=== PATIENT | male | born 1965 | race Caucasian/White ===

== ENCOUNTER 2023-06-25 16:36 | Emergency (ER) | payer OTHER, SELFPAY ==
[2023-06-25 16:42] VITALS: BP 132/72; PULSE 82; TEMP 36.8; O2SAT 97; BMI 27.1
--- NOTE | 2023-06-25 16:57 | CT_ITS ---
[address] [address] Patient Name: MICH BECK MRN: [id number] date: 1965 Sex: M Assigned Patient Location: ER Current Patient Location: ER Accession/Order Number: [id number] Exam Date: 06/25/2023 17:38 Report Date: 06/25/2023 18:15 At the request of: GALE DAVE Procedure: CT lumbar spine wo con EXAMINATION:CT lumbar spine wo con HISTORY:Low back pain COMPARISON:CT abdomen pelvis dated 09/08/2021. TECHNIQUE:Multiple thin section transaxial slices were acquired through the lumbar spine without contrast. Coronal and sagittal reconstructed images were reviewed. FINDINGS: There is normal alignment of the lumbar spine without spondylolisthesis. There is levoscoliotic curvature of the lumbar spine. There is a stable chronic compression deformity of the L1 vertebral body involving approximately 30% loss of height. There is no retropulsion. There are no acute compression fractures in the lumbar spine. There are bilateral L5 pars defects. There is moderate multilevel degenerative disc disease in the lumbar spine most severe at the L3-L4 level slightly accentuated by the scoliotic curvature. There is mild to moderate asymmetric left L3-L5 bony neural foraminal stenosis and mild asymmetric right L4-L5 bony neural foraminal stenosis. Visualized bony pelvis is intact. Incidental note is made of incomplete splenomegaly. There is also cholelithiasis. There are nonspecific inflammatory changes in the mesenteric fat in the visualized left lower quadrant. CT/CT lumbar spine wo con IMPRESSION: 1. Stable chronic compression deformity of the L1 vertebral body. No acute compression fractures. Moderate multilevel degenerative disc disease is present as discussed above. 2. Incompletely imaged and indeterminate mesenteric fat stranding in the visualized left lower quadrant. A dedicated contrast-enhanced CT scan of the abdomen and pelvis is recommended for better characterization of this finding. 3. The visualized spleen demonstrates splenomegaly. Electronically authenticated by: MARQUITA CHEEK Date: 06/25/2023 18:15
--- NOTE | 2023-06-25 16:59 | ED.BACK1 ---
HPI HPI - Back Pain/Injury General Chief Complaint: Back Pain/Injury Stated Complaint: Lower Exremity Pain Time Seen by Provider: 06/25/23 16:49 Source: patient Mode of arrival: walk-in History of Present Illness HPI Narrative: Patient is a 57-year-old male presents to the ER with concerns of low back pain. Patient reports pain started on Monday, denies injury. States he can stand for a little while before pain starts to develop, he then has to sit. Pain slowly subsides after several hours. He denies any radiation to his legs. He has chronic appearing edema in the lower legs denies any bowel or bladder incontinence or saddle paresthesias. Patient reports the pain can be significant with standing and activity. He is treated for fluid prior history of heroin abuse and is on Subutex, Gabapentin, but does not see a family doctor for routine care.. Alcohol 2 twisted teas And smokes 1 pack/day Reviewed prior medical records at our facility patient had a CT of the abdomen and pelvis on 09/08/2021 with abnormal findings but did not have any follow-up to another clinic with this. MD elicited complaint: Reports back pain Timing: Reports progressively worsening Severity: moderate Similar Symptoms Previously: Yes Quality: Reports aching Location: Reports lumbar spine Radiation: Reports none Exacerbating factors: Reports sitting upright, walking and lifting Relieving factors: Reports supine Associated symptoms: denies other symptoms Related Data Home Medications ?Medication ?Instructions ?Recorded ?Confirmed buprenorphine HCl 8 mg sublingual mg sublingual 06/25/23 tablet gabapentin 300 mg capsule mg 06/25/23 quetiapine 200 mg tablet mg 06/25/23 Previous Rx's ?Medication ?Instructions ?Recorded prednisone 20 mg tablet 20 mg PO BID 5 days #10 tabs 06/25/23 Allergies Allergy/AdvReac Type Severity Reaction Status Date / Time No Known Drug Allergies Allergy Verified 06/25/23 16:46 Opioid HPI Opioid Management Most Recent Opioid Data: Last APR Pain Assessment 06/25/23 17:17 Review of Systems ROS Constitutional Denies: fever or chills Eyes Denies: change in vision Ears, nose, mouth, and throat Denies: throat pain or neck pain Cardiovascular Denies: chest pain or palpitations Respiratory Denies: shortness of breath or cough Gastrointestinal Denies: abdominal pain, nausea or vomiting Genitourinary Denies: painful urination or urinary frequency Musculoskeletal Reports: back pain and extremity swelling; Denies: neck pain, extremity pain or joint swelling Integumentary/Breast Reports: redness (bilateral lower legs. ); Denies: rash Neurological Denies: headache, numbness in extremities or weakness in extremities Psychiatric Denies: anxiety Hematologic/Lymphatic Denies: easy bruising Allergic/Immunologic Denies: hives Exam Narrative Exam Narrative: Vital Signs reviewed and nurse's notes reviewed. The patient is not hypoxic. General: Alert, no acute distress, patient resting comfortably Skin: warm, intact, no pallor noted, no rash, This dependent rubor/ erythema is noted bilateral lower legs, justen wrap on left leg. Head: Normocephalic, atraumatic Eye: Normal conjunctiva, EOMI Respiratory: No acute distress Abdomen: Normal bowel sounds, soft, nontender, no masses detected. Large ventral hernia. No rebound, guarding, or rigidity noted. No midline pulsatile mass. Back: inspection of the back shows no obvious deformity, no swelling, no ecchymosis, contusion, abrasion, swelling, erythema, fluctuance or induration. No step offs or crepitus noted. No CVA tenderness noted bilaterally. Tenderness noted to Paraverterbal lumbar region . Straight leg raise on left is neg . Straight leg raise on right is neg. Musculoskeletal: No deformity noted to bilateral lower extremities. 4+ edema with dependent skin changes.no cyanosis or mottling noted. normal pulses at DP and PT 2+ bilaterally and symmetrically. Normal 5/5 strength at ankles with dorsiflexion and plantar flexion. Patient is able to ambulate. Normal sensation noted to the bilateral lower extremities. Neurological: alert and oriented x4, normal sensory and motor observed. DTR 2+ at patellar and achilles bilaterally. Psychiatric: Cooperative Constitutional Vital Signs, click to edit/add: Last Vital Signs Temp 98.2 F 06/25/23 16:42 Pulse 82 06/25/23 16:42 BP 132/72 06/25/23 16:42 Pulse Ox 97 06/25/23 16:42 O2 Del Method Room Air 06/25/23 16:42 Course Vital Signs Vital signs: Vital Signs Temperature 98.2 F 06/25/23 16:42 Pulse Rate 82 06/25/23 16:42 Blood Pressure 132/72 04/28/24 16:42 Pulse Oximetry 97 06/25/23 16:42 Oxygen Delivery Method Room Air 06/25/23 16:42 Temperature 98.2 F 06/25/23 16:42 Pulse Rate 82 06/25/23 16:42 Blood Pressure 132/72 06/25/23 16:42 Pulse Oximetry 97 06/25/23 16:42 Oxygen Delivery Method Room Air 06/25/23 16:42 MDM - Back Pain/Injury MDM Narrative Medical decision making narrative: Remote abdominal CT reviewed, patient had abnormal lymph nodes, Reports no follow-up to the study. Given back pain and patient with slight diaphoresis on arrival recommend CT and labs. Patient reevaluated, appears much improved, moving about the room in no distress and no longer sweaty, we discussed his lab studies, anemia. CT showing degenerative changes stable remote L1 compression fracture and we discussed the need for ongoing follow-up to a family doctor for possible further testing and referral to possible pain management. Patient verbalized understanding, we discussed the abnormalities on his CT including fat stranding, the anemia and his blood work. Patient verbalized plan to establish PCP to discuss ongoing care. Given his current medications we will avoid narcotics and he will be placed on a prednisone burst pending follow-up The patient is to followup with primary care physician in next 2-3 days or to return to the emergency department should any of the signs or symptoms worsen or new symptoms develop. Patient had questions answered. The patient agrees with the following Diagnosis and Treatment plan and the patient will be discharged home. Medical Records Attestation: I reviewed the patient's medical records. Medical records narrative: Prior CT 2021 Lab Data Attestation: I reviewed the patient's lab results. Labs: Lab Results 06/25/23 06/25/23 Range/Units 17:15 17:46 WBC 4.8 (4.0-11.0) 10^3/uL RBC 3.23 L (4.70-6.10) 10^6/uL Hgb 10.0 L (14.0-18.0) g/dL Hct 30.6 L (42.0-54.0) % MCV 94.7 H (80.0-94.0) fL MCH 31.0 (25.9-34.0) pg MCHC 32.7 (29.9-35.2) g/dL RDW 16.8 H (11.0-15.0) % Plt Count 85 L (150-450) 10^3/uL MPV 9.1 L (9.5-13.5) fL Neut % (Auto) 59.7 (43.0-75.0) % Lymph % (Auto) 29.6 (20.5-60.0) % [place] % (Auto) 8.4 (1.7-12.0) % Eos % (Auto) 1.7 (0.9-7.0) % Baso % (Auto) 0.4 (0.2-2.0) % Neut # (Auto) 2.9 (1.4-6.5) 10^3/uL Lymph # (Auto) 1.4 (1.2-3.8) 10^3/uL [place] # (Auto) 0.4 (0.3-0.8) 10^3/uL Eos # (Auto) 0.1 (0.0-0.7) 10^3/uL Baso # (Auto) 0.0 (0.0-0.1) 10^3/uL Abs Immat Gran (auto) 0.01 (0.00-0.03) 10^3/uL Imm/Tot Granulo (auto) 0.2 (0.0-0.5) % Sodium 136 (136-145) mmol/L Potassium 4.1 (3.5-5.1) mmol/L Chloride 100 (98-107) mmol/L Carbon Dioxide 26.1 (21.0-32.0) mmol/L Anion Gap 14.0 BUN 9.0 (7.0-18.0) mg/dL Creatinine 0.84 (0.70-1.30) mg/dL Est GFR ( Amer) >60 (>=60) Est GFR (Non-Af Amer) >60 (>=60) BUN/Creatinine Ratio 10.7 Glucose 83 (74-106) mg/dL Calcium 8.9 (8.5-10.1) mg/dL Total Bilirubin 0.6 (0.2-1.0) mg/dL AST 23 (15-37) U/L ALT 14 L (16-63) U/L Alkaline Phosphatase 82 (46-116) U/L Total Protein 8.2 (6.4-8.2) g/dL Albumin 3.4 (3.4-5.0) g/dL Globulin 4.8 g/dL Albumin/Globulin Ratio 0.7 Urine Color Dk. yellow (YELLOW) Urine Clarity Clear (CLEAR) Urine pH 6.0 (5.0-9.0) Ur Specific [place] 1.025 (1.005-1.025) Urine Protein Negative (NEG/TRACE) mg/dL Urine Glucose (UA) Negative (NEGATIVE) mg/dL Urine Ketones Trace A (NEGATIVE) mg/dL Urine Occult Blood Negative (NEGATIVE) Urine Nitrite Negative (NEGATIVE) Urine Bilirubin Small A (NEGATIVE) Urine Urobilinogen 2.0 A (0.2-1.0) EU/dL Ur Leukocyte Esterase Negative (NEGATIVE) Imaging Data L spine CT: Radiologist's impression: ITS Impressions Lumbar Spine CT 06/25/23 16:57 IMPRESSION: 1. Stable chronic compression deformity of the L1 vertebral body. No acute compression fractures. Moderate multilevel degenerative disc disease is present as discussed above. 2. Incompletely imaged and indeterminate mesenteric fat stranding in the visualized left lower quadrant. A dedicated contrast-enhanced CT scan of the abdomen and pelvis is recommended for better characterization of this finding. 3. The visualized spleen demonstrates splenomegaly. Electronically authenticated by: MARQUITA CHEEK Date: 06/25/2023 18:15 Smoking Cessation Patient Acknowledges Need for Cessation: Yes Discharge Plan Discharge Stand Alone Forms: Portal Instructions Chief Complaint: Back Pain/Injury Clinical Impression: Low back pain, Anemia Patient Disposition: Home, Self-Care Time of Disposition Decision: 18:34 Condition: Good Prescriptions / Home Meds: New prednisone 20 mg tablet 20 mg PO BID 5 Days Qty: 10 0RF No Action quetiapine 200 mg tablet gabapentin 300 mg capsule buprenorphine HCl 8 mg tablet, sublingual SUBLINGUAL Print Language: Swedish Instructions: Acute Low Back Pain (ED), Anemia (ED) Additional Instructions: List given for PCP accepting new Pt's Referrals: Varghese Palafox MD [Physician] - As soon as possible
[2023-06-25] MEDS: ORPHENADRINE 60 MG/ 2 ML VIAL IM (17:16)
[2023-06-25] MEDS: KETOROLAC TROMETHAMINE 60 MG/2 ML VIAL IM (17:17)
[2023-06-25 17:23] LABS: Basophils Percent Auto 0.4 % (0.2-2.0); Eosinophils Absolute Auto 0.1 10^3/uL (0.0-0.7); Eosinophils Percent Auto 1.7 % (0.9-7.0); Hematocrit 30.6 % (42.0-54.0); Immature Granulocytes Abs Auto 0.01 10^3/uL (0.00-0.03); Immature Granulocytes Pct Auto 0.2 % (0.0-0.5); Lymphocytes Absolute Auto 1.4 10^3/uL (1.2-3.8); Lymphocytes Percent Auto 29.6 % (20.5-60.0); Mean Corpuscular HGB Conc 32.7 g/dL (29.9-35.2); Mean Corpuscular Volume 94.7 fL (80.0-94.0); Mean Platelet Volume 9.1 fL (9.5-13.5); Monocytes Absolute Auto 0.4 10^3/uL (0.3-0.8); Monocytes Percent Auto 8.4 % (1.7-12.0); Neutrophils Absolute Auto 2.9 10^3/uL (1.4-6.5); Neutrophils Percent Auto 59.7 % (43.0-75.0); Platelet Count 85 10^3/uL (150-450); Red Blood Count 3.23 10^6/uL (4.70-6.10); Red Cell Distribution Width 16.8 % (11.0-15.0); White Blood Count 4.8 10^3/uL (4.0-11.0)
[2023-06-25 17:36] LABS: Alanine Aminotransferase 14 U/L (16-63); Albumin Globulin Ratio 0.7; Albumin Level 3.4 g/dL (3.4-5.0); Alkaline Phosphatase 82 U/L (46-116); Aspartate Amino Transferase 23 U/L (15-37); BUN Creatinine Ratio 10.7; Bilirubin Total 0.6 mg/dL (0.2-1.0); Calcium 8.9 mg/dL (8.5-10.1); Carbon Dioxide 26.1 mmol/L (21.0-32.0); Chloride 100 mmol/L (98-107); Estimated GFR (African America >60 (>=60); Estimated GFR (Non-African Ame >60 (>=60); Globulin 4.8 g/dL; Glucose 83 mg/dL (74-106); Potassium 4.1 mmol/L (3.5-5.1); Sodium 136 mmol/L (136-145); Total Protein 8.2 g/dL (6.4-8.2)
[2023-06-25 17:53] LABS: Bilirubin Urine SMALL (NEGATIVE); Blood Urine NEGATIVE (NEGATIVE); Clarity Urine CLEAR (CLEAR); Color Urine DK. YELLOW (YELLOW); Glucose Urine UA NEGATIVE (NEGATIVE); Ketones Urine TRACE mg/dL (NEGATIVE); Leukocyte Esterase Urine NEGATIVE (NEGATIVE); Nitrite Urine NEGATIVE (NEGATIVE); Protein Urine NEGATIVE (NEG/TRACE); Specific Gravity Urine 1.025 (1.005-1.025)
[2023-06-25 17:54] LABS: Urine Microscopic Indicated NO
[2023-06-25] MEDS: PREDNISONE 20 MG TABLET 40 MG PO (18:43)
== END 2023-06-25 18:50 | disposition home or self-care (01) ==
PROVIDERS: Personal Emergency Response Attendant; Emergency Provider Emergency Medicine Emergency Medical Services
DX: D64.9 Anemia, unspecified (principal); M54.50 Low back pain, unspecified; F17.210 Nicotine dependence, cigarettes, uncomplicated; Z79.899 Other long term (current) drug therapy
CPT/HCPCS: 36415; 72131; 80053; 81003; 85025; 96372; 99285

== ENCOUNTER 2023-07-04 14:17 | Emergency (ER) | payer OTHER, SELFPAY ==
[2023-07-04] VITALS (8 sets, daily range): BP systolic 132–177; BP diastolic 58–94; PULSE 60–84; TEMP 36.6; O2SAT 93–99; BMI 36.6
--- OUTSIDE RECORDS SUMMARY | 2023-07-04 14:27 | XMS_ITS | CCD ---
Author Organization [facility] Care Team Providers Care Graphic Artist Name Role Phone Coleen Snider Primary Care Provider [phone] Kristi Anglin Attending Provider NEELA, DR VEGA Primary Care Unavailable FRANCES BALDERRAMA Attending Unavailable FRANCES BALDERRAMA Consulting Unavailable FRANCES BALDERRAMA Admitting Unavailable NANCY CAMPOS Attending Unavailable NANCY CAMPOS Consulting Unavailable NANCY CAMPOS Admitting Unavailable NEELA, DR VEGA Primary Care Unavailable VELIA DE LA VEGA Consulting Unavailable DR GARY KEITA Primary Care Unavailable DR CHIARA WEBB Attending Unavailable DR CHIARA WEBB Admitting Unavailable LAUREN LE Consulting Unavailable ANDREA NG Consulting Unavailable Unavailable Unavailable Unavailable Allergies Allergy Classification Reported Allergen(s) Allergy Type Date of Onset Reaction(s) Facility (2 sources) meloxicam Drug Allergy 04-06-2020 [facility] (1 source) meloxicam Drug Allergy 01-16-2015 [facility] Repository Medications Current Medications Medication Drug Class(es) Dates Sig (Normalized) Sig (Original) buprenorphine 8 mg / naloxone 2 mg oral strip (2 sources) Partial Opioid Agonist, Opioid Antagonist Start: 04-06-2020 Buprenorphine-Nal oxone (Suboxone) 8-2 mg film Active 8 EACH SUBLINGUAL Daily April 06, 2020 2:11pm ofloxacin 3 mg/ml ophthalmic solution (2 sources) Quinolone Antimicrobial Start: 04-06-2020 take 1 drop(s) into the eye(s) four times daily Ofloxacin Active 1 DROPS EYE-LEFT Four times daily April 06, 2020 2:11pm prednisoLONE acetate 10 mg/ml ophthalmic suspension (2 sources) Corticosteroid Start: 04-06-2020 take 1 drop(s) into the eye(s) four times daily Prednisolone Acetate Active 1 DROPS EYE-LEFT Four times daily April 06, 2020 2:11pm QUEtiapine 200 mg oral tablet (4 sources) Atypical Antipsychotic Start: 04-06-2020 take 1 tablet by mouth once daily at bedtime Quetiapine (Seroquel) 200 mg Tablet Active 200 MG PO Daily at bedtime April 06, 2020 2:11pm Start: 04-06-2020 take 1 tablet by sameer th once daily in the morning Quetiapine (Seroquel) 400 mg Tablet Active 400 MG PO Every morning April 06, 2020 2:11pm Problems Active Problems Problem Classification Problem Date Documented Da te Episodic/Chronic Lymphadenitis (1 source) Generalized enlarged lymph nodes; Translations: [GENERALIZED ENLARGED LYMPH NODES] Onset: 09-10-2021 Episodic Other aftercare (1 source) Other shelter (current) drug therapy; Translations: [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] Onset: 09-10-2021 Episodic Other infections; including parasitic (1 source) Personal history of other infectious and parasitic diseases; Translations: [PERSONAL HX OTH INF AND PARASITIC DZ] Onset: 09-10-2021 Episodic Peripheral and visceral atherosclerosis (1 source) Peripheral vascular disease, unspecified; Translations: [PERIPHERAL VASCULAR DISEASE UNS] Onset: 10-05-2020 Chronic Spondylosis; intervertebral disc disorders; other back problems (2 sources) Spondylosis without myelopathy or radiculopathy, lumbar region; Translations: [Spondylosis without myelopathy or radiculopathy, thoracic region] Onset: 09-10-2021 Chronic Substance-related disorders (2 sources) Nicotine dependence, cigarettes, uncomplicated; Translations: [Opioid abuse, uncomplicated] Onset: 09-10-2021 Chronic Unclassified (3 sources) LOW BACK PAIN, UNSPECIFIED; Translations: [LOW BACK PAIN, UNSPECIFIED] Onset: 09-10-2021 Past or Other Problems Problem Classification Problem Date Documented Da te Episodic/Chronic Abdominal pain (4 sources) Unspecified abdominal pain; Translations: [UNSPECIFIED ABDOMINAL PAIN] Onset: 10-01-2020 Episodic Calculus of urinary tract (1 source) Personal history of urinary calculi; Translations: [PERSONAL HISTORY OF URINARY CALCULI] Onset: 09-22-2020 Episodic Spondylosis; intervertebral disc disorders; other back problems (1 source) Dorsalgia, unspecified; Translations: [DORSALGIA UNSPECIFIED] Onset: 10-05-2020 Episodic Unclassified (1 source) LOW BACK PAIN, UNSPECIFIED; Translations: [LOW BACK PAIN, UNSPECIFIED] Onset: 09-08-2021 Results Test Name Value Interpretation Reference Range Facility CBC AUTO DIFFon 09-08-2021 BASO # 0.0 103/ul Normal 0.0-0.1 [facility] Comment on above: Performed By: #### C BC #### [facility] [address] [address] [address] Cristina Nino Basophils/100 WBC (Bld) 0.5 % Normal 0.2-2.0 [facility] Comment on above: Performed By: #### C BC #### [facility] [address] [place] [address] Dr. Cristina Nino EO # 0.1 103/ul Normal 0.0-0.7 [facility] Comment on above: Performed By: #### C BC #### [facility] [address] [place] [address] Dr. Cristina Nino Eosinophils/100 WBC (Bld) 0.9 % Normal 0.9-7.0 [facility] Comment on above: Performed By: #### C BC #### [facility] [address] [place] [address] Dr. Cristina Nino Erythrocyte distribution width (RBC) [Ratio] 15.9 % Critically high 11.0-15.0 [facility] Comment on above: Performed By: #### C BC #### [facility] [address] [place] [address] Dr. Cristina Nino Hematocrit (Bld) [Volume fraction] 35.7 % Critically low 42.0-54.0 [facility] Comment on above: Performed By: #### C BC #### [facility] [address] [place] [address] Dr. Cristina Nino Hemoglobin (Bld) [Mass/Vol] 11.8 g/dL Critically low 14.0-18.0 [facility] Comment on above: Performed By: #### C BC #### [facility] [address] [place] [address] Dr. Cristina Nino IG # 0.02 10e3/ul Normal 0.00-0.03 [facility] Comment on above: Performed By: #### C BC #### [facility] [address] [place] [address] Dr. Cristina Nino IG % 0.4 % Normal 0.0-0.5 [facility] Comment on above: Performed By: #### C BC #### [facility] [address] [place] [address] Dr. Cristina Nino LYMPH # 1.7 103/ul Normal 1.2-3.8 [facility] Comment on above: Performed By: #### C BC #### [facility] [address] [place] [address] Dr. Cristina Nino Lymphocytes/100 WBC (Bld) 30.6 % Normal 20.5-60.0 [facility] Comment on above: Performed By: #### C BC #### [facility] [address] [place] [address] Dr. Cristina Nino MANUAL DIFF REQ NO Normal [facility] Comment on above: Performed By: #### C BC #### [facility] [address] [place] [address] Dr. Cristina Nino MCH (RBC) [Entitic mass] 30.9 pg Normal 25.9-34.0 [facility] Comment on above: Performed By: #### C BC #### [facility] [address] [place] [address] Dr. Cristina Nino MCHC (RBC) [Mass/Vol] 33.1 g/dL Normal 29.9-35.2 [facility] Comment on above: Performed By: #### C BC #### [facility] [address] [place] [address] Dr. Cristina Nino MCV (RBC) [Entitic vol] 93.5 fL Normal 80.0-94.0 [facility] Comment on above: Performed By: #### C BC #### [facility] [address] [place] [address] Dr. Cristina Nino MONO # 0.3 103/ul Normal 0.3-0.8 [facility] Comment on above: Performed By: #### C BC #### [facility] [address] [address] [address] Cristina Nino Monocytes/100 WBC (Bld) 6.0 % Normal 1.7-12.0 [facility] Comment on above: Performed By: #### C BC #### [facility] [address] [address] [address] Cristina Nino NEUT # 3.4 103/ul Normal 1.4-6.5 [facility] Comment on above: Performed By: #### C BC #### [facility] [address] [address] [address] Cristina Nino Neutrophils/100 WBC (Bld) 61.6 % Normal 43.0-75.0 [facility] Comment on above: Performed By: #### C BC #### [facility] [address] [place] [address] Dr. Cristina Nino Platelet mean volume (Bld) [Entitic vol] 9.9 fL Normal 9.5-13.5 [facility] Comment on above: Performed By: #### C BC #### [facility] [address] [place] [address] Dr. Cristina Nino PLT 87 103/ul Critically low 150-450 [facility] Comment on above: Performed By: #### C BC #### [facility] [address] [address] [address] Cristina Nino RBC 3.82 106/ul Critically low 4.70-6.10 [facility] Comment on above: Performed By: #### C BC #### [facility] [address] [place] [address] Dr. Cristina Nino WBC 5.5 103/ul Normal 4.0-11.0 [facility] Comment on above: Performed By: #### C BC #### [facility] [address] [place] [address] ABD/PELVIS WO CONon 09-08 CT ABD/PELVIS WO CON EXAMINATION: CT ABD/PELVIS WO CON, 09/08/2021 4:19 PM EDT HISTORY: Low back pain. COMPARISON STUDY: CT of the abdomen and pelvis without contrast 09/19/2020 TECHNIQUE: 3 mm sections were obtained from the lung bases through the pubic symphysis without the use of contrast. Coronal and sagittal reconstructed images were obtained. CT scan of the abdomen and pelvis was performed without IV contrast. CT dose reduction technique was used, including Automated Exposure Control. CT ABDOMEN: Mild bibasilar atelectatic changes are noted. The heart size is similarly enlarged. Cirrhotic change of the liver is again suspected. The right hepatic lobe measures 18.8 cm superior to inferior. The spleen measures 19.6 cm superior to inferior. Tiny calcified stone within the gallbladder lumen is noted. The pancreas, adrenal glands, and kidneys appear unremarkable. Atherosclerotic changes of the aorta and its branches without aneurysm noted. CT PELVIS: There is mild circumferential thickened appearance to the urinary bladder wall. Lumen is partially collapsed. Prostate and seminal vesicles appear otherwise unremarkable. Bowel pattern is nonobstructive. Appendix appears to be surgically absent. Small upper abdominal varices are again noted. There are noncalcified, nonenlarged, and mildly enlarged retroperitoneal nodes again identified. A left common iliac node for example on image 102 measures 18 x 21 mm. Right common iliac node more caudally on image 108 measures 15 x 21 mm. A left common iliac node on image #109 measures 16 x 21 mm. The more distal bilateral external iliac nodes are also stable. An upper retroperitoneal node near the caudate lobe on image #43 for example measures 16 x 30 mm. Multilevel thoracic and lumbar spondylitic/facet arthritic changes with multilevel Schmorl's node formation noted. Bilateral pars defects at the L5 level noted without significant anterolisthesis. Lumbar levocurvature is centered at the L2 level. Osteoarthritic changes about the hips are at least moderate in severity and asymmetrically greater toward the right. Mild involvement about both SI joints noted. Old healed bilateral lower rib fracture deformities are identified. IMPRESSION: 1. Mild hepatomegaly with cirrhotic change of the liver. Moderate splenomegaly again noted. 2. Cholelithiasis without acute cholecystitis. 3. Nonspecific circumferential thickening of the urinary bladder wall in part related to partial distention. Infectious/inflammatory cystitis cannot be excluded. Correlate with urinalysis. 4. Mildly prominent retroperitoneal and bilateral iliac chain nodes are again noted and unchanged. These are likely reactive and not uncommonly seen in patients with chronic hepatic disease. Continued follow-up is recommended as underlying metastatic disease and/or lymphoproliferative process cannot be excluded. 5. Old healed bilateral lower rib fractures. Significant degenerative changes of the spine with levoscoliosis. Moderate osteoarthritic changes about both hips, asymmetrically greater toward the right again noted. Electronically authenticated by: ANDREA NG Date: 2021-09-08 18:20 Normal [facility] ER URINE PROFILEon 2 Bilirubin Ql (U) Negative Normal NEGATIVE [facility] Comment on above: Performed By: #### E RUR #### [facility] [address] [place] [address] Dr. Cristina Nino Clarity (U) CLEAR Normal CLEAR [facility] Comment on above: Performed By: #### E RUR #### [facility] [address] [place] [address] Dr. Cristina Nino Color (U) YELLOW Normal YELLOW [facility] Comment on above: Performed By: #### E RUR #### [facility] [address] [place] [address] Dr. Cristina WATSON A micrscopic examination will be performed if indicated. Normal [facility] Comment on above: Performed By: #### E RUR #### [facility] [address] [place] [address] Dr. Cristina Nino Glucose Ql (U) Negative Normal NEGATIVE [facility] Comment on above: Performed By: #### E RUR #### [facility] [address] [place] [address] Dr. Cristina Nino Hemoglobin Ql (U) Negative Normal NEGATIVE [facility] Comment on above: Performed By: #### E RUR #### [facility] [address] [place] [address] Dr. Cristina Nino Ketones Ql (U) Negative Normal NEGATIVE [facility] Comment on above: Performed By: #### E RUR #### [facility] [address] [place] [address] Dr. Cristina Nino LEUKOCYTES Negative Normal NEGATIVE [facility] Comment on above: Performed By: #### E RUR #### [facility] [address] [place] [address] Dr. Cristina Nino Nitrite Ql (U) Negative Normal NEGATIVE [facility] Comment on above: Performed By: #### E RUR #### [facility] [address] [place] [address] Dr. Cristina Nino pH (U) 6.0 [pH] Normal 5-9 [facility] Comment on above: Performed By: #### E RUR #### [facility] [address] [place] [address] Dr. Cristina Nino SPEC GRAVITY 1.015 Normal 1.005-<=1.025 [facility] Comment on above: Performed By: #### E RUR #### [facility] [address] [place] [address] Dr. Cristina Nino UA PROTEIN Negative Normal NEGATIVE/ TRACE [facility] Comment on above: Performed By: #### E RUR #### [facility] [address] [place] [address] Dr. Cristina Nino UR MICRO IND NOT INDICATED Normal [facility] Comment on above: Performed By: #### E RUR #### [facility] [address] [place] [address] Dr. Cristina Nino Urobilinogen Qn (U) 0.2 {Renee'U}/dL Normal 0.2 - 1. 0 [facility] Comment on above: Performed By: #### E RUR #### [facility] [address] [place] [address] Dr. Cristina Nino PROF CHEM 8 (BAS METB)on Anion gap [Moles/Vol] 15.0 mmol/L Normal [facility] Comment on above: Performed By: #### B MP #### [facility] [address] [place] [address] Dr. Cristina Nino Calcium [Mass/Vol] 8.8 mg/dL Normal 8.5-10.1 [facility] Comment on above: Performed By: #### B MP #### [facility] [address] [place] [address] Dr. Cristina Nino Chloride [Moles/Vol] 99 mmol/L Normal 98-107 [facility] Comment on above: Performed By: #### B MP #### [facility] [address] [address] [address] Cristina Nino CO2 [Moles/Vol] 23.9 mmol/L Normal 21.0-32.0 [facility] Comment on above: Performed By: #### B MP #### [facility] [address] [address] [address] Cristina Nino Creatinine [Mass/Vol] 1.04 mg/dL Normal 0.70-1.30 [facility] Comment on above: Performed By: #### B MP #### [facility] [address] [place] [address] Dr. Cristina Nino EGFR-AF SUDANESE >60 Normal >=60 [facility] Comment on above: Performed By: #### B MP #### [facility] [address] [address] [address] Cristina Nino EGFR-NON AF SUDANESE >60 Normal >=60 [facility] Comment on above: Performed By: #### B MP #### [facility] [address] [address] [address] Cristina Nino Glucose [Mass/Vol] 122 mg/dL Critically high 74-106 [facility] Comment on above: Performed By: #### B MP #### [facility] [address] [address] [address] Cristina Nino Potassium [Moles/Vol] 4.9 mmol/L Normal 3.5-5.1 [facility] Comment on above: Performed By: #### B MP #### [facility] [address] [address] [address] Cristina Nino Sodium [Moles/Vol] 133 mmol/L Critically low 136-145 [facility] Comment on above: Performed By: #### B MP #### [facility] [address] [address] [address] Cristina Nino Urea nitrogen [Mass/Vol] 11.0 mg/dL Normal 7.0-18.0 [facility] Comment on above: Performed By: #### B MP #### [facility] [address] [address] [address] Cristina Nino Urea nitrogen/Creatinine [Mass ratio] 10.6 mg/mg Normal [facility] Comment on above: Performed By: #### B MP #### [facility] [id number] Cristina Nino CBC AUTO DIFFon 10-01-2020 BASO # 0.0 103/ul Normal 0.0-0.1 [facility] Comment on above: Performed By: #### C BC ####[facility] [address] [address]Ger[place] Mary Basophils/100 WBC (Bld) 0.5 % Normal 0.2-2.0 [facility] Comment on above: Performed By: #### C BC ####[facility] [address] [place], [place] [address]Ger[place] Mary EO # 0.1 103/ul Normal 0.0-0.7 [facility] Comment on above: Performed By: #### C BC ####[facility] [address] [place], [place] [address]Ger[place] Mary Eosinophils/100 WBC (Bld) 1.3 % Normal 0.9-7.0 [facility] Comment on above: Performed By: #### C BC ####[facility] [address] [id number] Mary Erythrocyte distribution width (RBC) [Ratio] 15.9 % Critically high 11.0-15.0 [facility] Comment on above: Performed By: #### C BC ####[facility] [address] [id number] Mary Hematocrit (Bld) [Volume fraction] 36.7 % Critically low 42.0-54.0 [facility] Comment on above: Performed By: #### C BC ####[facility] [address] [id number] Mary Hemoglobin (Bld) [Mass/Vol] 12.1 g/dL Critically low 14.0-18.0 [facility] Comment on above: Performed By: #### C BC ####[facility] [address] Mary IG # 0.03 10e3/ul Normal 0.00-0.03 [facility] Comment on above: Performed By: #### C BC ####[facility] [address] Mary IG % 0.5 % Normal 0.0-0.5 [facility] Comment on above: Performed By: #### C BC ####[facility] [address] [place] [address] Mary LYMPH # 1.9 103/ul Normal 1.2-3.8 [facility] Comment on above: Performed By: #### C BC ####[facility] [address] [place] [address] Mary Lymphocytes/100 WBC (Bld) 31.9 % Normal 20.5-60.0 [facility] Comment on above: Performed By: #### C BC ####[facility] [address] [place] [address] Mary MANUAL DIFF REQ NO Normal [facility] Comment on above: Performed By: #### C BC ####[facility] [address] [place] [address] Mary MCH (RBC) [Entitic mass] 31.5 pg Normal 25.9-34.0 [facility] Comment on above: Performed By: #### C BC ####[facility] [address] [place] [address] Mary MCHC (RBC) [Mass/Vol] 33.0 g/dL Normal 29.9-35.2 [facility] Comment on above: Performed By: #### C BC ####[facility] [address] [place] [address] Mary MCV (RBC) [Entitic vol] 95.6 fL Critically high 80.0-94.0 [facility] Comment on above: Performed By: #### C BC ####[facility] [address] [place], [place] [address]Ufzbaq Mary MONO # 0.4 103/ul Normal 0.3-0.8 [facility] Comment on above: Performed By: #### C BC ####[facility] [address] [place], [place] [address]Nexzrk Mary Monocytes/100 WBC (Bld) 7.1 % Normal 1.7-12.0 [facility] Comment on above: Performed By: #### C BC ####[facility] [address] [place], [place] [address]Rsohnz Mary NEUT # 3.6 103/ul Normal 1.4-6.5 [facility] Comment on above: Performed By: #### C BC ####[facility] [address] [id number] Mary Neutrophils/100 WBC (Bld) 58.7 % Normal 43.0-75.0 [facility] Comment on above: Performed By: #### C BC ####[facility] [address] [place], [place] [address]QmqjdtBharathi Hernandez Platelet mean volume (Bld) [Entitic vol] 9.1 fL Critically low 9.5-13.5 [facility] Comment on above: Performed By: #### C BC ####[facility] [address] [id number] Mary PLT 112 103/ul Critically low 150-450 [facility] Comment on above: Performed By: #### C BC ####[facility] [address] [place], [place] [address]Sukopc Mary RBC 3.84 106/ul Critically low 4.70-6.10 [facility] Comment on above: Performed By: #### C BC ####[facility] [address] [id number] Mary WBC 6.1 103/ul Normal 4.0-11.0 [facility] Comment on above: Performed By: #### C BC ####[facility] [address] [id number] Mary ER URINE PROFILEon 1 Bilirubin Ql (U) Negative Normal NEGATIVE [facility] Comment on above: Performed By: #### E RUR #### [facility] [address] [place] [address] Bharathi Mary Clarity (U) CLEAR Normal CLEAR [facility] Comment on above: Performed By: #### E RUR #### [facility] [address] [place] [address] Bharathi Mary Color (U) YELLOW Normal YELLOW [facility] Comment on above: Performed By: #### E RUR #### [facility] [address] [place] [address] Bharathi Mary ERUAHD A micrscopic examination will be performed if indicated. Normal [facility] Comment on above: Performed By: #### E RUR #### [facility] [address] [place] [address] Bharathi Mary Glucose Ql (U) Negative Normal NEGATIVE [facility] Comment on above: Performed By: #### E RUR #### [facility] [address] [place] [address] Bharathi Mary Hemoglobin Ql (U) Negative Normal NEGATIVE [facility] Comment on above: Performed By: #### E RUR #### [facility] [address] [place] [address] Bharathi Mary Ketones Ql (U) Negative Normal NEGATIVE [facility] Comment on above: Performed By: #### E RUR #### [facility] [address] [place] [address] Bharathi Mary LEUKOCYTES Negative Normal NEGATIVE [facility] Comment on above: Performed By: #### E RUR #### [facility] [address] [place] [address] Bharathi Mary Nitrite Ql (U) Negative Normal NEGATIVE [facility] Comment on above: Performed By: #### E RUR #### [facility] [address] [place] [address] Bharathi Mary pH (U) 6.0 [pH] Normal 5-9 [facility] Comment on above: Performed By: #### E RUR #### [facility] [address] [place], [place] [address] Bharathi Hernandez SPEC GRAVITY 1.020 Normal 1.005-<=1.025 [facility] Comment on above: Performed By: #### E RUR #### [facility] [address] [place], [place] [address] Bharathimissael Bealen UA PROTEIN Negative Normal NEGATIVE/ TRACE [facility] Comment on above: Performed By: #### E RUR #### [facility] [address] [place], [place] [address] Bharathi Hernandez UR MICRO IND NOT INDICATED Normal [facility] Comment on above: Performed By: #### E RUR #### [facility] [address] [place], [place] [address] Bharathimissael Hernandez Urobilinogen Qn (U) 0.2 {Renee'U}/dL Normal 0.2 - 1. 0 [facility] Comment on above: Performed By: #### E RUR #### [facility] Laboratory [address] [place], [place] [address] Bharathi Hernandez PROF CHEM 8 (BAS METB)on Anion gap [Moles/Vol] 14.2 mmol/L Normal [facility] Comment on above: Performed By: #### B MP #### [facility] [address] [place], [place] [address] Bharathi Mary Calcium [Mass/Vol] 9.0 mg/dL Normal 8.4-10.2 [facility] Comment on above: Performed By: #### B MP #### [facility] [address] [place], [place] [address] Bharathi Mary Chloride [Moles/Vol] 100 mmol/L Normal 98-107 [facility] Comment on above: Performed By: #### B MP #### [facility] [address] [place], [place] [address] Bharathi Mary CO2 [Moles/Vol] 26.0 mmol/L Normal 22.0-30.0 [facility] Comment on above: Performed By: #### B MP #### [facility] [address] [place], [place] [address] Bharathi Mary Creatinine [Mass/Vol] 1.03 mg/dL Normal 0.66-1.25 [facility] Comment on above: Performed By: #### B MP #### [facility] [address] [place], [place] [address] Bharathi Mary EGFR-AF SUDANESE >60 Normal >=60 [facility] Comment on above: Performed By: #### B MP #### [facility] [address] [place], [place] [address] Bharathi Mary EGFR-NON AF SUDANESE >60 Normal >=60 [facility] Comment on above: Performed By: #### B MP #### [facility] [address] [place] [address] Bharathi Mary Glucose [Mass/Vol] 132 mg/dL Critically high 74-106 [facility] Comment on above: Performed By: #### B MP #### [facility] [address] [place], [place] [address] Bharathi Mary Potassium [Moles/Vol] 4.2 mmol/L Normal 3.4-5.0 [facility] Comment on above: Performed By: #### B MP #### [facility] [address] [place], [place] [address] Bharathi Mary Sodium [Moles/Vol] 136 mmol/L Critically low 137-145 Th [facility] Comment on above: Performed By: #### B MP #### [facility] [address] [place], [place] [address] Bharathi Mary Urea nitrogen [Mass/Vol] 9.0 mg/dL Normal 9.0-20.0 [facility] Comment on above: Performed By: #### B MP #### [facility] [address] [place], [place] [address] Bharathi Mary Urea nitrogen/Creatinine [Mass ratio] 8.7 mg/mg Normal [facility] Comment on above: Performed By: #### B MP #### [facility] [address] [place], [place] [address] ABD/PELVIS WO CONon 09-20 CT ABD/PELVIS WO CON EXAMINATION: CT ABD/PELVIS WO CON HISTORY: CALCULUS OF KIDNEY left flank pain, prior appendectomy. COMPARISON: None. TECHNIQUE: CT examination of the abdomen and pelvis without IV contrast. Coronal and sagittal reformations were performed. Dose reduction techniques were achieved by using automated exposure control and/or adjustment of mA and/or kV according to patient size and/or use of iterative reconstruction technique. FINDINGS: Visualized lung bases unremarkable. Visualized cardiac apex unremarkable. Undulating contour of the liver surface with enlargement of the liver raises question of sequela of hepatocellular disease. Correlate clinically. Small gallstone. Splenomegaly craniocaudal length 18 cm. Pancreas, adrenal glands, kidneys are unremarkable. No large radiopaque obstructing renal stones or hydronephrosis. Mild circumferential urinary bladder wall thickening could reflect under distention versus urinary inflammation or infection. Multiple prominent retroperitoneal left periaortic, bilateral iliac chain lymph nodes are abnormally enlarged. Correlate for sequela of underlying lymphoproliferative, neoplastic, or other systemic etiology. A 29 mm left and 17 mm right iliopsoas intramuscular hypodensity or edema of indeterminate etiology with IV contrast, at the level of the femoral heads. Moderate amount stool throughout the large bowel to the rectum. Reported prior appendectomy. No evidence for bowel small bowel obstruction, large ascites, or free air. Small fat-containing umbilical hernia without bowel protrusion. No acute bony abnormality. IMPRESSION: No large radiopaque obstructing renal stones or hydronephrosis. Extensive splenomegaly. Undulating contour of the liver surface with enlargement of the liver raises question of sequela of hepatocellular disease or other liver infiltrates. Correlate clinically. Mild circumferential urinary bladder wall thickening reflect under distention versus urinary inflammation or infection. Multiple prominent retroperitoneal left periaortic, bilateral iliac chain lymph nodes are abnormally enlarged. Correlate for sequela of underlying lymphoproliferative, neoplastic, or other systemic etiology. A 29 mm left and 17 mm right iliopsoas intramuscular hypodensity or edema of indeterminate etiology with IV contrast, at the level of the femoral heads. Consider MRI musculoskeletal with IV contrast to evaluate for underlying lesion or fluid collection. Small gallstone. Electronically authenticated by: VELIA DE LA VEGA Date: 2020-09-19 22:15 Normal [facility] ER URINE PROFILEon 07-25-202 1 Bilirubin Ql (U) Negative Normal NEGATIVE [facility] Comment on above: Performed By: #### E RUR #### [facility] [address] [place] [address] Bharathi Mary Clarity (U) CLEAR Normal CLEAR [facility] Comment on above: Performed By: #### E RUR #### [facility] [address] [place] [address] Bharathi Mary Color (U) YELLOW Normal YELLOW [facility] Comment on above: Performed By: #### E RUR #### [facility] [address] [place] [address] Bharathi Mary ERUAHD A micrscopic examination will be performed if indicated. Normal [facility] Comment on above: Performed By: #### E RUR #### [facility] [address] [place] [address] Bharathi Mary Glucose Ql (U) Negative Normal NEGATIVE [facility] Comment on above: Performed By: #### E RUR #### [facility] [address] [place] [address] Bharathi Mary Hemoglobin Ql (U) Negative Normal NEGATIVE [facility] Comment on above: Performed By: #### E RUR #### [facility] [address] [place] [address] Bharathi Mary Ketones Ql (U) Negative Normal NEGATIVE [facility] Comment on above: Performed By: #### E RUR #### [facility] [address] [place] [address] Bharathi Mary LEUKOCYTES Negative Normal NEGATIVE [facility] Comment on above: Performed By: #### E RUR #### [facility] [address] [place] [address] Bharathi Mary Nitrite Ql (U) Negative Normal NEGATIVE [facility] Comment on above: Performed By: #### E RUR #### [facility] [address] [place] [address] Bharathi Mary pH (U) 5.5 [pH] Normal 5-9 [facility] Comment on above: Performed By: #### E RUR #### [facility] [address] [place] [address] Bharathi Hernandez SPEC GRAVITY 1.020 Normal 1.005-<=1.025 [facility] Comment on above: Performed By: #### E RUR #### [facility] [address] [place] [address] Bharathimissael Hernandez UA PROTEIN Negative Normal NEGATIVE/ TRACE [facility] Comment on above: Performed By: #### E RUR #### [facility] [address] [place] [address] Bharathi Hernandez UR MICRO IND NOT INDICATED Normal [facility] Comment on above: Performed By: #### E RUR #### [facility] [address] [place] [address] Bharathimissael Hernandez Urobilinogen Qn (U) 0.2 {Renee'U}/dL Normal 0.2 - 1. 0 [facility] Comment on above: Performed By: #### E RUR #### [facility] [address] [place] [address] Bahrathi Mary CBC AUTO DIFFon 09-19-2020 BASO # 0.0 103/ul Normal 0.0-0.1 [facility] Comment on above: Performed By: #### C BC #### [facility] [address] [place] [address] Bharathimissael Hernandez Basophils/100 WBC (Bld) 0.5 % Normal 0.2-2.0 [facility] Comment on above: Performed By: #### C BC #### [facility] [address] [place] [address] Bharathi Mary EO # 0.1 103/ul Normal 0.0-0.7 [facility] Comment on above: Performed By: #### C BC #### [facility] [address] [place], [place] [address] Bharathi Mary Eosinophils/100 WBC (Bld) 1.0 % Normal 0.9-7.0 [facility] Comment on above: Performed By: #### C BC #### [facility] [address] [place] [address] Bharathi Mary Erythrocyte distribution width (RBC) [Ratio] 15.7 % Critically high 11.0-15.0 [facility] Comment on above: Performed By: #### C BC #### [facility] [address] [place] [address] Bharathi Hernandez Hematocrit (Bld) [Volume fraction] 35.3 % Critically low 42.0-54.0 [facility] Comment on above: Performed By: #### C BC #### [facility] [address] [place] [address] Bharathi Hernandez Hemoglobin (Bld) [Mass/Vol] 11.5 g/dL Critically low 14.0-18.0 [facility] Comment on above: Performed By: #### C BC #### [facility] [address] [place] [address] Bharathimissael Hernandez IG # 0.03 10e3/ul Normal 0.00-0.03 [facility] Comment on above: Performed By: #### C BC #### [facility] [address] [place] [address] Bharathi Hernandez IG % 0.4 % Normal 0.0-0.5 [facility] Comment on above: Performed By: #### C BC #### [facility] [address] [place] [address] Bharathi Hernandez LYMPH # 2.2 103/ul Normal 1.2-3.8 [facility] Comment on above: Performed By: #### C BC #### [facility] [address] [place] [address] Bharathi Hernandez Lymphocytes/100 WBC (Bld) 29.6 % Normal 20.5-60.0 [facility] Comment on above: Performed By: #### C BC #### [facility] [address] [place] [address] Bharathi Hernandez MANUAL DIFF REQ NO Normal [facility] Comment on above: Performed By: #### C BC #### [facility] [address] [place] [address] Bharathi Hernandez MCH (RBC) [Entitic mass] 31.0 pg Normal 25.9-34.0 [facility] Comment on above: Performed By: #### C BC #### [facility] [address] [place] [id number] Bharathi Hernandez MCHC (RBC) [Mass/Vol] 32.6 g/dL Normal 29.9-35.2 [facility] Comment on above: Performed By: #### C BC #### [facility] [address] [place] [id number] Bharathi Hernandez MCV (RBC) [Entitic vol] 95.1 fL Critically high 80.0-94.0 [facility] Comment on above: Performed By: #### C BC #### [facility] [address] [place], [place] [address] Bharathi Hernandez MONO # 0.5 103/ul Normal 0.3-0.8 [facility] Comment on above: Performed By: #### C BC #### [facility] [address] [place] [address] Bharathi Hernandez Monocytes/100 WBC (Bld) 6.3 % Normal 1.7-12.0 [facility] Comment on above: Performed By: #### C BC #### [facility] [address] [place], [place] [address] Bharathi Hernandez NEUT # 4.6 103/ul Normal 1.4-6.5 [facility] Comment on above: Performed By: #### C BC #### [facility] [address] [place], [place] [address] Bharathi Hernandez Neutrophils/100 WBC (Bld) 62.2 % Normal 43.0-75.0 [facility] Comment on above: Performed By: #### C BC #### [facility] [address] [place], [place] [address] Bharathi Hernandez Platelet mean volume (Bld) [Entitic vol] 9.2 fL Critically low 9.5-13.5 [facility] Comment on above: Performed By: #### C BC #### [facility] [address] [place] [id number] Bharathimissael Bealen PLT 118 103/ul Critically low 150-450 [facility] Comment on above: Performed By: #### C BC #### [facility] [address] [place], [place] [address] Bharathi Mary RBC 3.71 106/ul Critically low 4.70-6.10 [facility] Comment on above: Performed By: #### C BC #### [facility] [address] [place], [place] [address] Bharathi Mary WBC 7.4 103/ul Normal 4.0-11.0 [facility] Comment on above: Performed By: #### C BC #### [facility] [address] [place] [id number] Bharathimissael Bealen PROF 14(COMP METB)on 021 Albumin [Mass/Vol] 3.9 g/dL Normal 3.5-5.0 [facility] Comment on above: Performed By: #### C MP #### [facility] [address] [place], [place] [address] Bharathi Mary Albumin/Globulin [Mass ratio] 0.8 {ratio} Normal [facility] Comment on above: Performed By: #### C MP #### [facility] [address] [place], [place] [address] Bharathi Mary ALP [Catalytic activity/Vol] 81 U/L Normal 38-126 [facility] Comment on above: Performed By: #### C MP #### [facility] [address] [place], [place] [address] Bharathi Mary ALT [Catalytic activity/Vol] 14 U/L Critically low 21-72 [facility] Comment on above: Performed By: #### C MP #### [facility] [address] [place], [place] [address] Bharathi Mary Anion gap [Moles/Vol] 13.7 mmol/L Normal [facility] Comment on above: Performed By: #### C MP #### [facility] [address] [place], [place] [address] Bharathi Mary AST [Catalytic activity/Vol] 23 U/L Normal 17-59 [facility] Comment on above: Performed By: #### C MP #### [facility] [address] [place] [address] Bharathi Mary Bilirubin [Mass/Vol] 0.6 mg/dL Normal 0.2-1.3 [facility] Comment on above: Performed By: #### C MP #### [facility] [address] [place] [address] Bharathi Mary Calcium [Mass/Vol] 8.9 mg/dL Normal 8.4-10.2 [facility] Comment on above: Performed By: #### C MP #### [facility] [address] [place] [address] Bharathi Mary Chloride [Moles/Vol] 101 mmol/L Normal 98-107 [facility] Comment on above: Performed By: #### C MP #### [facility] [address] [place] [address] Bharathi Mary CO2 [Moles/Vol] 26.4 mmol/L Normal 22.0-30.0 [facility] Comment on above: Performed By: #### C MP #### [facility] [address] [place] [address] Bharathi Mary Creatinine [Mass/Vol] 1.02 mg/dL Normal 0.66-1.25 [facility] Comment on above: Performed By: #### C MP #### [facility] [address] [place], [place] [address] Bharathi Mary EGFR-AF SUDANESE >60 Normal >=60 [facility] Comment on above: Performed By: #### C MP #### [facility] [address] [place] [id number] Bharathi Mary EGFR-NON AF SUDANESE >60 Normal >=60 [facility] Comment on above: Performed By: #### C MP #### [facility] [address] [place], [place] [address] Bharathi Mary Globulin (S) [Mass/Vol] 4.7 g/dL Normal [facility] Comment on above: Performed By: #### C MP #### [facility] [address] [place] [address] Bharathi Mary Glucose [Mass/Vol] 119 mg/dL Critically high 74-106 [facility] Comment on above: Performed By: #### C MP #### [facility] [address] [place], [place] [address] Bharathi Mary Potassium [Moles/Vol] 4.1 mmol/L Normal 3.4-5.0 [facility] Comment on above: Performed By: #### C MP #### [facility] [address] [place], [place] [address] Bharathi Mary Protein [Mass/Vol] 8.6 g/dL Critically high 6.1-8.2 [facility] Comment on above: Performed By: #### C MP #### [facility] [address] [place], [place] [address] Bharathi Mary Sodium [Moles/Vol] 137 mmol/L Normal 137-145 [facility] Comment on above: Performed By: #### C MP #### [facility] [address] [place], [place] [address] Bharathi Mary Urea nitrogen [Mass/Vol] 7.0 mg/dL Critically low 9.0-20.0 [facility] Comment on above: Performed By: #### C MP #### [facility] [address] [place], [place] [address] Bharathi Mary Urea nitrogen/Creatinine [Mass ratio] 6.9 mg/mg Normal [facility] Comment on above: Performed By: #### C MP #### [facility] [address] [place], [place] [address] Bharathi Hernandez [facility] SARS-CoV-2 (COVID-19) RNA MIC+probe Ql (Unsp spec) Negative Normal Negative [facility] Comment on above: Order Comment: Healt hcare Worker?: N Result Comment: Test ing for SARS-CoV-2 by RT-PCR This test was developed and its performance characteristics determined by [employer] and validated at the [facility]. This test has not been FDA cleared or approved. This test has been authorized by FDA under an Emergency Use Authorization (EUA). This test has been validated in accordance with the FDA's Guidance Document (Policy for Diagnostics Testing in Laboratories Certified to Perform High Complexity Testing under CLIA prior to Emergency Use Authorization for Coronavirus Disease-2019 during the Public Health Emergency) issued on May 30, 2019. This test is only authorized for the duration of time the declaration that circumstances exist justifying the authorization of the emergency use of in vitro diagnostic tests for detection of SARS-CoV-2 virus and/or diagnosis of COVID-19 infection under section 564(b)(1) of the Act, 21 U.S.C. 360bbb-3(b)(1), unless the authorization is terminated or revoked sooner. PERFORMED BY: [facility] [address] [place] [id number] PATHOLOGIST MANAGER [employer] [address] M.D. Performed By: #### C OVID-19 [facility] #### [address] COVID-19 Positive/Negativeon 05-05-2020 COVID-19 Positive/Negative Negative Negative [facility] Comment on above: Testing for SARS-CoV -2 by RT-PCRThis test was developed and its performance characteristics determined by [employer] and validated at the [facility]. This test has not been FDA cleared or approved. This test has been authorized by FDA under an Emergency Use Authorization (EUA). This test has been validated in accordance with the FDA's Guidance Document (Policy for Diagnostics Testing in Laboratories Certified to Perform High Complexity Testing under CLIA prior to Emergency Use Authorization for Coronavirus Disease-2019 during the Public Health Emergency) issued on May 30, 2019. This test is only authorized for the duration of time the declaration that circumstances exist justifying the authorization of the emergency use of in vitro diagnostic tests for detection of SARS-CoV-2 virus and/or diagnosis of COVID-19 infection under section 564(b)(1) of the Act, 21 U.S.C. 360bbb-3(b)(1), unless the authorization is terminated or revoked sooner. Otheron 05-05-2020 Coronavirus 2019 PCR Interp N/A [facility] Amphetamines screenon 2020 Amphetamines Ql (U) Negative Negative [facility] Barbiturates [Presence] in U rineon 04-09-2020 Barbiturates Ql (U) Negative Negative [facility] Benzodiazepines [Presence] i n Urineon 04-09-2020 Benzodiazepines Ql (U) Negative Negative [facility] Cannabinoids [Presence] in U rine by Screen methodon 04-09-2020 Cannabinoids Screen Ql (U) Positive Negative [facility] Comment on above: These are unconfirme d results and should not be used for legal purposes. Drug Cut-Off Concentration: AMPH 1000 ng/mL RD 200 ng/mL JANETTE 200 ng/mL COCM 300 ng/mL OP 300 ng/mL PCP 25 ng/mL THC 20 ng/mL Drug Screen,Urineon 04-09-19 Amphetamine Screen,Urine Negative Normal Negative [facility] Comment on above: Performed By: #### U RDS #### [address] Barbiturate Screen,Urine Negative Normal Negative [facility] Comment on above: Performed By: #### U RDS #### [address] Benzodiazepines Screen,Urine Negative Normal Negative [facility] Comment on above: Performed By: #### U RDS #### [address] Cannabinoid Screen,Urine Positive High Negative [facility] Comment on above: Result Comment: Thes e are unconfirmed results and should not be used for legal purposes. Drug Cut-Off Concentration: AMPH 1000 ng/mL RD 200 ng/mL JANETTE 200 ng/mL COCM 300 ng/mL OP 300 ng/mL PCP 25 ng/mL THC 20 ng/mL PERFORMED BY: [place] [address] PATHOLOGIST MANAGER [employer] [address] M.D. Performed By: #### U RDS #### [address] Cocaine Screen,Urine Negative Normal Negative [facility] Comment on above: Performed By: #### U RDS #### [place] [address] [place] Opiate Screen,Urine Negative Normal Negative [facility] Comment on above: Performed By: #### U RDS #### [facility] [address] Phencyclidine Screen,Urine Negative Normal Negative [facility] Comment on above: Performed By: #### U RDS #### [facility] [address] ECG 12 lead ECGon 04-09-2020 ECG 12 lead ECG [facility] [address] [place] [address] [place] [address] Electrocardiograph Report Signed Patient: Mich Beck III MR#: [id number] : 1965 Acct:[id number] Age/Sex: 54 / M ADM Date: 04/09/20 Loc: [place] Room: Type: [facility] Attending Dr: Kristi Anglin MD Ordering Provider: Hussein Carreon DO Date of Service: 04/09/20 ECG/ECG 12 lead ECG: preop Copies to: Test Reason : Blood Pressure : / mmHG Vent. Rate : 065 BPM Atrial Rate : 065 BPM P-R Int : 204 ms QRS Dur : 096 ms QT Int : 400 ms P-R-T Axes : 062 -30 066 degrees QTc Int : 416 ms Normal sinus rhythm Left axis deviation Low voltage QRS Incomplete right bundle branch block Abnormal ECG When compared with ECG of 18-MAR-2006 14:25, Vent. rate has decreased BY 34 BPM Confirmed by MONTY KELLY DO, FACC ([id number]) on 04/09/2020 11:24:29 AM Referred By: Electronically Signed By:MONTY KELLY DO, FACC Transcribed By: MUS Dictated By: Monty Kelly DO 04/09/20 1058 Signed By: 04/09/20 1124 Normal [facility] Urinalysison 04-09-2020 Opiates Ql (U) Negative Negative [facility] Urine cocaine detectionon Cocaine Ql (U) Negative Negative [facility] Urine phencyclidine detectio n by screening methodon 04-09-2020 Phencyclidine Ql (U) Negative Negative [facility] SARS-CoV-2 (COVID-19) RNA MIC+probe Ql (Unsp spec) Negative Normal Negative [facility] Comment on above: Order Comment: Healt hcare Worker?: N Result Comment: Test ing for SARS-CoV-2 by RT-PCR This test was developed and its performance characteristics determined by [employer] and validated at the [facility]. This test has not been FDA cleared or approved. This test has been authorized by FDA under an Emergency Use Authorization (EUA). This test has been validated in accordance with the FDA's Guidance Document (Policy for Diagnostics Testing in Laboratories Certified to Perform High Complexity Testing under CLIA prior to Emergency Use Authorization for Coronavirus Disease-2019 during the Public Health Emergency) issued on May 30, 2019. This test is only authorized for the duration of time the declaration that circumstances exist justifying the authorization of the emergency use of in vitro diagnostic tests for detection of SARS-CoV-2 virus and/or diagnosis of COVID-19 infection under section 564(b)(1) of the Act, 21 U.S.C. 360bbb-3(b)(1), unless the authorization is terminated or revoked sooner. PERFORMED BY: [place] [address] PATHOLOGIST MANAGER [address] [address] M.D. Performed By: #### C OVID-19 [facility] #### [facility] [address] [place] [address] COVID-19 Positive/Negativeon 04-06-2020 COVID-19 Positive/Negative Negative Negative [facility] [facility] Comment on above: Testing for SARS-CoV -2 by RT-PCRThis test was developed and its performance characteristics determined by [employer] ([place]) and validated at the [facility]. This test has not been FDA cleared or approved. This test has been authorized by FDA under an Emergency Use Authorization (EUA). This test has been validated in accordance with the FDA's Guidance Document (Policy for Diagnostics Testing in Laboratories Certified to Perform High Complexity Testing under CLIA prior to Emergency Use Authorization for Coronavirus Disease-2019 during the Public Health Emergency) issued on May 30, 2019. This test is only authorized for the duration of time the declaration that circumstances exist justifying the authorization of the emergency use of in vitro diagnostic tests for detection of SARS-CoV-2 virus and/or diagnosis of COVID-19 infection under section 564(b)(1) of the Act, 21 U.S.C. 360bbb-3(b)(1), unless the authorization is terminated or revoked sooner. Otheron 04-06-2020 Coronavirus 2019 PCR Interp N/A [facility] Vital Signs Date Time Vital Sign Value Performing Clinician Cassia washington 04-09-2020 13:35-0500 BP Diastolic 77 mm[Hg] [facility] 04-09-2020 13:35-0500 BP Systolic 131 mm[Hg] [facility] 04-09-2020 13:35-0500 Pulse (Heart Rate) 67 /min [facility] 04-09-2020 13:35-0500 Pulse Oximetry 94 % [facility] 04-09-2020 13:35-0500 Respiratory Rate 16 /min [facility] 04-09-2020 12:29-0500 Body Temperature 97.1 [degF] [facility] 04-09-2020 11:43-0500 BMI (Body Mass Index) 40.1 kg/m2 [facility] 04-09-2020 10:27-0500 Body weight 130.6 kg [facility] 04-09-2020 10:27-0500 Height 180.34 cm [facility] Encounters Encounter Date Encounter Type Care Provider Facility Start: 09-08-2021 End: 09-08-[address] DOCTOR KEITA Facility:[facility] Start: 10-01-2020 End: 10-01-[address] DOCTOR KEITA Facility:[facility] Start: 09-19-2020 End: 09-20-2020 ambulatory NANCY CAMPOS Facility:[facility] Start: 05-05-2020 End: 05-05-2020 Patient encounter procedure Coleen Snider -Pre[facility]Surg[facility] Testing Start: 04-09-2020 End: 04-09-2020 Admission to day surgery [facility] Sn[facility] Start: 04-06-2020 End: 04-06-2020 Patient encounter procedure Coleen Snider -Pre-Surg[facility] l Testing Procedures Date Procedure Procedure Detail Performing Clinician Start: 04-09-2020 Phacoemulsification of cataract with intraocular lens implantation Coleen Snider Plan of Treatment Date Care Activity Detail Author Patient referral [facility] Payers Date Payer Category Payer Unknown [id number] [id number] [id number] 1965 Unknown [id number] 1965 Unknown [id number] 1957 Unknown [id number] Self-pay Self Pay [id number] Social History Date Type Detail Facility Start: 04-06-2020 End: 04-09-2020 Tobacco smoking status [facility] Smoker (finding) [facility] Start: 1965 Sex Assigned At Male F [facility] Medical Equipment Procedure Code Equipment Code Equipment Original Text Equipment Identifier Dates Phacoemulsification of cataract with intraocular lens implantation ()[id number] [facility] Start: 04-09-2020 Goals Date Patient Goal Desired Activity /State Advance Directives No Advanced Directives Records Found Advance Directive Response Recorded Date/ Time Advance Directives No September 01 8 11:18am Chief Complaint and Reason for Visit Chief Complaint Left Eye Cataract Chief Complaint Left Eye Cataract Left Eye Cataract Cataract Right Eye Assessments No Assessments Information AvailableNo Assessments Information Available Family History No Family History Records Found Relationship Condition Age at Onset Recorded Date/T noe Not Specified Amyotrophic lateral sclerosis Unknown father Malignant neoplasm Unknown Summary Purpose Additional Source Comments (unrecognized sect ion and content) No Status Records FoundNo Status Records Found INFORMATION SOURCE (unrecogn ized section and content) DATE CREATED AUTHOR 04/02/2021 [facility] DATE CREATED AUTHOR AUTHOR'S ARACELI MARCH 09/15/2021 [facility] FOR RECORDS PERTAINING TO PATIENTS WHO ARE OR HAVE BEEN ENROLLED IN A CHEMICAL DEPENDENCY/SUBSTANCEABUSE PROGRAM, SOME INFORMATION MAY BE OMITTED. This clinical summary was aggregated from multiple sources. Caution should be exercised in using it in the provision of clinical care. This summary normalizes information from multiple sources, and as a consequence, information in this document may materially change the coding, format and clinical context of patient data. In addition, data may be omitted in some cases. CLINICAL DECISIONS SHOULD BE BASED ON THE PRIMARY CLINICAL RECORDS. [facility] [employer] [facility]. provides no warranty or guarantee of the accuracy or completeness of information in this document.
--- NOTE | 2023-07-04 14:39 | ECG_ITS ---
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
[2023-07-04] MEDS: 0.9 % SODIUM CHLORIDE 1,000 ML 1000 ML IV (14:48)
[2023-07-04] MEDS: FAMOTIDINE/PF 20 MG/2 ML VIAL IV (14:49)
[2023-07-04] MEDS: ONDANSETRON PF 4 MG/2 ML VIAL IV (14:49)
--- NOTE | 2023-07-04 15:05 | ED.GENADUL1 ---
HPI HPI - General Adult General Chief complaint: Abdominal Pain Stated complaint: VOMITING, SWEATS Time Seen by Provider: 07/04/23 14:35 Source: patient Mode of arrival: Wheelchair History of Present Illness HPI narrative: The patient recently was evaluated for chronic back pain, the patient apparently last night was having pain and he thought he is taking his naproxen when he took 3 tablets of oxy carbamazepine, the patient then at 6 AM again took another 6 Oxycarbamazepine for total dose of 3600 mg last intake was at 6 AM, he mentioned that he had some 3-4 times episode of vomiting before arrival and he is complaining of some dizziness. No chest pain no nausea no vomiting no other concerns Related Data Home Medications ?Medication ?Instructions ?Recorded ?Confirmed buprenorphine HCl 8 mg sublingual mg sublingual 06/25/23 tablet gabapentin 300 mg capsule mg 06/25/23 quetiapine 200 mg tablet mg 06/25/23 Previous Rx's ?Medication ?Instructions ?Recorded prednisone 20 mg tablet 20 mg PO BID 5 days #10 tabs 06/25/23 Allergies Allergy/AdvReac Type Severity Reaction Status Date / Time No Known Drug Allergies Allergy Verified 06/25/23 16:46 Opioid HPI Opioid Management Most Recent Opioid Data: No Data to Display Review of Systems ROS Status of ROS 10 or more systems reviewed and unremarkable except as noted in history and below Exam Narrative Exam Narrative: Nurses notes and vital signs reviewed and patient is not hypoxic. General: Well-appearing and in no apparent distress. Skin: Warm, dry, no pallor noted. No rash. Head: Normocephalic, atraumatic. Neck: Supple, non-tender. Eye: Pupils are equal, round and EOMI. No scleral icterus. Ears, Nose, Mouth, and Throat: TM are clear, no nasal mucosal hypertrophy. Oral mucosa is moist, no posterior oropharynx erythema, uvula is mid-line Cardiovascular: Regular Rate and Rhythm without murmur, gallop or rub. Respiratory: No accessory muscle use or respiratory distress. Lungs are clear to auscultation, no wheezing, rales or rhonchi Chest Wall: no tenderness Back: No midline thoracic or lumbar vertebral tenderness. No CVA tenderness Musculoskeletal: normal ROM, no calf or popliteal tenderness, no lower extremity edema/swelling GI: Abdomen is soft, non-distended. Normal bowel sounds. No masses appreciated. No tenderness to palpation. No rebound, guarding, or rigidity noted. Neurological: A&O x4. No cranial nerve dysfunction observed. No truncal ataxia. Moves all extremities. Sensation intact. Psychiatric: Cooperative and interactive. Normal mood and affect. Constitutional Vital Signs, click to edit/add: Last Vital Signs Temp 98 F 07/04/23 14:25 Pulse 64 07/04/23 15:30 Resp 14 07/04/23 15:30 BP 161/72 H 07/04/23 16:30 Pulse Ox 96 07/04/23 15:30 O2 Del Method Room Air 07/04/23 14:25 Course Vital Signs Vital signs: Vital Signs Temperature 98 F 07/04/23 14:25 Pulse Rate 77 07/04/23 14:25 Respiratory Rate 20 07/04/23 14:25 Blood Pressure 177/92 H 07/04/23 14:25 Pulse Oximetry 99 07/04/23 14:25 Oxygen Delivery Method Room Air 07/04/23 14:25 Temperature 98 F 07/04/23 14:25 Pulse Rate 64 07/04/23 15:30 Respiratory Rate 14 07/04/23 15:30 Blood Pressure 161/72 H 07/04/23 16:30 Pulse Oximetry 96 07/04/23 15:30 Oxygen Delivery Method Room Air 07/04/23 14:25 Medical Decision Making [facility] Narrative Medical decision making narrative: The patient EKG showing sinus rhythm with a heart rate of [address] elevation or depression the patient had a QTc of 412 and QRS of 100 The patient CBC and chemistry showed no acute significant pathology except for mild hyponatremia of 132 The patient had ethanol level was negative as well as Tylenol and aspirin also was negative The patient case was discussed with poison control and right now just supportive care with hydration and nausea medication there is no need for further monitoring of the patient ready 6 to 8 hours past the last time he had any medication The patient was treated initially with fluids as well as Zofran after which she was feeling much better. He was monitored at least in the ER for 2 to 3 hours after which she was feeling better he was discharged. The patient is to follow up with primary care physician in next 2-3 days or to return to the emergency department should any of the signs or symptoms worsen or new symptoms develop. The patient agrees with the following Diagnosis and Treatment plan and the patient will be discharged home. Lab Data Labs: Lab Results 07/04/23 Range/Units 14:46 WBC 5.0 (4.0-11.0) 10^3/uL RBC 3.56 L (4.70-6.10) 10^6/uL Hgb 11.0 L (14.0-18.0) g/dL Hct 33.0 L (42.0-54.0) % MCV 92.7 (80.0-94.0) fL MCH 30.9 (25.9-34.0) pg MCHC 33.3 (29.9-35.2) g/dL RDW 16.1 H (11.0-15.0) % Plt Count 84 L (150-450) 10^3/uL MPV 9.4 L (9.5-13.5) fL Neut % (Auto) 82.9 H (43.0-75.0) % Lymph % (Auto) 10.9 L (20.5-60.0) % [place] % (Auto) 5.2 (1.7-12.0) % Eos % (Auto) 0.2 L (0.9-7.0) % Baso % (Auto) 0.2 (0.2-2.0) % Neut # (Auto) 4.2 (1.4-6.5) 10^3/uL Lymph # (Auto) 0.6 L (1.2-3.8) 10^3/uL [place] # (Auto) 0.3 (0.3-0.8) 10^3/uL Eos # (Auto) 0.0 (0.0-0.7) 10^3/uL Baso # (Auto) 0.0 (0.0-0.1) 10^3/uL Abs Immat Gran (auto) 0.03 (0.00-0.03) 10^3/uL Imm/Tot Granulo (auto) 0.6 H (0.0-0.5) % Sodium 132 L (136-145) mmol/L Potassium 3.8 (3.5-5.1) mmol/L Chloride 96 L (98-107) mmol/L Carbon Dioxide 25.9 (21.0-32.0) mmol/L Anion Gap 13.9 BUN 12.0 (7.0-18.0) mg/dL Creatinine 0.72 (0.70-1.30) mg/dL Est GFR ( Amer) >60 (>=60) Est GFR (Non-Af Amer) >60 (>=60) BUN/Creatinine Ratio 16.7 Glucose 166 H (74-106) mg/dL Calcium 9.3 (8.5-10.1) mg/dL Magnesium 2.1 (1.8-2.4) mg/dL Total Bilirubin 1.0 (0.2-1.0) mg/dL AST 18 (15-37) U/L ALT 16 (16-63) U/L Alkaline Phosphatase 90 (46-116) U/L Total Protein 8.7 H (6.4-8.2) g/dL Albumin 3.7 (3.4-5.0) g/dL Globulin 5.0 g/dL Albumin/Globulin Ratio 0.7 Salicylates 3.8 (<=19.9) mg/dL Acetaminophen <2.0 L (10.0-30.0) ug/mL Ethanol Quant <3 mg/dL Discharge Plan Discharge Stand Alone Forms: Portal Instructions Chief Complaint: Abdominal Pain Clinical Impression: Overdose Qualifiers: Encounter type: initial encounter Injury intent: accidental or unintentional Qualified Code(s): T50.901A - Poisoning by unspecified drugs, medicaments and biological substances, accidental (unintentional), initial encounter Patient Disposition: Home, Self-Care Time of Disposition Decision: 17:07 Condition: Good Prescriptions / Home Meds: No Action quetiapine 200 mg tablet gabapentin 300 mg capsule buprenorphine HCl 8 mg tablet, sublingual SUBLINGUAL prednisone 20 mg tablet 20 mg PO BID 5 Days Qty: 10 0RF Print Language: Hungarian Instructions: Adult Overdose (ED) Referrals: Physician,Non-Staff, MD [Primary Care Provider] - 1 week
[2023-07-04 15:07] LABS: Basophils Percent Auto 0.2 % (0.2-2.0); Eosinophils Percent Auto 0.2 % (0.9-7.0); Immature Granulocytes Abs Auto 0.03 10^3/uL (0.00-0.03); Immature Granulocytes Pct Auto 0.6 % (0.0-0.5); Lymphocytes Absolute Auto 0.6 10^3/uL (1.2-3.8); Lymphocytes Percent Auto 10.9 % (20.5-60.0); Mean Corpuscular HGB Conc 33.3 g/dL (29.9-35.2); Mean Corpuscular Hemoglobin 30.9 pg (25.9-34.0); Mean Corpuscular Volume 92.7 fL (80.0-94.0); Mean Platelet Volume 9.4 fL (9.5-13.5); Monocytes Absolute Auto 0.3 10^3/uL (0.3-0.8); Monocytes Percent Auto 5.2 % (1.7-12.0); Neutrophils Absolute Auto 4.2 10^3/uL (1.4-6.5); Neutrophils Percent Auto 82.9 % (43.0-75.0); Platelet Count 84 10^3/uL (150-450); Red Blood Count 3.56 10^6/uL (4.70-6.10); Red Cell Distribution Width 16.1 % (11.0-15.0)
[2023-07-04 15:20] LABS: Alanine Aminotransferase 16 U/L (16-63); Albumin Globulin Ratio 0.7; Albumin Level 3.7 g/dL (3.4-5.0); Alkaline Phosphatase 90 U/L (46-116); Anion Gap 13.9; Aspartate Amino Transferase 18 U/L (15-37); BUN Creatinine Ratio 16.7; Calcium 9.3 mg/dL (8.5-10.1); Carbon Dioxide 25.9 mmol/L (21.0-32.0); Chloride 96 mmol/L (98-107); Estimated GFR (African America >60 (>=60); Estimated GFR (Non-African Ame >60 (>=60); Glucose 166 mg/dL (74-106); Magnesium 2.1 mg/dL (1.8-2.4); Potassium 3.8 mmol/L (3.5-5.1); Salicylate 3.8 mg/dL (<=19.9); Sodium 132 mmol/L (136-145); Total Protein 8.7 g/dL (6.4-8.2)
[2023-07-04 15:27] LABS: Acetaminophen <2.0 ug/mL (10.0-30.0)
[2023-07-04 15:37] LABS: Ethanol <3 mg/dL
--- NOTE | 2023-07-04 18:06 | PC.NURSE ---
Update given to poison control at this time.
== END 2023-07-04 17:57 | disposition home or self-care (01) ==
PROVIDERS: Emergency Provider Emergency Medicine
DX: T42.1X1A Poisoning by iminostilbenes, accidental (unintentional), initial encounter (principal); Z79.899 Other long term (current) drug therapy
CPT/HCPCS: 36415; 80053; 80179; 80320; 80329; 83735; 85025; 93005; 96361; 96374; 96375; 99285

== ENCOUNTER 2023-09-09 18:20 | Emergency (ER) | payer OTHER, SELFPAY ==
[2023-09-09 18:25] VITALS: BP 120/66; PULSE 85; O2SAT 97; BMI 32.5
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
== END 2023-09-09 18:44 | disposition home or self-care (01) ==
PROVIDERS: Emergency Provider Emergency Medicine
DX: S01.01XD Laceration without foreign body of scalp, subsequent encounter (principal); X58.XXXD Exposure to other specified factors, subsequent encounter
CPT/HCPCS: 99281

== ENCOUNTER 2024-03-14 13:46 | Emergency (ER) | payer OTHER, SELFPAY ==
[2024-03-14 14:13] VITALS: BP 138/82; PULSE 100; TEMP 36.8; O2SAT 96; BMI 35.3
[2024-03-14] MEDS: OXYCODONE HCL/ACETAMINOPHEN 5MG/325MG 1 TAB PO (16:07)
[2024-03-14] MEDS: BACITRACIN OINTMENT 28.4 GM TUBE 1 APPLIC TOPICAL (16:07)
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
== END 2024-03-14 16:50 | disposition home or self-care (01) ==
PROVIDERS: Emergency Provider Emergency Medicine
DX: T23.231A Burn of second degree of multiple right fingers (nail), not including thumb, initial encounter (principal); T23.201A Burn of second degree of right hand, unspecified site, initial encounter; T22.211A Burn of second degree of right forearm, initial encounter; X08.8XXA Exposure to other specified smoke, fire and flames, initial encounter
CPT/HCPCS: 99283

== ENCOUNTER 2024-03-16 16:12 | Emergency (ER) | payer OTHER, SELFPAY ==
[2024-03-16 16:15] VITALS: BP 145/86; PULSE 85; TEMP 36.7; O2SAT 97; BMI 33.9
--- OUTSIDE RECORDS SUMMARY | 2024-03-16 16:17 | XMS_ITS | CCD ---
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 [address] [address] Cristina Nino Monocytes/100 WBC (Bld) 6.0 % Normal 1.7-12.0 [facility] Comment on above: Performed By: #### C BC #### [facility] [address] [address] [address] Cristina Nino NEUT # 3.4 103/ul Normal 1.4-6.5 [facility] Comment on above: Performed By: #### C BC #### [facility] [address] [address] [address] Cristina Nino Neutrophils/100 WBC (Bld) 61.6 % Normal 43.0-75.0 [facility] Comment on above: Performed By: #### C BC #### [facility] [address] [address] [address] Cristina Nino Platelet mean volume (Bld) [Entitic vol] 9.9 fL Normal 9.5-13.5 [facility] Comment on above: Performed By: #### C BC #### [facility] [address] [address] [address] Cristina Nino PLT 87 103/ul Critically low 150-450 [facility] Comment on above: Performed By: #### C BC #### [facility] [address] [address] [address] Cristina Nino RBC 3.82 106/ul Critically low 4.70-6.10 [facility] Comment on above: Performed By: #### C BC #### [facility] [address] [place], [place] [address] Dr. Cristina Nino WBC 5.5 103/ul Normal 4.0-11.0 [facility] Comment on above: Performed By: #### C BC #### [facility] [address] [place], [place] [address] ABD/PELVIS WO CONon 09-08 CT ABD/PELVIS WO CON EXAMINATION: CT ABD /PELVIS WO CON, 09/08/2021 4:19 PM EDT HISTORY: [...] ANDREA NG Date: 2021-09-08 18:20 Normal [facility] ER URINE PROFILEon 2 Bilirubin Ql (U) Negative Normal NEGATIVE [facility] Comment on above: Performed By: #### E RUR #### [facility] [address] [place] [address] Dr. Cristina Nino Clarity (U) CLEAR Normal CLEAR [facility] Comment on above: Performed By: #### E RUR #### [facility] [address] [place] [address] Dr. Cristina Nino Color (U) YELLOW Normal YELLOW [facility] Comment on above: Performed By: #### E RUR #### [facility] [address] [place] [address] Dr. Cristina Nino ERUDAVID A micrscopic examina tion will be performed if indicated. Normal [facility] Comment on above: Performed By: #### E RUR #### [facility] [address] [place] [address] Dr. Cristina Nino Glucose Ql (U) Negative Normal NEGATIVE [facility] Comment on above: Performed By: #### E RUR #### [facility] [address] [place] [address] Dr. Cristina Nino Hemoglobin Ql (U) Negative Normal NEGATIVE [facility] Comment on above: Performed By: #### E RUR #### [facility] [address] [place] [address] Dr. Cristina Nino Ketones Ql (U) Negative Normal NEGATIVE [facility] Comment on above: Performed By: #### E RUR #### [facility] [address] [place] [address] Dr. Cristina Nino LEUKOCYTES Negative Normal NEGATIVE [facility] Comment on above: Performed By: #### E RUR #### [facility] [address] [place] [address] Dr. Cristina Nino Nitrite Ql (U) Negative Normal NEGATIVE [facility] Comment on above: Performed By: #### E RUR #### [facility] [address] [place] [address] Dr. Cristina Nino pH (U) 6.0 [pH] Normal 5-9 [facility] Comment on above: Performed By: #### E RUR #### [facility] [address] [place] [address] Dr. Cristina Nino SPEC GRAVITY 1.015 Normal 1.005-<=1.0 25 [facility] Comment on above: Performed By: #### E RUR #### [facility] [address] [place] [address] Dr. Cristina Nino UA PROTEIN Negative Normal NEGATIVE/ TRACE [facility] Comment on above: Performed By: #### E RUR #### [facility] [address] [place] [address] Dr. Cristina Nino UR MICRO IND NOT INDICATED Normal [facility] Comment on above: Performed By: #### E RUR #### [facility] [address] [place] [address] Dr. Cristina Nino Urobilinogen Qn (U) 0.2 {Renee'U}/dL Normal 0.2 - 1. 0 [facility] Comment on above: Performed By: #### E RUR #### [facility] [address] [place] [address] Dr. Cristina Nino PROF CHEM 8 (BAS METB)on Anion gap [Moles/Vol] 15.0 mmol/L Normal [facility] Comment on above: Performed By: #### B MP #### [facility] [address] [place] [address] Dr. Cristina Nino Calcium [Mass/Vol] 8.8 mg/dL Normal 8.5-10.1 [facility] Comment on above: Performed By: #### B MP #### [facility] [address] [address] [address] Cristina Nino Chloride [Moles/Vol] 99 mmol/L Normal 98-107 [facility] Comment on above: Performed By: #### B MP #### [facility] [address] [place] [address] Dr. Cristina Nino CO2 [Moles/Vol] 23.9 mmol/L Normal 21.0-32.0 [facility] Comment on above: Performed By: #### B MP #### [facility] [address] [place] [address] Dr. Cristina Nino Creatinine [Mass/Vol] 1.04 mg/dL Normal 0.70-1.30 [facility] Comment on above: Performed By: #### B MP #### [facility] [address] [place] [address] Dr. Cristina Nino EGFR-AF SCOTTISH >60 Normal >=60 [facility] Comment on above: Performed By: #### B MP #### [facility] [address] [place] [address] Dr. Cristina Nino EGFR-NON AF SCOTTISH >60 Normal >=60 [facility] Comment on above: Performed By: #### B MP #### [facility] [address] [place] [address] Dr. Cristina Nino Glucose [Mass/Vol] 122 mg/dL Critically high 74-106 T [facility] Comment on above: Performed By: #### B MP #### [facility] [address] [place] [address] Dr. Cristina Nino Potassium [Moles/Vol] 4.9 mmol/L Normal 3.5-5.1 [facility] Comment on above: Performed By: #### B MP #### [facility] [address] [address] [address] Cristina Nino Sodium [Moles/Vol] 133 mmol/L Critically low 136-145 Th [facility] Comment on above: Performed By: #### B MP #### [facility] [address] [address] [address] Cristina Nino Urea nitrogen [Mass/Vol] 11.0 mg/dL Normal 7.0-18.0 [facility] Comment on above: Performed By: #### B MP #### [facility] [address] [address] [address] Cristina Nino Urea nitrogen/Creatinine [Mass ratio] 10.6 mg/mg Normal [facility] Comment on above: Performed By: #### B MP #### [facility] [address] [address] [address] Cristina Nino CBC AUTO DIFFon 10-01-2020 BASO # 0.0 103/ul Normal 0.0-0.1 [facility] Comment on above: Performed By: #### C BC ####[facility] [address] [place], [place] [address]Pbzyrj Mary Basophils/100 WBC (Bld) 0.5 % Normal 0.2-2.0 [facility] Comment on above: Performed By: #### C BC ####[facility] [address] [place], [place] [address]Vupnse Mary EO # 0.1 103/ul Normal 0.0-0.7 [facility] Comment on above: Performed By: #### C BC ####[facility] [address] [place], [place] [address]Ybpcwg Mary Eosinophils/100 WBC (Bld) 1.3 % Normal 0.9-7.0 [facility] Comment on above: Performed By: #### C BC ####[facility] [address] [place], [place] [address]Mhxnql Mary Erythrocyte distribution width (RBC) [Ratio] 15.9 % Critically high 11.0-15.0 [facility] Comment on above: Performed By: #### C BC ####[facility] [address] Mary Hematocrit (Bld) [Volume fraction] 36.7 % Critically low 42.0-54.0 [facility] Comment on above: Performed By: #### C BC ####[facility] [address] Mary Hemoglobin (Bld) [Mass/Vol] 12.1 g/dL Critically low 14.0-18.0 [facility] Comment on above: Performed By: #### C BC ####[facility] [address] [place] [address] Mary IG # 0.03 10e3/ul Normal 0.00-0.03 [facility] Comment on above: Performed By: #### C BC ####[facility] [address] [place] [address] Mary IG % 0.5 % Normal 0.0-0.5 [facility] Comment on above: Performed By: #### C BC ####[facility] [address] [place] [address] Mary LYMPH # 1.9 103/ul Normal 1.2-3.8 [facility] Comment on above: Performed By: #### C BC ####[facility] [address] [place] [address] Mary Lymphocytes/100 WBC (Bld) 31.9 % Normal 20.5-60.0 [facility] Comment on above: Performed By: #### C BC ####[facility] [address] [place] [address] Mary MANUAL DIFF REQ NO Normal [facility] Comment on above: Performed By: #### C BC ####[facility] [address] Mary MCH (RBC) [Entitic mass] 31.5 pg Normal 25.9-34.0 [facility] Comment on above: Performed By: #### C BC ####[facility] [address] [id number] Hernandez MCHC (RBC) [Mass/Vol] 33.0 g/dL Normal 29.9-35.2 [facility] Comment on above: Performed By: #### C BC ####[facility] [address] [id number] Hernandez MCV (RBC) [Entitic vol] 95.6 fL Critically high 80.0-94.0 [facility] Comment on above: Performed By: #### C BC ####[facility] [address] [place], [place] [address]Germissael Hernandez MONO # 0.4 103/ul Normal 0.3-0.8 [facility] Comment on above: Performed By: #### C BC ####[facility] [address] [place], [place] [address]Germissael Hernandez Monocytes/100 WBC (Bld) 7.1 % Normal 1.7-12.0 [facility] Comment on above: Performed By: #### C BC ####[facility] [address] [place], [place] [address]Gerken Mary NEUT # 3.6 103/ul Normal 1.4-6.5 [facility] Comment on above: Performed By: #### C BC ####[facility] [address] [place], [place] [address]Germissael Hernandez Neutrophils/100 WBC (Bld) 58.7 % Normal 43.0-75.0 [facility] Comment on above: Performed By: #### C BC ####[facility] [address] [place], [place] [address]Germissael Hernandez Platelet mean volume (Bld) [Entitic vol] 9.1 fL Critically low 9.5-13.5 [facility] Comment on above: Performed By: #### C BC ####[facility] [address] [place], [place] [address]Gerken Mary PLT 112 103/ul Critically low 150-450 [facility] Comment on above: Performed By: #### C BC ####[facility] [address] [id number] Hernandez RBC 3.84 106/ul Critically low 4.70-6.10 [facility] Comment on above: Performed By: #### C BC ####[facility] [address] [id number] Bealen WBC 6.1 103/ul Normal 4.0-11.0 [facility] Comment on above: Performed By: #### C BC ####[facility] [address] [id number] Hernandez ER URINE PROFILEon 1 Bilirubin Ql (U) Negative Normal NEGATIVE [facility] Comment on above: Performed By: #### E RUR #### [facility] [address] [place] [address] Bharathi Mary Clarity (U) CLEAR Normal CLEAR [facility] Comment on above: Performed By: #### E RUR #### [facility] [address] [place] [address] Bharathi Mary Color (U) YELLOW Normal YELLOW [facility] Comment on above: Performed By: #### E RUR #### [facility] [address] [place] [address] Bharathi Mary ERUAHD A micrscopic examina tion will be performed if indicated. Normal [facility] Comment on above: Performed By: #### E RUR #### [facility] [address] [place] [address] Bharathi Mary Glucose Ql (U) Negative Normal NEGATIVE [facility] Comment on above: Performed By: #### E RUR #### [facility] [address] [place] [address] Bharathi Mary Hemoglobin Ql (U) Negative Normal NEGATIVE [facility] Comment on above: Performed By: #### E RUR #### [facility] [address] [place] [address] Bharathi Mary Ketones Ql (U) Negative Normal NEGATIVE [facility] Comment on above: Performed By: #### E RUR #### [facility] [address] [place], [place] [id number] Bharathimissael Hernandez LEUKOCYTES Negative Normal NEGATIVE [facility] Comment on above: Performed By: #### E RUR #### [facility] [address] [place], [place] [id number] Bharathi Hernandez Nitrite Ql (U) Negative Normal NEGATIVE [facility] Comment on above: Performed By: #### E RUR #### [facility] [address] [place], [place] [id number] Bharathimissael Hernandez pH (U) 6.0 [pH] Normal 5-9 [facility] Comment on above: Performed By: #### E RUR #### [facility] [address] [place] [address] Bharathi Hernandez SPEC GRAVITY 1.020 Normal 1.005-<=1.0 25 [facility] Comment on above: Performed By: #### E RUR #### [facility] [address] [place] [address] Bharathi Hernandez UA PROTEIN Negative Normal NEGATIVE/ TRACE [facility] Comment on above: Performed By: #### E RUR #### [facility] [address] [place] [address] Bharathi Hernandez UR MICRO IND NOT INDICATED Normal [facility] Comment on above: Performed By: #### E RUR #### [facility] [address] [place] [address] Bharathi Hernandez Urobilinogen Qn (U) 0.2 {Renee'U}/dL Normal 0.2 - 1. 0 [facility] Comment on above: Performed By: #### E RUR #### [facility] [address] [place] [address] Bharathi Hernandez PROF CHEM 8 (BAS METB)on Anion gap [Moles/Vol] 14.2 mmol/L Normal Th [facility] Comment on above: Performed By: #### B MP #### [facility] [address] [place] [address] Bharathi Hernandez Calcium [Mass/Vol] 9.0 mg/dL Normal 8.4-10.2 [facility] Comment on above: Performed By: #### B MP #### [facility] [address] [id number] Bharathi Mary Chloride [Moles/Vol] 100 mmol/L Normal 98-107 [facility] Comment on above: Performed By: #### B MP #### [facility] [address] [id number] Bharathi Mary CO2 [Moles/Vol] 26.0 mmol/L Normal 22.0-30.0 [facility] Comment on above: Performed By: #### B MP #### [facility] [address] [address] Bharathi Mary Creatinine [Mass/Vol] 1.03 mg/dL Normal 0.66-1.25 [facility] Comment on above: Performed By: #### B MP #### [facility] [address] [place], [place] [id number] Bharathi Mary EGFR-AF SCOTTISH >60 Normal >=60 [facility] Comment on above: Performed By: #### B MP #### [facility] [address] [place], [place] [id number] Bharathi Mary EGFR-NON AF SCOTTISH >60 Normal >=60 [facility] Comment on above: Performed By: #### B MP #### [facility] [address] [place] [address] Bharathi Mary Glucose [Mass/Vol] 132 mg/dL Critically high 74-106 T [facility] Comment on above: Performed By: #### B MP #### [facility] [address] [place] [address] Bharathi Mary Potassium [Moles/Vol] 4.2 mmol/L Normal 3.4-5.0 [facility] Comment on above: Performed By: #### B MP #### [facility] [address] [place], [place] [id number] Bharathi Mary Sodium [Moles/Vol] 136 mmol/L Critically low 137-145 Th [facility] Comment on above: Performed By: #### B MP #### [facility] [address] [place], [place] [id number] Bharathi Mary Urea nitrogen [Mass/Vol] 9.0 mg/dL Normal 9.0-20.0 [facility] Comment on above: Performed By: #### B MP #### [facility] [address] [place], [place] [address] Bharathi Hernandez Urea nitrogen/Creatinine [Mass ratio] 8.7 mg/mg Normal [facility] Comment on above: Performed By: #### B MP #### [facility] [address] [place], [place] [address] ABD/PELVIS WO CONon 09-20 CT ABD/PELVIS WO CON EXAMINATION: CT ABD /PELVIS WO CON HISTORY: CALCULUS OF KIDNEY left [...] [place] Date: 2020-09-19 22:15 Normal [facility] ER URINE PROFILEon 1 Bilirubin Ql (U) Negative Normal NEGATIVE [facility] Comment on above: Performed By: #### E RUR #### [facility] [address] [place] [address] Bharathi Mary Clarity (U) CLEAR Normal CLEAR [facility] Comment on above: Performed By: #### E RUR #### [facility] [address] [place] [address] Bharathi Mary Color (U) YELLOW Normal YELLOW [facility] Comment on above: Performed By: #### E RUR #### [facility] [address] [place] [address] Bharathi Mary ERUAHD A micrscopic examina tion will be performed if indicated. Normal [facility] Comment on above: Performed By: #### E RUR #### [facility] [address] [place] [address] Bharathi Mary Glucose Ql (U) Negative Normal NEGATIVE [facility] Comment on above: Performed By: #### E RUR #### [facility] [address] [place] [address] Bharathi Mary Hemoglobin Ql (U) Negative Normal NEGATIVE [facility] Comment on above: Performed By: #### E RUR #### [facility] [address] [place] [address] Bharathi Mary Ketones Ql (U) Negative Normal NEGATIVE [facility] Comment on above: Performed By: #### E RUR #### [facility] [address] [place] [address] Bharathi Mary LEUKOCYTES Negative Normal NEGATIVE [facility] Comment on above: Performed By: #### E RUR #### [facility] [address] [place] [address] Bharathi Hernandez Nitrite Ql (U) Negative Normal NEGATIVE [facility] Comment on above: Performed By: #### E RUR #### [facility] [address] [place] [address] Bharathi Hernandez pH (U) 5.5 [pH] Normal 5-9 [facility] Comment on above: Performed By: #### E RUR #### [facility] [address] [place] [address] Bharathi Hernandez SPEC GRAVITY 1.020 Normal 1.005-<=1.0 25 [facility] Comment on above: Performed By: #### E RUR #### [facility] [address] [place] [address] Bharathi Hernandez UA PROTEIN Negative Normal NEGATIVE/ TRACE [facility] Comment on above: Performed By: #### E RUR #### [facility] [address] [place] [address] Bharathi Hernandez UR MICRO IND NOT INDICATED Normal [facility] Comment on above: Performed By: #### E RUR #### [facility] [address] [place] [address] Bharathi Hernandez Urobilinogen Qn (U) 0.2 {Renee'U}/dL Normal 0.2 - 1. 0 [facility] Comment on above: Performed By: #### E RUR #### [facility] [address] [place] [address] Bharathi Hernandez CBC AUTO DIFFon 09-19-2020 BASO # 0.0 103/ul Normal 0.0-0.1 [facility] Comment on above: Performed By: #### C BC #### [facility] [address] [place] [address] Bharathimissael Hernandez Basophils/100 WBC (Bld) 0.5 % Normal 0.2-2.0 [facility] Comment on above: Performed By: #### C BC #### [facility] [address] [place] [address] Bharathi Hernandez EO # 0.1 103/ul Normal 0.0-0.7 [facility] Comment on above: Performed By: #### C BC #### [facility] [address] [place] [address] Bharathi Mary Eosinophils/100 WBC (Bld) 1.0 % Normal 0.9-7.0 [facility] Comment on above: Performed By: #### C BC #### [facility] [address] [place] [address] Bharathi Mary Erythrocyte distribution width (RBC) [Ratio] 15.7 % Critically high 11.0-15.0 [facility] Comment on above: Performed By: #### C BC #### [facility] [address] [place] [address] Bharathi Mary Hematocrit (Bld) [Volume fraction] 35.3 % Critically low 42.0-54.0 [facility] Comment on above: Performed By: #### C BC #### [facility] [address] [place] [address] Bharathi Mary Hemoglobin (Bld) [Mass/Vol] 11.5 g/dL Critically low 14.0-18.0 [facility] Comment on above: Performed By: #### C BC #### [facility] [address] [place] [address] Bharathi Mary IG # 0.03 10e3/ul Normal 0.00-0.03 [facility] Comment on above: Performed By: #### C BC #### [facility] [address] [place] [address] Bharathi Mary IG % 0.4 % Normal 0.0-0.5 [facility] Comment on above: Performed By: #### C BC #### [facility] [address] [place] [address] Bharathi Mary LYMPH # 2.2 103/ul Normal 1.2-3.8 [facility] Comment on above: Performed By: #### C BC #### [facility] [address] [place] [address] Bharathi Mary Lymphocytes/100 WBC (Bld) 29.6 % Normal 20.5-60.0 [facility] Comment on above: Performed By: #### C BC #### [facility] [address] [place], [place] [id number] Bharathi Mary MANUAL DIFF REQ NO Normal [facility] Comment on above: Performed By: #### C BC #### [facility] [address] [place], [place] [id number] Bharathi Mary MCH (RBC) [Entitic mass] 31.0 pg Normal 25.9-34.0 [facility] Comment on above: Performed By: #### C BC #### [facility] [address] [place] [address] Bharathimissael Hernandez MCHC (RBC) [Mass/Vol] 32.6 g/dL Normal 29.9-35.2 [facility] Comment on above: Performed By: #### C BC #### [facility] [address] [place] [address] Bharathi Mary MCV (RBC) [Entitic vol] 95.1 fL Critically high 80.0-94.0 [facility] Comment on above: Performed By: #### C BC #### [facility] [address] [place], [place] [id number] Bharathi Mary MONO # 0.5 103/ul Normal 0.3-0.8 [facility] Comment on above: Performed By: #### C BC #### [facility] [address] [place] [address] Bharathi Mary Monocytes/100 WBC (Bld) 6.3 % Normal 1.7-12.0 [facility] Comment on above: Performed By: #### C BC #### [facility] [address] [place] [address] Bharathi Mary NEUT # 4.6 103/ul Normal 1.4-6.5 [facility] Comment on above: Performed By: #### C BC #### [facility] [address] [place], [place] [id number] Bharathi Mary Neutrophils/100 WBC (Bld) 62.2 % Normal 43.0-75.0 [facility] Comment on above: Performed By: #### C BC #### [facility] [address] [place] [address] Bharathi Mary Platelet mean volume (Bld) [Entitic vol] 9.2 fL Critically low 9.5-13.5 [facility] Comment on above: Performed By: #### C BC #### [facility] [address] [place], [place] [id number] Bharathi Mary PLT 118 103/ul Critically low 150-450 [facility] Comment on above: Performed By: #### C BC #### [facility] [address] [place], [place] [id number] Bharathi Mary RBC 3.71 106/ul Critically low 4.70-6.10 [facility] Comment on above: Performed By: #### C BC #### [facility] [address] [place], [place] [id number] Bharathi Mary WBC 7.4 103/ul Normal 4.0-11.0 [facility] Comment on above: Performed By: #### C BC #### [facility] [address] [place], [place] [id number] Bharathimissael Bealen PROF 14(COMP METB)on 021 Albumin [Mass/Vol] 3.9 g/dL Normal 3.5-5.0 [facility] Comment on above: Performed By: #### C MP #### [facility] [address] [place], [place] [id number] Bharathi Mary Albumin/Globulin [Mass ratio] 0.8 {ratio} Normal [facility] Comment on above: Performed By: #### C MP #### [facility] [address] [place], [place] [id number] Bharathi Mary ALP [Catalytic activity/Vol] 81 U/L Normal 38-126 [facility] Comment on above: Performed By: #### C MP #### [facility] [address] [place], [place] [id number] Bharathi Mary ALT [Catalytic activity/Vol] 14 U/L Critically low 21-72 [facility] Comment on above: Performed By: #### C MP #### [facility] [address] [place], [place] [id number] Bharathi Mary Anion gap [Moles/Vol] 13.7 mmol/L Normal [facility] Comment on above: Performed By: #### C MP #### [facility] [address] [place] [address] Bharathi Mary AST [Catalytic activity/Vol] 23 U/L Normal 17-59 [facility] Comment on above: Performed By: #### C MP #### [facility] [address] [place] [address] Bharathi Mary Bilirubin [Mass/Vol] 0.6 mg/dL Normal 0.2-1.3 [facility] Comment on above: Performed By: #### C MP #### [facility] [address] [place] [address] Bharathi Mary Calcium [Mass/Vol] 8.9 mg/dL Normal 8.4-10.2 [facility] Comment on above: Performed By: #### C MP #### [facility] [address] [place] [address] Bharathi Mary Chloride [Moles/Vol] 101 mmol/L Normal 98-107 [facility] Comment on above: Performed By: #### C MP #### [facility] [address] [place] [address] Bharathi Mary CO2 [Moles/Vol] 26.4 mmol/L Normal 22.0-30.0 [facility] Comment on above: Performed By: #### C MP #### [facility] [address] [place] [address] Bharathi Mary Creatinine [Mass/Vol] 1.02 mg/dL Normal 0.66-1.25 [facility] Comment on above: Performed By: #### C MP #### [facility] [address] [place] [address] Bharathi Mary EGFR-AF SCOTTISH >60 Normal >=60 [facility] Comment on above: Performed By: #### C MP #### [facility] [address] [place] [address] Bharathi Mary EGFR-NON AF SCOTTISH >60 Normal >=60 [facility] Comment on above: Performed By: #### C MP #### [facility] [address] [place], [place] [address] Bharathi Mary Globulin (S) [Mass/Vol] 4.7 g/dL Normal [facility] Comment on above: Performed By: #### C MP #### [facility] [address] [place], [place] [address] Bharathi Mary Glucose [Mass/Vol] 119 mg/dL Critically high 74-106 [facility] Comment on above: Performed By: #### C MP #### [facility] [address] [place], [place] [address] Bharathi Mary Potassium [Moles/Vol] 4.1 mmol/L Normal 3.4-5.0 [facility] Comment on above: Performed By: #### C MP #### [facility] [address] [place], [place] [address] Bharathi Mary Protein [Mass/Vol] 8.6 g/dL Critically high 6.1-8.2 [facility] Comment on above: Performed By: #### C MP #### [facility] [address] [place], [place] [address] Bharathi Mary Sodium [Moles/Vol] 137 mmol/L Normal 137-145 [facility] Comment on above: Performed By: #### C MP #### [facility] [address] [place], [place] [address] Bharathi Mary Urea nitrogen [Mass/Vol] 7.0 mg/dL Critically low 9.0-20.0 [facility] Comment on above: Performed By: #### C MP #### [facility] [address] [place], [place] [address] Bharathi Mary Urea nitrogen/Creatinine [Mass ratio] 6.9 mg/mg Normal [facility] Comment on above: Performed By: #### C MP #### [facility] [address] [place], [place] [address] Bharathi Mary COVID-19 Positive/Negativeon 05-05-2020 COVID-19 Positive/Negative Negative Negative [facility] Comment on above: Testing for SARS-CoV -2 by RT-PCRThis test was developed and its performance characteristics determined by [employer] ([employer]) and validated at the [facility]. This test has not been FDA [...] Otheron 05-05-2020 Coronavirus 2019 PCR Interp N/A [facility] Amphetamines screenon 2020 Amphetamines Ql (U) Negative Negative [facility] Barbiturates [Presence] in U rineon 04-09-2020 Barbiturates Ql (U) Negative Negative [facility] Benzodiazepines [Presence] i n Urineon 04-09-2020 Benzodiazepines Ql (U) Negative Negative [facility] Cannabinoids [Presence] in U rine by Screen methodon 04-09-2020 Cannabinoids Screen Ql (U) Positive Negative [facility] Comment on above: These are unconfirme d results and should not be used for legal purposes. Drug Cut-Off Concentration: AMPH 1000 ng/mL RD 200 ng/mL JANETTE 200 ng/mL COCM 300 ng/mL OP 300 ng/mL PCP 25 ng/mL THC 20 ng/mL Urinalysison 04-09-2020 Opiates Ql (U) Negative Negative [facility] Urine cocaine detectionon Cocaine Ql (U) Negative Negative [facility] Urine phencyclidine detectio n by screening methodon 04-09-2020 Phencyclidine Ql (U) Negative Negative [facility] COVID-19 Positive/Negativeon 04-06-2020 COVID-19 Positive/Negative Negative Negative [facility] Comment on above: Testing for SARS-CoV -2 by

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
== END 2024-03-16 17:44 | disposition home or self-care (01) ==
PROVIDERS: Emergency Provider Emergency Medicine
DX: T23.331D Burn of third degree of multiple right fingers (nail), not including thumb, subsequent encounter (principal); T22.211D Burn of second degree of right forearm, subsequent encounter; X08.8XXD Exposure to other specified smoke, fire and flames, subsequent encounter
CPT/HCPCS: 99282

== ENCOUNTER 2024-03-20 18:31 | Emergency (ER) | payer OTHER, SELFPAY ==
[2024-03-20 18:35] VITALS: BP 123/74; PULSE 90; TEMP 36.8; O2SAT 98; BMI 33.8
--- OUTSIDE RECORDS SUMMARY | 2024-03-20 18:36 | XMS_ITS | CCD ---
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 Name Role Phone Coleen Snider Primary Care [...] Unavailable ANTWAN Snider Primary Care Provider [phone] DO Braulio Kearney Emergency Provider Unavai Braulio Forte Attending Unavailable Braulio Kearney Admitting Unavailable Coleen Snider Primary Care Unavailable Unavailable Unavailable Unavailable Allergies Allergy Classification Reported Allergen(s) Allergy Type Date of Onset Reaction(s) Facility (3 sources) meloxicam; Translations: [meloxicam] Drug Allergy 04-06-2020 [facility] Repository (1 source) meloxicam Drug Allergy 01-16-2015 [facility] Repository Medications Current Medications Medication Drug Class(es) [...] 08-29-2023 Episodic Other aftercare (1 source) 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; Translations: [OTH CORNICE UPHOLSTERER 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 THERAPY] Onset: 09-10-2021 Episodic Other [...] conon 0 08-30-2023 CT cervical spine wo [facility] [place] [address] CT Scan Report Signed Patient: Petar Joe III MR#: [id number] : 1965 Acct:[id number] Age/Sex: 57 / M ADM Date: 08/29/23 Loc: ER Room: Type: [facility] ER Attending Dr: Copies to: Braulio Kearney DO Ordering Provider: Braulio Kearney DO Date of Service: 08/29/23 CT/CT cervical spine wo con: r/o fx ([id number]) CT/CT head/brain wo con: r/o ich CT [...] Tsang Jr., D.OHome08/30/2023 8:19 AM Dictation Location: [place] [address] Transcribed By: [facility] 08/30/23818 Dictated By: Usama Tsang Jr, DO 08/30/23813 Signed By: 08/30/23818 Normal [facility] XR chest 1V portableon 08-29 XR chest 1V portable [facility] Main Opp [address] [place] [address] XRay Report Signed Patient: Petar Joe III MR#: [id number] : 1965 Acct:[id number] Age/Sex: 57 / M ADM Date: 08/29/23 Loc: ER Room: Type: [facility] ER Attending Dr: Copies to: Braulio Kearney [...] Tsang Jr., D.OHome08/30/2023 8:20 AM Dictation Location: [place] [address] Transcribed By: [facility] 08/30/23819 Dictated By: Usama Tsang Jr, DO 08/30/23818 Signed By: 08/30/23819 Normal [facility] Activated partial thrombopla stin time (aPTT) in platelet poor plasma by coagulation aOrdered By: Braulio Kearney on 08-29-2023 aPTT Coag (PPP) [Time] 25.8 s 25.1-36.5 [facility] Comment on above: A hematocrit value g reater than 55% may lead to inaccurate results in coagulation testing. Patients having hematocrit values >55% require a special collection tube for coagulation studies. Please contact the laboratory at [phone] for redraw instructions. Alanine aminotransferase [En zymatic activity/volume] in Serum or PlasmaOrdered By: Braulio Kearney on 08-29-2023 ALT [Catalytic activity/Vol] 7 U/L Normal 7-52 [facility] Comment on above: Performed By: #### C BC, PT, PTT, ETOH, CMP #### [address] Albumin [Mass/volume] in Ser um or Plasma by Bromocresol green (BCG) dye binding methoOrdered By: Braulio Kearney on 08-29-2023 Albumin BCG dye [Mass/Vol] 4.3 g/dL 3.5-5.7 [facility] Alkaline phosphatase [Enzyma tic activity/volume] in Serum or PlasmaOrdered By: Braulio Kearney on 08-29-2023 ALP [Catalytic activity/Vol] 73 U/L Normal 34-104 [facility] Comment on above: Performed By: #### C BC, PT, PTT, ETOH, CMP #### [address] Aspartate aminotransferase [ Enzymatic activity/volume] in Serum or PlasmaOrdered By: Braulio Kearney on 08-29-2023 AST [Catalytic activity/Vol] 14 U/L Normal 13-39 [facility] Comment on above: Performed By: #### C BC, PT, PTT, ETOH, CMP #### [address] Automated basophil %Ordered By: Braulio Kearney on 08-29-2023 Basophils/100 WBC (Bld) 0.9 % Normal . [facility] Comment on above: Performed By: #### C BC, PT, PTT, ETOH, CMP #### [address] Automated basophil countOrde red By: Braulio Kearney on 08-29-2023 Basophils (Bld) [#/Vol] 0.0 10*3/uL Normal 0.0-0.2 [facility] Comment on above: Result Comment: PERF ORMED BY: [place] [address] M.D. Performed By: #### C BC, PT, PTT, ETOH, CMP #### [address] Automated blood monocyte cou ntOrdered By: Braulio Kearney on 08-29-2023 Monocytes (Bld) [#/Vol] 0.4 10*3/uL Normal 0.0-0.8 [facility] Comment on above: Performed By: #### C BC, PT, PTT, ETOH, CMP #### [address] Automated eosinophil %Ordere d By: Braulio Kearney on 08-29-2023 Eosinophils/100 WBC (Bld) 1.1 % Normal . [facility] Comment on above: Performed By: #### C BC, PT, PTT, ETOH, CMP #### [address] Automated eosinophil countOr dered By: Braulio Kearney on 08-29-2023 Eosinophils (Bld) [#/Vol] 0.0 10*3/uL Normal 0.0-0.45 [facility] Comment on above: Performed By: #### C BC, PT, PTT, ETOH, CMP #### [address] Automated monocyte %Ordered By: Braulio Kearney on 08-29-2023 Monocytes/100 WBC (Bld) 8.1 % Normal . [facility] Comment on above: Performed By: #### C BC, PT, PTT, ETOH, CMP #### [address] Automated neutrophil %Ordere d By: Braulio Kearney on 08-29-2023 Neutrophils/100 WBC (Bld) 62.1 % Normal . [facility] Comment on above: Performed By: #### C BC, PT, PTT, ETOH, CMP #### [address] Bilirubin.total [Mass/volume ] in Serum or PlasmaOrdered By: Braulio Kearney on 08-29-2023 Bilirubin [Mass/Vol] 0.6 mg/dL Normal 0.3-1.0 [facility] Comment on above: Performed By: #### C BC, PT, PTT, ETOH, CMP #### [address] Calcium [Mass/volume] in Ser um or PlasmaOrdered By: Braulio Kearney on 08-29-2023 Calcium [Mass/Vol] 9.5 mg/dL Normal 8.6-10.3 [facility] Comment on above: Performed By: #### C BC, PT, PTT, ETOH, CMP #### [address] Carbon dioxide, total [Moles /volume] in Serum or PlasmaOrdered By: Braulio Kearney on 08-29-2023 CO2 [Moles/Vol] 23.5 mmol/L Normal 21.0-31.0 [facility] Comment on above: Performed By: #### C BC, PT, PTT, ETOH, CMP #### [address] Chloride [Moles/volume] in S alba or PlasmaOrdered By: Braulio Kearney on 08-29-2023 Chloride [Moles/Vol] 100 mmol/L Normal 98-107 [facility] Comment on above: Performed By: #### C BC, PT, PTT, ETOH, CMP #### [address] Complete Blood Count Auto Di ffon 08-29-2023 Mean Corpuscular HGB Conc 33.9 g/dL Normal 32.5-35.6 [facility] Comment on above: Performed By: #### C BC, PT, PTT, ETOH, CMP #### [address] Monocytes/100 WBC (Bld) 20.16 % High 0.00-20.00 [facility] Comment on above: Result Comment: For adults in ED, MDW > 20.0 may be associated with a higher risk of sepsis during the first 12 hrs of hospital admission Performed By: #### C BC, PT, PTT, ETOH, CMP #### [address] NRBC% 0.1 /100{WBC} Normal 0-0.5 [facility] Comment on above: Performed By: #### C BC, PT, PTT, ETOH, CMP #### [address] Comprehensive Metabolic Pane perlita 08-29-2023 Albumin [Mass/Vol] 4.3 g/dL Normal 3.5-5.7 [facility] Comment on above: Performed By: #### C BC, PT, PTT, ETOH, CMP #### [address] Creatinine Clr Calc Pharmacy 133.32 Normal [facility] Comment on above: Result Comment: PERF ORMED BY: [place] [address] [address] M.D. Performed By: #### C BC, PT, PTT, ETOH, CMP #### [address] GFR/1.73 sq M.predicted MDRD (S/P/Bld) [Vol rate/Area] mL/min/{1.73_m2} Normal [facility] Comment on above: Performed By: #### C BC, PT, PTT, ETOH, CMP #### [address] Creatinine [Mass/volume] in Serum or PlasmaOrdered By: Braulio Kearney on 08-29-2023 Creatinine [Mass/Vol] 0.83 mg/dL Normal 0.70-1.30 [facility] Comment on above: Performed By: #### C BC, PT, PTT, ETOH, CMP #### [address] ECG 12 lead ECGon 08-29-2023 ECG 12 lead ECG [facility] Main Opp [address] [place] [address] Electrocardiograph Report Signed Patient: Petar Joe III MR#: [id number] : 1965 Acct:[id number] Age/Sex: 57 / M ADM Date: 08/29/23 Loc: ER Room: Type: [facility] ER Attending Dr: Ordering Provider: Braulio Kearney [...] voltage QRS Confirmed by Braulio Kearney DO ([id number]) on 08/30/2023 7:11:44 AM Referred By: Electronically Signed By:Braulio Kearney DO Transcribed By: MUS Signed By Braulio Kearney DO 0711 Normal [facility] Erythrocyte distribution wid th [Ratio] by Automated countOrdered By: Braulio Kearney on 08-29-2023 Erythrocyte distribution width (RBC) [Ratio] 16.9 % High 12.0-14.8 [facility] Comment on above: Performed By: #### C BC, PT, PTT, ETOH, CMP #### [place] [address] [place] Erythrocytes [#/volume] in B lood by Automated countOrdered By: Braulio Kearney on 08-29-2023 RBC (Bld) [#/Vol] 3.61 10*6/uL Low 3.90-5.60 [facility] Comment on above: Performed By: #### C BC, PT, PTT, ETOH, CMP #### [address] Ethanol [Mass/volume] in Ser um or PlasmaOrdered By: Braulio Kearney on 08-29-2023 Ethanol [Mass/Vol] 48 mg/dL Normal [facility] Comment on above: Performed By: #### C BC, PT, PTT, ETOH, CMP #### [address] Ethanol [Mass/Vol] 0.048 % [facility] Ethyl Alcohol Profileon Percent Ethanol 0.048 % Normal [facility] Comment on above: Result Comment: PERF ORMED BY: [place] [address] M.D. Performed By: #### C BC, PT, PTT, ETOH, CMP #### [facility] [address] [place] [address] [place] Glucose [Mass/volume] in Ser um or PlasmaOrdered By: Braulio Kearney on 08-29-2023 Glucose [Mass/Vol] 111 mg/dL High 70-100 [facility] Comment on above: ADA recommended refe rence rangeRandom Glucose Reference Range is dependent on time and content of last meal. Glucose of more than 200 mg/dL in a nonstressed, ambulatory subject supports the diagnosis of Diabetes Mellitus. Result Comment: [facility] Glucose Reference Range is dependent on time and content of last meal. Glucose of more than 200 mg/dL in a nonstressed, ambulatory subject supports the diagnosis of Diabetes Mellitus. ADA recommended reference range Performed By: #### C BC, PT, PTT, ETOH, CMP #### [facility] [address] Hematocrit [Volume Fraction] of Blood by Automated countOrdered By: Braulio Kearney on 08-29-2023 Hematocrit (Bld) [Volume fraction] 33.1 % Low 38.8-50.0 [facility] Comment on above: Performed By: #### C BC, PT, PTT, ETOH, CMP #### [address] Hemoglobin [Mass/volume] in BloodOrdered By: Braulio Kearney on 08-29-2023 Hemoglobin (Bld) [Mass/Vol] 11.2 g/dL Low 13.0-17.0 [facility] Comment on above: Performed By: #### C BC, PT, PTT, ETOH, CMP #### [address] INR in Platelet poor plasma by Coagulation assayOrdered By: Braulio Kearney on 08-29-2023 INR Coag (PPP) [Relative time] 1.2 {INR} Normal [facility] Comment on above: INR Therapeutic Rang e [...] C BC, PT, PTT, ETOH, CMP #### [address] Leukocytes [#/volume] correc pippa for nucleated erythrocytes in Blood by Automated counOrdered By: Braulio Kearney on 08-29-2023 WBC corrected for nucl RBC Auto (Bld) [#/Vol] 4.5 10*3/uL 4.1-10.5 [facility] Leukocytes [#/volume] in Blo od by Automated countOrdered By: Braulio Kearney on 08-29-2023 WBC (Bld) [#/Vol] 4.5 10*3/uL Normal 4.1-10.5 [facility] Comment on above: Performed By: #### C BC, PT, PTT, ETOH, CMP #### [address] Lymphocytes [#/volume] in Bl ood by Automated countOrdered By: Braulio Kearney on 08-29-2023 Lymphocytes (Bld) [#/Vol] 1.3 10*3/uL Normal 1.00-4.8 [facility] Comment on above: Performed By: #### C BC, PT, PTT, ETOH, CMP #### [address] Lymphocytes/100 leukocytes i n Blood by Automated countOrdered By: Braulio Kearney on 08-29-2023 Lymphocytes/100 WBC (Bld) 27.8 % Normal . [facility] Comment on above: Performed By: #### C BC, PT, PTT, ETOH, CMP #### [address] MCH [Entitic mass] by Automa pippa countOrdered By: Braulio Kearney on 08-29-2023 MCH (RBC) [Entitic mass] 31.2 pg Normal 27.5-35.2 [facility] Comment on above: Performed By: #### C BC, PT, PTT, ETOH, CMP #### [address] [place] [address] [place] MCHC Auto (RBC) [Mass/Vol]Or dered By: Braulio Kearney on 08-29-2023 MCHC (RBC) [Mass/Vol] 33.9 g/dL 32.5-35.6 [facility] MCV [Entitic volume] by Auto mated countOrdered By: Braulio Kearney on 08-29-2023 MCV (RBC) [Entitic vol] 91.8 fL Normal 83.5-101 [facility] Comment on above: Performed By: #### C BC, PT, PTT, ETOH, CMP #### [facility] [address] [place] [address] Monocyte distribution width [Entitic volume] in Blood by AutomatedOrdered By: Braulio Kearney on 08-29-2023 Monocyte distribution width Auto (Bld) [Entitic vol] 20.16 % High 0.00-20.00 [facility] Comment on above: For adults in ED, MD W > 20.0 may be associated with a higher risk of sepsis during the first 12 hrs of hospital admission Neutrophils [#/volume] in Bl ood by Automated countOrdered By: Braulio Kearney on 08-29-2023 Neutrophils (Bld) [#/Vol] 2.8 10*3/uL Normal 1.8-7.7 [facility] Comment on above: Performed By: #### C BC, PT, PTT, ETOH, CMP #### [facility] [address] [place] [address] No Panel InformationOrdered By: Braulio Kearney on 08-29-2023 Estimated GFR (CKD-EPI) > 60.0 mL/Min [facility] Creatinine Clearance (Chem 133.32 [facility] Nucleated erythrocytes [Pres ence] in Blood by Automated countOrdered By: Braulio Kearney on 08-29-2023 Nucleated RBC Auto Ql (Bld) 0.1 /100{WBC} 0-0.5 [facility] Partial Thromboplastin Timeo n 08-29-2023 aPTT Coag (Bld) [Time] 25.8 s Normal 25.1-36.5 [facility] Comment on above: Result Comment: A he matocrit value greater than 55% may lead to inaccurate results in coagulation testing. Patients having hematocrit values >55% require a special collection tube for coagulation studies. Please contact the laboratory at [phone] for redraw instructions. PERFORMED BY: [place] [address] M.D. Performed By: #### C BC, PT, PTT, ETOH, CMP #### [place] [address] [place] Platelet mean volume [Entiti c volume] in Blood by Automated countOrdered By: Braulio Kearney on 08-29-2023 Platelet mean volume (Bld) [Entitic vol] 6.9 fL Normal 6.6-10.1 [facility] Comment on above: Performed By: #### C BC, PT, PTT, ETOH, CMP #### [place] [address] [place] Platelets [#/volume] in Bloo d by Automated countOrdered By: Braulio Kearney on 08-29-2023 Platelets (Bld) [#/Vol] 110 10*3/uL Low 150-450 [facility] Comment on above: Performed By: #### C BC, PT, PTT, ETOH, CMP #### [place] [id number] [place] Potassium [Moles/volume] in Serum or PlasmaOrdered By: Braulio Kearney on 08-29-2023 Potassium [Moles/Vol] 3.9 mmol/L Normal 3.5-5.1 [facility] Comment on above: Performed By: #### C BC, PT, PTT, ETOH, CMP #### [place] [address] [place] Protein [Mass/volume] in Ser um or PlasmaOrdered By: Braulio Kearney on 08-29-2023 Protein [Mass/Vol] 8.3 g/dL Normal 6.4-8.9 [facility] Comment on above: Performed By: #### C BC, PT, PTT, ETOH, CMP #### [address] Prothrombin time (PT)Ordered By: Braulio Kearney on 08-29-2023 PT Coag (PPP) [Time] 13.2 s High 9.0-12.9 [facility] Comment on above: A hematocrit value g reater than 55% may lead to inaccurate results in coagulation testing. Patients having hematocrit values >55% require a special collection tube for coagulation studies. Please contact the laboratory at [phone] for redraw instructions. Result Comment: A matocrit value greater than 55% may lead to inaccurate results in coagulation testing. Patients having hematocrit values >55% require a special collection tube for coagulation studies. Please contact the laboratory at [phone] for redraw instructions. Performed By: #### C BC, PT, PTT, ETOH, CMP #### [address] Serum globulin measurement b y calculation (mass/volume)Ordered By: Braulio Kearney on 08-29-2023 Globulin (S) [Mass/Vol] 4.0 g/dL [facility] Comment on above: Performed By: #### C BC, PT, PTT, ETOH, CMP #### [address] Serum or plasma albumin/glob ulin mass ratioOrdered By: Braulio Kearney on 08-29-2023 Albumin/Globulin [Mass ratio] 1.1 {ratio} [facility] Comment on above: Performed By: #### C BC, PT, PTT, ETOH, CMP #### [address] Serum or plasma anion gap de terminationOrdered By: Braulio Kearney on 08-29-2023 Anion gap [Moles/Vol] 11.4 mmol/L Normal 6.0-15.0 [facility] Comment on above: Performed By: #### C BC, PT, PTT, ETOH, CMP #### [address] Sodium [Moles/volume] in Ser um or PlasmaOrdered By: Braulio Kearney on 08-29-2023 Sodium [Moles/Vol] 131 mmol/L Low 136-145 [facility] Comment on above: Performed By: #### C BC, PT, PTT, ETOH, CMP #### [facility] [address] Urea nitrogen [Mass/volume] in Serum or PlasmaOrdered By: Braulio Kearney on 08-29-2023 Urea nitrogen [Mass/Vol] 8 mg/dL Normal 7-25 [facility] Comment on above: Performed By: #### C BC, PT, PTT, ETOH, CMP #### [facility] [address] CBC AUTO DIFFon 09-08-2021 BASO # 0.0 103/ul Normal 0.0-0.1 [facility] [place] [facility] Comment on above: Performed By: #### C BC #### [facility] [address] [place] [address] Dr. Cristina Nino Basophils/100 WBC (Bld) 0.5 % Normal 0.2-2.0 [facility] [place] [facility] Comment on above: Performed By: #### C BC #### [facility] [address] [place] [address] [address] Cristina Nino EO # 0.1 103/ul Normal 0.0-0.7 [facility] [place] [facility] Comment on above: Performed By: #### C BC #### [facility] [address] [place] [address] [address] Cristina Nino Eosinophils/100 WBC (Bld) 0.9 % Normal 0.9-7.0 [facility] [place] [facility] Comment on above: Performed By: #### C BC #### [facility] [address] [place] [address] [address] Cristina Nino Erythrocyte distribution width (RBC) [Ratio] 15.9 % Critically high 11.0-15.0 [facility] [place] [facility] Comment on above: Performed By: #### C BC #### [facility] [address] [place] [address] Dr. Cristina Nino Hematocrit (Bld) [Volume fraction] 35.7 % Critically low 42.0-54.0 [facility] [place] [facility] Comment on above: Performed By: #### C BC #### [facility] [address] [place] [address] Dr. Cristina Nino Hemoglobin (Bld) [Mass/Vol] 11.8 g/dL Critically low 14.0-18.0 [facility] [place] [facility] Comment on above: Performed By: #### C BC #### [facility] [address] [place] [address] Dr. Cristina Nino IG # 0.02 10e3/ul Normal 0.00-0.03 [facility] [place] [facility] Comment on above: Performed By: #### C BC #### [facility] [address] [place] [address] Dr. Cristina Nino IG % 0.4 % Normal 0.0-0.5 [facility] [place] [facility] Comment on above: Performed By: #### C BC #### [facility] [address] [place] [address] Dr. Cristina Nino LYMPH # 1.7 103/ul Normal 1.2-3.8 [facility] [place] [facility] Comment on above: Performed By: #### C BC #### [facility] [address] [place] [address] Dr. Cristina Nino Lymphocytes/100 WBC (Bld) 30.6 % Normal 20.5-60.0 [facility] [place] [facility] Comment on above: Performed By: #### C BC #### [facility] [address] [place] [address] Dr. Cristina Nino MANUAL DIFF REQ NO Normal [facility] Comment on above: Performed By: #### C BC #### [facility] [address] [place] [address] Dr. Cristina Nino MCH (RBC) [Entitic mass] 30.9 pg Normal 25.9-34.0 [facility] [place] [facility] Comment on above: Performed By: #### C BC #### [facility] [address] [place] [address] Dr. Cristina Nino MCHC (RBC) [Mass/Vol] 33.1 g/dL Normal 29.9-35.2 [facility] Comment on above: Performed By: #### C BC #### [facility] [address] [place] [address] [address] Cristina Nino MCV (RBC) [Entitic vol] 93.5 fL Normal 80.0-94.0 [facility] [place] [facility] Comment on above: Performed By: #### C BC #### [facility] [address] [place] [address] [address] Cristina Nino MONO # 0.3 103/ul Normal 0.3-0.8 [facility] Comment on above: Performed By: #### C BC #### [facility] [address] [place] [address] [address] Cristina Nino Monocytes/100 WBC (Bld) 6.0 % Normal 1.7-12.0 [facility] Comment on above: Performed By: #### C BC #### [facility] [address] [place] [address] [address] Cristina Nino NEUT # 3.4 103/ul Normal 1.4-6.5 [facility] Comment on above: Performed By: #### C BC #### [facility] [address] [place] [address] [address] Cristina Nino Neutrophils/100 WBC (Bld) 61.6 % Normal 43.0-75.0 [facility] Comment on above: Performed By: #### C BC #### [facility] [address] [place] [address] [address] Cristina Nino Platelet mean volume (Bld) [Entitic vol] 9.9 fL Normal 9.5-13.5 [facility] Comment on above: Performed By: #### C BC #### [facility] [address] [place] [address] [address] Cristina Nino PLT 87 103/ul Critically low 150-450 [facility] Comment on above: Performed By: #### C BC #### [facility] [address] [place] [address] [address] Cristina Nino RBC 3.82 106/ul Critically low 4.70-6.10 [facility] Comment on above: Performed By: #### C BC #### [facility] [address] [place], [place] [address] Dr. Cristina Nino WBC 5.5 103/ul Normal 4.0-11.0 [facility] Comment on above: Performed By: #### C BC #### [facility] [address] [place], [place] [address] ABD/PELVIS WO CONon 09-08 CT ABD/PELVIS [...] ANDREA NG Date: 2021-09-08 18:20 Normal [facility] ER URINE PROFILEon 2 Bilirubin Ql (U) Negative Normal NEGATIVE [facility] Comment on above: Performed By: #### E RUR #### [facility] Laboratory [address] [place] [address] Dr. Cristina Nino Clarity (U) CLEAR Normal CLEAR [facility] Comment on above: Performed By: #### E RUR #### [facility] [address] [place] [address] Dr. Cristina Nino Color (U) YELLOW Normal YELLOW [facility] Comment on above: Performed By: #### E RUR #### [facility] [address] [place] [address] Dr. Cristina Nino ERUDAVID A micrscopic examina tion will be performed if indicated. Normal [facility] Comment on above: Performed By: #### E RUR #### [facility] Laboratory [address] [place] [address] Dr. Cristina Nino Glucose Ql (U) Negative Normal NEGATIVE [facility] Comment on above: Performed By: #### E RUR #### [facility] [address] [place] [address] Dr. Cristina Nino Hemoglobin Ql (U) Negative Normal NEGATIVE The [facility] Comment on above: Performed By: #### E RUR #### [facility] [address] [place] [address] Dr. Cristina Nino Ketones Ql (U) Negative Normal NEGATIVE [facility] [place] [facility] Comment on above: Performed By: #### E RUR #### [facility] [address] [place] [address] Dr. Cristina Nino LEUKOCYTES Negative Normal NEGATIVE [facility] [place] [facility] Comment on above: Performed By: #### E RUR #### [facility] [address] [place] [address] Dr. Cristina Nino Nitrite Ql (U) Negative Normal NEGATIVE [facility] [place] [facility] Comment on above: Performed By: #### E RUR #### [facility] [address] [place] [address] Dr. Cristina Nino pH (U) 6.0 [pH] Normal 5-9 [facility] [place] [facility] Comment on above: Performed By: #### E RUR #### [facility] [address] [place] [address] Dr. Cristina Nino SPEC GRAVITY 1.015 Normal 1.005-<=1.0 25 [facility] [place] [facility] Comment on above: Performed By: #### E RUR #### [facility] [address] [place] [address] Dr. Cristina Nino UA PROTEIN Negative Normal NEGATIVE/ TRACE [facility] Comment on above: Performed By: #### E RUR #### [facility] [address] [place] [address] Dr. Cristina Nino UR MICRO IND NOT INDICATED Normal [facility] Comment on above: Performed By: #### E RUR #### [facility] [address] [place] [address] Dr. Cristina Nino Urobilinogen Qn (U) 0.2 {Renee'U}/dL Normal 0.2 - 1. 0 [facility] [place] [facility] Comment on above: Performed By: #### E RUR #### [facility] [address] [place] [address] Dr. Cristina Nino PROF CHEM 8 (BAS METB)on Anion gap [Moles/Vol] 15.0 mmol/L Normal [facility] Comment on above: Performed By: #### B MP #### [facility] [address] [place] [address] Dr. Cristina Nino Calcium [Mass/Vol] 8.8 mg/dL Normal 8.5-10.1 [facility] [place] [facility] Comment on above: Performed By: #### B MP #### [facility] [address] [address] [address] Cristina Nino Chloride [Moles/Vol] 99 mmol/L Normal 98-107 [facility] [place] [facility] Comment on above: Performed By: #### B MP #### [facility] [address] [place] [address] Dr. Cristina Nino CO2 [Moles/Vol] 23.9 mmol/L Normal 21.0-32.0 [facility] [place] [facility] Comment on above: Performed By: #### B MP #### [facility] [address] [place] [address] Dr. Cristina Nino Creatinine [Mass/Vol] 1.04 mg/dL Normal 0.70-1.30 [facility] [place] [facility] Comment on above: Performed By: #### B MP #### [facility] [address] [place] [address] Dr. Cristina Nino EGFR-AF TUVALUAN >60 Normal >=60 [facility] [place] [facility] Comment on above: Performed By: #### B MP #### [facility] [address] [place] [address] Dr. Cristina Nino EGFR-NON AF TUVALUAN >60 Normal >=60 [facility] [place] [facility] Comment on above: Performed By: #### B MP #### [facility] [address] [place] [address] Dr. Cristina Nino Glucose [Mass/Vol] 122 mg/dL Critically high 74-106 [facility] Comment on above: Performed By: #### B MP #### [facility] [address] [place] [address] Dr. Cristina Nino Potassium [Moles/Vol] 4.9 mmol/L Normal 3.5-5.1 [facility] [place] [facility] Comment on above: Performed By: #### B MP #### [facility] [address] [address] [address] Cristina Nino Sodium [Moles/Vol] 133 mmol/L Critically low 136-145 [facility] Comment on above: Performed By: #### B MP #### [facility] [address] [address] [address] Cristina Nino Urea nitrogen [Mass/Vol] 11.0 mg/dL Normal 7.0-18.0 [facility] [place] [facility] Comment on above: Performed By: #### B MP #### [facility] [address] [address] [address] Cristina Nino Urea nitrogen/Creatinine [Mass ratio] 10.6 mg/mg Normal [facility] [place] [facility] Comment on above: Performed By: #### B MP #### [facility] [address] [address] [address] Cristina Nino CBC AUTO DIFFon 10-01-2020 BASO # 0.0 103/ul Normal 0.0-0.1 [facility] [place] [facility] Comment on above: Performed By: #### C BC ####[facility] [address] [place], [place] [address]Tespfu Mary Basophils/100 WBC (Bld) 0.5 % Normal 0.2-2.0 [facility] [place] [facility] Comment on above: Performed By: #### C BC ####[facility] [address] [place], [place] [address]Lhocyo Mary EO # 0.1 103/ul Normal 0.0-0.7 [facility] [place] [facility] Comment on above: Performed By: #### C BC ####[facility] [address] [place], [place] [address]Ovvgsu Mary Eosinophils/100 WBC (Bld) 1.3 % Normal 0.9-7.0 [facility] Comment on above: Performed By: #### C BC ####[facility] [address] [place], [place] [address]Sxtntm Mary Erythrocyte distribution width (RBC) [Ratio] 15.9 % Critically high 11.0-15.0 [facility] [place] [facility] Comment on above: Performed By: #### C BC ####[facility] [address] Mary Hematocrit (Bld) [Volume fraction] 36.7 % Critically low 42.0-54.0 [facility] [place] [facility] Comment on above: Performed By: #### C BC ####[facility] [address] Mary Hemoglobin (Bld) [Mass/Vol] 12.1 g/dL Critically low 14.0-18.0 [facility] [place] [facility] Comment on above: Performed By: #### C BC ####[facility] [address] [place] [address] Mary IG # 0.03 10e3/ul Normal 0.00-0.03 [facility] [place] [facility] Comment on above: Performed By: #### C BC ####[facility] [address] [place] [address] Mary IG % 0.5 % Normal 0.0-0.5 [facility] [place] [facility] Comment on above: Performed By: #### C BC ####[facility] [address] [place] [address] Mary LYMPH # 1.9 103/ul Normal 1.2-3.8 [facility] Comment on above: Performed By: #### C BC ####[facility] [address] [place] [address] Mary Lymphocytes/100 WBC (Bld) 31.9 % Normal 20.5-60.0 [facility] Comment on above: Performed By: #### C BC ####[facility] [address] [place] [address] Mary MANUAL DIFF REQ NO Normal The [facility] Comment on above: Performed By: #### C BC ####[facility] F[address] Mary MCH (RBC) [Entitic mass] 31.5 pg Normal 25.9-34.0 [facility] Comment on above: Performed By: #### C BC ####[facility] [address] [id number] Hernandez MCHC (RBC) [Mass/Vol] 33.0 g/dL Normal 29.9-35.2 [facility] Comment on above: Performed By: #### C BC ####[facility] [address] [id number] Hernandez MCV (RBC) [Entitic vol] 95.6 fL Critically high 80.0-94.0 [facility] Comment on above: Performed By: #### C BC ####[facility] [address] [place], [place] [address]Germissael Hernandez MONO # 0.4 103/ul Normal 0.3-0.8 [facility] Comment on above: Performed By: #### C BC ####[facility] [address] [place], [place] [address]Germissael Hernandez Monocytes/100 WBC (Bld) 7.1 % Normal 1.7-12.0 [facility] Comment on above: Performed By: #### C BC ####[facility] [address] [place], [place] [address]Gerken Mary NEUT # 3.6 103/ul Normal 1.4-6.5 [facility] [place] [facility] Comment on above: Performed By: #### C BC ####[facility] [address] [place], [place] [address]Germissael Hernandez Neutrophils/100 WBC (Bld) 58.7 % Normal 43.0-75.0 [facility] Comment on above: Performed By: #### C BC ####[facility] [address] [place], [place] [id number] Hernandez Platelet mean volume (Bld) [Entitic vol] 9.1 fL Critically low 9.5-13.5 [facility] Comment on above: Performed By: #### C BC ####[facility] [address] [place], [place] [address]Gerken Mary PLT 112 103/ul Critically low 150-450 [facility] Comment on above: Performed By: #### C BC ####[facility] [address] [id number] Hernandez RBC 3.84 106/ul Critically low 4.70-6.10 [facility] Comment on above: Performed By: #### C BC ####[facility] [address] [id number] Bealen WBC 6.1 103/ul Normal 4.0-11.0 [facility] [place] [facility] Comment on above: Performed By: #### C BC ####[facility] [address] [id number] Hernandez ER URINE PROFILEon 1 Bilirubin Ql (U) Negative Normal NEGATIVE The [facility] Comment on above: Performed By: #### E RUR #### [facility] Laboratory [address] [place] [address] Bharathi Mary Clarity (U) CLEAR Normal CLEAR The [facility] Comment on above: Performed By: #### E RUR #### [facility] [address] [place] [address] Bharathi Mary Color (U) YELLOW Normal YELLOW The [facility] Comment on above: Performed By: #### E RUR #### [facility] Laboratory [address] [place] [address] Bharathi Mary ERUAHD A micrscopic examina tion will be performed if indicated. Normal The [facility] Comment on above: Performed By: #### E RUR #### [facility] Laboratory [address] [place] [address] Bharathi Mary Glucose Ql (U) Negative Normal NEGATIVE The [facility] Comment on above: Performed By: #### E RUR #### [facility] Laboratory [address] [place] [address] Bharathi Mary Hemoglobin Ql (U) Negative Normal NEGATIVE The [facility] Comment on above: Performed By: #### E RUR #### [facility] [address] [place] [address] Bharathi Mary Ketones Ql (U) Negative Normal NEGATIVE The [facility] Comment on above: Performed By: #### E RUR #### [facility] Laboratory [address] [place], [place] [address] Bharathimissael Hernandez LEUKOCYTES Negative Normal NEGATIVE [facility] [place] [facility] Comment on above: Performed By: #### E RUR #### [facility] Laboratory [address] [place], [place] [address] Bharathi Hernandez Nitrite Ql (U) Negative Normal NEGATIVE [facility] [place] [facility] Comment on above: Performed By: #### E RUR #### [facility] Laboratory [address] [place], [place] [address] Bharathimissael Hernandez pH (U) 6.0 [pH] Normal 5-9 [facility] [place] [facility] Comment on above: Performed By: #### E RUR #### [facility] Laboratory [address] [place] [address] Bharathi Hernandez SPEC GRAVITY 1.020 Normal 1.005-<=1.0 25 [facility] [place] [facility] Comment on above: Performed By: #### E RUR #### [facility] [address] [place] [address] Bharathi Hernandez UA PROTEIN Negative Normal NEGATIVE/ TRACE [facility] [place] [facility] Comment on above: Performed By: #### E RUR #### [facility] [address] [place] [address] Bharathi Hernandez UR MICRO IND NOT INDICATED Normal [facility] [place] [facility] Comment on above: Performed By: #### E RUR #### [facility] [address] [place] [address] Bharathi Hernandez Urobilinogen Qn (U) 0.2 {Renee'U}/dL Normal 0.2 - 1. 0 [facility] [place] [facility] Comment on above: Performed By: #### E RUR #### [facility] Laboratory [address] [place] [address] Bharathi Hernandez PROF CHEM 8 (BAS METB)on Anion gap [Moles/Vol] 14.2 mmol/L Normal [facility] Comment on above: Performed By: #### B MP #### [facility] Laboratory [address] [place] [address] Bharathi Hernandez Calcium [Mass/Vol] 9.0 mg/dL Normal 8.4-10.2 [facility] [place] [facility] Comment on above: Performed By: #### B MP #### [facility] Laboratory [address] [id number] Bharathi Mary Chloride [Moles/Vol] 100 mmol/L Normal 98-107 [facility] [place] [facility] Comment on above: Performed By: #### B MP #### [facility] Laboratory [address] [id number] Bharathi Mary CO2 [Moles/Vol] 26.0 mmol/L Normal 22.0-30.0 [facility] [place] [facility] Comment on above: Performed By: #### B MP #### [facility] Laboratory [address] [address] Bharathi Mary Creatinine [Mass/Vol] 1.03 mg/dL Normal 0.66-1.25 [facility] [place] [facility] Comment on above: Performed By: #### B MP #### [facility] Laboratory [address] [place], [place] [address] Bharathi Mary EGFR-AF TUVALUAN >60 Normal >=60 [facility] Comment on above: Performed By: #### B MP #### [facility] Laboratory [address] [place], [place] [address] Bharathi Mary EGFR-NON AF TUVALUAN >60 Normal >=60 [facility] [place] [facility] Comment on above: Performed By: #### B MP #### [facility] [address] [place] [address] Bharathi Mary Glucose [Mass/Vol] 132 mg/dL Critically high 74-106 [facility] Comment on above: Performed By: #### B MP #### [facility] Laboratory [address] [place] [address] Bharathi Mary Potassium [Moles/Vol] 4.2 mmol/L Normal 3.4-5.0 [facility] [place] [facility] Comment on above: Performed By: #### B MP #### [facility] Laboratory [address] [place], [place] [address] Bharathi Mary Sodium [Moles/Vol] 136 mmol/L Critically low 137-145 [facility] Comment on above: Performed By: #### B MP #### [facility] Laboratory [address] [place], [place] [address] Bharathi Mary Urea nitrogen [Mass/Vol] 9.0 mg/dL Normal 9.0-20.0 [facility] [place] [facility] Comment on above: Performed By: #### B MP #### [facility] [address] [place], [place] [address] Bharathi Hernandez Urea nitrogen/Creatinine [Mass ratio] 8.7 mg/mg Normal [facility] [place] [facility] Comment on above: Performed By: #### B MP #### [facility] Laboratory [address] [place], [place] [address] ABD/PELVIS WO CONon 09-20 [...] [place] Date: 2020-09-19 22:15 Normal [facility] ER URINE PROFILEon 1 Bilirubin Ql (U) Negative Normal NEGATIVE The [facility] Comment on above: Performed By: #### E RUR #### [facility] Laboratory [address] [place] [address] Bharathi Mary Clarity (U) CLEAR Normal CLEAR The [facility] Comment on above: Performed By: #### E RUR #### [facility] Laboratory [address] [place] [address] Bharathi Mary Color (U) YELLOW Normal YELLOW The [facility] Comment on above: Performed By: #### E RUR #### [facility] Laboratory [address] [place] [address] Bharathi Mary ERUAHD A micrscopic examina tion will be performed if indicated. Normal The [facility] Comment on above: Performed By: #### E RUR #### [facility] Laboratory [address] [place] [address] Bharathi Mary Glucose Ql (U) Negative Normal NEGATIVE The [facility] Comment on above: Performed By: #### E RUR #### [facility] Laboratory [address] [place] [address] Bharathi Mary Hemoglobin Ql (U) Negative Normal NEGATIVE The [facility] Comment on above: Performed By: #### E RUR #### [facility] Laboratory [address] [place] [address] Bharathi Mary Ketones Ql (U) Negative Normal NEGATIVE The [facility] Comment on above: Performed By: #### E RUR #### [facility] [address] [place] [address] Bharathi Mary LEUKOCYTES Negative Normal NEGATIVE The [facility] Comment on above: Performed By: #### E RUR #### [facility] [address] [place] [address] Bharathi Hernandez Nitrite Ql (U) Negative Normal NEGATIVE [facility] [place] [facility] Comment on above: Performed By: #### E RUR #### [facility] Laboratory [address] [place] [address] Bharathi Hernandez pH (U) 5.5 [pH] Normal 5-9 [facility] Comment on above: Performed By: #### E RUR #### [facility] Laboratory [address] [place] [address] Bharathi Hernandez SPEC GRAVITY 1.020 Normal 1.005-<=1.0 25 [facility] [place] [facility] Comment on above: Performed By: #### E RUR #### [facility] Laboratory [address] [place] [address] Bharathi Hernandez UA PROTEIN Negative Normal NEGATIVE/ TRACE The [facility] Comment on above: Performed By: #### E RUR #### [facility] [address] [place] [address] Bharathi Hernandez UR MICRO IND NOT INDICATED Normal [facility] [place] [facility] Comment on above: Performed By: #### E RUR #### [facility] [address] [place] [address] Bharathi Hernandez Urobilinogen Qn (U) 0.2 {Renee'U}/dL Normal 0.2 - 1. 0 [facility] [place] [facility] Comment on above: Performed By: #### E RUR #### [facility] Laboratory [address] [place] [address] Bharathi Hernandez CBC AUTO DIFFon 09-19-2020 BASO # 0.0 103/ul Normal 0.0-0.1 [facility] [place] [facility] Comment on above: Performed By: #### C BC #### [facility] [address] [place] [address] Bharathimissael Hernandez Basophils/100 WBC (Bld) 0.5 % Normal 0.2-2.0 [facility] [place] [facility] Comment on above: Performed By: #### C BC #### [facility] [address] [place] [address] Bharathi Hernandez EO # 0.1 103/ul Normal 0.0-0.7 [facility] [place] [facility] Comment on above: Performed By: #### C BC #### [facility] [address] [place] [address] Bharathi Mary Eosinophils/100 WBC (Bld) 1.0 % Normal 0.9-7.0 [facility] [place] [facility] Comment on above: Performed By: #### C BC #### [facility] [address] [place] [address] Bharathi Mary Erythrocyte distribution width (RBC) [Ratio] 15.7 % Critically high 11.0-15.0 [facility] [place] [facility] Comment on above: Performed By: #### C BC #### [facility] [address] [place] [address] Bharathi Mary Hematocrit (Bld) [Volume fraction] 35.3 % Critically low 42.0-54.0 [facility] [place] [facility] Comment on above: Performed By: #### C BC #### [facility] [address] [place] [address] Bharathi Mary Hemoglobin (Bld) [Mass/Vol] 11.5 g/dL Critically low 14.0-18.0 [facility] [place] [facility] Comment on above: Performed By: #### C BC #### [facility] [address] [place] [address] Bharathi Mary IG # 0.03 10e3/ul Normal 0.00-0.03 [facility] [place] [facility] Comment on above: Performed By: #### C BC #### [facility] [address] [place] [address] Bharathi Mary IG % 0.4 % Normal 0.0-0.5 [facility] Comment on above: Performed By: #### C BC #### [facility] [address] [place] [address] Bharathi Mary LYMPH # 2.2 103/ul Normal 1.2-3.8 [facility] Comment on above: Performed By: #### C BC #### [facility] [address] [place] [address] Bharathi Mary Lymphocytes/100 WBC (Bld) 29.6 % Normal 20.5-60.0 [facility] Comment on above: Performed By: #### C BC #### [facility] [address] [place], [place] [address] Bharathi Mary MANUAL DIFF REQ NO Normal The [facility] Comment on above: Performed By: #### C BC #### [facility] [address] [place], [place] [address] Bharathi Mary MCH (RBC) [Entitic mass] 31.0 pg Normal 25.9-34.0 [facility] Comment on above: Performed By: #### C BC #### [facility] [address] [place] [address] Bharathimissael Hernandez MCHC (RBC) [Mass/Vol] 32.6 g/dL Normal 29.9-35.2 [facility] Comment on above: Performed By: #### C BC #### [facility] [address] [place] [address] Bharathi Mary MCV (RBC) [Entitic vol] 95.1 fL Critically high 80.0-94.0 [facility] [place] [facility] Comment on above: Performed By: #### C BC #### [facility] [address] [place], [place] [address] Bharathi Mary MONO # 0.5 103/ul Normal 0.3-0.8 [facility] [place] [facility] Comment on above: Performed By: #### C BC #### [facility] [address] [place] [address] Bharathi Mary Monocytes/100 WBC (Bld) 6.3 % Normal 1.7-12.0 [facility] Comment on above: Performed By: #### C BC #### [facility] [address] [place] [address] Bharathi Mary NEUT # 4.6 103/ul Normal 1.4-6.5 [facility] Comment on above: Performed By: #### C BC #### [facility] [address] [place], [place] [address] Bharathi Mary Neutrophils/100 WBC (Bld) 62.2 % Normal 43.0-75.0 [facility] Comment on above: Performed By: #### C BC #### [facility] [address] [place] [address] Bharathi Mary Platelet mean volume (Bld) [Entitic vol] 9.2 fL Critically low 9.5-13.5 [facility] Comment on above: Performed By: #### C BC #### [facility] [address] [place], [place] [address] Bharathi Mary PLT 118 103/ul Critically low 150-450 [facility] Comment on above: Performed By: #### C BC #### [facility] [address] [place], [place] [address] Bharathi Mary RBC 3.71 106/ul Critically low 4.70-6.10 [facility] Comment on above: Performed By: #### C BC #### [facility] [address] [place], [place] [address] Bharathi Mary WBC 7.4 103/ul Normal 4.0-11.0 The [facility] Comment on above: Performed By: #### C BC #### [facility] [address] [place], [place] [address] Bharathimissael Bealen PROF 14(COMP METB)on 021 Albumin [Mass/Vol] 3.9 g/dL Normal 3.5-5.0 [facility] Comment on above: Performed By: #### C MP #### [facility] [address] [place], [place] [address] Bharathi Mary Albumin/Globulin [Mass ratio] 0.8 {ratio} Normal The [facility] Comment on above: Performed By: #### C MP #### [facility] [address] [place], [place] [address] Bharathi Mary ALP [Catalytic activity/Vol] 81 U/L Normal 38-126 The [facility] Comment on above: Performed By: #### C MP #### [facility] [address] [place], [place] [address] Bharathi Mary ALT [Catalytic activity/Vol] 14 U/L Critically low 21-72 The [facility] Comment on above: Performed By: #### C MP #### [facility] [address] [place], [place] [address] Bharathi Mary Anion gap [Moles/Vol] 13.7 mmol/L Normal Th e [facility] Comment on above: Performed By: #### C MP #### [facility] [address] [place] [address] Bharathi Mary AST [Catalytic activity/Vol] 23 U/L Normal 17-59 The [facility] Comment on above: Performed By: #### C MP #### [facility] [address] [place] [address] Bharathi Mary Bilirubin [Mass/Vol] 0.6 mg/dL Normal 0.2-1.3 The [facility] Comment on above: Performed By: #### C MP #### [facility] [address] [place] [address] Bharathi Mary Calcium [Mass/Vol] 8.9 mg/dL Normal 8.4-10.2 [facility] [place] [facility] Comment on above: Performed By: #### C MP #### [facility] [address] [place] [address] Bharathi Mary Chloride [Moles/Vol] 101 mmol/L Normal 98-107 [facility] [place] [facility] Comment on above: Performed By: #### C MP #### [facility] [address] [place] [address] Bharathi Mary CO2 [Moles/Vol] 26.4 mmol/L Normal 22.0-30.0 [facility] [place] [facility] Comment on above: Performed By: #### C MP #### [facility] [address] [place] [address] Bharathi Mary Creatinine [Mass/Vol] 1.02 mg/dL Normal 0.66-1.25 The [facility] Comment on above: Performed By: #### C MP #### [facility] [address] [place] [address] Bharathi Mary EGFR-AF TUVALUAN >60 Normal >=60 The [facility] Comment on above: Performed By: #### C MP #### [facility] [address] [place] [address] Bharathi Mary EGFR-NON AF TUVALUAN >60 Normal >=60 The [facility] Comment on above: Performed By: #### C MP #### [facility] [address] [place], [place] [address] Bharathi Mary Globulin (S) [Mass/Vol] 4.7 g/dL Normal [facility] [place] [facility] Comment on above: Performed By: #### C MP #### [facility] [address], [place] [address] Bharathi Mary Glucose [Mass/Vol] 119 mg/dL Critically high 74-106 [facility] Comment on above: Performed By: #### C MP #### [facility] [address], [place] [address] Bharathi Mary Potassium [Moles/Vol] 4.1 mmol/L Normal 3.4-5.0 [facility] [place] [facility] Comment on above: Performed By: #### C MP #### [facility] [address], [place] [address] Bharathi Mary Protein [Mass/Vol] 8.6 g/dL Critically high 6.1-8.2 [facility] Comment on above: Performed By: #### C MP #### [facility] [address], [place] [address] Bharathi Mary Sodium [Moles/Vol] 137 mmol/L Normal 137-145 [facility] [place] [facility] Comment on above: Performed By: #### C MP #### [facility] [address], [place] [address] Bharathi Mary Urea nitrogen [Mass/Vol] 7.0 mg/dL Critically low 9.0-20.0 [facility] [place] [facility] Comment on above: Performed By: #### C MP #### [facility] [address] [place], [place] [address] Bharathi Mary Urea nitrogen/Creatinine [Mass ratio] 6.9 mg/mg Normal [facility] [place] [facility] Comment on above: Performed By: #### C MP #### [facility] [address] [place], [place] [address] Bharathi Mary COVID-19 Positive/Negativeon 05-05-2020 COVID-19 Positive/Negative Negative Negative [facility] Comment on above: Testing for SARS-CoV -2 by RT-PCRThis test was developed and its performance characteristics determined by [employer] ([place]) and validated at the [facility]. This test has not been FDA cleared [...] Otheron 05-05-2020 Coronavirus 2019 PCR Interp N/A [facility] Amphetamines screenon 2020 Amphetamines Ql (U) Negative Negative [facility] Barbiturates [Presence] in U rineon 04-09-2020 Barbiturates Ql (U) Negative Negative [facility] Benzodiazepines [Presence] i n Urineon 04-09-2020 Benzodiazepines Ql (U) Negative Negative [facility] Cannabinoids [Presence] in U rine by Screen methodon 04-09-2020 Cannabinoids Screen Ql (U) Positive Negative [facility] Comment on above: These are unconfirme d results and should not be used for legal purposes. Drug Cut-Off Concentration: AMPH 1000 ng/mL RD 200 ng/mL JANETTE 200 ng/mL COCM 300 ng/mL OP 300 ng/mL PCP 25 ng/mL THC 20 ng/mL Urinalysison 04-09-2020 Opiates Ql (U) Negative Negative [facility] Urine cocaine detectionon Cocaine Ql (U) Negative Negative [facility] Urine phencyclidine detectio n by screening methodon 04-09-2020 Phencyclidine Ql (U) Negative Negative [facility] COVID-19 Positive/Negativeon 04-06-2020 COVID-19 Positive/Negative Negative Negative [facility] Comment on above: Testing for SARS-CoV -2 by RT-PCRThis test was developed and its performance characteristics determined by [employer] ([employer]) and validated at the [facility]. This test has not been FDA cleared [...] Otheron 04-06-2020 Coronavirus 2019 PCR Interp N/A [facility] Vital Signs Date Time Vital Sign Value Performing Clinician Faci lity 08-29-2023 23:20-0400 Body temperature 98.4 [degF] ANTWAN Snider Work Phone: [facility] 08-29-2023 23:20-0400 Diastolic blood pressure 68 mm[Hg] ANTWAN Snider Work Phone: [facility] 08-29-2023 23:20-0400 Heart rate 70 /min ANTWAN Snider Work Phone: [facility] 08-29-2023 23:20-0400 Respiratory rate 22 /min ANTWAN Snider Work Phone: [facility] 08-29-2023 23:20-0400 SaO2% (BldA) [Mass fraction] 98 % ANTWAN Snider Work Phone: [facility] 08-29-2023 23:20-0400 Systolic blood pressure 150 mm[Hg] DRIVER GUIDE Coleen Agatha Work Phone: [facility] 08-29-2023 21:59-0400 Body height 182.88 cm ANTWAN Snider Work Phone: [facility] 08-29-2023 21:59-0400 Body weight 117.93 kg ANTWAN Horne Agatha Work Phone: [facility] 04-09-2020 13:35-0500 BP Diastolic 77 mm[Hg] [facility] 04-09-2020 13:35-0500 BP Systolic 131 mm[Hg] [facility] 04-09-2020 13:35-0500 Pulse (Heart Rate) 67 /min [facility] 04-09-2020 13:35-0500 Pulse Oximetry 94 % [facility] 04-09-2020 13:35-0500 Respiratory Rate 16 /min [facility] 04-09-2020 12:29-0500 Body Temperature 97.1 [degF] Coleen [facility] 04-09-2020 11:43-0500 BMI (Body Mass Index) 40.1 kg/m2 [facility] 04-09-2020 10:27-0500 Body weight 130.6 kg [facility] 04-09-2020 10:27-0500 Height 180.34 cm [facility] Encounters Encounter Date Encounter Type Care Provider Facility Start: 08-29-2023 End: 08-29-2023 Emergency department patient visit ANTWAN Coleen Snider Work Phone: [facility] Work Phone: Start: 09-08-2021 End: 09-08-[address] VEGA MISC Facility:[facility] Start: 10-01-2020 End: 10-01-[address] VEGA MISC Facility:[facility] Start: 09-19-2020 End: 09-20-2020 ambulatory NANCY CAMPOS Facility: Start: 05-05-2020 End: 05-05-2020 Patient encounter procedure Coleen Agatha -Pre-Surgical Testing Start: 04-09-2020 End: 04-09-2020 Admission to day surgery Coleen Agatha -Surgery Center [facility] Start: 04-06-2020 End: 04-06-2020 Patient encounter procedure Coleen Agatha -Pre-Surgical Testing Procedures Date Procedure Procedure Detail Performing Clinician Start: 04-09-2020 Phacoemulsification of cataract with intraocular lens implantation Coleen Snider Plan of Treatment Date Care Activity Detail Author Start: 08-29-2023 CT cervical spine without contrast CT cervical spine wo [facility] Start: 08-29-2023 CT Cervical spine WO contrast [facility] Start: 08-29-2023 CT of head without contrast CT head/brain wo [facility] Start: 08-29-2023 CT Unspecified body region WO contrast [facility] Start: 08-29-2023 Plain chest X-ray XR chest 1V portab le [facility] Start: 08-29-2023 XR Chest Single view [facility] 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[place] (DC) [facility] Work Phone: Patient referral [facility] Payers Date Payer Category Payer Self-pay [id number] 1965 Unknown [id number] 1965 Unknown [id number] 1967 Unknown [id number] 1959 Unknown [id number] Unknown [id number] Social History Date Type Detail Facility Start: 04-06-2020 End: 08-29-2023 Tobacco smoking status NHIS Smoker (finding) [facility] Start: 1965 Sex Assigned At Male F [facility] Medical Equipment Procedure Code Equipment Code Equipment Origin al Text Equipment Identifier Dates Phacoemulsification of cataract with intraocular lens implantation ()[id number] FDA Start: 04-09-2020 Phacoemulsification of cataract with intraocular lens implantation Posterior-chamber intraocular lens, pseudophakic ()[id number] FDA Start: 05-07-2020 Goals Date Patient Goal Desired Activity /State Hospital Discharge instructions 08-29-2023 Note Date & Type Note Facility 08-29-2023 Hospital Discharg e instructions Additional Instructions Clean your wound with shampoo and water daily. Apply antibiotic ointment daily. Follow-up for staple removal in 5 to 7 days. [facility] Work Phone: Evaluation note Note Date & Type Note Facility Evaluation note No assessment information availa ble [facility] Work Phone: Advance Directives No Advanced [...] CREATED AUTHOR AUTHOR'S ORGANIZ ATION 09/17/2023 [facility] Care Teams (unrecognized sec tion and content) Team Status: Active Member Role Status Dates Coleen Snider APRN BAG MACHINE TENDER-C Primary Care Provider Act letty Team Status: Inactive Member Role Status Dates Coleen Snider APRN BAG MACHINE TENDER-C Primary Care Provider Act letty Start: August [...] BE BASED ON THE PRIMARY CLINICAL RECORDS. [facility] [employer] [facility]. provides no warranty or guarantee of the accuracy or completeness of information in this document.
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
== END 2024-03-20 19:09 | disposition home or self-care (01) ==
PROVIDERS: Emergency Provider Emergency Medicine
DX: T23.001D Burn of unspecified degree of right hand, unspecified site, subsequent encounter (principal); T22.011D Burn of unspecified degree of right forearm, subsequent encounter; X08.8XXD Exposure to other specified smoke, fire and flames, subsequent encounter
CPT/HCPCS: 99282

== ENCOUNTER 2024-03-29 17:08 | Emergency (ER) | payer OTHER, SELFPAY ==
[2024-03-29 17:14] VITALS: BP 160/92; PULSE 79; TEMP 36.9; O2SAT 96; BMI 35.3
--- NOTE | 2024-03-29 17:23 | PC.NURSE ---
area to RFA is healing with no problems observed. skin intact and no s/s of infection. no open areas observed
--- OUTSIDE RECORDS SUMMARY | 2024-03-29 17:23 | XMS_ITS | CCD ---
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 Name Role Phone Coleen Snider Primary Care [...] Unavailable ANTWAN Snider Primary Care Provider [phone] DO Braulio Kearney Emergency Provider Unavai Braulio Forte Attending Unavailable Braulio Kearney Admitting Unavailable Coleen Snider Primary Care Unavailable Unavailable Unavailable Unavailable Allergies Allergy Classification Reported Allergen(s) Allergy Type Date of Onset Reaction(s) Facility (3 sources) meloxicam; Translations: [meloxicam] Drug Allergy 04-06-2020 [facility] Repository (1 source) meloxicam Drug Allergy 01-16-2015 [facility] Repository Medications Current Medications Medication Drug [...] 08-29-2023 Episodic Other aftercare (1 source) 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OHome08/30/2023 8:19 AM Dictation Location: [place] [address] Transcribed By: [facility] 08/30/23818 Dictated By: Usama Tsang Jr, DO 08/30/23813 Signed By: 08/30/23818 Normal [facility] XR chest 1V portableon 08-29 XR chest 1V portable [facility] [place] [address] [place] [address] XRay Report Signed Patient: Petar Joe III MR#: [id number] : 1965 Acct:[id number] Age/Sex: 57 / M ADM Date: 08/29/23 Loc: ER Room: Type: [facility] ER Attending Dr: Copies to: Braulio Kearney [...] Tsang Jr., D.OHome08/30/2023 8:20 AM Dictation Location: [place] [address] Transcribed By: [facility] 08/30/23819 Dictated By: Usama Tsang Jr, DO 08/30/23818 Signed By: 08/30/23819 Normal [facility] Activated partial thrombopla stin time (aPTT) in platelet poor plasma by coagulation aOrdered By: Braulio Kearney on 08-29-2023 aPTT Coag (PPP) [Time] 25.8 s 25.1-36.5 [facility] Comment on above: A hematocrit value g reater than 55% may lead to inaccurate results in coagulation testing. Patients having hematocrit values >55% require a special collection tube for coagulation studies. Please contact the laboratory at [phone] for redraw instructions. Alanine aminotransferase [En zymatic activity/volume] in Serum or PlasmaOrdered By: Braulio Kearney on 08-29-2023 ALT [Catalytic activity/Vol] 7 U/L Normal 7-52 [facility] Comment on above: Performed By: #### C BC, PT, PTT, ETOH, CMP #### [address] Albumin [Mass/volume] in Ser um or Plasma by Bromocresol green (BCG) dye binding methoOrdered By: Braulio Kearney on 08-29-2023 Albumin BCG dye [Mass/Vol] 4.3 g/dL 3.5-5.7 [facility] Alkaline phosphatase [Enzyma tic activity/volume] in Serum or PlasmaOrdered By: Braulio Kearney on 08-29-2023 ALP [Catalytic activity/Vol] 73 U/L Normal 34-104 [facility] Comment on above: Performed By: #### C BC, PT, PTT, ETOH, CMP #### [address] Aspartate aminotransferase [ Enzymatic activity/volume] in Serum or PlasmaOrdered By: Braulio Kearney on 08-29-2023 AST [Catalytic activity/Vol] 14 U/L Normal 13-39 [facility] Comment on above: Performed By: #### C BC, PT, PTT, ETOH, CMP #### [address] Automated basophil %Ordered By: Braulio Kearney on 08-29-2023 Basophils/100 WBC (Bld) 0.9 % Normal . [facility] Comment on above: Performed By: #### C BC, PT, PTT, ETOH, CMP #### [address] Automated basophil countOrde red By: Braulio Kearney on 08-29-2023 Basophils (Bld) [#/Vol] 0.0 10*3/uL Normal 0.0-0.2 [facility] Comment on above: Result Comment: PERF ORMED BY: [place] [address] PATHOLOGIST DATA ANALYTICS ANALYST [address]IRYAM L[address] M.D. Performed By: #### C BC, PT, PTT, ETOH, CMP #### [address] Automated blood monocyte cou ntOrdered By: Braulio Kearney on 08-29-2023 Monocytes (Bld) [#/Vol] 0.4 10*3/uL Normal 0.0-0.8 [facility] Comment on above: Performed By: #### C BC, PT, PTT, ETOH, CMP #### [address] Automated eosinophil %Ordere d By: Braulio Kearney on 08-29-2023 Eosinophils/100 WBC (Bld) 1.1 % Normal . [facility] Comment on above: Performed By: #### C BC, PT, PTT, ETOH, CMP #### [address] Automated eosinophil countOr dered By: Braulio Kearney on 08-29-2023 Eosinophils (Bld) [#/Vol] 0.0 10*3/uL Normal 0.0-0.45 [facility] Comment on above: Performed By: #### C BC, PT, PTT, ETOH, CMP #### [address] Automated monocyte %Ordered By: Braulio Kearney on 08-29-2023 Monocytes/100 WBC (Bld) 8.1 % Normal . [facility] Comment on above: Performed By: #### C BC, PT, PTT, ETOH, CMP #### [address] Automated neutrophil %Ordere d By: Braulio Kearney on 08-29-2023 Neutrophils/100 WBC (Bld) 62.1 % Normal . [facility] Comment on above: Performed By: #### C BC, PT, PTT, ETOH, CMP #### [address] Bilirubin.total [Mass/volume ] in Serum or PlasmaOrdered By: Braulio Kearney on 08-29-2023 Bilirubin [Mass/Vol] 0.6 mg/dL Normal 0.3-1.0 [facility] Comment on above: Performed By: #### C BC, PT, PTT, ETOH, CMP #### [address] Calcium [Mass/volume] in Ser um or PlasmaOrdered By: Braulio Kearney on 08-29-2023 Calcium [Mass/Vol] 9.5 mg/dL Normal 8.6-10.3 [facility] Comment on above: Performed By: #### C BC, PT, PTT, ETOH, CMP #### [address] Carbon dioxide, total [Moles /volume] in Serum or PlasmaOrdered By: Braulio Kearney on 08-29-2023 CO2 [Moles/Vol] 23.5 mmol/L Normal 21.0-31.0 [facility] Comment on above: Performed By: #### C BC, PT, PTT, ETOH, CMP #### [address] Chloride [Moles/volume] in S alba or PlasmaOrdered By: Braulio Kearney on 08-29-2023 Chloride [Moles/Vol] 100 mmol/L Normal 98-107 [facility] Comment on above: Performed By: #### C BC, PT, PTT, ETOH, CMP #### [address] Complete Blood Count Auto Di ffon 08-29-2023 Mean Corpuscular HGB Conc 33.9 g/dL Normal 32.5-35.6 [facility] Comment on above: Performed By: #### C BC, PT, PTT, ETOH, CMP #### [address] Monocytes/100 WBC (Bld) 20.16 % High 0.00-20.00 [facility] Comment on above: Result Comment: For adults in ED, MDW > 20.0 may be associated with a higher risk of sepsis during the first 12 hrs of hospital admission Performed By: #### C BC, PT, PTT, ETOH, CMP #### [address] NRBC% 0.1 /100{WBC} Normal 0-0.5 [facility] Comment on above: Performed By: #### C BC, PT, PTT, ETOH, CMP #### [address] Comprehensive Metabolic Pane perlita 08-29-2023 Albumin [Mass/Vol] 4.3 g/dL Normal 3.5-5.7 [facility] Comment on above: Performed By: #### C BC, PT, PTT, ETOH, CMP #### [address] Creatinine Clr Calc Pharmacy 133.32 Normal [facility] Comment on above: Result Comment: PERF ORMED BY: [place] [address] PATHOLOGIST DATA ANALYTICS ANALYST [address]IRYAM LANE M.D. Performed By: #### C BC, PT, PTT, ETOH, CMP #### [address] GFR/1.73 sq M.predicted MDRD (S/P/Bld) [Vol rate/Area] mL/min/{1.73_m2} Normal [facility] Comment on above: Performed By: #### C BC, PT, PTT, ETOH, CMP #### [address] Creatinine [Mass/volume] in Serum or PlasmaOrdered By: Braulio Kearney on 08-29-2023 Creatinine [Mass/Vol] 0.83 mg/dL Normal 0.70-1.30 [facility] Comment on above: Performed By: #### C BC, PT, PTT, ETOH, CMP #### [address] ECG 12 lead ECGon 08-29-2023 ECG 12 lead ECG [facility] [place] [address] [place] [address] Electrocardiograph Report Signed Patient: Petar Joe III MR#: [id number] : 1965 Acct:[id number] Age/Sex: 57 / M ADM Date: 08/29/23 Loc: ER Room: Type: [facility] ER Attending Dr: Ordering Provider: Braulio Kearney [...] voltage QRS Confirmed by Braulio Kearney DO ([id number]) on 08/30/2023 7:11:44 AM Referred By: Electronically Signed By:Braulio Kearney DO Transcribed By: MUS Signed By Braulio Kearney DO 0711 Normal [facility] Erythrocyte distribution wid th [Ratio] by Automated countOrdered By: Braulio Kearney on 08-29-2023 Erythrocyte distribution width (RBC) [Ratio] 16.9 % High 12.0-14.8 [facility] Comment on above: Performed By: #### C BC, PT, PTT, ETOH, CMP #### [place] [address] [place] Erythrocytes [#/volume] in B lood by Automated countOrdered By: Braulio Kearney on 08-29-2023 RBC (Bld) [#/Vol] 3.61 10*6/uL Low 3.90-5.60 [facility] Comment on above: Performed By: #### C BC, PT, PTT, ETOH, CMP #### [address] Ethanol [Mass/volume] in Ser um or PlasmaOrdered By: Braulio Kearney on 08-29-2023 Ethanol [Mass/Vol] 48 mg/dL Normal [facility] Comment on above: Performed By: #### C BC, PT, PTT, ETOH, CMP #### [address] Ethanol [Mass/Vol] 0.048 % [facility] Ethyl Alcohol Profileon Percent Ethanol 0.048 % Normal [facility] Comment on above: Result Comment: PERF ORMED BY: [place] [address] PATHOLOGIST DATA ANALYTICS ANALYST [address]IRY[address] L[address] M.D. Performed By: #### C BC, PT, PTT, ETOH, CMP #### [facility] [address] [place] [address] [place] Glucose [Mass/volume] in Ser um or PlasmaOrdered By: Braulio Kearney on 08-29-2023 Glucose [Mass/Vol] 111 mg/dL High 70-100 [facility] Comment on above: ADA recommended refe rence rangeRandom Glucose Reference Range is dependent on time and content of last meal. Glucose of more than 200 mg/dL in a nonstressed, ambulatory subject supports the diagnosis of Diabetes Mellitus. Result Comment: [facility] Glucose Reference Range is dependent on time and content of last meal. Glucose of more than 200 mg/dL in a nonstressed, ambulatory subject supports the diagnosis of Diabetes Mellitus. ADA recommended reference range Performed By: #### C BC, PT, PTT, ETOH, CMP #### [facility] [address] Hematocrit [Volume Fraction] of Blood by Automated countOrdered By: Braulio Kearney on 08-29-2023 Hematocrit (Bld) [Volume fraction] 33.1 % Low 38.8-50.0 [facility] Comment on above: Performed By: #### C BC, PT, PTT, ETOH, CMP #### [address] Hemoglobin [Mass/volume] in BloodOrdered By: Braulio Kearney on 08-29-2023 Hemoglobin (Bld) [Mass/Vol] 11.2 g/dL Low 13.0-17.0 [facility] Comment on above: Performed By: #### C BC, PT, PTT, ETOH, CMP #### [address] INR in Platelet poor plasma by Coagulation assayOrdered By: Braulio Kearney on 08-29-2023 INR Coag (PPP) [Relative time] 1.2 {INR} Normal [facility] Comment on above: INR Therapeutic [...] C BC, PT, PTT, ETOH, CMP #### [address] Leukocytes [#/volume] correc pippa for nucleated erythrocytes in Blood by Automated counOrdered By: Braulio Kearney on 08-29-2023 WBC corrected for nucl RBC Auto (Bld) [#/Vol] 4.5 10*3/uL 4.1-10.5 [facility] Leukocytes [#/volume] in Blo od by Automated countOrdered By: Braulio Kearney on 08-29-2023 WBC (Bld) [#/Vol] 4.5 10*3/uL Normal 4.1-10.5 [facility] Comment on above: Performed By: #### C BC, PT, PTT, ETOH, CMP #### [address] Lymphocytes [#/volume] in Bl ood by Automated countOrdered By: Braulio Kearney on 08-29-2023 Lymphocytes (Bld) [#/Vol] 1.3 10*3/uL Normal 1.00-4.8 [facility] Comment on above: Performed By: #### C BC, PT, PTT, ETOH, CMP #### [address] Lymphocytes/100 leukocytes i n Blood by Automated countOrdered By: Braulio Kearney on 08-29-2023 Lymphocytes/100 WBC (Bld) 27.8 % Normal . [facility] Comment on above: Performed By: #### C BC, PT, PTT, ETOH, CMP #### [address] MCH [Entitic mass] by Automa pippa countOrdered By: Braulio Kearney on 08-29-2023 MCH (RBC) [Entitic mass] 31.2 pg Normal 27.5-35.2 [facility] Comment on above: Performed By: #### C BC, PT, PTT, ETOH, CMP #### [address] [place] [address] [place] MCHC Auto (RBC) [Mass/Vol]Or dered By: Braulio Kearney on 08-29-2023 MCHC (RBC) [Mass/Vol] 33.9 g/dL 32.5-35.6 [facility] MCV [Entitic volume] by Auto mated countOrdered By: Braulio Kearney on 08-29-2023 MCV (RBC) [Entitic vol] 91.8 fL Normal 83.5-101 [facility] Comment on above: Performed By: #### C BC, PT, PTT, ETOH, CMP #### [facility] [address] [place] [address] Monocyte distribution width [Entitic volume] in Blood by AutomatedOrdered By: Braulio Kearney on 08-29-2023 Monocyte distribution width Auto (Bld) [Entitic vol] 20.16 % High 0.00-20.00 [facility] Comment on above: For adults in ED, MD W > 20.0 may be associated with a higher risk of sepsis during the first 12 hrs of hospital admission Neutrophils [#/volume] in Bl ood by Automated countOrdered By: Braulio Kearney on 08-29-2023 Neutrophils (Bld) [#/Vol] 2.8 10*3/uL Normal 1.8-7.7 [facility] Comment on above: Performed By: #### C BC, PT, PTT, ETOH, CMP #### [facility] [address] [place] [address] No Panel InformationOrdered By: Braulio Keraney on 08-29-2023 Estimated GFR (CKD-EPI) > 60.0 mL/Min [facility] Creatinine Clearance (Chem 133.32 [facility] Nucleated erythrocytes [Pres ence] in Blood by Automated countOrdered By: Braulio Kearney on 08-29-2023 Nucleated RBC Auto Ql (Bld) 0.1 /100{WBC} 0-0.5 [facility] Partial Thromboplastin Timeo n 08-29-2023 aPTT Coag (Bld) [Time] 25.8 s Normal 25.1-36.5 [facility] Comment on above: Result Comment: A he matocrit value greater than 55% may lead to inaccurate results in coagulation testing. Patients having hematocrit values >55% require a special collection tube for coagulation studies. Please contact the laboratory at [phone] for redraw instructions. PERFORMED BY: [place] [address] PATHOLOGIST DATA ANALYTICS ANALYST [address]IR[address] L[address] M.D. Performed By: #### C BC, PT, PTT, ETOH, CMP #### [place] [address] [place] Platelet mean volume [Entiti c volume] in Blood by Automated countOrdered By: Braulio Kearney on 08-29-2023 Platelet mean volume (Bld) [Entitic vol] 6.9 fL Normal 6.6-10.1 [facility] Comment on above: Performed By: #### C BC, PT, PTT, ETOH, CMP #### [place] [address] [place] Platelets [#/volume] in Bloo d by Automated countOrdered By: Braulio Kearney on 08-29-2023 Platelets (Bld) [#/Vol] 110 10*3/uL Low 150-450 [facility] Comment on above: Performed By: #### C BC, PT, PTT, ETOH, CMP #### [place] [id number] [place] Potassium [Moles/volume] in Serum or PlasmaOrdered By: Braulio Kearney on 08-29-2023 Potassium [Moles/Vol] 3.9 mmol/L Normal 3.5-5.1 [facility] Comment on above: Performed By: #### C BC, PT, PTT, ETOH, CMP #### [place] [address] [place] Protein [Mass/volume] in Ser um or PlasmaOrdered By: Braulio Kearney on 08-29-2023 Protein [Mass/Vol] 8.3 g/dL Normal 6.4-8.9 [facility] Comment on above: Performed By: #### C BC, PT, PTT, ETOH, CMP #### [address] Prothrombin time (PT)Ordered By: Braulio Kearney on 08-29-2023 PT Coag (PPP) [Time] 13.2 s High 9.0-12.9 [facility] Comment on above: A hematocrit value g reater than 55% may lead to inaccurate results in coagulation testing. Patients having hematocrit values >55% require a special collection tube for coagulation studies. Please contact the laboratory at [phone] for redraw instructions. Result Comment: A matocrit value greater than 55% may lead to inaccurate results in coagulation testing. Patients having hematocrit values >55% require a special collection tube for coagulation studies. Please contact the laboratory at [phone] for redraw instructions. Performed By: #### C BC, PT, PTT, ETOH, CMP #### [address] Serum globulin measurement b y calculation (mass/volume)Ordered By: Braulio Kearney on 08-29-2023 Globulin (S) [Mass/Vol] 4.0 g/dL [facility] Comment on above: Performed By: #### C BC, PT, PTT, ETOH, CMP #### [address] Serum or plasma albumin/glob ulin mass ratioOrdered By: Braulio Kearney on 08-29-2023 Albumin/Globulin [Mass ratio] 1.1 {ratio} [facility] Comment on above: Performed By: #### C BC, PT, PTT, ETOH, CMP #### [address] Serum or plasma anion gap de terminationOrdered By: Braulio Kearney on 08-29-2023 Anion gap [Moles/Vol] 11.4 mmol/L Normal 6.0-15.0 [facility] Comment on above: Performed By: #### C BC, PT, PTT, ETOH, CMP #### [address] Sodium [Moles/volume] in Ser um or PlasmaOrdered By: Braulio Kearney on 08-29-2023 Sodium [Moles/Vol] 131 mmol/L Low 136-145 [facility] Comment on above: Performed By: #### C BC, PT, PTT, ETOH, CMP #### [facility] [address] Urea nitrogen [Mass/volume] in Serum or PlasmaOrdered By: Braulio Kearney on 08-29-2023 Urea nitrogen [Mass/Vol] 8 mg/dL Normal 7-25 [facility] Comment on above: Performed By: #### C BC, PT, PTT, ETOH, CMP #### [facility] [address] CBC AUTO DIFFon 09-08-2021 BASO # 0.0 103/ul Normal 0.0-0.1 [facility] Comment on above: Performed By: #### C BC #### [facility] [address] [place] [address] Dr. Cristina Nino Basophils/100 WBC (Bld) 0.5 % Normal 0.2-2.0 [facility] Comment on above: Performed By: #### C BC #### [facility] [address] [place] [address] [address] Cristina Nino EO # 0.1 103/ul Normal 0.0-0.7 [facility] Comment on above: Performed By: #### C BC #### [facility] [address] [place] [address] [address] Cristina Nino Eosinophils/100 WBC (Bld) 0.9 % Normal 0.9-7.0 [facility] Comment on above: Performed By: #### C BC #### [facility] [address] [place] [address] [address] Cristina Nino Erythrocyte distribution width (RBC) [Ratio] 15.9 % Critically high 11.0-15.0 [facility] Comment on above: Performed By: #### C BC #### [facility] [address] [place] [address] Dr. Cristina Nino Hematocrit (Bld) [Volume fraction] 35.7 % Critically low 42.0-54.0 [facility] Comment on above: Performed By: #### C BC #### [facility] [address] [place] [address] Dr. Cristina Nino Hemoglobin (Bld) [Mass/Vol] 11.8 g/dL Critically low 14.0-18.0 [facility] Comment on above: Performed By: #### C BC #### [facility] [address] [place] [address] Dr. Cristina Nino IG # 0.02 10e3/ul Normal 0.00-0.03 [facility] Comment on above: Performed By: #### C BC #### [facility] [address] [place] [address] Dr. Cristina Nino IG % 0.4 % Normal 0.0-0.5 [facility] Comment on above: Performed By: #### C BC #### [facility] [address] [place] [address] Dr. Cristina Nino LYMPH # 1.7 103/ul Normal 1.2-3.8 [facility] Comment on above: Performed By: #### C BC #### [facility] [address] [place] [address] Dr. Cristina Nino Lymphocytes/100 WBC (Bld) 30.6 % Normal 20.5-60.0 [facility] Comment on above: Performed By: #### C BC #### [facility] [address] [place] [address] Dr. Cristina Nino MANUAL DIFF REQ NO Normal [facility] Comment on above: Performed By: #### C BC #### [facility] [address] [place] [address] Dr. Cristina Nino MCH (RBC) [Entitic mass] 30.9 pg Normal 25.9-34.0 [facility] Comment on above: Performed By: #### C BC #### [facility] [address] [place] [address] Dr. Cristina Nino MCHC (RBC) [Mass/Vol] 33.1 g/dL Normal 29.9-35.2 [facility] Comment on above: Performed By: #### C BC #### [facility] [address] [place] [address] [address] Cristina Nino MCV (RBC) [Entitic vol] 93.5 fL Normal 80.0-94.0 [facility] Comment on above: Performed By: #### C BC #### [facility] [address] [place] [address] [address] Cristina Nino MONO # 0.3 103/ul Normal 0.3-0.8 [facility] Comment on above: Performed By: #### C BC #### [facility] [address] [place] [address] [address] Cristina Nino Monocytes/100 WBC (Bld) 6.0 % Normal 1.7-12.0 [facility] Comment on above: Performed By: #### C BC #### [facility] [address] [place] [address] [address] Cristina Nino NEUT # 3.4 103/ul Normal 1.4-6.5 [facility] Comment on above: Performed By: #### C BC #### [facility] [address] [place] [address] [address] Cristina Nino Neutrophils/100 WBC (Bld) 61.6 % Normal 43.0-75.0 [facility] Comment on above: Performed By: #### C BC #### [facility] [address] [place] [address] [address] Cristina Nino Platelet mean volume (Bld) [Entitic vol] 9.9 fL Normal 9.5-13.5 [facility] Comment on above: Performed By: #### C BC #### [facility] [address] [place] [address] [address] Cristina Nino PLT 87 103/ul Critically low 150-450 [facility] Comment on above: Performed By: #### C BC #### [facility] [address] [place] [address] [address] Cristina Nino RBC 3.82 106/ul Critically low 4.70-6.10 [facility] Comment on above: Performed By: #### C BC #### [facility] [address] [place], [place] [address] Dr. Cristina Nino WBC 5.5 103/ul Normal 4.0-11.0 [facility] Comment on above: Performed By: #### C BC #### [facility] [address] [place], [place] [address] ABD/PELVIS WO CONon [...] ANDREA NG Date: 2021-09-08 18:20 Normal [facility] ER URINE PROFILEon 2 Bilirubin Ql (U) Negative Normal NEGATIVE [facility] Comment on above: Performed By: #### E RUR #### [facility] [address] [place] [address] Dr. Cristina Nino Clarity (U) CLEAR Normal CLEAR [facility] Comment on above: Performed By: #### E RUR #### [facility] [address] [place] [address] Dr. Cristina Nino Color (U) YELLOW Normal YELLOW [facility] Comment on above: Performed By: #### E RUR #### [facility] [address] [place] [address] Dr. Cristina Nino ERUDAVID A micrscopic examina tion will be performed if indicated. Normal [facility] Comment on above: Performed By: #### E RUR #### [facility] [address] [place] [address] Dr. Cristina Nino Glucose Ql (U) Negative Normal NEGATIVE [facility] [facility] Comment on above: Performed By: #### E RUR #### [facility] [address] [place] [address] Dr. Cristina Nino Hemoglobin Ql (U) Negative Normal NEGATIVE [facility] Comment on above: Performed By: #### E RUR #### [facility] [address] [place] [address] Dr. Cristina Nino Ketones Ql (U) Negative Normal NEGATIVE [facility] Comment on above: Performed By: #### E RUR #### [facility] [address] [place] [address] Dr. Cristina Nino LEUKOCYTES Negative Normal NEGATIVE [facility] Comment on above: Performed By: #### E RUR #### [facility] [address] [place] [address] Dr. Cristina Nino Nitrite Ql (U) Negative Normal NEGATIVE [facility] Comment on above: Performed By: #### E RUR #### [facility] [address] [place] [address] Dr. Cristina Nino pH (U) 6.0 [pH] Normal 5-9 [facility] Comment on above: Performed By: #### E RUR #### [facility] [address] [place] [address] Dr. Cristina Nino SPEC GRAVITY 1.015 Normal 1.005-<=1.0 25 [facility] Comment on above: Performed By: #### E RUR #### [facility] [address] [place] [address] Dr. Cristina Nino UA PROTEIN Negative Normal NEGATIVE/ TRACE [facility] Comment on above: Performed By: #### E RUR #### [facility] [address] [place] [address] Dr. Cristina Nino UR MICRO IND NOT INDICATED Normal [facility] Comment on above: Performed By: #### E RUR #### [facility] [address] [place] [address] Dr. Cristina Nino Urobilinogen Qn (U) 0.2 {Renee'U}/dL Normal 0.2 - 1. 0 [facility] Comment on above: Performed By: #### E RUR #### [facility] [address] [place] [address] Dr. Cristina Nino PROF CHEM 8 (BAS METB)on Anion gap [Moles/Vol] 15.0 mmol/L Normal Th [facility] Comment on above: Performed By: #### B MP #### [facility] [address] [place] [address] Dr. Cristina Nino Calcium [Mass/Vol] 8.8 mg/dL Normal 8.5-10.1 [facility] Comment on above: Performed By: #### B MP #### [facility] [address] [address] [address] Cristina Nino Chloride [Moles/Vol] 99 mmol/L Normal 98-107 [facility] Comment on above: Performed By: #### B MP #### [facility] [address] [place] [address] Dr. Cristina Nino CO2 [Moles/Vol] 23.9 mmol/L Normal 21.0-32.0 [facility] Comment on above: Performed By: #### B MP #### [facility] [address] [place] [address] Dr. Cristina Nino Creatinine [Mass/Vol] 1.04 mg/dL Normal 0.70-1.30 [facility] Comment on above: Performed By: #### B MP #### [facility] [address] [place] [address] Dr. Cristina Nino EGFR-AF DJIBOUTIAN >60 Normal >=60 [facility] Comment on above: Performed By: #### B MP #### [facility] [address] [place] [address] Dr. Cristina Nino EGFR-NON AF DJIBOUTIAN >60 Normal >=60 [facility] Comment on above: Performed By: #### B MP #### [facility] [address] [place] [address] Dr. Cristina Nino Glucose [Mass/Vol] 122 mg/dL Critically high 74-106 [facility] Comment on above: Performed By: #### B MP #### [facility] [address] [place] [address] Dr. Cristina Nino Potassium [Moles/Vol] 4.9 mmol/L Normal 3.5-5.1 [facility] Comment on above: Performed By: #### B MP #### [facility] [address] [address] [address] Cristina Nino Sodium [Moles/Vol] 133 mmol/L Critically low 136-145 Th [facility] Comment on above: Performed By: #### B MP #### [facility] [address] [address] [address] Cristina Nino Urea nitrogen [Mass/Vol] 11.0 mg/dL Normal 7.0-18.0 [facility] Comment on above: Performed By: #### B MP #### [facility] [address] [address] [address] Cristina Nino Urea nitrogen/Creatinine [Mass ratio] 10.6 mg/mg Normal [facility] Comment on above: Performed By: #### B MP #### [facility] [address] [address] [address] Cristina Nino CBC AUTO DIFFon 10-01-2020 BASO # 0.0 103/ul Normal 0.0-0.1 [facility] Comment on above: Performed By: #### C BC ####[facility] [address] [place], [place] [address]Bjfhzw Mary Basophils/100 WBC (Bld) 0.5 % Normal 0.2-2.0 [facility] Comment on above: Performed By: #### C BC ####[facility] [address] [place], [place] [address]Axwbej Mary EO # 0.1 103/ul Normal 0.0-0.7 [facility] Comment on above: Performed By: #### C BC ####[facility] [address] [place], [place] [address]Lpfmxz Mary Eosinophils/100 WBC (Bld) 1.3 % Normal 0.9-7.0 [facility] Comment on above: Performed By: #### C BC ####[facility] [address] [place], [place] [address]Mltpws Mary Erythrocyte distribution width (RBC) [Ratio] 15.9 % Critically high 11.0-15.0 [facility] Comment on above: Performed By: #### C BC ####[facility] [address] Mary Hematocrit (Bld) [Volume fraction] 36.7 % Critically low 42.0-54.0 [facility] Comment on above: Performed By: #### C BC ####[facility] [address] Mary Hemoglobin (Bld) [Mass/Vol] 12.1 g/dL Critically low 14.0-18.0 [facility] Comment on above: Performed By: #### C BC ####[facility] [address] [place] [address] Mary IG # 0.03 10e3/ul Normal 0.00-0.03 [facility] Comment on above: Performed By: #### C BC ####[facility] [address] [place] [address] Mary IG % 0.5 % Normal 0.0-0.5 [facility] Comment on above: Performed By: #### C BC ####[facility] [address] [place] [address] Mary LYMPH # 1.9 103/ul Normal 1.2-3.8 [facility] Comment on above: Performed By: #### C BC ####[facility] [address] [place] [address] Mary Lymphocytes/100 WBC (Bld) 31.9 % Normal 20.5-60.0 [facility] Comment on above: Performed By: #### C BC ####[facility] [address] [place] [address] Mary MANUAL DIFF REQ NO Normal [facility] Comment on above: Performed By: #### C BC ####[facility] [address] Mary MCH (RBC) [Entitic mass] 31.5 pg Normal 25.9-34.0 [facility] Comment on above: Performed By: #### C BC ####[facility] [address] [id number] Hernandez MCHC (RBC) [Mass/Vol] 33.0 g/dL Normal 29.9-35.2 [facility] Comment on above: Performed By: #### C BC ####[facility] [address] [id number] Hernandez MCV (RBC) [Entitic vol] 95.6 fL Critically high 80.0-94.0 [facility] Comment on above: Performed By: #### C BC ####[facility] [address] [place], [place] [address]Germissael Hernandez MONO # 0.4 103/ul Normal 0.3-0.8 [facility] Comment on above: Performed By: #### C BC ####[facility] [address] [place], [place] [address]Germissael Hernandez Monocytes/100 WBC (Bld) 7.1 % Normal 1.7-12.0 [facility] Comment on above: Performed By: #### C BC ####[facility] [address] [place], [place] [address]Gerken Mary NEUT # 3.6 103/ul Normal 1.4-6.5 [facility] Comment on above: Performed By: #### C BC ####[facility] [address] [place], [place] [address]Germissael Hernandez Neutrophils/100 WBC (Bld) 58.7 % Normal 43.0-75.0 [facility] Comment on above: Performed By: #### C BC ####[facility] [address] [place], [place] [id number] Hernandez Platelet mean volume (Bld) [Entitic vol] 9.1 fL Critically low 9.5-13.5 [facility] Comment on above: Performed By: #### C BC ####[facility] [address] [place], [place] [address]Gerken Mary PLT 112 103/ul Critically low 150-450 [facility] Comment on above: Performed By: #### C BC ####[facility] [address] [id number] Hernandez RBC 3.84 106/ul Critically low 4.70-6.10 [facility] Comment on above: Performed By: #### C BC ####[facility] [address] [id number] Bealen WBC 6.1 103/ul Normal 4.0-11.0 [facility] Comment on above: Performed By: #### C BC ####[facility] [address] [id number] Hernandez ER URINE PROFILEon 1 Bilirubin Ql (U) Negative Normal NEGATIVE [facility] Comment on above: Performed By: #### E RUR #### [facility] [address] [place] [address] Bharathi Mary Clarity (U) CLEAR Normal CLEAR [facility] Comment on above: Performed By: #### E RUR #### [facility] [address] [place] [address] Bharathi Mary Color (U) YELLOW Normal YELLOW [facility] Comment on above: Performed By: #### E RUR #### [facility] [address] [place] [address] Bharathi Mary ERUAHD A micrscopic examina tion will be performed if indicated. Normal [facility] Comment on above: Performed By: #### E RUR #### [facility] [address] [place] [address] Bharathi Mary Glucose Ql (U) Negative Normal NEGATIVE [facility] Comment on above: Performed By: #### E RUR #### [facility] [address] [place] [address] Bharathi Mary Hemoglobin Ql (U) Negative Normal NEGATIVE [facility] Comment on above: Performed By: #### E RUR #### [facility] [address] [place] [address] Bharathi Mary Ketones Ql (U) Negative Normal NEGATIVE [facility] Comment on above: Performed By: #### E RUR #### [facility] [address] [place], [place] [id number] Bharathimissael Hernandez LEUKOCYTES Negative Normal NEGATIVE [facility] Comment on above: Performed By: #### E RUR #### [facility] [address] [place], [place] [id number] Bharathi Hernandez Nitrite Ql (U) Negative Normal NEGATIVE [facility] Comment on above: Performed By: #### E RUR #### [facility] [address] [place], [place] [id number] Bharathimissael Hernandez pH (U) 6.0 [pH] Normal 5-9 [facility] Comment on above: Performed By: #### E RUR #### [facility] [address] [place] [address] Bharathi Hernandez SPEC GRAVITY 1.020 Normal 1.005-<=1.0 25 [facility] Comment on above: Performed By: #### E RUR #### [facility] [address] [place] [address] Bharathi Hernandez UA PROTEIN Negative Normal NEGATIVE/ TRACE [facility] Comment on above: Performed By: #### E RUR #### [facility] [address] [place] [address] Bharathi Hernandez UR MICRO IND NOT INDICATED Normal [facility] Comment on above: Performed By: #### E RUR #### [facility] [address] [place] [address] Bharathi Hernandez Urobilinogen Qn (U) 0.2 {Renee'U}/dL Normal 0.2 - 1. 0 [facility] Comment on above: Performed By: #### E RUR #### [facility] [address] [place] [address] Bharathi Hernandez PROF CHEM 8 (BAS METB)on Anion gap [Moles/Vol] 14.2 mmol/L Normal Th [facility] Comment on above: Performed By: #### B MP #### [facility] [address] [place] [address] Bharathi Hernandez Calcium [Mass/Vol] 9.0 mg/dL Normal 8.4-10.2 [facility] Comment on above: Performed By: #### B MP #### [facility] [address] [id number] Bharathi Mary Chloride [Moles/Vol] 100 mmol/L Normal 98-107 [facility] Comment on above: Performed By: #### B MP #### [facility] [address] [id number] Bharathi Mary CO2 [Moles/Vol] 26.0 mmol/L Normal 22.0-30.0 [facility] Comment on above: Performed By: #### B MP #### [facility] [address] [address] Bharathi Mary Creatinine [Mass/Vol] 1.03 mg/dL Normal 0.66-1.25 [facility] Comment on above: Performed By: #### B MP #### [facility] [address] [place], [place] [id number] Bharathi Mary EGFR-AF DJIBOUTIAN >60 Normal >=60 [facility] Comment on above: Performed By: #### B MP #### [facility] [address] [place], [place] [id number] Bharathi Mary EGFR-NON AF DJIBOUTIAN >60 Normal >=60 [facility] Comment on above: Performed By: #### B MP #### [facility] [address] [place] [address] Bharathi Mary Glucose [Mass/Vol] 132 mg/dL Critically high 74-106 T [facility] Comment on above: Performed By: #### B MP #### [facility] [address] [place] [address] Bharathi Mary Potassium [Moles/Vol] 4.2 mmol/L Normal 3.4-5.0 [facility] Comment on above: Performed By: #### B MP #### [facility] [address] [place], [place] [id number] Bharathi Mary Sodium [Moles/Vol] 136 mmol/L Critically low 137-145 Th [facility] Comment on above: Performed By: #### B MP #### [facility] [address] [place], [place] [id number] Bharathi Mary Urea nitrogen [Mass/Vol] 9.0 mg/dL Normal 9.0-20.0 [facility] Comment on above: Performed By: #### B MP #### [facility] [address] [place], [place] [address] Bharathi Hernandez Urea nitrogen/Creatinine [Mass ratio] 8.7 mg/mg Normal [facility] Comment on above: Performed By: #### B MP #### [facility] [address] [place], [place] [address] ABD/PELVIS WO CONon 09-20 [...] [place] Date: 2020-09-19 22:15 Normal [facility] ER URINE PROFILEon 1 Bilirubin Ql (U) Negative Normal NEGATIVE [facility] Comment on above: Performed By: #### E RUR #### [facility] [address] [place] [address] Bharathi Mary Clarity (U) CLEAR Normal CLEAR [facility] Comment on above: Performed By: #### E RUR #### [facility] [address] [place] [address] Bharathi Mary Color (U) YELLOW Normal YELLOW [facility] Comment on above: Performed By: #### E RUR #### [facility] [address] [place] [address] Bharathi Mary ERUAHD A micrscopic examina tion will be performed if indicated. Normal [facility] Comment on above: Performed By: #### E RUR #### [facility] [address] [place] [address] Bharathi Mary Glucose Ql (U) Negative Normal NEGATIVE [facility] Comment on above: Performed By: #### E RUR #### [facility] [address] [place] [address] Bharathi Mary Hemoglobin Ql (U) Negative Normal NEGATIVE [facility] Comment on above: Performed By: #### E RUR #### [facility] [address] [place] [address] Bharathi Mary Ketones Ql (U) Negative Normal NEGATIVE [facility] Comment on above: Performed By: #### E RUR #### [facility] [address] [place] [address] Bharathi Mary LEUKOCYTES Negative Normal NEGATIVE [facility] Comment on above: Performed By: #### E RUR #### [facility] [address] [place] [address] Bharathi Hernandez Nitrite Ql (U) Negative Normal NEGATIVE [facility] Comment on above: Performed By: #### E RUR #### [facility] [address] [place] [address] Bharathi Hernandez pH (U) 5.5 [pH] Normal 5-9 [facility] Comment on above: Performed By: #### E RUR #### [facility] [address] [place] [address] Bharathi Hernandez SPEC GRAVITY 1.020 Normal 1.005-<=1.0 25 [facility] Comment on above: Performed By: #### E RUR #### [facility] [address] [place] [address] Bharathi Hernandez UA PROTEIN Negative Normal NEGATIVE/ TRACE [facility] Comment on above: Performed By: #### E RUR #### [facility] [address] [place] [address] Bharathi Hernandez UR MICRO IND NOT INDICATED Normal [facility] Comment on above: Performed By: #### E RUR #### [facility] [address] [place] [address] Bharathi Hernandez Urobilinogen Qn (U) 0.2 {Renee'U}/dL Normal 0.2 - 1. 0 [facility] Comment on above: Performed By: #### E RUR #### [facility] [address] [place] [address] Bharathi Hernandez CBC AUTO DIFFon 09-19-2020 BASO # 0.0 103/ul Normal 0.0-0.1 [facility] Comment on above: Performed By: #### C BC #### [facility] [address] [place] [address] Bharathimissael Hernandez Basophils/100 WBC (Bld) 0.5 % Normal 0.2-2.0 [facility] Comment on above: Performed By: #### C BC #### [facility] [address] [place] [address] Bharathi Hernandez EO # 0.1 103/ul Normal 0.0-0.7 [facility] Comment on above: Performed By: #### C BC #### [facility] [address] [place] [address] Bharathi Mary Eosinophils/100 WBC (Bld) 1.0 % Normal 0.9-7.0 [facility] Comment on above: Performed By: #### C BC #### [facility] [address] [place] [address] Bharathi Mary Erythrocyte distribution width (RBC) [Ratio] 15.7 % Critically high 11.0-15.0 [facility] Comment on above: Performed By: #### C BC #### [facility] [address] [place] [address] Bharathi Mary Hematocrit (Bld) [Volume fraction] 35.3 % Critically low 42.0-54.0 [facility] Comment on above: Performed By: #### C BC #### [facility] [address] [place] [address] Bharathi Mary Hemoglobin (Bld) [Mass/Vol] 11.5 g/dL Critically low 14.0-18.0 [facility] Comment on above: Performed By: #### C BC #### [facility] [address] [place] [address] Bharathi Mary IG # 0.03 10e3/ul Normal 0.00-0.03 [facility] Comment on above: Performed By: #### C BC #### [facility] [address] [place] [address] Bharathi Mary IG % 0.4 % Normal 0.0-0.5 [facility] Comment on above: Performed By: #### C BC #### [facility] [address] [place] [address] Bharathi Mary LYMPH # 2.2 103/ul Normal 1.2-3.8 [facility] Comment on above: Performed By: #### C BC #### [facility] [address] [place] [address] Bharathi Mary Lymphocytes/100 WBC (Bld) 29.6 % Normal 20.5-60.0 [facility] Comment on above: Performed By: #### C BC #### [facility] [address] [place], [place] [id number] Bharathi Mary MANUAL DIFF REQ NO Normal [facility] Comment on above: Performed By: #### C BC #### [facility] [address] [place], [place] [id number] Bharathi Mary MCH (RBC) [Entitic mass] 31.0 pg Normal 25.9-34.0 [facility] Comment on above: Performed By: #### C BC #### [facility] [address] [place] [address] Bharathimissael Hernandez MCHC (RBC) [Mass/Vol] 32.6 g/dL Normal 29.9-35.2 [facility] Comment on above: Performed By: #### C BC #### [facility] [address] [place] [address] Bharathi Mary MCV (RBC) [Entitic vol] 95.1 fL Critically high 80.0-94.0 [facility] Comment on above: Performed By: #### C BC #### [facility] [address] [place], [place] [id number] Bharathi Mary MONO # 0.5 103/ul Normal 0.3-0.8 [facility] Comment on above: Performed By: #### C BC #### [facility] [address] [place] [address] Bharathi Mary Monocytes/100 WBC (Bld) 6.3 % Normal 1.7-12.0 [facility] Comment on above: Performed By: #### C BC #### [facility] [address] [place] [address] Bharathi Mary NEUT # 4.6 103/ul Normal 1.4-6.5 [facility] Comment on above: Performed By: #### C BC #### [facility] [address] [place], [place] [id number] Bharathi Mary Neutrophils/100 WBC (Bld) 62.2 % Normal 43.0-75.0 [facility] Comment on above: Performed By: #### C BC #### [facility] [address] [place] [address] Bharathi Mary Platelet mean volume (Bld) [Entitic vol] 9.2 fL Critically low 9.5-13.5 [facility] Comment on above: Performed By: #### C BC #### [facility] [address] [place], [place] [id number] Bharathi Mary PLT 118 103/ul Critically low 150-450 [facility] Comment on above: Performed By: #### C BC #### [facility] [address] [place], [place] [phone] Bharathi Mary RBC 3.71 106/ul Critically low 4.70-6.10 [facility] Comment on above: Performed By: #### C BC #### [facility] [address] [place], [place] [id number] Bharathi Mary WBC 7.4 103/ul Normal 4.0-11.0 [facility] Comment on above: Performed By: #### C BC #### [facility] [address] [place], [place] [id number] Bharathimissael Bealen PROF 14(COMP METB)on 021 Albumin [Mass/Vol] 3.9 g/dL Normal 3.5-5.0 [facility] Comment on above: Performed By: #### C MP #### [facility] [address] [place], [place] [id number] Bharathi Mary Albumin/Globulin [Mass ratio] 0.8 {ratio} Normal [facility] Comment on above: Performed By: #### C MP #### [facility] [address] [place], [place] [phone] Bharathi Mary ALP [Catalytic activity/Vol] 81 U/L Normal 38-126 [facility] Comment on above: Performed By: #### C MP #### [facility] [address] [place], [place] [id number] Bharathi Mray ALT [Catalytic activity/Vol] 14 U/L Critically low 21-72 [facility] Comment on above: Performed By: #### C MP #### [facility] [address] [place], [place] [id number] Hbarathi Mary Anion gap [Moles/Vol] 13.7 mmol/L Normal Th e [facility] Comment on above: Performed By: #### C MP #### [facility] [address] [place] [address] Bharathi Mary AST [Catalytic activity/Vol] 23 U/L Normal 17-59 [facility] Comment on above: Performed By: #### C MP #### [facility] [address] [place] [address] Bharathi Mary Bilirubin [Mass/Vol] 0.6 mg/dL Normal 0.2-1.3 [facility] Comment on above: Performed By: #### C MP #### [facility] [address] [place] [address] Bharathi Mary Calcium [Mass/Vol] 8.9 mg/dL Normal 8.4-10.2 [facility] Comment on above: Performed By: #### C MP #### [facility] [address] [place] [address] Bharathi Mary Chloride [Moles/Vol] 101 mmol/L Normal 98-107 [facility] Comment on above: Performed By: #### C MP #### [facility] [address] [place] [address] Bharathi Mary CO2 [Moles/Vol] 26.4 mmol/L Normal 22.0-30.0 [facility] Comment on above: Performed By: #### C MP #### [facility] [facility] [address] [place] [address] Bharathi Mary Creatinine [Mass/Vol] 1.02 mg/dL Normal 0.66-1.25 [facility] Comment on above: Performed By: #### C MP #### [facility] [address] [place] [address] Bharathi Mary EGFR-AF DJIBOUTIAN >60 Normal >=60 [facility] Comment on above: Performed By: #### C MP #### [facility] [address] [place] [address] Bharathi Mary EGFR-NON AF DJIBOUTIAN >60 Normal >=60 [facility] Comment on above: Performed By: #### C MP #### [facility] [address], [place] [address] Bharathi Mary Globulin (S) [Mass/Vol] 4.7 g/dL Normal [facility] Comment on above: Performed By: #### C MP #### [facility] [address], [place] [address] Bharathi Mary Glucose [Mass/Vol] 119 mg/dL Critically high 74-106 [facility] Comment on above: Performed By: #### C MP #### [facility] [address], [place] [address] Bharathi Mary Potassium [Moles/Vol] 4.1 mmol/L Normal 3.4-5.0 [facility] Comment on above: Performed By: #### C MP #### [facility] [address], [place] [address] Bharathi Mary Protein [Mass/Vol] 8.6 g/dL Critically high 6.1-8.2 [facility] Comment on above: Performed By: #### C MP #### [facility] [address], [place] [address] Bharathi Mary Sodium [Moles/Vol] 137 mmol/L Normal 137-145 [facility] Comment on above: Performed By: #### C MP #### [facility] [address], [place] [address] Bharathi Mary Urea nitrogen [Mass/Vol] 7.0 mg/dL Critically low 9.0-20.0 [facility] Comment on above: Performed By: #### C MP #### [facility] [address], [place] [address] Bharathi Mary Urea nitrogen/Creatinine [Mass ratio] 6.9 mg/mg Normal [facility] Comment on above: Performed By: #### C MP #### [facility] [address], [place] [address] Bharathi Mary COVID-19 Positive/Negativeon 05-05-2020 COVID-19 Positive/Negative Negative Negative [facility] Comment on above: Testing for SARS-CoV -2 by RT-PCRThis test was developed and its performance characteristics determined by [employer] ([employer]) and validated at the [facility]. This test has not been [...] Otheron 05-05-2020 Coronavirus 2019 PCR Interp N/A [facility] Amphetamines screenon 2020 Amphetamines Ql (U) Negative Negative [facility] Barbiturates [Presence] in U rineon 04-09-2020 Barbiturates Ql (U) Negative Negative [facility] Benzodiazepines [Presence] i n Urineon 04-09-2020 Benzodiazepines Ql (U) Negative Negative [facility] Cannabinoids [Presence] in U rine by Screen methodon 04-09-2020 Cannabinoids Screen Ql (U) Positive Negative [facility] Comment on above: These are unconfirme d results and should not be used for legal purposes. Drug Cut-Off Concentration: AMPH 1000 ng/mL RD 200 ng/mL JANETTE 200 ng/mL COCM 300 ng/mL OP 300 ng/mL PCP 25 ng/mL THC 20 ng/mL Urinalysison 04-09-2020 Opiates Ql (U) Negative Negative [facility] Urine cocaine detectionon Cocaine Ql (U) Negative Negative [facility] Urine phencyclidine detectio n by screening methodon 04-09-2020 Phencyclidine Ql (U) Negative Negative [facility] COVID-19 Positive/Negativeon 04-06-2020 COVID-19 Positive/Negative Negative Negative [facility] Comment on above: Testing for SARS-CoV -2 by RT-PCRThis test was developed and its performance characteristics determined by [employer]) and validated at the [facility]. This test has not been [...] Otheron 04-06-2020 Coronavirus 2019 PCR Interp N/A [facility] Vital Signs Date Time Vital Sign Value Performing Clinician Faci lity 08-29-2023 23:20-0400 Body temperature 98.4 [degF] ANTWAN Snider Work Phone: [facility] 08-29-2023 23:20-0400 Diastolic blood pressure 68 mm[Hg] ANTWAN Snider Work Phone: [facility] 08-29-2023 23:20-0400 Heart rate 70 /min ANTWAN Snider Work Phone: [facility] 08-29-2023 23:20-0400 Respiratory rate 22 /min ANTWAN Snider Work Phone: [facility] 08-29-2023 23:20-0400 SaO2% (BldA) [Mass fraction] 98 % ANTWAN Snider Work Phone: [facility] 08-29-2023 23:20-0400 Systolic blood pressure 150 mm[Hg] GAS TECHNICIAN Coleen Agatha Work Phone: [facility] 08-29-2023 21:59-0400 Body height 182.88 cm ANTWAN Snider Work Phone: [facility] 08-29-2023 21:59-0400 Body weight 117.93 kg ANTWAN Horne Agatha Work Phone: [facility] 04-09-2020 13:35-0500 BP Diastolic 77 mm[Hg] [facility] 04-09-2020 13:35-0500 BP Systolic 131 mm[Hg] [facility] 04-09-2020 13:35-0500 Pulse (Heart Rate) 67 /min [facility] 04-09-2020 13:35-0500 Pulse Oximetry 94 % [facility] 04-09-2020 13:35-0500 Respiratory Rate 16 /[facility] 04-09-2020 12:29-0500 Body Temperature 97.1 [degF] Coleen [facility] 04-09-2020 11:43-0500 BMI (Body Mass Index) 40.1 kg/m2 [facility] 04-09-2020 10:27-0500 Body weight 130.6 kg [facility] 04-09-2020 10:27-0500 Height 180.34 cm [facility] Encounters Encounter Date Encounter Type Care Provider Facility Start: 08-29-2023 End: 08-29-2023 Emergency department patient visit ANTWAN Coleen Snider Work Phone: [facility] Work Phone: Start: 09-08-2021 End: 09-08-[address] VEGA MISC Facility:[facility] Start: 10-01-2020 End: 10-01-[address] VEGA MISC Facility:[facility] Start: 09-19-2020 End: 09-20-2020 ambulatory NANCY CAMPOS Facility: Start: 05-05-2020 End: 05-05-2020 Patient encounter procedure Coleen Agatha -Pre-Surgical Testing Start: 04-09-2020 End: 04-09-2020 Admission to day surgery Coleen Agatha -Surgery Center [facility] Start: 04-06-2020 End: 04-06-2020 Patient encounter procedure Coleen Agatha -Pre-Surgical Testing Procedures Date Procedure Procedure Detail Performing Clinician Start: 04-09-2020 Phacoemulsification of cataract with intraocular lens implantation Coleen Snider Plan of Treatment Date Care Activity Detail Author Start: 08-29-2023 CT cervical spine without contrast CT cervical spine wo [facility] Start: 08-29-2023 CT Cervical spine WO contrast [facility] Start: 08-29-2023 CT of head without contrast CT head/brain wo [facility] Start: 08-29-2023 CT Unspecified body region WO contrast [facility] Start: 08-29-2023 Plain chest X-ray XR chest 1V portab le [facility] Start: 08-29-2023 XR Chest Single view 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[place] (DC) [facility] Work Phone: Patient referral [facility] Payers Date Payer Category Payer Self-pay [id number] 1965 Unknown [id number] 1965 Unknown [id number] 1965 Unknown [id number] 1959 Unknown [id number] Unknown [id number] Social History Date Type Detail Facility Start: 04-06-2020 End: 08-29-2023 Tobacco smoking status NHIS Smoker (finding) [facility] Start: 1965 Sex Assigned At Male F [facility] Medical Equipment Procedure Code Equipment Code Equipment Origin al Text Equipment Identifier Dates Phacoemulsification of cataract with intraocular lens implantation [id number] FDA Start: 04-09-2020 Phacoemulsification of cataract with intraocular lens implantation Posterior-chamber intraocular lens, pseudophakic ()[id number] FDA Start: 05-07-2020 Goals Date Patient Goal Desired Activity /State Hospital Discharge instructions 08-29-2023 Note Date & Type Note Facility 08-29-2023 Hospital Discharg e instructions Additional Instructions Clean your wound with shampoo and water daily. Apply antibiotic ointment daily. Follow-up for staple removal in 5 to 7 days. [facility] Work Phone: Evaluation note Note Date & Type Note Facility Evaluation note No assessment information availa ble [facility] Work Phone: Advance Directives No [...] CREATED AUTHOR AUTHOR'S ORGANIZ ATION 09/17/2023 [facility] Care Teams (unrecognized sec tion and content) Team Status: Active Member Role Status Dates Coleen Snider APRN [employer] Primary Care Provider Act letty Team Status: Inactive Member Role Status Dates Coleen Snider APRN [employer]-C Primary Care Provider Act letty Start: August [...] BE BASED ON THE PRIMARY CLINICAL RECORDS. [facility] [employer] [facility]. provides no warranty or guarantee of the accuracy or completeness of information in this document.
--- NOTE | 2024-03-29 17:44 | ED_ITS ---
HPI HPI - General Adult General Chief complaint: Skin/Abscess/Foreign Body Stated complaint: Dressing Change Time Seen by Provider: 03/29/24 17:35 Source: patient Mode of arrival: walk-in History of Present Illness HPI narrative: Patient is a 58-year-old male who is presenting to the ER with chief complaint of wound evaluation, and wanting a dressing change. Patient states that he has not taking off his dressing and has not looked at the wounds today. Patient had dressings from his right forearm and hand taken off by nursing staff. Patient's wounds look well and are healing well. Patient has no new injury, no new fall. No knee pain. No other acute complaints at this time. Patient states he has no money and No supplies to help take care of his wounds at home. All systems are negative except as noted/marked. All systems reviewed and otherwise negative. Nurses note and vital signs reviewed and patient is not hypoxic. General: The patient appears well and in no apparent distress. Patient is resting comfortably on cart. Patient is not toxic, lethargic, or listless. Patient smells of significant cigarettes and tobacco products. Skin: Warm, dry, no pallor noted. There is no rash noted. No petechiae, purpura. Patient has good healing wound to right forearm. Patient still has minimal dried skin to his right ring and middle finger that is peeling off minimally, but patient has excellent Skin healing underneath these areas of his fingers, no secondary signs of infection. Patient's right forearm and right hand has healed excellent from secondary intention. No localized erythema, cellulitis, no rash, no need for continued wound dressing changes, wounds are healing well. No crepitus. Full range of motion of right shoulder, elbow, wrist and hand without difficulty. Head: Normocephalic, atraumatic Eye: Normal conjunctiva, no drainage, EOMI. PERRL Ears, Nose, Mouth, and Throat: oral mucosa is moist. Nares patent. Mouth without vesicles. Cardiovascular: Regular Rate and Rhythm, no murmur, gallop, rub Respiratory: Patient is in no distress, no accessory muscle use, lungs are clear to auscultation, no wheezing, rales or rhonchi Musculoskeletal: Patient has full range of motion of all of the extremities, no motor, sensory, or focal neurological deficits Neurological: A&O x4, normal speech Psychiatric: Cooperative Related Data Home Medications ?Medication ?Instructions ?Recorded ?Confirmed buprenorphine HCl 8 mg sublingual 16 mg sublingual DAILY 06/25/23 03/29/24 tablet gabapentin 300 mg capsule 300 mg PO TID 06/25/23 03/29/24 quetiapine 200 mg tablet (Seroquel) 200 mg PO BID 03/14/24 03/29/24 Previous Rx's ?Medication ?Instructions ?Recorded bacitracin 500 unit/gram topical 1 applic topical BID #14 grams 03/14/24 ointment tramadol 50 mg tablet 50 mg PO Q8H PRN pain 3 days #9 03/14/24 tabs Allergies Allergy/AdvReac Type Severity Reaction Status Date / Time meloxicam (From [employer]) Allergy Rash Verified 03/14/24 14:13 Opioid HPI Opioid Management Most Recent Opioid Data: Last Pain Scale 8 03/14/24 16:07 03/14/24 PFSH PFSH Social History Little interest or pleasure in doing things: not at all Feeling down, depressed, or hopeless: not at all Exam Constitutional Vital Signs, click to edit/add: Last Vital Signs Temp 98.5 F 03/29/24 17:14 Pulse 79 03/29/24 17:14 Resp 18 03/29/24 17:14 BP 160/92 H 03/29/24 17:14 Pulse Ox 96 03/29/24 17:14 O2 Del Method Room Air 03/29/24 17:14 Course Vital Signs Vital signs: Vital Signs Temperature 98.5 F 03/29/24 17:14 Pulse Rate 79 03/29/24 17:14 Respiratory Rate 18 03/29/24 17:14 Blood Pressure 160/92 H 03/29/24 17:14 Pulse Oximetry 96 03/29/24 17:14 Oxygen Delivery Method Room Air 03/29/24 17:14 Temperature 98.5 F 03/29/24 17:14 Pulse Rate 79 03/29/24 17:14 Respiratory Rate 18 03/29/24 17:14 Blood Pressure 160/92 H 03/29/24 17:14 Pulse Oximetry 96 03/29/24 17:14 Oxygen Delivery Method Room Air 03/29/24 17:14 Medical Decision Making MDM Narrative Medical decision making narrative: Patient had bacitracin applied to his right ring and middle finger of his right hand where patient has minimal skin peeling to those areas. Patient has excellent healed tissue to all of the 5 fingers of his right hand and his right hand and his right forearm. Patient will continue antibiotic applications to help promote healing and continue healing. Patient does not need to keep any more dressings to his wounds, they have healed well. Discharge Plan Discharge Chief Complaint: Skin/Abscess/Foreign Body Clinical Impression: Encounter for assessment of wound Patient Disposition: Home, Self-Care Time of Disposition Decision: 17:43 Condition: Fair Mode of Transportation: Private Vehicle Prescriptions / Home Meds: No Action quetiapine [Seroquel] 200 mg tablet 200 mg PO BID bacitracin 500 unit/gram ointment 1 applic topical BID Qty: 14 0RF tramadol 50 mg tablet 50 mg PO Q8H PRN (Reason: pain) 3 Days Qty: 9 0RF gabapentin 300 mg capsule 300 mg PO TID buprenorphine HCl 8 mg tablet, sublingual 16 mg SUBLINGUAL DAILY Print Language: Ug[place] Additional Instructions: Continue using topical antibiotic ointment Neosporin, bacitracin 3-4 times a day to wounds until they have completely healed. Your wounds look excellent, there is no secondary signs of infection. Follow-up with your PCP or health department as needed. Referrals: Varghese Palafox MD [Physician] - 1 week Physician,Non-Staff, [Primary Care Provider] - 1 week Discharge Date/Time: 03/29/24 18:14
[2024-03-29] MEDS: BACITRACIN 0.9 GM PACKET 1 PACKET TOPICAL (18:03)
== END 2024-03-29 18:14 | disposition home or self-care (01) ==
PROVIDERS: Emergency Provider Emergency Medicine
DX: Z48.00 Encounter for change or removal of nonsurgical wound dressing (principal)
CPT/HCPCS: 99283

== ENCOUNTER 2024-11-13 17:28 | Emergency (ER) | payer OTHER, SELFPAY ==
[2024-11-13 17:54] VITALS: BP 102/68; PULSE 110; TEMP 37.3; O2SAT 97; BMI 31.0
--- OUTSIDE RECORDS SUMMARY | 2024-11-13 18:08 | XMS_ITS | CCD ---
Author Organization [facility] Care Team Providers Care Graphics Programmer Name Role Phone Coleen Snider Primary Care [...] Consulting Unavailable ANTWAN Snider Primary Care Provider DO Braulio Kearney Emergency Provider Unavai Braulio Forte Attending Unavailable Braulio Kearney Admitting Unavailable Coleen Snider Primary Care Unavailable Unavailable Unavailable Unavailable Allergies Allergy Classification Reported Allergen(s) Allergy Type Date of Onset Reaction(s) Facility (3 sources) meloxicam; Translations: [meloxicam] Drug Allergy 04-06-2020 [facility] (1 source) meloxicam Drug Allergy 01-16-[address] [facility] Repository Medications Current Medications Medication Drug [...] 08-29-2023 Episodic Other aftercare (1 source) Other care home (current) drug therapy; Translations: [OTH SENIOR DIRECTOR OF STRATEGY 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 THERAPY] Onset: 09-10-2021 Episodic Other [...] conon 0 08-30-2023 CT cervical spine wo [facility] [place] [address] CT Scan Report Signed Patient: Petar Joe III MR#: [id number] : 1965 Acct:[id number] Age/Sex: 57 / M ADM Date: 08/29/23 Loc: ER Room: [place] [facility] [place]ending Dr: Copies to: Braulio Kearney DO Ordering Provider: Braulio Kearney DO Date of Service: 08/29/23 CT/CT cervical spine wo con: r/o fx ([id number]) CT/CT head/brain wo con: r/o ich CT [...] Tsang Jr., D.OHome08/30/2023 8:19 AM Dictation Location: [place] [address] Transcribed By: [facility] 08/30/23818 Dictated By: Usama Tsang Jr, DO 08/30/23813 Signed By: 08/30/23818 Normal [facility] XR chest 1V portableon 08-29 XR chest 1V portable [facility] [place] [address] [place] [address] XRay Report Signed Patient: Petar Joe III MR#: [id number] : 1965 Acct:[id number] Age/Sex: 57 / M ADM Date: 08/29/23 Loc: ER Room: Type: [facility] Attending Dr: Copies to: Braulio Kearney [...] Tsang Jr., D.OHome08/30/2023 8:20 AM Dictation Location: [place] [address] Transcribed By: [facility] 08/30/23819 Dictated By: Usama Tsang Jr, DO 08/30/23818 Signed By: 08/30/23819 Normal [facility] Activated partial thrombopla stin time (aPTT) in platelet poor plasma by coagulation aOrdered By: Braulio Kearney on 08-29-2023 aPTT Coag (PPP) [Time] 25.8 s 25.1-36.5 [facility] Comment on above: A hematocrit value g reater than 55% may lead to inaccurate results in coagulation testing. Patients having hematocrit values >55% require a special collection tube for coagulation studies. Please contact the laboratory at [phone] for redraw instructions. Alanine aminotransferase [En zymatic activity/volume] in Serum or PlasmaOrdered By: Braulio Kearney on 08-29-2023 ALT [Catalytic activity/Vol] 7 U/L Normal 7-52 [facility] Comment on above: Performed By: #### C BC, PT, PTT, ETOH, CMP #### [address] Albumin [Mass/volume] in Ser um or Plasma by Bromocresol green (BCG) dye binding methoOrdered By: Braulio Kearney on 08-29-2023 Albumin BCG dye [Mass/Vol] 4.3 g/dL 3.5-5.7 [facility] Alkaline phosphatase [Enzyma tic activity/volume] in Serum or PlasmaOrdered By: Braulio Kearney on 08-29-2023 ALP [Catalytic activity/Vol] 73 U/L Normal 34-104 [facility] Comment on above: Performed By: #### C BC, PT, PTT, ETOH, CMP #### [address] Aspartate aminotransferase [ Enzymatic activity/volume] in Serum or PlasmaOrdered By: Braulio Kearney on 08-29-2023 AST [Catalytic activity/Vol] 14 U/L Normal 13-39 [facility] Comment on above: Performed By: #### C BC, PT, PTT, ETOH, CMP #### [address] Automated basophil %Ordered By: Braulio Kearney on 08-29-2023 Basophils/100 WBC (Bld) 0.9 % Normal . [facility] Comment on above: Performed By: #### C BC, PT, PTT, ETOH, CMP #### [address] Automated basophil countOrde red By: Braulio Kearney on 08-29-2023 Basophils (Bld) [#/Vol] 0.0 10*3/uL Normal 0.0-0.2 [facility] Comment on above: Result Comment: PERF ORMED BY: [place] [address] PATHOLOGIST [employer]EL[employer] [address] L[address] M.D. Performed By: #### C BC, PT, PTT, ETOH, CMP #### [address] Automated blood monocyte cou ntOrdered By: Braulio Kearney on 08-29-2023 Monocytes (Bld) [#/Vol] 0.4 10*3/uL Normal 0.0-0.8 [facility] Comment on above: Performed By: #### C BC, PT, PTT, ETOH, CMP #### [address] Automated eosinophil %Ordere d By: Braulio Kearney on 08-29-2023 Eosinophils/100 WBC (Bld) 1.1 % Normal . [facility] Comment on above: Performed By: #### C BC, PT, PTT, ETOH, CMP #### [address] Automated eosinophil countOr dered By: Braulio Kearney on 08-29-2023 Eosinophils (Bld) [#/Vol] 0.0 10*3/uL Normal 0.0-0.45 [facility] Comment on above: Performed By: #### C BC, PT, PTT, ETOH, CMP #### [address] Automated monocyte %Ordered By: Braulio Kearney on 08-29-2023 Monocytes/100 WBC (Bld) 8.1 % Normal . [facility] Comment on above: Performed By: #### C BC, PT, PTT, ETOH, CMP #### [address] Automated neutrophil %Ordere d By: Braulio Kearney on 08-29-2023 Neutrophils/100 WBC (Bld) 62.1 % Normal . [facility] Comment on above: Performed By: #### C BC, PT, PTT, ETOH, CMP #### [address] Bilirubin.total [Mass/volume ] in Serum or PlasmaOrdered By: Braulio Kearney on 08-29-2023 Bilirubin [Mass/Vol] 0.6 mg/dL Normal 0.3-1.0 [facility] Comment on above: Performed By: #### C BC, PT, PTT, ETOH, CMP #### [address] Calcium [Mass/volume] in Ser um or PlasmaOrdered By: Braulio Kearney on 08-29-2023 Calcium [Mass/Vol] 9.5 mg/dL Normal 8.6-10.3 [facility] Comment on above: Performed By: #### C BC, PT, PTT, ETOH, CMP #### [address] Carbon dioxide, total [Moles /volume] in Serum or PlasmaOrdered By: Braulio Kearney on 08-29-2023 CO2 [Moles/Vol] 23.5 mmol/L Normal 21.0-31.0 [facility] Comment on above: Performed By: #### C BC, PT, PTT, ETOH, CMP #### [address] Chloride [Moles/volume] in S alba or PlasmaOrdered By: Braulio Kearney on 08-29-2023 Chloride [Moles/Vol] 100 mmol/L Normal 98-107 [facility] Comment on above: Performed By: #### C BC, PT, PTT, ETOH, CMP #### [address] Complete Blood Count Auto Di ffon 08-29-2023 Mean Corpuscular HGB Conc 33.9 g/dL Normal 32.5-35.6 [facility] Comment on above: Performed By: #### C BC, PT, PTT, ETOH, CMP #### [address] Monocytes/100 WBC (Bld) 20.16 % High 0.00-20.00 [facility] Comment on above: Result Comment: For adults in ED, MDW > 20.0 may be associated with a higher risk of sepsis during the first 12 hrs of hospital admission Performed By: #### C BC, PT, PTT, ETOH, CMP #### [address] NRBC% 0.1 /100{WBC} Normal 0-0.5 [facility] Comment on above: Performed By: #### C BC, PT, PTT, ETOH, CMP #### [address] Comprehensive Metabolic Pane perlita 08-29-2023 Albumin [Mass/Vol] 4.3 g/dL Normal 3.5-5.7 [facility] Comment on above: Performed By: #### C BC, PT, PTT, ETOH, CMP #### [address] Creatinine Clr Calc Pharmacy 133.32 Normal [facility] Comment on above: Result Comment: PERF ORMED BY: [place] [address] PATHOLOGIST [employer]ELOPER [employer] [address] L[address] M.D. Performed By: #### C BC, PT, PTT, ETOH, CMP #### [address] GFR/1.73 sq M.predicted MDRD (S/P/Bld) [Vol rate/Area] mL/min/{1.73_m2} Normal [facility] Comment on above: Performed By: #### C BC, PT, PTT, ETOH, CMP #### [address] Creatinine [Mass/volume] in Serum or PlasmaOrdered By: Braulio Kearney on 08-29-2023 Creatinine [Mass/Vol] 0.83 mg/dL Normal 0.70-1.30 [facility] Comment on above: Performed By: #### C BC, PT, PTT, ETOH, CMP #### [address] ECG 12 lead ECGon 08-29-2023 ECG 12 lead ECG [facility] Main [place] [address] [place] [address] Electrocardiograph Report Signed Patient: Petar Joe III MR#: [id number] : 1965 Acct:[id number] Age/Sex: 57 / M ADM Date: 08/29/23 Loc: ER Room: Type: [facility] Attending Dr: Ordering Provider: Braulio Kearney [...] voltage QRS Confirmed by Braulio Kearney DO ([id number]) on 08/30/2023 7:11:44 AM Referred By: Electronically Signed By:Braulio Kearney DO Transcribed By: MUS Signed By Braulio Kearney DO 0711 Normal [facility] Erythrocyte distribution wid th [Ratio] by Automated countOrdered By: Braulio Kearney on 08-29-2023 Erythrocyte distribution width (RBC) [Ratio] 16.9 % High 12.0-14.8 [facility] Comment on above: Performed By: #### C BC, PT, PTT, ETOH, CMP #### [place] [address] [place] Erythrocytes [#/volume] in B lood by Automated countOrdered By: Braulio Kearney on 08-29-2023 RBC (Bld) [#/Vol] 3.61 10*6/uL Low 3.90-5.60 [facility] Comment on above: Performed By: #### C BC, PT, PTT, ETOH, CMP #### [address] Ethanol [Mass/volume] in Ser um or PlasmaOrdered By: Braulio Kearney on 08-29-2023 Ethanol [Mass/Vol] 48 mg/dL Normal [facility] Comment on above: Performed By: #### C BC, PT, PTT, ETOH, CMP #### [address] Ethanol [Mass/Vol] 0.048 % [facility] Ethyl Alcohol Profileon Percent Ethanol 0.048 % Normal [facility] Comment on above: Result Comment: PERF ORMED BY: [place] [address] PATHOLOGIST [employer] DEVELOPER CON[employer] [address] L[address] M.D. Performed By: #### C BC, PT, PTT, ETOH, CMP #### [facility] [address] [place] [address] [place] Glucose [Mass/volume] in Ser um or PlasmaOrdered By: Braulio Kearney on 08-29-2023 Glucose [Mass/Vol] 111 mg/dL High 70-100 [facility] Comment on above: ADA recommended refe rence rangeRandom Glucose Reference Range is dependent on time and content of last meal. Glucose of more than 200 mg/dL in a nonstressed, ambulatory subject supports the diagnosis of Diabetes Mellitus. Result Comment: [facility] Glucose Reference Range is dependent on time and content of last meal. Glucose of more than 200 mg/dL in a nonstressed, ambulatory subject supports the diagnosis of Diabetes Mellitus. ADA recommended reference range Performed By: #### C BC, PT, PTT, ETOH, CMP #### [facility] [address] Hematocrit [Volume Fraction] of Blood by Automated countOrdered By: Braulio Kearney on 08-29-2023 Hematocrit (Bld) [Volume fraction] 33.1 % Low 38.8-50.0 [facility] Comment on above: Performed By: #### C BC, PT, PTT, ETOH, CMP #### [address] Hemoglobin [Mass/volume] in BloodOrdered By: Braulio Kearney on 08-29-2023 Hemoglobin (Bld) [Mass/Vol] 11.2 g/dL Low 13.0-17.0 [facility] Comment on above: Performed By: #### C BC, PT, PTT, ETOH, CMP #### [address] INR in Platelet poor plasma by Coagulation assayOrdered By: Braulio Kearney on 08-29-2023 INR Coag (PPP) [Relative time] 1.2 {INR} Normal [facility] Comment on above: INR Therapeutic Rang [...] C BC, PT, PTT, ETOH, CMP #### [address] Leukocytes [#/volume] correc pippa for nucleated erythrocytes in Blood by Automated counOrdered By: Braulio Kearney on 08-29-2023 WBC corrected for nucl RBC Auto (Bld) [#/Vol] 4.5 10*3/uL 4.1-10.5 [facility] Leukocytes [#/volume] in Blo od by Automated countOrdered By: Braulio Kearney on 08-29-2023 WBC (Bld) [#/Vol] 4.5 10*3/uL Normal 4.1-10.5 [facility] Comment on above: Performed By: #### C BC, PT, PTT, ETOH, CMP #### [address] Lymphocytes [#/volume] in Bl ood by Automated countOrdered By: Braulio Kearney on 08-29-2023 Lymphocytes (Bld) [#/Vol] 1.3 10*3/uL Normal 1.00-4.8 [facility] Comment on above: Performed By: #### C BC, PT, PTT, ETOH, CMP #### [address] Lymphocytes/100 leukocytes i n Blood by Automated countOrdered By: Braulio Kearney on 08-29-2023 Lymphocytes/100 WBC (Bld) 27.8 % Normal . [facility] Comment on above: Performed By: #### C BC, PT, PTT, ETOH, CMP #### [address] MCH [Entitic mass] by Automa pippa countOrdered By: Braulio Kearney on 08-29-2023 MCH (RBC) [Entitic mass] 31.2 pg Normal 27.5-35.2 [facility] Comment on above: Performed By: #### C BC, PT, PTT, ETOH, CMP #### [address] [place] [address] [place] MCHC Auto (RBC) [Mass/Vol]Or dered By: Braulio Kearney on 08-29-2023 MCHC (RBC) [Mass/Vol] 33.9 g/dL 32.5-35.6 [facility] MCV [Entitic volume] by Auto mated countOrdered By: Braulio Kearney on 08-29-2023 MCV (RBC) [Entitic vol] 91.8 fL Normal 83.5-101 [facility] Comment on above: Performed By: #### C BC, PT, PTT, ETOH, CMP #### [facility] [address] [place] [address] Monocyte distribution width [Entitic volume] in Blood by AutomatedOrdered By: Braulio Kearney on 08-29-2023 Monocyte distribution width Auto (Bld) [Entitic vol] 20.16 % High 0.00-20.00 [facility] Comment on above: For adults in ED, MD W > 20.0 may be associated with a higher risk of sepsis during the first 12 hrs of hospital admission Neutrophils [#/volume] in Bl ood by Automated countOrdered By: Braulio Kearney on 08-29-2023 Neutrophils (Bld) [#/Vol] 2.8 10*3/uL Normal 1.8-7.7 [facility] Comment on above: Performed By: #### C BC, PT, PTT, ETOH, CMP #### [facility] [address] [place] [address] No Panel InformationOrdered By: Braulio Kearney on 08-29-2023 Estimated GFR (CKD-EPI) > 60.0 mL/Min [facility] Creatinine Clearance (Chem 133.32 [facility] Nucleated erythrocytes [Pres ence] in Blood by Automated countOrdered By: Braulio Kearney on 08-29-2023 Nucleated RBC Auto Ql (Bld) 0.1 /100{WBC} 0-0.5 [facility] Partial Thromboplastin Timeo n 08-29-2023 aPTT Coag (Bld) [Time] 25.8 s Normal 25.1-36.5 [facility] Comment on above: Result Comment: A he matocrit value greater than 55% may lead to inaccurate results in coagulation testing. Patients having hematocrit values >55% require a special collection tube for coagulation studies. Please contact the laboratory at [phone] for redraw instructions. PERFORMED BY: [place] [address] PATHOLOGIST [employer]ELOPER [employer] [address] M.D. Performed By: #### C BC, PT, PTT, ETOH, CMP #### [place] [address] [place] Platelet mean volume [Entiti c volume] in Blood by Automated countOrdered By: Braulio Kearney on 08-29-2023 Platelet mean volume (Bld) [Entitic vol] 6.9 fL Normal 6.6-10.1 [facility] Comment on above: Performed By: #### C BC, PT, PTT, ETOH, CMP #### [place] [address] [place] Platelets [#/volume] in Bloo d by Automated countOrdered By: Braulio Kearney on 08-29-2023 Platelets (Bld) [#/Vol] 110 10*3/uL Low 150-450 [facility] Comment on above: Performed By: #### C BC, PT, PTT, ETOH, CMP #### [place] [id number] [place] Potassium [Moles/volume] in Serum or PlasmaOrdered By: Braulio Kearney on 08-29-2023 Potassium [Moles/Vol] 3.9 mmol/L Normal 3.5-5.1 [facility] Comment on above: Performed By: #### C BC, PT, PTT, ETOH, CMP #### [place] [address] [place] Protein [Mass/volume] in Ser um or PlasmaOrdered By: Braulio Kearney on 08-29-2023 Protein [Mass/Vol] 8.3 g/dL Normal 6.4-8.9 [facility] Comment on above: Performed By: #### C BC, PT, PTT, ETOH, CMP #### [address] Prothrombin time (PT)Ordered By: Braulio Kearney on 08-29-2023 PT Coag (PPP) [Time] 13.2 s High 9.0-12.9 [facility] Comment on above: A hematocrit value g reater than 55% may lead to inaccurate results in coagulation testing. Patients having hematocrit values >55% require a special collection tube for coagulation studies. Please contact the laboratory at [phone] for redraw instructions. Result Comment: A matocrit value greater than 55% may lead to inaccurate results in coagulation testing. Patients having hematocrit values >55% require a special collection tube for coagulation studies. Please contact the laboratory at [phone] for redraw instructions. Performed By: #### C BC, PT, PTT, ETOH, CMP #### [address] Serum globulin measurement b y calculation (mass/volume)Ordered By: Braulio Kearney on 08-29-2023 Globulin (S) [Mass/Vol] 4.0 g/dL [facility] Comment on above: Performed By: #### C BC, PT, PTT, ETOH, CMP #### [address] Serum or plasma albumin/glob ulin mass ratioOrdered By: Braulio Kearney on 08-29-2023 Albumin/Globulin [Mass ratio] 1.1 {ratio} [facility] Comment on above: Performed By: #### C BC, PT, PTT, ETOH, CMP #### [address] Serum or plasma anion gap de terminationOrdered By: Braulio Kearney on 08-29-2023 Anion gap [Moles/Vol] 11.4 mmol/L Normal 6.0-15.0 [facility] Comment on above: Performed By: #### C BC, PT, PTT, ETOH, CMP #### [address] Sodium [Moles/volume] in Ser um or PlasmaOrdered By: Braulio Kearney on 08-29-2023 Sodium [Moles/Vol] 131 mmol/L Low 136-145 [facility] Comment on above: Performed By: #### C BC, PT, PTT, ETOH, CMP #### [facility] [address] Urea nitrogen [Mass/volume] in Serum or PlasmaOrdered By: Braulio Kearney on 08-29-2023 Urea nitrogen [Mass/Vol] 8 mg/dL Normal 7-25 [facility] Comment on above: Performed By: #### C BC, PT, PTT, ETOH, CMP #### [facility] [address] CBC AUTO DIFFon 09-08-2021 BASO # 0.0 103/ul Normal 0.0-0.1 [facility] Comment on above: Performed By: #### C BC #### [facility] [address] [place] [address] Dr. Cristina Nino Basophils/100 WBC (Bld) 0.5 % Normal 0.2-2.0 [facility] Comment on above: Performed By: #### C BC #### [facility] [address] [place] [address] [address] Cristina Nino EO # 0.1 103/ul Normal 0.0-0.7 [facility] Comment on above: Performed By: #### C BC #### [facility] [address] [place] [address] [address] Cristina Nino Eosinophils/100 WBC (Bld) 0.9 % Normal 0.9-7.0 [facility] Comment on above: Performed By: #### C BC #### [facility] [address] [place] [address] [address] Cristina Nino Erythrocyte distribution width (RBC) [Ratio] 15.9 % Critically high 11.0-15.0 [facility] Comment on above: Performed By: #### C BC #### [facility] [address] [place] [address] Dr. Cristina Nino Hematocrit (Bld) [Volume fraction] 35.7 % Critically low 42.0-54.0 [facility] Comment on above: Performed By: #### C BC #### [facility] [address] [place] [address] Dr. Cristina Nino Hemoglobin (Bld) [Mass/Vol] 11.8 g/dL Critically low 14.0-18.0 [facility] Comment on above: Performed By: #### C BC #### [facility] [address] [place] [address] Dr. Cristina Nino IG # 0.02 10e3/ul Normal 0.00-0.03 [facility] Comment on above: Performed By: #### C BC #### [facility] [address] [place] [address] Dr. Cristina Nino IG % 0.4 % Normal 0.0-0.5 [facility] Comment on above: Performed By: #### C BC #### [facility] [address] [place] [address] Dr. Cristina Nino LYMPH # 1.7 103/ul Normal 1.2-3.8 [facility] Comment on above: Performed By: #### C BC #### [facility] [address] [place] [address] Dr. Cristina Nino Lymphocytes/100 WBC (Bld) 30.6 % Normal 20.5-60.0 [facility] Comment on above: Performed By: #### C BC #### [facility] [address] [place] [address] Dr. Cristina Nino MANUAL DIFF REQ NO Normal [facility] Comment on above: Performed By: #### C BC #### [facility] [address] [place] [address] Dr. Cristina Nino MCH (RBC) [Entitic mass] 30.9 pg Normal 25.9-34.0 [facility] Comment on above: Performed By: #### C BC #### [facility] [address] [place] [address] Dr. Cristina Nino MCHC (RBC) [Mass/Vol] 33.1 g/dL Normal 29.9-35.[address] [facility] Comment on above: Performed By: #### C BC #### [facility] [address] [place] [address] [address] Cristina Nino MCV (RBC) [Entitic vol] 93.5 fL Normal 80.0-94.0 [facility] Comment on above: Performed By: #### C BC #### [facility] [address] [place] [address] [address] Cristina Nino MONO # 0.3 103/ul Normal 0.3-0.8 [facility] Comment on above: Performed By: #### C BC #### [facility] [address] [place] [address] [address] Cristina Nino Monocytes/100 WBC (Bld) 6.0 % Normal 1.7-12.0 [facility] Comment on above: Performed By: #### C BC #### [facility] [address] [place] [address] [address] Cristina Nino NEUT # 3.4 103/ul Normal 1.4-6.5 [facility] Comment on above: Performed By: #### C BC #### [facility] [address] [place] [address] [address] Cristina Nino Neutrophils/100 WBC (Bld) 61.6 % Normal 43.0-75.0 [facility] Comment on above: Performed By: #### C BC #### [facility] [address] [place] [address] [address] Cristina Nino Platelet mean volume (Bld) [Entitic vol] 9.9 fL Normal 9.5-13.5 [facility] Comment on above: Performed By: #### C BC #### [facility] [address] [place] [address] [address] Cristina Nino PLT 87 103/ul Critically low 150-[address] [facility] Comment on above: Performed By: #### C BC #### [facility] [address] [place] [address] [address] Cristina Nino RBC 3.82 106/ul Critically low 4.70-6.[address] [facility] Comment on above: Performed By: #### C BC #### [facility] [address] [place], [place] [address] Dr. Cristina Nino WBC 5.5 103/ul Normal 4.0-11.[address] [facility] Comment on above: Performed By: #### C BC #### [facility] [address] [place], [place] [address] ABD/PELVIS WO CONon [...] ANDREA NG Date: 2021-09-08 18:20 Normal [facility] ER URINE PROFILEon 2 Bilirubin Ql (U) Negative Normal NEGATIVE [facility] Comment on above: Performed By: #### E RUR #### [facility] [address] [place] [address] Dr. Cristina Nino Clarity (U) CLEAR Normal CLEAR [facility] Comment on above: Performed By: #### E RUR #### [facility] [address] [place] [address] Dr. Cristina Nino Color (U) YELLOW Normal YELLOW [facility] Comment on above: Performed By: #### E RUR #### [facility] [address] [place] [address] Dr. Cristina Nino ERUDAVID A micrscopic examina tion will be performed if indicated. Normal [facility] Comment on above: Performed By: #### E RUR #### [facility] [address] [place] [address] Dr. Cristina Nino Glucose Ql (U) Negative Normal NEGATIVE [facility] Comment on above: Performed By: #### E RUR #### [facility] [address] [place] [address] Dr. Cristina Nino Hemoglobin Ql (U) Negative Normal NEGATIVE [facility] Comment on above: Performed By: #### E RUR #### [facility] [address] [place] [address] Dr. Cristina Nino Ketones Ql (U) Negative Normal NEGATIVE [facility] Comment on above: Performed By: #### E RUR #### [facility] [address] [place] [address] Dr. Cristina Nino LEUKOCYTES Negative Normal NEGATIVE [facility] Comment on above: Performed By: #### E RUR #### [facility] [address] [place] [address] Dr. Cristina Nino Nitrite Ql (U) Negative Normal NEGATIVE [facility] Comment on above: Performed By: #### E RUR #### [facility] [address] [place] [address] Dr. Cristina Nino pH (U) 6.0 [pH] Normal 5-9 [facility] Comment on above: Performed By: #### E RUR #### [facility] [address] [place] [address] Dr. Cristina Nino SPEC GRAVITY 1.015 Normal 1.005-<=1.0 25 [facility] Comment on above: Performed By: #### E RUR #### [facility] [address] [place] [address] Dr. Cristina Nino UA PROTEIN Negative Normal NEGATIVE/ TRACE [facility] Comment on above: Performed By: #### E RUR #### [facility] [address] [place] [address] Dr. Cristina Nino UR MICRO IND NOT INDICATED Normal [facility] Comment on above: Performed By: #### E RUR #### [facility] [address] [place] [address] Dr. Cristina Nino Urobilinogen Qn (U) 0.2 {Renee'U}/dL Normal 0.2 - 1. 0 [facility] Comment on above: Performed By: #### E RUR #### [facility] [address] [place] [address] Dr. Cristina Nino PROF CHEM 8 (BAS METB)on Anion gap [Moles/Vol] 15.0 mmol/L Normal Th [facility] Comment on above: Performed By: #### B MP #### [facility] [address] [place] [address] Dr. Cristina Nino Calcium [Mass/Vol] 8.8 mg/dL Normal 8.5-10.1 [facility] Comment on above: Performed By: #### B MP #### [facility] [address] [address] [address] Cristina Nino Chloride [Moles/Vol] 99 mmol/L Normal 98-107 [facility] Comment on above: Performed By: #### B MP #### [facility] [address] [place] [address] Dr. Cristina Nino CO2 [Moles/Vol] 23.9 mmol/L Normal 21.0-32.0 [facility] Comment on above: Performed By: #### B MP #### [facility] [address] [place] [address] Dr. Cristina Nino Creatinine [Mass/Vol] 1.04 mg/dL Normal 0.70-1.30 [facility] Comment on above: Performed By: #### B MP #### [facility] [address] [place] [address] Dr. Cristina Nnio EGFR-AF CYMRO >60 Normal >=60 [facility] Comment on above: Performed By: #### B MP #### [facility] [address] [place] [address] Dr. Cristina Nino EGFR-NON AF CYMRO >60 Normal >=60 [facility] Comment on above: Performed By: #### B MP #### [facility] [address] [place] [address] Dr. Cristina Nino Glucose [Mass/Vol] 122 mg/dL Critically high 74-106 T [facility] Comment on above: Performed By: #### B MP #### [facility] [address] [place] [address] Dr. Cristina Nino Potassium [Moles/Vol] 4.9 mmol/L Normal 3.5-5.1 [facility] Comment on above: Performed By: #### B MP #### [facility] [address] [address] [address] Cristina Nino Sodium [Moles/Vol] 133 mmol/L Critically low 136-145 Th [facility] Comment on above: Performed By: #### B MP #### [facility] [address] [address] [address] Cristina iNno Urea nitrogen [Mass/Vol] 11.0 mg/dL Normal 7.0-18.0 [facility] Comment on above: Performed By: #### B MP #### [facility] [address] [address] [address] Cristina Nino Urea nitrogen/Creatinine [Mass ratio] 10.6 mg/mg Normal [facility] Comment on above: Performed By: #### B MP #### [facility] [address] [address] [address] Cristina Nino CBC AUTO DIFFon 10-01-2020 BASO # 0.0 103/ul Normal 0.0-0.1 [facility] Comment on above: Performed By: #### C BC ####[facility] [address] [place], [place] [address]Jjpvwl Mary Basophils/100 WBC (Bld) 0.5 % Normal 0.2-2.0 [facility] Comment on above: Performed By: #### C BC ####[facility] [address] [place], [place] [address]Okxcpr Mary EO # 0.1 103/ul Normal 0.0-0.7 [facility] Comment on above: Performed By: #### C BC ####[facility] [address] [place], [place] [address]Spktkd Mary Eosinophils/100 WBC (Bld) 1.3 % Normal 0.9-7.[address] [facility] Comment on above: Performed By: #### C BC ####[facility] [address] [place], [place] [address]Ctuvjh Mary Erythrocyte distribution width (RBC) [Ratio] 15.9 % Critically high 11.0-15.0 [facility] Comment on above: Performed By: #### C BC ####[facility] [address] Mary Hematocrit (Bld) [Volume fraction] 36.7 % Critically low 42.0-54.0 [facility] Comment on above: Performed By: #### C BC ####[facility] [address] Mary Hemoglobin (Bld) [Mass/Vol] 12.1 g/dL Critically low 14.0-18.0 [facility] Comment on above: Performed By: #### C BC ####[facility] [address] [place] [address] Mary IG # 0.03 10e3/ul Normal 0.00-0.03 [facility] Comment on above: Performed By: #### C BC ####[facility] [address] [place] [address] Mary IG % 0.5 % Normal 0.0-0.5 [facility] Comment on above: Performed By: #### C BC ####[facility] [address] [place] [address] Mary LYMPH # 1.9 103/ul Normal 1.2-3.[address] [facility] Comment on above: Performed By: #### C BC ####[facility] [address] [place] [address] Mary Lymphocytes/100 WBC (Bld) 31.9 % Normal 20.5-60.[address] [facility] Comment on above: Performed By: #### C BC ####[facility] [address] [place] [address] Mary MANUAL DIFF REQ NO Normal [facility] Comment on above: Performed By: #### C BC ####[facility] [address] Mary MCH (RBC) [Entitic mass] 31.5 pg Normal 25.9-34.[address] [facility] Comment on above: Performed By: #### C BC ####[facility] [address] [id number] Hernandez MCHC (RBC) [Mass/Vol] 33.0 g/dL Normal 29.9-35.[address] [facility] Comment on above: Performed By: #### C BC ####[facility] [address] [id number] Hernandez MCV (RBC) [Entitic vol] 95.6 fL Critically high 80.0-94.[address] [facility] Comment on above: Performed By: #### C BC ####[facility] [address] [place], [place] [address]Germissael Hernandez MONO # 0.4 103/ul Normal 0.3-0.[address] [facility] Comment on above: Performed By: #### C BC ####[facility] [address] [place], [place] [address]Germissael Hernandez Monocytes/100 WBC (Bld) 7.1 % Normal 1.7-12.[address] [facility] Comment on above: Performed By: #### C BC ####[facility] [address] [place], [place] [address]Gerken Mary NEUT # 3.6 103/ul Normal 1.4-6.5 [facility] Comment on above: Performed By: #### C BC ####[facility] [address] [place], [place] [address]Germissael Hernandez Neutrophils/100 WBC (Bld) 58.7 % Normal 43.0-75.[address] [facility] Comment on above: Performed By: #### C BC ####[facility] [address] [place], [place] [address]Germissael Hernandez Platelet mean volume (Bld) [Entitic vol] 9.1 fL Critically low 9.5-13.[address] [facility] Comment on above: Performed By: #### C BC ####[facility] [address] [place], [place] [address]Gerken Mary PLT 112 103/ul Critically low 150-[address] [facility] Comment on above: Performed By: #### C BC ####[facility] [address] [id number] Hernandez RBC 3.84 106/ul Critically low 4.70-6.[address] [facility] Comment on above: Performed By: #### C BC ####[facility] [address] [id number] Bealen WBC 6.1 103/ul Normal 4.0-11.0 [facility] Comment on above: Performed By: #### C BC ####[facility] [address] [id number] Hernandez ER URINE PROFILEon 1 Bilirubin Ql (U) Negative Normal NEGATIVE [facility] Comment on above: Performed By: #### E RUR #### [facility] [address] [place] [address] Bharathi Mary Clarity (U) CLEAR Normal CLEAR [facility] Comment on above: Performed By: #### E RUR #### [facility] [address] [place] [address] Bharathi Mary Color (U) YELLOW Normal YELLOW [facility] Comment on above: Performed By: #### E RUR #### [facility] [address] [place] [address] Bharathi Mary ERUAHD A micrscopic examina tion will be performed if indicated. Normal [facility] Comment on above: Performed By: #### E RUR #### [facility] [address] [place] [address] Bharathi Mary Glucose Ql (U) Negative Normal NEGATIVE [facility] Comment on above: Performed By: #### E RUR #### [facility] [address] [place] [address] Bharathi Mary Hemoglobin Ql (U) Negative Normal NEGATIVE [facility] Comment on above: Performed By: #### E RUR #### [facility] [address] [place] [address] Bharathi Mary Ketones Ql (U) Negative Normal NEGATIVE [facility] Comment on above: Performed By: #### E RUR #### [facility] [address] [place], [place] [address] Bharathimissael Hernandez LEUKOCYTES Negative Normal NEGATIVE [facility] Comment on above: Performed By: #### E RUR #### [facility] [address] [place], [place] [address] Bharathi Hernandez Nitrite Ql (U) Negative Normal NEGATIVE [facility] Comment on above: Performed By: #### E RUR #### [facility] [address] [place], [place] [address] Bharathimissael Hernandez pH (U) 6.0 [pH] Normal 5-9 [facility] Comment on above: Performed By: #### E RUR #### [facility] [address] [place] [address] Bharathi Hernandez SPEC GRAVITY 1.020 Normal 1.005-<=1.0 25 [facility] Comment on above: Performed By: #### E RUR #### [facility] [address] [place] [address] Bharathi Hernandez UA PROTEIN Negative Normal NEGATIVE/ TRACE [facility] Comment on above: Performed By: #### E RUR #### [facility] [address] [place] [address] Bharathi Hernandez UR MICRO IND NOT INDICATED Normal [facility] Comment on above: Performed By: #### E RUR #### [facility] [address] [place] [address] Bharathi Hernandez Urobilinogen Qn (U) 0.2 {Renee'U}/dL Normal 0.2 - 1. 0 [facility] Comment on above: Performed By: #### E RUR #### [facility] [address] [place] [address] Bharathi Hernandez PROF CHEM 8 (BAS METB)on Anion gap [Moles/Vol] 14.2 mmol/L Normal Th [facility] Comment on above: Performed By: #### B MP #### [facility] [address] [place] [address] Bharathi Hernandez Calcium [Mass/Vol] 9.0 mg/dL Normal 8.4-10.2 [facility] Comment on above: Performed By: #### B MP #### [facility] [address] [id number] Bharathi Mary Chloride [Moles/Vol] 100 mmol/L Normal 98-107 [facility] Comment on above: Performed By: #### B MP #### [facility] [address] [id number] Bharathi Mary CO2 [Moles/Vol] 26.0 mmol/L Normal 22.0-30.0 [facility] Comment on above: Performed By: #### B MP #### [facility] [address] [address] Bharathi Mary Creatinine [Mass/Vol] 1.03 mg/dL Normal 0.66-1.25 [facility] Comment on above: Performed By: #### B MP #### [facility] [address] [place], [place] [address] Bharathi Mary EGFR-AF CYMRO >60 Normal >=[address] [facility] Comment on above: Performed By: #### B MP #### [facility] [address] [place], [place] [address] Bharathi Mary EGFR-NON AF CYMRO >60 Normal >=60 [facility] Comment on above: Performed By: #### B MP #### [facility] [address] [place] [address] Bharathi Mray Glucose [Mass/Vol] 132 mg/dL Critically high 74-106 T [facility] Comment on above: Performed By: #### B MP #### [facility] [address] [place] [address] Bharathi Mary Potassium [Moles/Vol] 4.2 mmol/L Normal 3.4-5.0 [facility] Comment on above: Performed By: #### B MP #### [facility] [address] [place], [place] [address] Bharathi Mary Sodium [Moles/Vol] 136 mmol/L Critically low 137-145 Th [facility] Comment on above: Performed By: #### B MP #### [facility] [address] [place], [place] [address] Bharathi Mary Urea nitrogen [Mass/Vol] 9.0 mg/dL Normal 9.0-20.0 [facility] Comment on above: Performed By: #### B MP #### [facility] [address] [place], [place] [address] Bharathi Hernandez Urea nitrogen/Creatinine [Mass ratio] 8.7 mg/mg Normal [facility] Comment on above: Performed By: #### B MP #### [facility] [address] [place], [place] [address] ABD/PELVIS WO CONon 09-20 [...] [place] Date: 2020-09-19 22:15 Normal [facility] ER URINE PROFILEon 1 Bilirubin Ql (U) Negative Normal NEGATIVE [facility] Comment on above: Performed By: #### E RUR #### [facility] [address] [place] [address] Bharathi Mary Clarity (U) CLEAR Normal CLEAR [facility] Comment on above: Performed By: #### E RUR #### [facility] [address] [place] [address] Bharathi Mary Color (U) YELLOW Normal YELLOW [facility] Comment on above: Performed By: #### E RUR #### [facility] [address] [place] [address] Bharathi Mary ERUAHD A micrscopic examina tion will be performed if indicated. Normal [facility] Comment on above: Performed By: #### E RUR #### [facility] [address] [place] [address] Bharathi Mary Glucose Ql (U) Negative Normal NEGATIVE [facility] Comment on above: Performed By: #### E RUR #### [facility] [address] [place] [address] Bharathi Mary Hemoglobin Ql (U) Negative Normal NEGATIVE [facility] Comment on above: Performed By: #### E RUR #### [facility] [address] [place] [address] Bharathi Mary Ketones Ql (U) Negative Normal NEGATIVE [facility] Comment on above: Performed By: #### E RUR #### [facility] [address] [place] [address] Bharathi Mary LEUKOCYTES Negative Normal NEGATIVE [facility] Comment on above: Performed By: #### E RUR #### [facility] [address] [place] [address] Bharathi Hernandez Nitrite Ql (U) Negative Normal NEGATIVE [facility] Comment on above: Performed By: #### E RUR #### [facility] [address] [place] [address] Bharathi Hernandez pH (U) 5.5 [pH] Normal 5-[address] [facility] Comment on above: Performed By: #### E RUR #### [facility] [address] [place] [address] Bharathi Hernandez SPEC GRAVITY 1.020 Normal 1.005-<=1.0 25 [facility] Comment on above: Performed By: #### E RUR #### [facility] [address] [place] [address] Bharathi Hernandez UA PROTEIN Negative Normal NEGATIVE/ TRACE [facility] Comment on above: Performed By: #### E RUR #### [facility] [address] [place] [address] Bharathi Hernandez UR MICRO IND NOT INDICATED Normal [facility] Comment on above: Performed By: #### E RUR #### [facility] [address] [place] [address] Bharathi Hernandez Urobilinogen Qn (U) 0.2 {Renee'U}/dL Normal 0.2 - 1. 0 [facility] Comment on above: Performed By: #### E RUR #### [facility] [address] [place] [address] Bharathi Hernandez CBC AUTO DIFFon 09-19-2020 BASO # 0.0 103/ul Normal 0.0-0.1 [facility] Comment on above: Performed By: #### C BC #### [facility] [address] [place] [address] Bharathimissael Hernandez Basophils/100 WBC (Bld) 0.5 % Normal 0.2-2.0 [facility] Comment on above: Performed By: #### C BC #### [facility] [address] [place] [address] Bharathi Hernandez EO # 0.1 103/ul Normal 0.0-0.7 [facility] Comment on above: Performed By: #### C BC #### [facility] [address] [place] [address] Bharathi Mary Eosinophils/100 WBC (Bld) 1.0 % Normal 0.9-7.0 [facility] Comment on above: Performed By: #### C BC #### [facility] [address] [place] [address] Bharathi Mary Erythrocyte distribution width (RBC) [Ratio] 15.7 % Critically high 11.0-15.0 [facility] Comment on above: Performed By: #### C BC #### [facility] [address] [place] [address] Bharathi Mary Hematocrit (Bld) [Volume fraction] 35.3 % Critically low 42.0-54.0 [facility] Comment on above: Performed By: #### C BC #### [facility] [address] [place] [address] Bharathi Mary Hemoglobin (Bld) [Mass/Vol] 11.5 g/dL Critically low 14.0-18.0 [facility] Comment on above: Performed By: #### C BC #### [facility] [address] [place] [address] Bharathi Mary IG # 0.03 10e3/ul Normal 0.00-0.03 [facility] Comment on above: Performed By: #### C BC #### [facility] [address] [place] [address] Bharathi Mary IG % 0.4 % Normal 0.0-0.[address] [facility] Comment on above: Performed By: #### C BC #### [facility] [address] [place] [address] Bharathi Mary LYMPH # 2.2 103/ul Normal 1.2-3.[address] [facility] Comment on above: Performed By: #### C BC #### [facility] [address] [place] [address] Bhraathi Mary Lymphocytes/100 WBC (Bld) 29.6 % Normal 20.5-60.0 [facility] Comment on above: Performed By: #### C BC #### [facility] [address] [place], [place] [id number] Bharathi Mary MANUAL DIFF REQ NO Normal [facility] Comment on above: Performed By: #### C BC #### [facility] [address] [place], [place] [phone] Bharathi Mary MCH (RBC) [Entitic mass] 31.0 pg Normal 25.9-34.[address] [facility] Comment on above: Performed By: #### C BC #### [facility] [address] [place] [address] Bharathimissael Hernandez MCHC (RBC) [Mass/Vol] 32.6 g/dL Normal 29.9-35.[address] [facility] Comment on above: Performed By: #### C BC #### [facility] [address] [place] [address] Bharathi Mary MCV (RBC) [Entitic vol] 95.1 fL Critically high 80.0-94.0 [facility] Comment on above: Performed By: #### C BC #### [facility] [address] [place], [place] [address] Bharathi Mary MONO # 0.5 103/ul Normal 0.3-0.8 [facility] Comment on above: Performed By: #### C BC #### [facility] [address] [place] [address] Bharathi Mary Monocytes/100 WBC (Bld) 6.3 % Normal 1.7-12.[address] [facility] Comment on above: Performed By: #### C BC #### [facility] [address] [place] [address] Bharathi Mary NEUT # 4.6 103/ul Normal 1.4-6.[address] [facility] Comment on above: Performed By: #### C BC #### [facility] [address] [place], [place] [address] Bharathi Mary Neutrophils/100 WBC (Bld) 62.2 % Normal 43.0-75.[address] [facility] Comment on above: Performed By: #### C BC #### [facility] [address] [place] [address] Bharathi Mary Platelet mean volume (Bld) [Entitic vol] 9.2 fL Critically low 9.5-13.[address] [facility] Comment on above: Performed By: #### C BC #### [facility] [address] [place], [place] [address] Bharathi Mary PLT 118 103/ul Critically low 150-[address] [facility] Comment on above: Performed By: #### C BC #### [facility] [address] [place], [place] [address] Bharathi Mary RBC 3.71 106/ul Critically low 4.70-6.[address] [facility] Comment on above: Performed By: #### C BC #### [facility] [address] [place], [place] [address] Bharathi Mary WBC 7.4 103/ul Normal 4.0-11.[address] [facility] Comment on above: Performed By: #### C BC #### [facility] [address] [place], [place] [address] Bharathimissael Bealen PROF 14(COMP METB)on 021 Albumin [Mass/Vol] 3.9 g/dL Normal 3.5-5.[address] [facility] Comment on above: Performed By: #### C MP #### [facility] [address] [place], [place] [address] Bharathi Mary Albumin/Globulin [Mass ratio] 0.8 {ratio} Normal [facility] Comment on above: Performed By: #### C MP #### [facility] [address] [place], [place] [id number] Bharathi Mary ALP [Catalytic activity/Vol] 81 U/L Normal 38-[address] [facility] Comment on above: Performed By: #### C MP #### [facility] [address] [place], [place] [id number] Bharathi Mary ALT [Catalytic activity/Vol] 14 U/L Critically low 21-[address] [facility] Comment on above: Performed By: #### C MP #### [facility] [address] [place], [place] [id number] Bharathi Mary Anion gap [Moles/Vol] 13.7 mmol/L Normal Th e [facility] Comment on above: Performed By: #### C MP #### [facility] [address] [place] [address] Bharathi Mary AST [Catalytic activity/Vol] 23 U/L Normal 17-[address] [facility] Comment on above: Performed By: #### C MP #### [facility] [address] [place] [address] Bharathi Mary Bilirubin [Mass/Vol] 0.6 mg/dL Normal 0.2-1.[address] [facility] Comment on above: Performed By: #### C MP #### [facility] [address] [place] [address] Bharathi Mary Calcium [Mass/Vol] 8.9 mg/dL Normal 8.4-10.2 [facility] Comment on above: Performed By: #### C MP #### [facility] [address] [place] [address] Bharathi Mary Chloride [Moles/Vol] 101 mmol/L Normal 98-107 [facility] Comment on above: Performed By: #### C MP #### [facility] [address] [place] [address] Bharathi Mary CO2 [Moles/Vol] 26.4 mmol/L Normal 22.0-30.0 [facility] Comment on above: Performed By: #### C MP #### [facility] [address] [place] [address] Bharathi Mary Creatinine [Mass/Vol] 1.02 mg/dL Normal 0.66-1.[address] [facility] Comment on above: Performed By: #### C MP #### [facility] [address] [place] [address] Bharathi Mary EGFR-AF CYMRO >60 Normal >=[address] [facility] Comment on above: Performed By: #### C MP #### [facility] [address] [place] [address] Bharathi Mary EGFR-NON AF CYMRO >60 Normal >=[address] [facility] Comment on above: Performed By: #### C MP #### [facility] [address] [place], [place] [address] Bharathi Mary Globulin (S) [Mass/Vol] 4.7 g/dL Normal [facility] Comment on above: Performed By: #### C MP #### [facility] [address] [place], [place] [address] Bharathi Mary Glucose [Mass/Vol] 119 mg/dL Critically high 74-106 [facility] Comment on above: Performed By: #### C MP #### [facility] [address] [place], [place] [address] Bharathi Mary Potassium [Moles/Vol] 4.1 mmol/L Normal 3.4-5.0 [facility] Comment on above: Performed By: #### C MP #### [facility] [address] [place], [place] [address] Bharathi Mary Protein [Mass/Vol] 8.6 g/dL Critically high 6.1-8.2 [facility] Comment on above: Performed By: #### C MP #### [facility] [address] [place], [place] [address] Bharathi Mary Sodium [Moles/Vol] 137 mmol/L Normal 137-145 [facility] Comment on above: Performed By: #### C MP #### [facility] [address] [place], [place] [address] Bharathi Mary Urea nitrogen [Mass/Vol] 7.0 mg/dL Critically low 9.0-20.0 [facility] Comment on above: Performed By: #### C MP #### [facility] [address] [place], [place] [address] Bharathi Mary Urea nitrogen/Creatinine [Mass ratio] 6.9 mg/mg Normal [facility] Comment on above: Performed By: #### C MP #### [facility] [address] [place], [place] [address] Bharathi Mary COVID-19 Positive/Negativeon 05-05-2020 COVID-19 Positive/Negative Negative Negative [facility] Comment on above: Testing for SARS-CoV -2 by RT-PCRThis test was developed and its performance characteristics determined by [employer] ([place]) and validated at the [facility]. This test has not been [...] Otheron 05-05-2020 Coronavirus 2019 PCR Interp N/A [facility] Amphetamines screenon 2020 Amphetamines Ql (U) Negative Negative [facility] Barbiturates [Presence] in U rineon 04-09-2020 Barbiturates Ql (U) Negative Negative [facility] Benzodiazepines [Presence] i n Urineon 04-09-2020 Benzodiazepines Ql (U) Negative Negative [facility] Cannabinoids [Presence] in U rine by Screen methodon 04-09-2020 Cannabinoids Screen Ql (U) Positive Negative [facility] Comment on above: These are unconfirme d results and should not be used for legal purposes. Drug Cut-Off Concentration: AMPH 1000 ng/mL RD 200 ng/mL JANETTE 200 ng/mL COCM 300 ng/mL OP 300 ng/mL PCP 25 ng/mL THC 20 ng/mL Urinalysison 04-09-2020 Opiates Ql (U) Negative Negative [facility] Urine cocaine detectionon Cocaine Ql (U) Negative Negative [facility] Urine phencyclidine detectio n by screening methodon 04-09-2020 Phencyclidine Ql (U) Negative Negative [facility] COVID-19 Positive/Negativeon 04-06-2020 COVID-19 Positive/Negative Negative Negative [facility] Comment on above: Testing for SARS-CoV -2 by RT-PCRThis test was developed and its performance characteristics determined by [employer] ([employer]) and validated at the [facility]. This test has not been [...] Otheron 04-06-2020 Coronavirus 2019 PCR Interp N/A [facility] Vital Signs Date Time Vital Sign Value Performing Clinician Faci lity 08-29-2023 23:20-0400 Body temperature 98.4 [degF] ANTWAN Snider Work Phone: [facility] 08-29-2023 23:20-0400 Diastolic blood pressure 68 mm[Hg] ANTWAN Snider Work Phone: [facility] 08-29-2023 23:20-0400 Heart rate 70 /min ANTWAN Snider Work Phone: [facility] 08-29-2023 23:20-0400 Respiratory rate 22 /min ANTWAN Snider Work Phone: [facility] 08-29-2023 23:20-0400 SaO2% (BldA) [Mass fraction] 98 % ANTWAN Snider Work Phone: [facility] 08-29-2023 23:20-0400 Systolic blood pressure 150 mm[Hg] MILITARY COOK Coleen Agatha Work Phone: [facility] 08-29-2023 21:59-0400 Body height 182.88 cm ANTWAN Snider Work Phone: [facility] 08-29-2023 21:59-0400 Body weight 117.93 kg ANTWAN Horne Agatha Work Phone: [facility] 04-09-2020 13:35-0500 BP Diastolic 77 mm[Hg[facility] 13:35-0500 BP Systolic 131 mm[Hg] [facility] 04-09-2020 13:35-0500 Pulse (Heart Rate) 67 /min [facility] 04-09-2020 13:35-0500 Pulse Oximetry 94 % [facility] 04-09-2020 13:35-0500 Respiratory Rate 16 /[facility] 12:29-0500 Body Temperature 97.1 [degF] Coleen [facility] 04-09-2020 11:43-0500 BMI (Body Mass Index) 40.1 kg/m2 [facility] 04-09-2020 10:27-0500 Body weight 130.6 kg [facility] 04-09-2020 10:27-[address] [facility] Encounters Encounter Date Encounter Type Care Provider Facility Start: 08-29-2023 End: 08-29-2023 Emergency department patient visit ANTWAN Coleen Snider Work Phone: [facility] Work Phone: Start: 09-08-2021 End: 09-08-[address] VEGA MISC Facility:[facility] Start: 10-01-2020 End: 10-01-[address] VEGA MISC Facility:[facility] Start: 09-19-2020 End: 09-20-2020 ambulatory NANCY CAMPOS Facility: Start: 05-05-2020 End: 05-05-2020 Patient encounter procedure Coleen Agatha -Pre-Surgical Testing Start: 04-09-2020 End: 04-09-2020 Admission to day surgery Coleen Agatha [facility] Start: 04-06-2020 End: 04-06-2020 Patient encounter procedure Coleen Agatha -Pre-Surgical Testing Procedures Date Procedure Procedure Detail Performing Clinician Start: 04-09-2020 Phacoemulsification of cataract with intraocular lens implantation Coleen Snider Plan of Treatment Date Care Activity Detail Author Start: 08-29-2023 CT cervical spine without contrast CT cervical spine wo [facility] Start: 08-29-2023 CT Cervical spine WO contrast [facility] Start: 08-29-2023 CT of head without contrast CT head/brain wo [facility] Start: 08-29-2023 CT Unspecified body region WO contrast [facility] Start: 08-29-2023 Plain chest X-ray XR chest 1V portab le [facility] Start: 08-29-2023 XR Chest Single view [facility] 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[place] ([place]) [facility] Work Phone: Patient referral [facility] Payers Date Payer Category Payer Self-pay [id number] 1965 Unknown [id number] 1965 Unknown [id number] 1965 Unknown [id number] 1957 Unknown [id number] Unknown [id number] Social History Date Type Detail Facility Start: 04-06-2020 End: 08-29-2023 Tobacco smoking status NHIS Smoker (finding) [facility] Start: 1965 Sex Assigned At Male F [facility] Medical Equipment Procedure Code Equipment Code Equipment Origin al Text Equipment Identifier Dates Phacoemulsification of cataract with intraocular lens implantation ()[id number] FDA Start: 04-09-2020 Phacoemulsification of cataract with intraocular lens implantation Posterior-chamber intraocular lens, pseudophakic ()[id number] FDA Start: 05-07-2020 Goals Date Patient Goal Desired Activity /State Hospital Discharge instructions 08-29-2023 Note Date & Type Note Facility 08-29-2023 Hospital Discharg e instructions Additional Instructions Clean your wound with shampoo and water daily. Apply antibiotic ointment daily. Follow-up for staple removal in 5 to 7 days. [facility] Work Phone: Evaluation note Note Date & Type Note Facility Evaluation note No assessment information availa ble [facility] Work Phone: Advance Directives No Advanced [...] CREATED AUTHOR AUTHOR'S ORGANIZ ATION 09/17/2023 [facility] Care Teams (unrecognized sec tion and content) Team Status: Active Member Role Status Dates Coleen Snider APRN [employer] Primary Care Provider Act letty Team Status: Inactive Member Role Status Dates Coleen Snider APRN [employer]C Primary Care Provider Act letty Start: August [...] BE BASED ON THE PRIMARY CLINICAL RECORDS. [facility] [employer] [facility]. provides no warranty or guarantee of the accuracy or completeness of information in this document.
[2024-11-13 18:25] LABS: Hematocrit 31.1 % (42.0-54.0); Hemoglobin 10.9 g/dL (14.0-18.0); Mean Corpuscular HGB Conc 35.0 g/dL (29.9-35.2); Mean Corpuscular Hemoglobin 31.2 pg (25.9-34.0); Mean Corpuscular Volume 89.1 fL (80.0-94.0); Platelet Count 91 10^3/uL (150-450); Red Blood Count 3.49 10^6/uL (4.70-6.10); White Blood Count 9.4 10^3/uL (4.0-11.0)
--- NOTE | 2024-11-13 18:35 | XR_ITS ---
The [place] [id number] Patient Name: MICH BECK MRN: [id number] date: 1965 Sex: M Assigned Patient Location: ER Current Patient Location: ER Accession/Order Number: [id number] Exam Date: 11/13/2024 18:50 Report Date: 11/13/2024 19:06 At the request of: JAVIER AGUILAR Procedure: XR chest 1V XR chest 1V 11/13/2024 6:54 PM SIGNS AND SYMPTOMS: ^SOB PROTOCOL: Frontal radiograph of the chest COMPARISON: 05/02/2009 FINDINGS: The trachea is midline. The heart and mediastinal structures are within normal limits. The lung parenchyma is clear. The bony thorax is intact. Remote healed posterior right third through sixth rib fractures are noted. XR/XR chest 1V IMPRESSION: No acute cardiopulmonary pathology. Impression dictated by: Eliu Joseph M.D. 11/13/2024 7:06 PM Dictation Location: [place] [address] Electronically authenticated by: [id number] Y Date: 11/13/2024 19:06
[2024-11-13 18:38] LABS: Anion Gap 15.4; Blood Urea Nitrogen 18.0 mg/dL (7.0-18.0); Calcium 9.1 mg/dL (8.5-10.1); Carbon Dioxide 21.1 mmol/L (21.0-32.0); Chloride 96 mmol/L (98-107); Estimated GFR (African America >60 (>=60 mL/min/1.73m^2); Estimated GFR (Non-African Ame 53 (>=60 mL/min/1.73m^2); Glucose 114 mg/dL (74-106); Potassium 3.5 mmol/L (3.5-5.1); Sodium 129 mmol/L (136-145)
--- NOTE | 2024-11-13 18:39 | ED_ITS ---
Documented by User: LAUREN Lechuga 11/14/24 11:26 HPI HPI - General Adult General Chief complaint: Extremity Problem, Nontraumatic Stated complaint: SOB, NAUSEATED, FEVER, LEFT LEG SWOLLEN Time Seen by Provider: 11/13/24 17:52 Source: patient Mode of arrival: Wheelchair History of Present Illness HPI narrative: Patient is a 59-year-old male with a past medical history of IV drug abuse who presents to the emergency department with complaints of 5 days of left leg swelling/pain, cough, shortness of breath, and runny nose. He does not have a thermometer at home but has been feeling feverish and diaphoretic. Patient states that he was at a bar Monday night and woke up with all the symptoms Monday morning. He denies any trauma to the leg. He does not follow regularly with a physician. He states that his legs commonly swell/get cellulitis. Sometimes his legs will leak fluids. He never gets evaluated for this and manages the swelling with Jose wraps. He denies chest or abdominal pain. He does endorse some nausea, denies vomiting or diarrhea Related Data Home Medications ?Medication ?Instructions ?Recorded ?Confirmed buprenorphine HCl 8 mg sublingual 16 mg sublingual KENAN LY 06/25/23 03/29/24 tablet gabapentin 300 mg capsule 300 mg PO TID 06/25/2303/29 quetiapine 200 mg tablet (Seroquel) 200 mg PO BID 02/2703/29/24 Previous Rx's ?Medication ?Instructions ?Recorded bacitracin 500 unit/gram topical 1 applic topical BID #14 grams 03/14/24 ointment tramadol 50 mg tablet 50 mg PO Q8H PRN pain 3 days #9 03/14/24 tabs Allergies Allergy/AdvReac Type Severity Reaction Status Date / Time meloxicam (From [employer]) Allergy Rash Verified 03/14/24 14:13 Opioid HPI Opioid Management Most Recent Opioid Data: Last Pain Scale 8 03/14/24, 16:07 Review of Systems ROS Status of ROS 10 or more systems reviewed and unremark able except as noted in history and below PFSH PFSH Social History Little interest or pleasure in doing things: not at all Feeling down, depressed, or hopeless: not at all Exam Narrative Exam Narrative: General: Appears uncomfortable, sitting on edge of ED cart, appears older than stated age Skin: Warm, dry, no pallor. Left lower extremity erythema and edema that is somewhat patchy with satellite lesions on up to mid thigh that are red/purple and non blanching. Rash covering back. Head: Normocephalic, atraumatic. Neck: Supple, non-tender. Eye: Pupils are equal, round and EOMI. No scleral icterus. Ears, Nose, Mouth, and Throat: No nasal mucosal hypertrophy. Oral mucosa is moist, no posterior oropharynx erythema, uvula is mid-line Cardiovascular: Regular Rate and Rhythm without murmur, gallop or rub. Respiratory: No accessory muscle use or respiratory distress. Lungs are clear to auscultation, no wheezing, rales or rhonchi Chest Wall: no tenderness Back: No midline thoracic or lumbar vertebral tenderness. Musculoskeletal: Full ROM of all extremities, except Left Ankle. LLE extremely tender with palpation, severe swelling noted starting at the knee down to toes. RLE has evidence of chronic vascular changes, woody dark appearance. GI: Abdomen is soft, distended rectus diastasis, non tender to palpation. No masses appreciated. No rebound, guarding, or rigidity noted. Neurological: A&O x4. No cranial nerve dysfunction observed. No truncal ataxia. Moves all extremities. Sensation intact. Psychiatric: Cooperative and interactive. Normal mood and affect. Constitutional Vital Signs, click to edit/add: Last Vital Signs Temp 99.1 F 11/13/24 17:54 Pulse 110 H 11/13/24 17:54 Resp 11/13/24 17:54 BP 102/68 11/13/24 17:54 Pulse Ox 97 11/13/24 17:54 O2 Del Method Room Air 11/13/24 17:54 Course Vital Signs Vital signs: Vital Signs Temperature 99.1 F 11/13/24 17:54 Pulse Rate 110 H 11/13/24 17:54 Respiratory Rate 11/13/24 17:54 Blood Pressure 102/68 11/13/24 17:54 Pulse Oximetry 97 11/13/24 17:54 Oxygen Delivery Method Room Air 11/13/24 17:54 Temperature 99.1 F 11/13/24 17:54 Pulse Rate 110 H 11/13/24 17:54 Respiratory Rate 11/13/24 17:54 Blood Pressure 102/68 11/13/24 17:54 Pulse Oximetry 97 11/13/24 17:54 Oxygen Delivery Method Room Air 11/13/24 17:54 Medical Decision Making MDM Narrative Medical decision making narrative: This patient is a 59-year-old male that presented with complaints of 5 days of left leg pain, swelling, redness, cough, shortness of breath, fever, nausea with no vomiting and runny nose. He has a past history of mental health issues and substance abuse (heroin) and takes Seroquel and Subutex. On arrival he appears uncomfortable, heart rate is tacky. BP stable. Afebrile. IV placed. Zofran given. CXR ordered no effusion or pulm edema, negative for acute cardiopulmonary issue. EKG reviewed by liat and is Sinus tachycardia, no signs of ST Elevation or ischemic changes. 1L NS ordered. LLE Doppler US ordered. CBC, BNP, ESR, CRP, Lactate, Blood cultures, UA, COVID-19 ordered as well. Labs: No leukocytosis on CBC, Lactate wnl ESR/CRP elevated 122 markedly elevated/28 elevated, respectively Cr: 1.3 slightly elevated, 1L NS ordered Na 129 hyponatremia, likely multifactorial UA with large occult blood, otherwise negative for infection. Blood possibly muscle breakdown or CARLOS COVID-19 negative LLE Doppler US pending Results discussed with patient and admission recommended despite pending results of Ultrasound given clinical exam for further evaluation and workup. Patient states that he will not stay in a strange environment, without his meds, and he wants a cigarette. I re-elvauated him multiple times without change in his vitals or condition. He is adamant he will not stay for admission and just wants to know if he has a blood clot in his leg. We discussed risks and benefits of leaving against medical advice. At this time, 0, patient was signed out to Dr Aldana with results of US pending. ADDENDUM, Dr. Durga Aldana: Patient was signed out to me by Dr. Rodriguez and LAUREN Lechuga pending blood work and imaging. Essentially, the patient presented to the emergency department for 5-day history of left lower extremity pain/redness/swelling and generalized feelings of fever/shortness of breath/flulike symptoms. Patient's most recent set of vital signs were significant for tachycardia, otherwise were within normal limits. She is afebrile and hemodynamically stable. Examination was notable for bilateral lower extremity edema, significantly worse on the left with overlying erythema and tenderness to palpation. There is no underlying crepitus. The extremity is warm, well-perfused, and is neurovascularly intact. Differential diagnosis include cellulitis, DVT, vasculitis, lymphedema, or other underlying electrolyte/metabolic derangement. IV was established and laboratory studies were obtained. Chest ray and duplex ultrasound of the LLE were ordered. Laboratory studies were remarkable for mild anemia. No leukocytosis. There is thrombocytopenia. Mild hyponatremia and hypochloremia. Mild elevation in creatinine. No other electrolyte or metabolic derangement the urinalysis was positive for occult blood but no evidence of UTI. 12 Lead EKG: Normal sinus rhythm at a rate of 100. Normal axis. No ST segment elevations. QRS, FL, and QTc interval within normal limits. Final impression: normal sinus rhythm without evidence of acute myocardial ischemia Chest x-ray independently reviewed/interpreted by myself demonstrated no acute cardiopulmonary process. Duplex ultrasound of left lower extremity demonstrated no evidence of a DVT. Unclear as to the exact etiology behind the patient's presentation. May be secondary to cellulitis, lymphedema, or vasculitis. Regardless, the patient's leg is impressively edematous and erythematous. I recommended the patient be admitted to the hospital for empiric treatment with IV antibiotics and further diagnostic testing. However, the patient is adamant that he be discharged home. I went back to the patient's room multiple times to discuss admission, however he consistently declines. Patient has demonstrated the ability to understand the relevant medical choices and the consequences of these choices. The patient understands the pertinent information namely that failure to stay could deprive of critical diagnostic knowledge that could lead to a diagnosis that could then allow treatment to cure the problem, the patient understands the potential nature of the diagnosis and the fact that it could be threatening to life or cause permanent disability, and the patient can state back to me and understanding of the consequences of not staying for complete diagnostic testing. The patient was apprised of the potential risks of leaving the hospital AGAINST MEDICAL ADVICE. They include serious complications, permanent disability, . At the time of my interview with the patient, the patient was alert, oriented, and capable. I urged the patient to return to the hospital as soon as possible to complete their evaluation and treatment. FINAL IMPRESSION: #Acute left lower extremity erythema and edema DISPOSITION: Left the hospital AMA CONDITION: Fair Differential Diagnosis Differential Diagnosis: Vasculitis, DVT, Superimposed infection on chronic lymphedema Lab Data Labs: Lab Results 11/13/24 11/13/24 11/13/24 Range/Units 18:14 18:15 18:55 WBC 9.4 (4.0-11.0) 10^3/uL RBC 3.49 L (4.70-6.10) 10^6/uL Hgb 10.9 L (14.0-18.0) g/dL Hct 31.1 L (42.0-54.0) % MCV 89.1 (80.0-94.0) fL MCH 31.2 (25.9-34.0) pg MCHC 35.0 (29.9-35.2) g/dL RDW 16.8 H (11.0-15.0) % Plt Count 91 L (150-450) 10^3/uL MPV 9.8 (9.5-13.5) fL Seg Neuts % (Manual) 91.0 H (43.0-75.0) Lymphocytes % (Manual) 7.0 L (20.5-60.0) % Monocytes % (Manual) 2.0 (1.7-12.0) % Eosinophils % (Manual) 0.0 L (0.9-7.0) % Basophils % (Manual) 0.0 L (0.2-2.0) % Neutrophils # (Manual) 8.55 H (1.4-6.5) 10^3/uL Lymphocytes # (Manual) 0.65 L (1.20-3.80) 10^3/uL Monocytes # (Manual) 0.18 L (0.30-0.80) 10^3/uL Eosinophils # (Manual) 0.00 (0.00-0.70) 10^3/uL Basophils # (Manual) 0.00 (0.00-0.10) 10^3/uL ESR 122 H (<=20) mm/hr Sodium 129 L (136-145) mmol/L Potassium 3.5 (3.5-5.1) mmol/L Chloride 96 L (98-107) mmol/L Carbon Dioxide 21.1 (21.0-32.0) mmol/L Anion Gap 15.4 BUN 18.0 (7.0-18.0) mg/dL Creatinine 1.38 H (0.70-1.30) mg/dL Est GFR ( Amer) >60 (>=60 mL/min/1.73m^2) Est GFR (Non-Af Amer) 53 L (>=60 mL/min/1.73m^2) BUN/Creatinine Ratio 13.0 Glucose 114 H (74-106) mg/dL Lactate 2.1 H* (0.4-2.0) mmol/L Calcium 9.1 (8.5-10.1) mg/dL Total Bilirubin 1.0 (0.2-1.0) mg/dL Direct Bilirubin 0.4 H (0.0-0.2) mg/dL AST 21 (15-37) U/L ALT 12 L (16-63) U/L Alkaline Phosphatase 103 (46-116) U/L C-Reactive Protein 28.40 H (<=0.50) mg/dL Total Protein 8.8 H (6.4-8.2) g/dL Albumin 3.3 L (3.4-5.0) g/dL Globulin 5.5 g/dL Albumin/Globulin Ratio 0.6 Urine Color (YELLOW) Urine Clarity (CLEAR) Urine pH (5.0-9.0) Ur Specific [place] (1.005-1.025) Urine Protein (NEG/TRACE) mg/dL Urine Glucose (UA) (NEGATIVE) mg/dL Urine Ketones (NEGATIVE) mg/dL Urine Occult Blood (NEGATIVE) Urine Nitrite (NEGATIVE) Urine Bilirubin (NEGATIVE) Urine Urobilinogen (0.2-1.0) EU/dL Ur Leukocyte Esterase (NEGATIVE) Urine RBC (0-2) #/HPF Urine WBC (NONE SEEN) #/HPF Ur Squamous Epith Cells (NONE/RARE) #/LPF Urine Crystals (None Seen) #/HPF Urine Bacteria (NONE SEEN) #/HPF Urine Casts (NONE SEEN) #/LPF Urine Mucus (NONE SEEN) Ur Culture Indicated? SARS-CoV-2 Ag (CV2AG) Negative (NEGATIVE) 11/13/24 11/13/24 Range/Units 19:24 19:52 WBC (4.0-11.0) 10^3/uL RBC (4.70-6.10) 10^6/uL Hgb (14.0-18.0) g/dL Hct (42.0-54.0) % MCV (80.0-94.0) fL MCH (25.9-34.0) pg MCHC (29.9-35.2) g/dL RDW (11.0-15.0) % Plt Count (150-450) 10^3/uL MPV (9.5-13.5) fL Seg Neuts % (Manual) (43.0-75.0) Lymphocytes % (Manual) (20.5-60.0) % Monocytes % (Manual) (1.7-12.0) % Eosinophils % (Manual) (0.9-7.0) % Basophils % (Manual) (0.2-2.0) % Neutrophils # (Manual) (1.4-6.5) 10^3/uL Lymphocytes # (Manual) (1.20-3.80) 10^3/uL Monocytes # (Manual) (0.30-0.80) 10^3/uL Eosinophils # (Manual) (0.00-0.70) 10^3/uL Basophils # (Manual) (0.00-0.10) 10^3/uL ESR (<=20) mm/hr Sodium (136-145) mmol/L Potassium (3.5-5.1) mmol/L Chloride (98-107) mmol/L Carbon Dioxide (21.0-32.0) mmol/L Anion Gap BUN (7.0-18.0) mg/dL Creatinine (0.70-1.30) mg/dL Est GFR ( Amer) (>=60 mL/min/1.73m^2) Est GFR (Non-Af Amer) (>=60 mL/min/1.73m^2) BUN/Creatinine Ratio Glucose (74-106) mg/dL Lactate 2.0 (0.4-2.0) mmol/L Calcium (8.5-10.1) mg/dL Total Bilirubin (0.2-1.0) mg/dL Direct Bilirubin (0.0-0.2) mg/dL AST (15-37) U/L ALT (16-63) U/L Alkaline Phosphatase (46-116) U/L C-Reactive Protein (<=0.50) mg/dL Total Protein (6.4-8.2) g/dL Albumin (3.4-5.0) g/dL Globulin g/dL Albumin/Globulin Ratio Urine Color Yellow (YELLOW) Urine Clarity Clear (CLEAR) Urine pH 6.0 (5.0-9.0) Ur Specific [place] <=1.005 A (1.005-1.025) Urine Protein Trace (NEG/TRACE) mg/dL Urine Glucose (UA) Negative (NEGATIVE) mg/dL Urine Ketones Negative (NEGATIVE) mg/dL Urine Occult Blood Large A (NEGATIVE) Urine Nitrite Negative (NEGATIVE) Urine Bilirubin Negative (NEGATIVE) Urine Urobilinogen 1.0 (0.2-1.0) EU/dL Ur Leukocyte Esterase Negative (NEGATIVE) Urine RBC 2-5 A (0-2) #/HPF Urine WBC 0-2 A (NONE SEEN) #/HPF Ur Squamous Epith Cells Rare (NONE/RARE) #/LPF Urine Crystals None seen (None Seen) #/HPF Urine Bacteria Trace A (NONE SEEN) #/HPF Urine Casts None seen (NONE SEEN) #/LPF Urine Mucus Trace A (NONE SEEN) Ur Culture Indicated? No SARS-CoV-2 Ag (CV2AG) (NEGATIVE) Imaging Data Chest x-ray: Radiologist's impression: ITS Impressions Chest X-Ray 11/13/24 18:35 IMPRESSION: No acute cardiopulmonary pathology. Impression dictated by: Eliu Joseph M.D. 11/13/2024 7:06 PM Dictation Location: [place] [address] Electronically authenticated by: [id number] Y Date: 11/13/2024 19:06 Discharge Plan Discharge Stand Alone Forms: Portal Instructions Chief Complaint: Extremity Problem, Nontraumatic Clinical Impression: Lower extremity edema Patient Disposition: Left Against Medical Advice Time of Disposition Decision: 22:58 Condition: Fair Mode of Transportation: Private Vehicle Prescriptions / Home Meds: No Action quetiapine [Seroquel] 200 mg tablet 200 mg PO BID bacitracin 500 unit/gram ointment 1 applic topical BID Qty: 14 0RF tramadol 50 mg tablet 50 mg PO Q8H PRN (Reason: pain) 3 Days Qty: 9 0RF gabapentin 300 mg capsule 300 mg PO TID buprenorphine HCl 8 mg tablet, sublingual 16 mg SUBLINGUAL DAILY Print Language: Guamanian Instructions: Leg Edema (ED) Referrals: Physician,Non-Staff, MD [Primary Care Provider] - 1 week Discharge Date/Time: 11/13/24 23:09 Documented by User: Durga Aldana, DO 11/13/24 22:58 HPI HPI - General Adult General Chief complaint: Extremity Problem, Nontraumatic Stated complaint: SOB, NAUSEATED, FEVER, LEFT LEG SWOLLEN Time Seen by Provider: 11/13/24 17:52 Related Data Home Medications ?Medication ?Instructions ?Recorded ?Confirmed buprenorphine HCl 8 mg sublingual 16 mg sublingual KENAN LY 06/25/23 03/29/24 tablet gabapentin 300 mg capsule 300 mg PO TID 06/25/2303/29 quetiapine 200 mg tablet (Seroquel) 200 mg PO BID 02/2703/29/24 Previous Rx's ?Medication ?Instructions ?Recorded bacitracin 500 unit/gram topical 1 applic topical BID #14 grams 03/14/24 ointment tramadol 50 mg tablet 50 mg PO Q8H PRN pain 3 days #9 03/14/24 tabs Allergies Allergy/AdvReac Type Severity Reaction Status Date / Time meloxicam (From [facility]) Allergy Rash Verified 03/14/24 14:13 Opioid HPI Opioid Management Most Recent Opioid Data: Last Pain Scale 8 03/14/24, 16:07 PFSH PFSH Social History Little interest or pleasure in doing things: not at all Feeling down, depressed, or hopeless: not at all Exam Constitutional Vital Signs, click to edit/add: Last Vital Signs Temp 99.1 F 11/13/24 17:54 Pulse 110 H 11/13/24 17:54 Resp 20 11/13/24 17:54 BP 102/68 11/13/24 17:54 Pulse Ox 97 11/13/24 17:54 O2 Del Method Room Air 11/13/24 17:54 Course Vital Signs Vital signs: Vital Signs Temperature 99.1 F 11/13/24 17:54 Pulse Rate 110 H 11/13/24 17:54 Respiratory Rate 20 11/13/24 17:54 Blood Pressure 102/68 11/13/24 17:54 Pulse Oximetry 97 11/13/24 17:54 Oxygen Delivery Method Room Air 11/13/24 17:54 Temperature 99.1 F 11/13/24 17:54 Pulse Rate 110 H 11/13/24 17:54 Respiratory Rate 20 11/13/24 17:54 Blood Pressure 102/68 11/13/24 17:54 Pulse Oximetry 97 11/13/24 17:54 Oxygen Delivery Method Room Air 11/13/24 17:54 Medical Decision Making MDM Narrative Medical decision making narrative: This patient is a 59-year-old male that presented with complaints of 5 days of left leg pain, swelling, redness, cough, shortness of breath, fever, and runny nose. On arrival he appears uncomfortable, heart rate is tacky. ADDENDUM, Dr. Durga Aldana: Patient was signed out to me by Dr. Rodriguez and LAUREN Lechuga pending blood work and imaging. Essentially, the patient presented to the emergency department for 5-day history of left lower extremity pain/redness/swelling and generalized feelings of fever/shortness of breath/flulike symptoms. Patient's most recent set of vital signs were significant for tachycardia, otherwise were within normal limits. She is afebrile and hemodynamically stable. Examination was notable for bilateral lower extremity edema, significantly worse on the left with overlying erythema and tenderness to palpation. There is no underlying crepitus. The extremity is warm, well-perfused, and is neurovascularly intact. Differential diagnosis include cellulitis, DVT, vasculitis, lymphedema, or other underlying electrolyte/metabolic derangement. IV was established and laboratory studies were obtained. Chest ray and duplex ultrasound of the LLE were ordered. Laboratory studies were remarkable for mild anemia. No leukocytosis. There is thrombocytopenia. Mild hyponatremia and hypochloremia. Mild elevation in creatinine. No other electrolyte or metabolic derangement the urinalysis was positive for occult blood but no evidence of UTI. 12 Lead EKG: Normal sinus rhythm at a rate of 100. Normal axis. No ST segment elevations. QRS, FL, and QTc interval within normal limits. Final impression: normal sinus rhythm without evidence of acute myocardial ischemia Chest x-ray independently reviewed/interpreted by myself demonstrated no acute cardiopulmonary process. Duplex ultrasound of left lower extremity demonstrated no evidence of a DVT. Unclear as to the exact etiology behind the patient's presentation. May be secondary to cellulitis, lymphedema, or vasculitis. Regardless, the patient's leg is impressively edematous and erythematous. I recommended the patient be admitted to the hospital for empiric treatment with IV antibiotics and further diagnostic testing. However, the patient is adamant that he be discharged home. I went back to the patient's room multiple times to discuss admission, however he consistently declines. Patient has demonstrated the ability to understand the relevant medical choices and the consequences of these choices. The patient understands the pertinent information namely that failure to stay could deprive of critical diagnostic knowledge that could lead to a diagnosis that could then allow treatment to cure the problem, the patient understands the potential nature of the diagnosis and the fact that it could be threatening to life or cause permanent disability, and the patient can state back to me and understanding of the consequences of not staying for complete diagnostic testing. The patient was apprised of the potential risks of leaving the hospital AGAINST MEDICAL ADVICE. They include serious complications, permanent disability, . At the time of my interview with the patient, the patient was alert, oriented, and capable. I urged the patient to return to the hospital as soon as possible to complete their evaluation and treatment. FINAL IMPRESSION: #Acute left lower extremity erythema and edema DISPOSITION: Left the hospital AMA CONDITION: Fair Medical Records Medical records reviewed: Yes I reviewed the patient's medical records Lab Data Lab results reviewed: Yes I reviewed the patient's lab results Labs: Lab Results 11/13/24 11/13/24 11/13/24 Range/Units 18:14 18:15 18:55 WBC 9.4 (4.0-11.0) 10^3/uL RBC 3.49 L (4.70-6.10) 10^6/uL Hgb 10.9 L (14.0-18.0) g/dL Hct 31.1 L (42.0-54.0) % MCV 89.1 (80.0-94.0) fL MCH 31.2 (25.9-34.0) pg MCHC 35.0 (29.9-35.2) g/dL RDW 16.8 H (11.0-15.0) % Plt Count 91 L (150-450) 10^3/uL MPV 9.8 (9.5-13.5) fL Seg Neuts % (Manual) 91.0 H (43.0-75.0) Lymphocytes % (Manual) 7.0 L (20.5-60.0) % Monocytes % (Manual) 2.0 (1.7-12.0) % Eosinophils % (Manual) 0.0 L (0.9-7.0) % Basophils % (Manual) 0.0 L (0.2-2.0) % Neutrophils # (Manual) 8.55 H (1.4-6.5) 10^3/uL Lymphocytes # (Manual) 0.65 L (1.20-3.80) 10^3/uL Monocytes # (Manual) 0.18 L (0.30-0.80) 10^3/uL Eosinophils # (Manual) 0.00 (0.00-0.70) 10^3/uL Basophils # (Manual) 0.00 (0.00-0.10) 10^3/uL ESR 122 H (<=20) mm/hr Sodium 129 L (136-145) mmol/L Potassium 3.5 (3.5-5.1) mmol/L Chloride 96 L (98-107) mmol/L Carbon Dioxide 21.1 (21.0-32.0) mmol/L Anion Gap 15.4 BUN 18.0 (7.0-18.0) mg/dL Creatinine 1.38 H (0.70-1.30) mg/dL Est GFR ( Amer) >60 (>=60 mL/min/1.73m^2) Est GFR (Non-Af Amer) 53 L (>=60 mL/min/1.73m^2) BUN/Creatinine Ratio 13.0 Glucose 114 H (74-106) mg/dL Lactate 2.1 H* (0.4-2.0) mmol/L Calcium 9.1 (8.5-10.1) mg/dL Total Bilirubin 1.0 (0.2-1.0) mg/dL Direct Bilirubin 0.4 H (0.0-0.2) mg/dL AST 21 (15-37) U/L ALT 12 L (16-63) U/L Alkaline Phosphatase 103 (46-116) U/L C-Reactive Protein 28.40 H (<=0.50) mg/dL Total Protein 8.8 H (6.4-8.2) g/dL Albumin 3.3 L (3.4-5.0) g/dL Globulin 5.5 g/dL Albumin/Globulin Ratio 0.6 Urine Color (YELLOW) Urine Clarity (CLEAR) Urine pH (5.0-9.0) Ur Specific [place] (1.005-1.025) Urine Protein (NEG/TRACE) mg/dL Urine Glucose (UA) (NEGATIVE) mg/dL Urine Ketones (NEGATIVE) mg/dL Urine Occult Blood (NEGATIVE) Urine Nitrite (NEGATIVE) Urine Bilirubin (NEGATIVE) Urine Urobilinogen (0.2-1.0) EU/dL Ur Leukocyte Esterase (NEGATIVE) Urine RBC (0-2) #/HPF Urine WBC (NONE SEEN) #/HPF Ur Squamous Epith Cells (NONE/RARE) #/LPF Urine Crystals (None Seen) #/HPF Urine Bacteria (NONE SEEN) #/HPF Urine Casts (NONE SEEN) #/LPF Urine Mucus (NONE SEEN) Ur Culture Indicated? SARS-CoV-2 Ag (CV2AG) Negative (NEGATIVE) 11/13/24 11/13/24 Range/Units 19:24 19:52 WBC (4.0-11.0) 10^3/uL RBC (4.70-6.10) 10^6/uL Hgb (14.0-18.0) g/dL Hct (42.0-54.0) % MCV (80.0-94.0) fL MCH (25.9-34.0) pg MCHC (29.9-35.2) g/dL RDW (11.0-15.0) % Plt Count (150-450) 10^3/uL MPV (9.5-13.5) fL Seg Neuts % (Manual) (43.0-75.0) Lymphocytes % (Manual) (20.5-60.0) % Monocytes % (Manual) (1.7-12.0) % Eosinophils % (Manual) (0.9-7.0) % Basophils % (Manual) (0.2-2.0) % Neutrophils # (Manual) (1.4-6.5) 10^3/uL Lymphocytes # (Manual) (1.20-3.80) 10^3/uL Monocytes # (Manual) (0.30-0.80) 10^3/uL Eosinophils # (Manual) (0.00-0.70) 10^3/uL Basophils # (Manual) (0.00-0.10) 10^3/uL ESR (<=20) mm/hr Sodium (136-145) mmol/L Potassium (3.5-5.1) mmol/L Chloride (98-107) mmol/L Carbon Dioxide (21.0-32.0) mmol/L Anion Gap BUN (7.0-18.0) mg/dL Creatinine (0.70-1.30) mg/dL Est GFR ( Amer) (>=60 mL/min/1.73m^2) Est GFR (Non-Af Amer) (>=60 mL/min/1.73m^2) BUN/Creatinine Ratio Glucose (74-106) mg/dL Lactate 2.0 (0.4-2.0) mmol/L Calcium (8.5-10.1) mg/dL Total Bilirubin (0.2-1.0) mg/dL Direct Bilirubin (0.0-0.2) mg/dL AST (15-37) U/L ALT (16-63) U/L Alkaline Phosphatase (46-116) U/L C-Reactive Protein (<=0.50) mg/dL Total Protein (6.4-8.2) g/dL Albumin (3.4-5.0) g/dL Globulin g/dL Albumin/Globulin Ratio Urine Color Yellow (YELLOW) Urine Clarity Clear (CLEAR) Urine pH 6.0 (5.0-9.0) Ur Specific [place] <=1.005 A (1.005-1.025) Urine Protein Trace (NEG/TRACE) mg/dL Urine Glucose (UA) Negative (NEGATIVE) mg/dL Urine Ketones Negative (NEGATIVE) mg/dL Urine Occult Blood Large A (NEGATIVE) Urine Nitrite Negative (NEGATIVE) Urine Bilirubin Negative (NEGATIVE) Urine Urobilinogen 1.0 (0.2-1.0) EU/dL Ur Leukocyte Esterase Negative (NEGATIVE) Urine RBC 2-5 A (0-2) #/HPF Urine WBC 0-2 A (NONE SEEN) #/HPF Ur Squamous Epith Cells Rare (NONE/RARE) #/LPF Urine Crystals None seen (None Seen) #/HPF Urine Bacteria Trace A (NONE SEEN) #/HPF Urine Casts None seen (NONE SEEN) #/LPF Urine Mucus Trace A (NONE SEEN) Ur Culture Indicated? No SARS-CoV-2 Ag (CV2AG) (NEGATIVE) Imaging Data Chest x-ray: Attestation: I personally reviewed and interpreted this imaging study as follows: Radiologist's impression: ITS Impressions Chest X-Ray 11/13/24 18:35 IMPRESSION: No acute cardiopulmonary pathology. Impression dictated by: Eliu Joseph M.D. 11/13/2024 7:06 PM Dictation Location: [email or web address] ([email or web address]) Electronically authenticated by: [id number] Y Date: 11/13/2024 19:06 ECG Data Attestation: I personally reviewed and interpreted this ECG as follows: Discharge Plan Discharge Stand Alone Forms: Portal Instructions Chief Complaint: Extremity Problem, Nontraumatic Clinical Impression: Lower extremity edema Patient Disposition: Left Against Medical Advice Time of Disposition Decision: 22:58 Condition: Fair Mode of Transportation: Private Vehicle Prescriptions / Home Meds: No Action quetiapine [Seroquel] 200 mg tablet 200 mg PO BID bacitracin 500 unit/gram ointment 1 applic topical BID Qty: 14 0RF tramadol 50 mg tablet 50 mg PO Q8H PRN (Reason: pain) 3 Days Qty: 9 0RF gabapentin 300 mg capsule 300 mg PO TID buprenorphine HCl 8 mg tablet, sublingual 16 mg SUBLINGUAL DAILY Print Language: Guamanian Instructions: Leg Edema (ED) Referrals: Physician,Non-Staff, MD [Primary Care Provider] - 1 week Discharge Date/Time: 11/13/24 23:09
[2024-11-13 19:22] LABS: SARS-CoV-2 Ag NEGATIVE (NEGATIVE)
[2024-11-13 19:26] LABS: Alanine Aminotransferase 12 U/L (16-63); Albumin Globulin Ratio 0.6; Albumin Level 3.3 g/dL (3.4-5.0); Alkaline Phosphatase 103 U/L (46-116); Aspartate Amino Transferase 21 U/L (15-37); Globulin 5.5 g/dL; Total Protein 8.8 g/dL (6.4-8.2)
[2024-11-13 19:29] LABS: Basophils Abs Manual 0.00 10^3/uL (0.00-0.10); Basophils Percent Manual 0.0 % (0.2-2.0); Eosinophils Absolute Manual 0.00 10^3/uL (0.00-0.70); Eosinophils Percent Manual 0.0 % (0.9-7.0); Lymphocytes Absolute Manual 0.65 10^3/uL (1.20-3.80); Lymphocytes Percent Manual 7.0 % (20.5-60.0); Monocytes Absolute Manual 0.18 10^3/uL (0.30-0.80); Monocytes Percent Manual 2.0 % (1.7-12.0); Segmented Neut Absolute Manual 8.55 10^3/uL (1.4-6.5); Segmented Neutrophils % Manual 91.0 (43.0-75.0)
[2024-11-13 19:39] LABS: Lactate/Lactic Acid 2.1 mmol/L (0.4-2.0)
[2024-11-13] MEDS: 0.9 % SODIUM CHLORIDE 1,000 ML 1000 ML IV (19:46)
[2024-11-13 20:05] LABS: Glucose Urine UA NEGATIVE (NEGATIVE)
[2024-11-13 20:13] LABS: Cast Seen? NONE SEEN #/LPF (NONE SEEN); Crystals Seen? None Seen #/HPF (None Seen); Urine Culture Indicated NO
[2024-11-13 20:20] LABS: Lactate/Lactic Acid 2.0 mmol/L (0.4-2.0)
--- NOTE | 2024-11-13 20:51 | ECG_ITS ---
[facility] Test Date: 2024-11-13 Pat Name: MICH BECK Department: Room: - Gender: Male [employer] T[employer]: : 1965 Requested By: [id number] Order Number: [id number] Reading MD: TJ SIM M.D. Measurements Intervals [place] Rate: 100 P: 64 DC: 206 QRS: 54 QRSD: 92 T: 69 QT: 338 QTc: 395 Interpretive Statements 1120 Sinus tachycardia FIRST DEGREE AV BLOCK abnormal ECG Compared to ECG 07/04/2023 14:28:53 No significant changes Electronically Signed On 11-14-2024 18:13:47 EDT by TJ SIM M.D.
== END 2024-11-13 23:09 | disposition left against medical advice (07) ==
PROVIDERS: Physician Assistant; Emergency Provider Emergency Medicine
DX: R60.0 Localized edema (principal); Z53.29 Procedure and treatment not carried out because of patient's decision for other reasons; F17.210 Nicotine dependence, cigarettes, uncomplicated; F11.20 Opioid dependence, uncomplicated
CPT/HCPCS: 36415; 71045; 80048; 80076; 81001; 83605; 85007; 85027; 85652; 86140; 87040; 87811; 93005; 93971; 96374; 99285; J2405

== ENCOUNTER 2024-11-16 19:08 | Inpatient (IN) | payer OTHER, SELFPAY ==
--- OUTSIDE RECORDS SUMMARY | 2024-11-16 19:15 | XMS_ITS | CCD ---
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 Name Role Phone Coleen Snider Primary Care Provider [phone] Kristi Anglin Attending Provider NEELA, DR VEGA Primary Care Unavailable FRANCES BALDERRAMA Attending Unavailable FRANCES BALDERRAMA Consulting Unavailable FRANCES BALDERRAMA Admitting Unavailable NANYC CAMPOS Attending Unavailable NANCY CAMPOS Consulting Unavailable NANCY CAMPOS Admitting Unavailable NEELA, DR VEGA Primary Care Unavailable VELIA DE LA VEGA Consulting Unavailable NEELA, DR VEGA Primary Care Unavailable DR CHIARA WEBB Attending Unavailable TRACEY, DR GUADARRAMA Admitting Unavailable LAUREN LE Consulting Unavailable BERENICE, ANDREA Consulting Unavailable ANTWAN Snider Primary Care Provider [phone] DO Braulio Kearney Emergency Provider Unavai Braulio Forte Attending Unavailable Braulio Kearney Admitting Unavailable Coleen Snider Primary Care Unavailable Unavailable Unavailable Unavailable Allergies Allergy Classification Reported Allergen(s) Allergy Type Date of Onset Reaction(s) Facility (3 sources) meloxicam; Translations: [meloxicam] Drug Allergy 04-06-2020 [facility] Repository (1 source) meloxicam Drug Allergy 01-16-2015 [facility] Repository Medications Current Medications Medication Drug Class(es) [...] 08-29-2023 Episodic Other aftercare (1 source) Other alf (current) drug therapy; 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] Onset: 09-10-2021 Episodic Other [...] conon 0 08-30-2023 CT cervical spine wo [facility] [place] [address] CT Scan Report Signed Patient: Petar Joe III MR#: [id number] : 1965 Acct:[id number] Age/Sex: 57 / M ADM Date: 08/29/23 Loc: ER Room: Type: [facility] ER Attending Dr: Copies to: Braulio Kearney DO Ordering Provider: Braulio Kearney DO Date of Service: 08/29/23 CT/CT cervical spine wo con: r/o fx ([id number]) CT/CT head/brain wo con: r/o ich CT [...] Tsang Jr., D.OHome08/30/2023 8:19 AM Dictation Location: [place] [address] Transcribed By: [facility] 08/30/23818 Dictated By: Usama Tsang Jr, DO 08/30/23813 Signed By: 08/30/23818 Normal [facility] XR chest 1V portableon 08-29 XR chest 1V portable [facility] [place] [address] [place] [address] XRay Report Signed Patient: Petar Joe III MR#: [id number] : 1965 Acct:[id number] Age/Sex: 57 / M ADM Date: 08/29/23 Loc: ER Room: Type: [facility] ER Attending Dr: Copies to: [...] Tsang Jr., D.OHome08/30/2023 8:20 AM Dictation Location: [place] [address] Transcribed By: [facility] 08/30/23819 Dictated By: Usama Tsang Jr, DO 08/30/23818 Signed By: 08/30/23819 Normal [facility] Activated partial thrombopla stin time (aPTT) in platelet poor plasma by coagulation aOrdered By: Braulio Kearney on 08-29-2023 aPTT Coag (PPP) [Time] 25.8 s 25.1-36.5 [facility] Comment on above: A hematocrit value g reater than 55% may lead to inaccurate results in coagulation testing. Patients having hematocrit values >55% require a special collection tube for coagulation studies. Please contact the laboratory at [phone] for redraw instructions. Alanine aminotransferase [En zymatic activity/volume] in Serum or PlasmaOrdered By: Braulio Kearney on 08-29-2023 ALT [Catalytic activity/Vol] 7 U/L Normal 7-52 [facility] Comment on above: Performed By: #### C BC, PT, PTT, ETOH, CMP #### [address] Albumin [Mass/volume] in Ser um or Plasma by Bromocresol green (BCG) dye binding methoOrdered By: Braulio Kearney on 08-29-2023 Albumin BCG dye [Mass/Vol] 4.3 g/dL 3.5-5.7 [facility] Alkaline phosphatase [Enzyma tic activity/volume] in Serum or PlasmaOrdered By: Braulio Kearney on 08-29-2023 ALP [Catalytic activity/Vol] 73 U/L Normal 34-104 [facility] Comment on above: Performed By: #### C BC, PT, PTT, ETOH, CMP #### [address] Aspartate aminotransferase [ Enzymatic activity/volume] in Serum or PlasmaOrdered By: Braulio Kearney on 08-29-2023 AST [Catalytic activity/Vol] 14 U/L Normal 13-39 [facility] Comment on above: Performed By: #### C BC, PT, PTT, ETOH, CMP #### [address] Automated basophil %Ordered By: Braulio Kearney on 08-29-2023 Basophils/100 WBC (Bld) 0.9 % Normal . [facility] Comment on above: Performed By: #### C BC, PT, PTT, ETOH, CMP #### [address] Automated basophil countOrde red By: Braulio Kearney on 08-29-2023 Basophils (Bld) [#/Vol] 0.0 10*3/uL Normal 0.0-0.2 [facility] Comment on above: Result Comment: PERF ORMED BY: [place] [address] PATHOLOGIST HEAVY L[employer]IGGER [address] M.D. Performed By: #### C BC, PT, PTT, ETOH, CMP #### [address] Automated blood monocyte cou ntOrdered By: Braulio Kearney on 08-29-2023 Monocytes (Bld) [#/Vol] 0.4 10*3/uL Normal 0.0-0.8 [facility] Comment on above: Performed By: #### C BC, PT, PTT, ETOH, CMP #### [address] Automated eosinophil %Ordere d By: Braulio Kearney on 08-29-2023 Eosinophils/100 WBC (Bld) 1.1 % Normal . [facility] Comment on above: Performed By: #### C BC, PT, PTT, ETOH, CMP #### [address] Automated eosinophil countOr dered By: Braulio Kearney on 08-29-2023 Eosinophils (Bld) [#/Vol] 0.0 10*3/uL Normal 0.0-0.45 [facility] Comment on above: Performed By: #### C BC, PT, PTT, ETOH, CMP #### [address] Automated monocyte %Ordered By: Braulio Kearney on 08-29-2023 Monocytes/100 WBC (Bld) 8.1 % Normal . [facility] Comment on above: Performed By: #### C BC, PT, PTT, ETOH, CMP #### [address] Automated neutrophil %Ordere d By: Braulio Kearney on 08-29-2023 Neutrophils/100 WBC (Bld) 62.1 % Normal . [facility] Comment on above: Performed By: #### C BC, PT, PTT, ETOH, CMP #### [address] Bilirubin.total [Mass/volume ] in Serum or PlasmaOrdered By: Braulio Kearney on 08-29-2023 Bilirubin [Mass/Vol] 0.6 mg/dL Normal 0.3-1.0 [facility] Comment on above: Performed By: #### C BC, PT, PTT, ETOH, CMP #### [address] Calcium [Mass/volume] in Ser um or PlasmaOrdered By: Braulio Kearney on 08-29-2023 Calcium [Mass/Vol] 9.5 mg/dL Normal 8.6-10.3 [facility] Comment on above: Performed By: #### C BC, PT, PTT, ETOH, CMP #### [address] Carbon dioxide, total [Moles /volume] in Serum or PlasmaOrdered By: Braulio Kearney on 08-29-2023 CO2 [Moles/Vol] 23.5 mmol/L Normal 21.0-31.0 [facility] Comment on above: Performed By: #### C BC, PT, PTT, ETOH, CMP #### [address] Chloride [Moles/volume] in S alba or PlasmaOrdered By: Braulio Kearney on 08-29-2023 Chloride [Moles/Vol] 100 mmol/L Normal 98-107 [facility] Comment on above: Performed By: #### C BC, PT, PTT, ETOH, CMP #### [address] Complete Blood Count Auto Di ffon 08-29-2023 Mean Corpuscular HGB Conc 33.9 g/dL Normal 32.5-35.6 [facility] Comment on above: Performed By: #### C BC, PT, PTT, ETOH, CMP #### [address] Monocytes/100 WBC (Bld) 20.16 % High 0.00-20.00 [facility] Comment on above: Result Comment: For adults in ED, MDW > 20.0 may be associated with a higher risk of sepsis during the first 12 hrs of hospital admission Performed By: #### C BC, PT, PTT, ETOH, CMP #### [address] NRBC% 0.1 /100{WBC} Normal 0-0.5 [facility] Comment on above: Performed By: #### C BC, PT, PTT, ETOH, CMP #### [address] Comprehensive Metabolic Pane perlita 08-29-2023 Albumin [Mass/Vol] 4.3 g/dL Normal 3.5-5.7 [facility] Comment on above: Performed By: #### C BC, PT, PTT, ETOH, CMP #### [address] Creatinine Clr Calc Pharmacy 133.32 Normal [facility] Comment on above: Result Comment: PERF ORMED BY: [place] [address] PATHOLOGIST HEAVY L[employer]IG[employer] [address] L[address] M.D. Performed By: #### C BC, PT, PTT, ETOH, CMP #### [address] GFR/1.73 sq M.predicted MDRD (S/P/Bld) [Vol rate/Area] mL/min/{1.73_m2} Normal [facility] Comment on above: Performed By: #### C BC, PT, PTT, ETOH, CMP #### [address] Creatinine [Mass/volume] in Serum or PlasmaOrdered By: Braulio Kearney on 08-29-2023 Creatinine [Mass/Vol] 0.83 mg/dL Normal 0.70-1.30 [facility] Comment on above: Performed By: #### C BC, PT, PTT, ETOH, CMP #### [address] ECG 12 lead ECGon 08-29-2023 ECG 12 lead ECG [facility] [place] [address] [place] [address] Electrocardiograph Report Signed Patient: Petar Joe III MR#: [id number] : 1965 Acct:[id number] Age/Sex: 57 / M ADM Date: 08/29/23 Loc: ER Room: Type: [facility] ER Attending Dr: Ordering Provider: [...] voltage QRS Confirmed by Braulio Kearney DO ([id number]) on 08/30/2023 7:11:44 AM Referred By: Electronically Signed By:Braulio Kearney DO Transcribed By: MUS Signed By Braulio Kearney DO 0711 Normal [facility] Erythrocyte distribution wid th [Ratio] by Automated countOrdered By: Braulio Kearney on 08-29-2023 Erythrocyte distribution width (RBC) [Ratio] 16.9 % High 12.0-14.8 [facility] Comment on above: Performed By: #### C BC, PT, PTT, ETOH, CMP #### [place] [address] [place] Erythrocytes [#/volume] in B lood by Automated countOrdered By: Braulio Kearney on 08-29-2023 RBC (Bld) [#/Vol] 3.61 10*6/uL Low 3.90-5.60 [facility] Comment on above: Performed By: #### C BC, PT, PTT, ETOH, CMP #### [address] Ethanol [Mass/volume] in Ser um or PlasmaOrdered By: Braulio Kearney on 08-29-2023 Ethanol [Mass/Vol] 48 mg/dL Normal [facility] Comment on above: Performed By: #### C BC, PT, PTT, ETOH, CMP #### [address] Ethanol [Mass/Vol] 0.048 % [facility] Ethyl Alcohol Profileon Percent Ethanol 0.048 % Normal [facility] Comment on above: Result Comment: PERF ORMED BY: [place] [address] PATHOLOGIST HE[employer]Y [employer] [address] M.D. Performed By: #### C BC, PT, PTT, ETOH, CMP #### [facility] [address] [place] [address] [place] Glucose [Mass/volume] in Ser um or PlasmaOrdered By: Braulio Kearney on 08-29-2023 Glucose [Mass/Vol] 111 mg/dL High 70-100 [facility] Comment on above: ADA recommended refe rence rangeRandom Glucose Reference Range is dependent on time and content of last meal. Glucose of more than 200 mg/dL in a nonstressed, ambulatory subject supports the diagnosis of Diabetes Mellitus. Result Comment: [facility] Glucose Reference Range is dependent on time and content of last meal. Glucose of more than 200 mg/dL in a nonstressed, ambulatory subject supports the diagnosis of Diabetes Mellitus. ADA recommended reference range Performed By: #### C BC, PT, PTT, ETOH, CMP #### [facility] [address] Hematocrit [Volume Fraction] of Blood by Automated countOrdered By: Braulio Kearney on 08-29-2023 Hematocrit (Bld) [Volume fraction] 33.1 % Low 38.8-50.0 [facility] Comment on above: Performed By: #### C BC, PT, PTT, ETOH, CMP #### [address] Hemoglobin [Mass/volume] in BloodOrdered By: Braulio Kearney on 08-29-2023 Hemoglobin (Bld) [Mass/Vol] 11.2 g/dL Low 13.0-17.0 [facility] Comment on above: Performed By: #### C BC, PT, PTT, ETOH, CMP #### [address] INR in Platelet poor plasma by Coagulation assayOrdered By: Braulio Kearney on 08-29-2023 INR Coag (PPP) [Relative time] 1.2 {INR} Normal [facility] Comment on above: INR Therapeutic Rang e [...] C BC, PT, PTT, ETOH, CMP #### [address] Leukocytes [#/volume] correc pippa for nucleated erythrocytes in Blood by Automated counOrdered By: Braulio Kearney on 08-29-2023 WBC corrected for nucl RBC Auto (Bld) [#/Vol] 4.5 10*3/uL 4.1-10.5 [facility] Leukocytes [#/volume] in Blo od by Automated countOrdered By: Braulio Kearney on 08-29-2023 WBC (Bld) [#/Vol] 4.5 10*3/uL Normal 4.1-10.5 [facility] Comment on above: Performed By: #### C BC, PT, PTT, ETOH, CMP #### [address] Lymphocytes [#/volume] in Bl ood by Automated countOrdered By: Braulio Kearney on 08-29-2023 Lymphocytes (Bld) [#/Vol] 1.3 10*3/uL Normal 1.00-4.8 [facility] Comment on above: Performed By: #### C BC, PT, PTT, ETOH, CMP #### [address] Lymphocytes/100 leukocytes i n Blood by Automated countOrdered By: Braulio Kearney on 08-29-2023 Lymphocytes/100 WBC (Bld) 27.8 % Normal . [facility] Comment on above: Performed By: #### C BC, PT, PTT, ETOH, CMP #### [address] MCH [Entitic mass] by Automa pippa countOrdered By: Braulio Kearney on 08-29-2023 MCH (RBC) [Entitic mass] 31.2 pg Normal 27.5-35.2 [facility] Comment on above: Performed By: #### C BC, PT, PTT, ETOH, CMP #### [address] [place] [address] [place] MCHC Auto (RBC) [Mass/Vol]Or dered By: Braulio Kearney on 08-29-2023 MCHC (RBC) [Mass/Vol] 33.9 g/dL 32.5-35.6 [facility] MCV [Entitic volume] by Auto mated countOrdered By: Braulio Kearney on 08-29-2023 MCV (RBC) [Entitic vol] 91.8 fL Normal 83.5-101 [facility] Comment on above: Performed By: #### C BC, PT, PTT, ETOH, CMP #### [facility] [address] [place] [address] Monocyte distribution width [Entitic volume] in Blood by AutomatedOrdered By: Braulio Kearney on 08-29-2023 Monocyte distribution width Auto (Bld) [Entitic vol] 20.16 % High 0.00-20.00 [facility] Comment on above: For adults in ED, MD W > 20.0 may be associated with a higher risk of sepsis during the first 12 hrs of hospital admission Neutrophils [#/volume] in Bl ood by Automated countOrdered By: Braulio Kearney on 08-29-2023 Neutrophils (Bld) [#/Vol] 2.8 10*3/uL Normal 1.8-7.7 [facility] Comment on above: Performed By: #### C BC, PT, PTT, ETOH, CMP #### [facility] [address] [place] [address] No Panel InformationOrdered By: Braulio Kearney on 08-29-2023 Estimated GFR (CKD-EPI) > 60.0 mL/Min [facility] Creatinine Clearance (Chem 133.32 [facility] Nucleated erythrocytes [Pres ence] in Blood by Automated countOrdered By: Braulio Kearney on 08-29-2023 Nucleated RBC Auto Ql (Bld) 0.1 /100{WBC} 0-0.5 [facility] Partial Thromboplastin Timeo n 08-29-2023 aPTT Coag (Bld) [Time] 25.8 s Normal 25.1-36.5 [facility] Comment on above: Result Comment: A he matocrit value greater than 55% may lead to inaccurate results in coagulation testing. Patients having hematocrit values >55% require a special collection tube for coagulation studies. Please contact the laboratory at [phone] for redraw instructions. PERFORMED BY: [place] [address] PATHOLOGIST HE[employer]Y [employer] [address] M.D. Performed By: #### C BC, PT, PTT, ETOH, CMP #### [place] [address] [place] Platelet mean volume [Entiti c volume] in Blood by Automated countOrdered By: Braulio Kearney on 08-29-2023 Platelet mean volume (Bld) [Entitic vol] 6.9 fL Normal 6.6-10.1 [facility] Comment on above: Performed By: #### C BC, PT, PTT, ETOH, CMP #### [place] [address] [place] Platelets [#/volume] in Bloo d by Automated countOrdered By: Braulio Kearney on 08-29-2023 Platelets (Bld) [#/Vol] 110 10*3/uL Low 150-450 [facility] Comment on above: Performed By: #### C BC, PT, PTT, ETOH, CMP #### [place] [id number] [place] Potassium [Moles/volume] in Serum or PlasmaOrdered By: Braulio Kearney on 08-29-2023 Potassium [Moles/Vol] 3.9 mmol/L Normal 3.5-5.1 [facility] Comment on above: Performed By: #### C BC, PT, PTT, ETOH, CMP #### [place] [address] [place] Protein [Mass/volume] in Ser um or PlasmaOrdered By: Braulio Kearney on 08-29-2023 Protein [Mass/Vol] 8.3 g/dL Normal 6.4-8.9 [facility] Comment on above: Performed By: #### C BC, PT, PTT, ETOH, CMP #### [address] Prothrombin time (PT)Ordered By: Braulio Kearney on 08-29-2023 PT Coag (PPP) [Time] 13.2 s High 9.0-12.9 [facility] Comment on above: A hematocrit value g reater than 55% may lead to inaccurate results in coagulation testing. Patients having hematocrit values >55% require a special collection tube for coagulation studies. Please contact the laboratory at [phone] for redraw instructions. Result Comment: A matocrit value greater than 55% may lead to inaccurate results in coagulation testing. Patients having hematocrit values >55% require a special collection tube for coagulation studies. Please contact the laboratory at [phone] for redraw instructions. Performed By: #### C BC, PT, PTT, ETOH, CMP #### [address] Serum globulin measurement b y calculation (mass/volume)Ordered By: Braulio Kearney on 08-29-2023 Globulin (S) [Mass/Vol] 4.0 g/dL [facility] Comment on above: Performed By: #### C BC, PT, PTT, ETOH, CMP #### [address] Serum or plasma albumin/glob ulin mass ratioOrdered By: Braulio Kearney on 08-29-2023 Albumin/Globulin [Mass ratio] 1.1 {ratio} [facility] Comment on above: Performed By: #### C BC, PT, PTT, ETOH, CMP #### [address] Serum or plasma anion gap de terminationOrdered By: Braulio Kearney on 08-29-2023 Anion gap [Moles/Vol] 11.4 mmol/L Normal 6.0-15.0 [facility] Comment on above: Performed By: #### C BC, PT, PTT, ETOH, CMP #### [address] Sodium [Moles/volume] in Ser um or PlasmaOrdered By: Braulio Kearney on 08-29-2023 Sodium [Moles/Vol] 131 mmol/L Low 136-145 [facility] Comment on above: Performed By: #### C BC, PT, PTT, ETOH, CMP #### [facility] [address] Urea nitrogen [Mass/volume] in Serum or PlasmaOrdered By: Braulio Kearney on 08-29-2023 Urea nitrogen [Mass/Vol] 8 mg/dL Normal 7-25 [facility] Comment on above: Performed By: #### C BC, PT, PTT, ETOH, CMP #### [facility] [address] CBC AUTO DIFFon 09-08-2021 BASO # 0.0 103/ul Normal 0.0-0.1 [facility] Comment on above: Performed By: #### C BC #### [facility] [address] [place] [address] Dr. Cristina Nino Basophils/100 WBC (Bld) 0.5 % Normal 0.2-2.0 [facility] Comment on above: Performed By: #### C BC #### [facility] [address] [place] [address] [address] Cristina Nino EO # 0.1 103/ul Normal 0.0-0.7 [facility] Comment on above: Performed By: #### C BC #### [facility] [address] [place] [address] [address] Cristina Nino Eosinophils/100 WBC (Bld) 0.9 % Normal 0.9-7.0 [facility] Comment on above: Performed By: #### C BC #### [facility] [address] [place] [address] [address] Cristina Nino Erythrocyte distribution width (RBC) [Ratio] 15.9 % Critically high 11.0-15.0 [facility] Comment on above: Performed By: #### C BC #### [facility] [address] [place] [address] Dr. Cristina Nino Hematocrit (Bld) [Volume fraction] 35.7 % Critically low 42.0-54.0 [facility] Comment on above: Performed By: #### C BC #### [facility] [address] [place] [address] Dr. Cristina Nino Hemoglobin (Bld) [Mass/Vol] 11.8 g/dL Critically low 14.0-18.0 [facility] Comment on above: Performed By: #### C BC #### [facility] [address] [place] [address] Dr. Cristina Nino IG # 0.02 10e3/ul Normal 0.00-0.03 [facility] Comment on above: Performed By: #### C BC #### [facility] [address] [place] [address] Dr. Cristina Nino IG % 0.4 % Normal 0.0-0.5 [facility] Comment on above: Performed By: #### C BC #### [facility] [address] [place] [address] Dr. Cristina Nino LYMPH # 1.7 103/ul Normal 1.2-3.8 [facility] Comment on above: Performed By: #### C BC #### [facility] [address] [place] [address] Dr. Cristina Nino Lymphocytes/100 WBC (Bld) 30.6 % Normal 20.5-60.0 [facility] Comment on above: Performed By: #### C BC #### [facility] [address] [place] [address] Dr. Cristina Nino MANUAL DIFF REQ NO Normal [facility] Comment on above: Performed By: #### C BC #### [facility] [address] [place] [address] Dr. Cristina Nnio MCH (RBC) [Entitic mass] 30.9 pg Normal 25.9-34.0 [facility] Comment on above: Performed By: #### C BC #### [facility] [address] [place] [address] Dr. Cristina Nino MCHC (RBC) [Mass/Vol] 33.1 g/dL Normal 29.9-35.2 [facility] Comment on above: Performed By: #### C BC #### [facility] [address] [place] [address] [address] Cristina Nino MCV (RBC) [Entitic vol] 93.5 fL Normal 80.0-94.0 [facility] Comment on above: Performed By: #### C BC #### [facility] [address] [place] [address] [address] Cristina Nino MONO # 0.3 103/ul Normal 0.3-0.8 [facility] Comment on above: Performed By: #### C BC #### [facility] [address] [place] [address] [address] Cristina Nino Monocytes/100 WBC (Bld) 6.0 % Normal 1.7-12.0 [facility] Comment on above: Performed By: #### C BC #### [facility] [address] [place] [address] [address] Cristina Nino NEUT # 3.4 103/ul Normal 1.4-6.5 [facility] Comment on above: Performed By: #### C BC #### [facility] [address] [place] [address] [address] Cristina Nino Neutrophils/100 WBC (Bld) 61.6 % Normal 43.0-75.0 [facility] Comment on above: Performed By: #### C BC #### [facility] [address] [place] [address] [address] Cristina Nino Platelet mean volume (Bld) [Entitic vol] 9.9 fL Normal 9.5-13.5 [facility] Comment on above: Performed By: #### C BC #### [facility] [address] [place] [address] [address] Cristina Nino PLT 87 103/ul Critically low 150-450 [facility] Comment on above: Performed By: #### C BC #### [facility] [address] [place] [address] [address] Cristina Nino RBC 3.82 106/ul Critically low 4.70-6.10 [facility] Comment on above: Performed By: #### C BC #### [facility] [address] [place], [place] [address] Dr. Cristina Nino WBC 5.5 103/ul Normal 4.0-11.0 [facility] Comment on above: Performed By: #### C BC #### [facility] [address] [place], [place] [address] ABD/PELVIS WO CONon [...] ANDREA NG Date: 2021-09-08 18:20 Normal [facility] ER URINE PROFILEon 2 Bilirubin Ql (U) Negative Normal NEGATIVE [facility] Comment on above: Performed By: #### E RUR #### [facility] [address] [place] [address] Dr. Cristina Nino Clarity (U) CLEAR Normal CLEAR [facility] Comment on above: Performed By: #### E RUR #### [facility] [address] [place] [address] Dr. Cristina Nino Color (U) YELLOW Normal YELLOW [facility] Comment on above: Performed By: #### E RUR #### [facility] [address] [place] [address] Dr. Cristina Nino ERUDAVID A micrscopic examina tion will be performed if indicated. Normal [facility] Comment on above: Performed By: #### E RUR #### [facility] [address] [place] [address] Dr. Cristina Nino Glucose Ql (U) Negative Normal NEGATIVE [facility] Comment on above: Performed By: #### E RUR #### [facility] [address] [place] [address] Dr. Cristina Nino Hemoglobin Ql (U) Negative Normal NEGATIVE [facility] Comment on above: Performed By: #### E RUR #### [facility] [address] [place] [address] Dr. Cristina Nino Ketones Ql (U) Negative Normal NEGATIVE [facility] Comment on above: Performed By: #### E RUR #### [facility] [address] [place] [address] Dr. Cristina Nino LEUKOCYTES Negative Normal NEGATIVE [facility] Comment on above: Performed By: #### E RUR #### [facility] [address] [place] [address] Dr. Cristina Nino Nitrite Ql (U) Negative Normal NEGATIVE [facility] Comment on above: Performed By: #### E RUR #### [facility] [address] [place] [address] Dr. Cristina Nino pH (U) 6.0 [pH] Normal 5-9 [facility] Comment on above: Performed By: #### E RUR #### [facility] [address] [place] [address] Dr. Cristina Nino SPEC GRAVITY 1.015 Normal 1.005-<=1.0 25 [facility] Comment on above: Performed By: #### E RUR #### [facility] [address] [place] [address] Dr. Cristina Nino UA PROTEIN Negative Normal NEGATIVE/ TRACE [facility] Comment on above: Performed By: #### E RUR #### [facility] [address] [place] [address] Dr. Cirstina Nino UR MICRO IND NOT INDICATED Normal [facility] Comment on above: Performed By: #### E RUR #### [facility] [address] [place] [address] Dr. Cristina Nino Urobilinogen Qn (U) 0.2 {Renee'U}/dL Normal 0.2 - 1. 0 [facility] Comment on above: Performed By: #### E RUR #### [facility] [address] [place] [address] Dr. Cristina Nino PROF CHEM 8 (BAS METB)on Anion gap [Moles/Vol] 15.0 mmol/L Normal [facility] Comment on above: Performed By: #### B MP #### [facility] [address] [place] [address] Dr. Cristina Nino Calcium [Mass/Vol] 8.8 mg/dL Normal 8.5-10.1 [facility] Comment on above: Performed By: #### B MP #### [facility] [address] [address] [address] Cristina Nino Chloride [Moles/Vol] 99 mmol/L Normal 98-107 [facility] Comment on above: Performed By: #### B MP #### [facility] [address] [place] [address] Dr. Cristina Nino CO2 [Moles/Vol] 23.9 mmol/L Normal 21.0-32.0 [facility] Comment on above: Performed By: #### B MP #### [facility] [address] [place] [address] Dr. Cristina Nino Creatinine [Mass/Vol] 1.04 mg/dL Normal 0.70-1.30 [facility] Comment on above: Performed By: #### B MP #### [facility] [address] [place] [address] Dr. Cristina Nino EGFR-AF AZERBAIJANI >60 Normal >=60 [facility] Comment on above: Performed By: #### B MP #### [facility] [address] [place] [address] Dr. Cristina Nino EGFR-NON AF AZERBAIJANI >60 Normal >=60 [facility] Comment on above: Performed By: #### B MP #### [facility] [address] [place] [address] Dr. Cristina Nino Glucose [Mass/Vol] 122 mg/dL Critically high 74-106 [facility] Comment on above: Performed By: #### B MP #### [facility] [address] [place] [address] Dr. Cristina Nino Potassium [Moles/Vol] 4.9 mmol/L Normal 3.5-5.1 [facility] Comment on above: Performed By: #### B MP #### [facility] [address] [address] [address] Cristina Nino Sodium [Moles/Vol] 133 mmol/L Critically low 136-145 [facility] Comment on above: Performed By: #### B MP #### [facility] [address] [address] [address] Cristina Nino Urea nitrogen [Mass/Vol] 11.0 mg/dL Normal 7.0-18.0 [facility] Comment on above: Performed By: #### B MP #### [facility] [address] [address] [address] Cristina Nino Urea nitrogen/Creatinine [Mass ratio] 10.6 mg/mg Normal [facility] Comment on above: Performed By: #### B MP #### [facility] [address] [address] [address] Cristina Nino CBC AUTO DIFFon 10-01-2020 BASO # 0.0 103/ul Normal 0.0-0.1 [facility] Comment on above: Performed By: #### C BC ####[facility] [address] [place], [place] [address]Mfstuh Mary Basophils/100 WBC (Bld) 0.5 % Normal 0.2-2.0 [facility] Comment on above: Performed By: #### C BC ####[facility] [address] [place], [place] [address]Wassfa Mary EO # 0.1 103/ul Normal 0.0-0.7 [facility] Comment on above: Performed By: #### C BC ####[facility] [address] [place], [place] [address]Ownwtw Mary Eosinophils/100 WBC (Bld) 1.3 % Normal 0.9-7.0 [facility] Comment on above: Performed By: #### C BC ####[facility] [address] [place], [place] [address]Ftnkpb Mary Erythrocyte distribution width (RBC) [Ratio] 15.9 % Critically high 11.0-15.0 [facility] Comment on above: Performed By: #### C BC ####[facility] [address] Mary Hematocrit (Bld) [Volume fraction] 36.7 % Critically low 42.0-54.0 [facility] Comment on above: Performed By: #### C BC ####[facility] [address] Mary Hemoglobin (Bld) [Mass/Vol] 12.1 g/dL Critically low 14.0-18.0 [facility] Comment on above: Performed By: #### C BC ####[facility] [address] [place] [address] Mary IG # 0.03 10e3/ul Normal 0.00-0.03 [facility] Comment on above: Performed By: #### C BC ####[facility] [address] [place] [address] Mary IG % 0.5 % Normal 0.0-0.5 [facility] Comment on above: Performed By: #### C BC ####[facility] [address] [place] [address] Mary LYMPH # 1.9 103/ul Normal 1.2-3.8 [facility] Comment on above: Performed By: #### C BC ####[facility] [address] [place] [address] Mary Lymphocytes/100 WBC (Bld) 31.9 % Normal 20.5-60.0 [facility] Comment on above: Performed By: #### C BC ####[facility] [address] [place] [address] Mary MANUAL DIFF REQ NO Normal [facility] Comment on above: Performed By: #### C BC ####[facility] [address] Mary MCH (RBC) [Entitic mass] 31.5 pg Normal 25.9-34.0 [facility] Comment on above: Performed By: #### C BC ####[facility] [address] [id number] Hernandez MCHC (RBC) [Mass/Vol] 33.0 g/dL Normal 29.9-35.2 [facility] Comment on above: Performed By: #### C BC ####[facility] [address] [id number] Hernandez MCV (RBC) [Entitic vol] 95.6 fL Critically high 80.0-94.0 [facility] Comment on above: Performed By: #### C BC ####[facility] [address] [place], [place] [address]Germissael Hernandez MONO # 0.4 103/ul Normal 0.3-0.8 [facility] Comment on above: Performed By: #### C BC ####[facility] [address] [place], [place] [address]Germissael Hernandez Monocytes/100 WBC (Bld) 7.1 % Normal 1.7-12.0 [facility] Comment on above: Performed By: #### C BC ####[facility] [address] [place], [place] [address]Gerken Mary NEUT # 3.6 103/ul Normal 1.4-6.5 [facility] Comment on above: Performed By: #### C BC ####[facility] [address] [place], [place] [address]Germissael Hernandez Neutrophils/100 WBC (Bld) 58.7 % Normal 43.0-75.0 [facility] Comment on above: Performed By: #### C BC ####[facility] [address] [place], [place] [address]Germissael Hernandez Platelet mean volume (Bld) [Entitic vol] 9.1 fL Critically low 9.5-13.5 [facility] Comment on above: Performed By: #### C BC ####[facility] [address] [place], [place] [address]Gerken Mary PLT 112 103/ul Critically low 150-450 [facility] Comment on above: Performed By: #### C BC ####[facility] [address] [id number] Hernandez RBC 3.84 106/ul Critically low 4.70-6.10 [facility] Comment on above: Performed By: #### C BC ####[facility] [address] [id number] Bealen WBC 6.1 103/ul Normal 4.0-11.0 [facility] Comment on above: Performed By: #### C BC ####[facility] [address] [id number] Hernandez ER URINE PROFILEon 1 Bilirubin Ql (U) Negative Normal NEGATIVE [facility] Comment on above: Performed By: #### E RUR #### [facility] [address] [place] [address] Bharathi Mary Clarity (U) CLEAR Normal CLEAR [facility] Comment on above: Performed By: #### E RUR #### [facility] [address] [place] [address] Bharathi Mary Color (U) YELLOW Normal YELLOW [facility] Comment on above: Performed By: #### E RUR #### [facility] [address] [place] [address] Bharathi Mary ERUAHD A micrscopic examina tion will be performed if indicated. Normal [facility] Comment on above: Performed By: #### E RUR #### [facility] [address] [place] [address] Bharathi Mary Glucose Ql (U) Negative Normal NEGATIVE [facility] Comment on above: Performed By: #### E RUR #### [facility] [address] [place] [address] Bharathi Mary Hemoglobin Ql (U) Negative Normal NEGATIVE [facility] Comment on above: Performed By: #### E RUR #### [facility] [address] [place] [address] Bharathi Mary Ketones Ql (U) Negative Normal NEGATIVE [facility] Comment on above: Performed By: #### E RUR #### [facility] [address] [place], [place] [id number] Bharathimissael Hernandez LEUKOCYTES Negative Normal NEGATIVE [facility] Comment on above: Performed By: #### E RUR #### [facility] [address] [place], [place] [id number] Bharathi Hernandez Nitrite Ql (U) Negative Normal NEGATIVE [facility] Comment on above: Performed By: #### E RUR #### [facility] [address] [place], [place] [id number] Bharathimissael Hernandez pH (U) 6.0 [pH] Normal 5-9 [facility] Comment on above: Performed By: #### E RUR #### [facility] [address] [place] [address] Bharathi Hernandez SPEC GRAVITY 1.020 Normal 1.005-<=1.0 25 [facility] Comment on above: Performed By: #### E RUR #### [facility] [address] [place] [address] Bharathi Hernandez UA PROTEIN Negative Normal NEGATIVE/ TRACE [facility] Comment on above: Performed By: #### E RUR #### [facility] [address] [place] [address] Bharathi Hernandez UR MICRO IND NOT INDICATED Normal [facility] Comment on above: Performed By: #### E RUR #### [facility] [address] [place] [address] Bharathi Hernandez Urobilinogen Qn (U) 0.2 {Renee'U}/dL Normal 0.2 - 1. 0 [facility] Comment on above: Performed By: #### E RUR #### [facility] [address] [place] [address] Bharathi Hernandez PROF CHEM 8 (BAS METB)on Anion gap [Moles/Vol] 14.2 mmol/L Normal [facility] Comment on above: Performed By: #### B MP #### [facility] [address] [place] [address] Bharathi Hernandez Calcium [Mass/Vol] 9.0 mg/dL Normal 8.4-10.2 [facility] Comment on above: Performed By: #### B MP #### [facility] [address] [id number] Bharathi Mary Chloride [Moles/Vol] 100 mmol/L Normal 98-107 [facility] Comment on above: Performed By: #### B MP #### [facility] [address] [id number] Bharathi Mary CO2 [Moles/Vol] 26.0 mmol/L Normal 22.0-30.0 [facility] Comment on above: Performed By: #### B MP #### [facility] [address] [address] Bharathi Mary Creatinine [Mass/Vol] 1.03 mg/dL Normal 0.66-1.25 [facility] Comment on above: Performed By: #### B MP #### [facility] [address] [place], [place] [address] Bharathi Mary EGFR-AF AZERBAIJANI >60 Normal >=60 [facility] Comment on above: Performed By: #### B MP #### [facility] [address] [place], [place] [address] Bharathi Mary EGFR-NON AF AZERBAIJANI >60 Normal >=60 [facility] Comment on above: Performed By: #### B MP #### [facility] [address] [place] [address] Bharathi Mary Glucose [Mass/Vol] 132 mg/dL Critically high 74-106 [facility] Comment on above: Performed By: #### B MP #### [facility] [address] [place] [address] Bharathi Mary Potassium [Moles/Vol] 4.2 mmol/L Normal 3.4-5.0 [facility] Comment on above: Performed By: #### B MP #### [facility] [address] [place], [place] [id number] Bharathi Mary Sodium [Moles/Vol] 136 mmol/L Critically low 137-145 [facility] Comment on above: Performed By: #### B MP #### [facility] [address] [place], [place] [address] Bharathi Mary Urea nitrogen [Mass/Vol] 9.0 mg/dL Normal 9.0-20.0 [facility] Comment on above: Performed By: #### B MP #### [facility] [address] [place], [place] [address] Bharathi Hernandez Urea nitrogen/Creatinine [Mass ratio] 8.7 mg/mg Normal [facility] Comment on above: Performed By: #### B MP #### [facility] [address] [place], [place] [address] ABD/PELVIS WO CONon 09-20 [...] [place] Date: 2020-09-19 22:15 Normal [facility] ER URINE PROFILEon 1 Bilirubin Ql (U) Negative Normal NEGATIVE [facility] Comment on above: Performed By: #### E RUR #### [facility] [address] [place] [address] Bharathi Mary Clarity (U) CLEAR Normal CLEAR [facility] Comment on above: Performed By: #### E RUR #### [facility] [address] [place] [address] Bharathi Mary Color (U) YELLOW Normal YELLOW [facility] Comment on above: Performed By: #### E RUR #### [facility] [address] [place] [address] Bharathi Mary ERUAHD A micrscopic examina tion will be performed if indicated. Normal [facility] Comment on above: Performed By: #### E RUR #### [facility] [address] [place] [address] Bharathi Mary Glucose Ql (U) Negative Normal NEGATIVE [facility] Comment on above: Performed By: #### E RUR #### [facility] [address] [place] [address] Bharathi Mary Hemoglobin Ql (U) Negative Normal NEGATIVE [facility] Comment on above: Performed By: #### E RUR #### [facility] [address] [place] [address] Bharathi Mary Ketones Ql (U) Negative Normal NEGATIVE [facility] Comment on above: Performed By: #### E RUR #### [facility] [address] [place] [address] Bharathi Mary LEUKOCYTES Negative Normal NEGATIVE [facility] Comment on above: Performed By: #### E RUR #### [facility] [address] [place] [address] Bharathi Hernandez Nitrite Ql (U) Negative Normal NEGATIVE [facility] Comment on above: Performed By: #### E RUR #### [facility] [address] [place] [address] Bharathi Hernandez pH (U) 5.5 [pH] Normal 5-9 [facility] Comment on above: Performed By: #### E RUR #### [facility] [address] [place] [address] Bharathi Hernandez SPEC GRAVITY 1.020 Normal 1.005-<=1.0 25 [facility] Comment on above: Performed By: #### E RUR #### [facility] [address] [place] [address] Bharathi Hernandez UA PROTEIN Negative Normal NEGATIVE/ TRACE [facility] Comment on above: Performed By: #### E RUR #### [facility] [address] [place] [address] Bharathi Hernandez UR MICRO IND NOT INDICATED Normal [facility] Comment on above: Performed By: #### E RUR #### [facility] [address] [place] [address] Bharathi Hernandez Urobilinogen Qn (U) 0.2 {Renee'U}/dL Normal 0.2 - 1. 0 [facility] Comment on above: Performed By: #### E RUR #### [facility] [address] [place] [address] Bharathi Hernandez CBC AUTO DIFFon 09-19-2020 BASO # 0.0 103/ul Normal 0.0-0.1 [facility] Comment on above: Performed By: #### C BC #### [facility] [address] [place] [address] Bharathimissael Hernandez Basophils/100 WBC (Bld) 0.5 % Normal 0.2-2.0 [facility] Comment on above: Performed By: #### C BC #### [facility] [address] [place] [address] Bharathi Hernandez EO # 0.1 103/ul Normal 0.0-0.7 [facility] Comment on above: Performed By: #### C BC #### [facility] [address] [place] [address] Bharathi Mary Eosinophils/100 WBC (Bld) 1.0 % Normal 0.9-7.0 [facility] Comment on above: Performed By: #### C BC #### [facility] [address] [place] [address] Bharathi Mary Erythrocyte distribution width (RBC) [Ratio] 15.7 % Critically high 11.0-15.0 [facility] Comment on above: Performed By: #### C BC #### [facility] [address] [place] [address] Bharathi Mary Hematocrit (Bld) [Volume fraction] 35.3 % Critically low 42.0-54.0 [facility] Comment on above: Performed By: #### C BC #### [facility] [address] [place] [address] Bharathi Mary Hemoglobin (Bld) [Mass/Vol] 11.5 g/dL Critically low 14.0-18.0 [facility] Comment on above: Performed By: #### C BC #### [facility] [address] [place] [address] Bharathi Mary IG # 0.03 10e3/ul Normal 0.00-0.03 [facility] Comment on above: Performed By: #### C BC #### [facility] [address] [place] [address] Bharathi Mary IG % 0.4 % Normal 0.0-0.5 [facility] Comment on above: Performed By: #### C BC #### [facility] [address] [place] [address] Bharathi Mary LYMPH # 2.2 103/ul Normal 1.2-3.8 [facility] Comment on above: Performed By: #### C BC #### [facility] [address] [place] [address] Bharathi Mary Lymphocytes/100 WBC (Bld) 29.6 % Normal 20.5-60.0 [facility] Comment on above: Performed By: #### C BC #### [facility] [address] [place], [place] [id number] Bharathi Mary MANUAL DIFF REQ NO Normal [facility] Comment on above: Performed By: #### C BC #### [facility] [address] [place], [place] [id number] Bharathi Mary MCH (RBC) [Entitic mass] 31.0 pg Normal 25.9-34.0 [facility] Comment on above: Performed By: #### C BC #### [facility] [address] [place] [address] Bharathimissael Hernandez MCHC (RBC) [Mass/Vol] 32.6 g/dL Normal 29.9-35.2 [facility] Comment on above: Performed By: #### C BC #### [facility] [address] [place] [address] Bharathi Mary MCV (RBC) [Entitic vol] 95.1 fL Critically high 80.0-94.0 [facility] Comment on above: Performed By: #### C BC #### [facility] [address] [place], [place] [address] Bharathi Mary MONO # 0.5 103/ul Normal 0.3-0.8 [facility] Comment on above: Performed By: #### C BC #### [facility] [address] [place] [address] Bharathi Mary Monocytes/100 WBC (Bld) 6.3 % Normal 1.7-12.0 [facility] Comment on above: Performed By: #### C BC #### [facility] [address] [place] [address] Bharathi Mary NEUT # 4.6 103/ul Normal 1.4-6.5 [facility] Comment on above: Performed By: #### C BC #### [facility] [address] [place], [place] [id number] Bharathi Mary Neutrophils/100 WBC (Bld) 62.2 % Normal 43.0-75.0 [facility] Comment on above: Performed By: #### C BC #### [facility] [address] [place] [address] Bharathi Mary Platelet mean volume (Bld) [Entitic vol] 9.2 fL Critically low 9.5-13.5 [facility] Comment on above: Performed By: #### C BC #### [facility] [address] [place], [place] [address] Bharathi Mary PLT 118 103/ul Critically low 150-450 [facility] Comment on above: Performed By: #### C BC #### [facility] [address] [place], [place] [address] Bharathi Mary RBC 3.71 106/ul Critically low 4.70-6.10 [facility] Comment on above: Performed By: #### C BC #### [facility] [address] [place], [place] [address] Bharathi Mary WBC 7.4 103/ul Normal 4.0-11.0 [facility] Comment on above: Performed By: #### C BC #### [facility] [address] [place], [place] [id number] Bharathimissael Bealen PROF 14(COMP METB)on 021 Albumin [Mass/Vol] 3.9 g/dL Normal 3.5-5.0 [facility] Comment on above: Performed By: #### C MP #### [facility] [address] [place], [place] [id number] Bharathi Mary Albumin/Globulin [Mass ratio] 0.8 {ratio} Normal [facility] Comment on above: Performed By: #### C MP #### [facility] [address] [place], [place] [id number] Bharathi Mary ALP [Catalytic activity/Vol] 81 U/L Normal 38-126 [facility] Comment on above: Performed By: #### C MP #### [facility] [address] [place], [place] [address] Bharathi Mary ALT [Catalytic activity/Vol] 14 U/L Critically low 21-72 [facility] [facility] Comment on above: Performed By: #### C MP #### [facility] [address] [place], [place] [id number] Bharathi Mary Anion gap [Moles/Vol] 13.7 mmol/L Normal Th e [facility] Comment on above: Performed By: #### C MP #### [facility] [address] [place] [address] Bharathi Mary AST [Catalytic activity/Vol] 23 U/L Normal 17-59 [facility] Comment on above: Performed By: #### C MP #### [facility] [address] [place] [address] Bharathi Mary Bilirubin [Mass/Vol] 0.6 mg/dL Normal 0.2-1.3 [facility] Comment on above: Performed By: #### C MP #### [facility] [address] [place] [address] Bharathi Mary Calcium [Mass/Vol] 8.9 mg/dL Normal 8.4-10.2 [facility] Comment on above: Performed By: #### C MP #### [facility] [address] [place] [address] Bahrathi Mary Chloride [Moles/Vol] 101 mmol/L Normal 98-107 [facility] Comment on above: Performed By: #### C MP #### [facility] [address] [place] [address] Bharathi Mary CO2 [Moles/Vol] 26.4 mmol/L Normal 22.0-30.0 [facility] Comment on above: Performed By: #### C MP #### [facility] [address] [place] [address] Bharathi Mary Creatinine [Mass/Vol] 1.02 mg/dL Normal 0.66-1.25 [facility] Comment on above: Performed By: #### C MP #### [facility] [address] [place] [address] Bharathi Mary EGFR-AF AZERBAIJANI >60 Normal >=60 [facility] Comment on above: Performed By: #### C MP #### [facility] [address] [place] [address] Bharathi Mary EGFR-NON AF AZERBAIJANI >60 Normal >=60 [facility] Comment on above: Performed By: #### C MP #### [facility] [address], [place] [address] Bharathi Mary Globulin (S) [Mass/Vol] 4.7 g/dL Normal [facility] Comment on above: Performed By: #### C MP #### [facility] [address], [place] [address] Bharathi Mary Glucose [Mass/Vol] 119 mg/dL Critically high 74-106 [facility] Comment on above: Performed By: #### C MP #### [facility] [address], [place] [address] Bharathi Mary Potassium [Moles/Vol] 4.1 mmol/L Normal 3.4-5.0 [facility] Comment on above: Performed By: #### C MP #### [facility] [address], [place] [address] Bharathi Mary Protein [Mass/Vol] 8.6 g/dL Critically high 6.1-8.2 [facility] Comment on above: Performed By: #### C MP #### [facility] [address], [place] [address] Bharathi Mary Sodium [Moles/Vol] 137 mmol/L Normal 137-145 [facility] Comment on above: Performed By: #### C MP #### [facility] [address], [place] [address] Bharathi Mary Urea nitrogen [Mass/Vol] 7.0 mg/dL Critically low 9.0-20.0 [facility] Comment on above: Performed By: #### C MP #### [facility] [address], [place] [address] Bharathi Mary Urea nitrogen/Creatinine [Mass ratio] 6.9 mg/mg Normal [facility] Comment on above: Performed By: #### C MP #### [facility] [address], [place] [address] Bharathi Mary COVID-19 Positive/Negativeon 05-05-2020 COVID-19 Positive/Negative Negative Negative [facility] Comment on above: Testing for SARS-CoV -2 by RT-PCRThis test was developed and its performance characteristics determined by [employer] ([place]) and validated at the [facility]. This test has not been FDA cleared [...] Otheron 05-05-2020 Coronavirus 2019 PCR Interp N/A [facility] Amphetamines screenon 2020 Amphetamines Ql (U) Negative Negative [facility] Barbiturates [Presence] in U rineon 04-09-2020 Barbiturates Ql (U) Negative Negative [facility] Benzodiazepines [Presence] i n Urineon 04-09-2020 Benzodiazepines Ql (U) Negative Negative [facility] Cannabinoids [Presence] in U rine by Screen methodon 04-09-2020 Cannabinoids Screen Ql (U) Positive Negative [facility] Comment on above: These are unconfirme d results and should not be used for legal purposes. Drug Cut-Off Concentration: AMPH 1000 ng/mL RD 200 ng/mL JANETTE 200 ng/mL COCM 300 ng/mL OP 300 ng/mL PCP 25 ng/mL THC 20 ng/mL Urinalysison 04-09-2020 Opiates Ql (U) Negative Negative [facility] Urine cocaine detectionon Cocaine Ql (U) Negative Negative [facility] Urine phencyclidine detectio n by screening methodon 04-09-2020 Phencyclidine Ql (U) Negative Negative [facility] COVID-19 Positive/Negativeon 04-06-2020 COVID-19 Positive/Negative Negative Negative [facility] Comment on above: Testing for SARS-CoV -2 by RT-PCRThis test was developed and its performance characteristics determined by [employer] ([employer]) and validated at the [facility]. This test has not been FDA cleared [...] Otheron 04-06-2020 Coronavirus 2019 PCR Interp N/A [facility] Vital Signs Date Time Vital Sign Value Performing Clinician Faci lity 08-29-2023 23:20-0400 Body temperature 98.4 [degF] ANTWAN Snider Work Phone: [facility] 08-29-2023 23:20-0400 Diastolic blood pressure 68 mm[Hg] ANTWAN Snider Work Phone: [facility] 08-29-2023 23:20-0400 Heart rate 70 /min ANTWAN Snider Work Phone: [facility] 08-29-2023 23:20-0400 Respiratory rate 22 /min ANTWAN Snider Work Phone: [facility] 08-29-2023 23:20-0400 SaO2% (BldA) [Mass fraction] 98 % ANTWAN Snider Work Phone: [facility] 08-29-2023 23:20-0400 Systolic blood pressure 150 mm[Hg] 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: [facility] 08-29-2023 21:59-0400 Body height 182.88 cm ANTWAN Snider Work Phone: [facility] 08-29-2023 21:59-0400 Body weight 117.93 kg ANTWAN Horne Agatha Work Phone: [facility] 04-09-2020 13:35-0500 BP Diastolic 77 mm[Hg] [facility] 04-09-2020 13:35-0500 BP Systolic 131 mm[Hg] [facility] 04-09-2020 13:35-0500 Pulse (Heart Rate) 67 /min [facility] 04-09-2020 13:35-0500 Pulse Oximetry 94 % [facility] 04-09-2020 13:35-0500 Respiratory Rate 16 /min [facility] 04-09-2020 12:29-0500 Body Temperature 97.1 [degF] Coleen [facility] 04-09-2020 11:43-0500 BMI (Body Mass Index) 40.1 kg/m2 [facility] 04-09-2020 10:27-0500 Body weight 130.6 kg [facility] 04-09-2020 10:27-0500 Height 180.34 cm [facility] Encounters Encounter Date Encounter Type Care Provider Facility Start: 08-29-2023 End: 08-29-2023 Emergency department patient visit ANTWAN Coleen Snider Work Phone: [facility] Work Phone: Start: 09-08-2021 End: 09-08-[address] VEGA MISC Facility:[facility] Start: 10-01-2020 End: 10-01-[address] VEGA MISC Facility:[facility] Start: 09-19-2020 End: 09-20-2020 ambulatory NANCY CAMPOS Facility: Start: 05-05-2020 End: 05-05-2020 Patient encounter procedure Coleen Agatha -Pre-Surgical Testing Start: 04-09-2020 End: 04-09-2020 Admission to day surgery Coleen Agatha -[facility] Start: 04-06-2020 End: 04-06-2020 Patient encounter procedure Coleen Agatha -Pre-Surgical Testing Procedures Date Procedure Procedure Detail Performing Clinician Start: 04-09-2020 Phacoemulsification of cataract with intraocular lens implantation Coleen Snider Plan of Treatment Date Care Activity Detail Author Start: 08-29-2023 CT cervical spine without contrast CT cervical spine wo [facility] Start: 08-29-2023 CT Cervical spine WO contrast [facility] Start: 08-29-2023 CT of head without contrast CT head/brain wo [facility] Start: 08-29-2023 CT Unspecified body region WO contrast [facility] Start: 08-29-2023 Plain chest X-ray XR chest 1V portab le [facility] Start: 08-29-2023 XR Chest Single view [facility] 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[place]) [facility] Work Phone: Patient referral [facility] [place] [facility] Payers Date Payer Category Payer Self-pay [id number] 1965 Unknown [id number] 1965 Unknown [id number] 1965 Unknown [id number] 1957 Unknown [id number] Unknown [id number] Social History Date Type Detail Facility Start: 04-06-2020 End: 08-29-2023 Tobacco smoking status NHIS Smoker (finding) [facility] Start: 1965 Sex Assigned At Male F [facility] Medical Equipment Procedure Code Equipment Code Equipment Origin al Text Equipment Identifier Dates Phacoemulsification of cataract with intraocular lens implantation ()[id number] FDA Start: 04-09-2020 Phacoemulsification of cataract with intraocular lens implantation Posterior-chamber intraocular lens, pseudophakic ()[id number] FDA Start: 05-07-2020 Goals Date Patient Goal Desired Activity /State Hospital Discharge instructions 08-29-2023 Note Date & Type Note Facility 08-29-2023 Hospital Discharg e instructions Additional Instructions Clean your wound with shampoo and water daily. Apply antibiotic ointment daily. Follow-up for staple removal in 5 to 7 days. [facility] Work Phone: Evaluation note Note Date & Type Note Facility Evaluation note No assessment information availa ble [facility] Work Phone: Advance Directives No [...] CREATED AUTHOR AUTHOR'S ORGANIZ ATION 09/17/2023 [facility] Care Teams (unrecognized sec tion and content) Team Status: Active Member Role Status Dates oCleen Snider APRN APPOINTMENT SPECIALIST-C Primary Care Provider Act letty Team Status: Inactive Member Role Status Dates Coleen Snider APRN APPOINTMENT SPECIALIST-C Primary Care Provider Act letty Start: August [...] BE BASED ON THE PRIMARY CLINICAL RECORDS. [facility]. provides no warranty or guarantee of the accuracy or completeness of information in this document.
[2024-11-16 20:14] VITALS: BP 150/78; PULSE 78; TEMP 37.2; O2SAT 95; BMI 32.8
--- NOTE | 2024-11-16 20:46 | ED.GENADUL1 ---
Documented by User: LAUREN Lechuga 11/16/24 22:01 HPI HPI - General Adult General Chief complaint: Extremity Injury, Lower Stated complaint: LEFT LEG PAIN Time Seen by Provider: 11/16/24 19:11 Source: patient Mode of arrival: Wheelchair History of Present Illness HPI narrative: Patient is a 59-year-old male that presents to the emergency department with complaints of left leg pain and weeping lymphedema. Patient was here 3 days ago with complaints of upper respiratory illness and left leg pain and redness. Patient was offered admission on 11/13 when he was here for pain control and further workup and he had declined and left AGAINST MEDICAL ADVICE. Today he is much more amendable to treatment and states that he lives alone in a camper trailer and has not been able to get around or take care of himself as his leg hurts so bad. He started to get blistering progressively since he was here that started weeping a lot today. He said he had a big gush of fluid come out of one of his blisters today when he stood up. He denies any other symptoms then pain and drainage from his leg. He denies fever, night sweats, chills, cough, congestion, chest pain, abdominal pain, or nausea/vomiting/diarrhea. Patient is on Subutex 8 mg sublingual and did take that this morning. We had a discussion about pain control and he does not want to take narcotics. He has not seen a doctor for his lymphedema nor does he have a primary care physician. 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 Related Data Home Medications ?Medication ?Instructions ?Recorded ?Confirmed buprenorphine HCl 8 mg sublingual 16 mg sublingual DAILY 06/25/23 11/16/24 tablet gabapentin 300 mg capsule 300 mg PO TID 06/25/23 11/16/24 quetiapine 200 mg tablet (Seroquel) 200 mg PO BID 03/14/24 11/16/24 Allergies Allergy/AdvReac Type Severity Reaction Status Date / Time meloxicam (From [facility]) Allergy Rash Verified 11/16/24 20:17 Opioid HPI Opioid Management Most Recent Opioid Data: Last Pain Scale 8 03/14/24, 16:07 Review of Systems ROS Status of ROS 10 or more systems reviewed and unremarkable except as noted in history and below PFSH PFSH Social History Little interest or pleasure in doing things: not at all Feeling down, depressed, or hopeless: not at all Exam Narrative Exam Narrative: General: No distress, age-appropriate Skin: Warm, dry, no pallor. Skin to left lower extremity has scattered blisters starting about mid thigh down to foot/toes with edema, some open and weeping a thin yellow fluid. Right lower extremity mid calf down has a woody appearance consistent with chronic vascular disease. The left lower extremity still has scattered erythema starting mid thigh down to just inferior to the knee. The erythema has actually improved since exam on 11/13. The leg is dyeing machine tender to the lower leg down to the foot but has somewhat improved as well. Neck: Supple, non-tender. Eye: Pupils are equal, round and EOMI. No scleral icterus. Ears, Nose, Mouth, and Throat: No nasal mucosal hypertrophy. Oral mucosa is moist, no posterior oropharynx erythema, uvula is mid-line Cardiovascular: Regular Rate and Rhythm without murmur, gallop or rub. Respiratory: No accessory muscle use or respiratory distress. Lungs are clear to auscultation, no wheezing, rales or rhonchi Chest Wall: no tenderness Back: No midline thoracic or lumbar vertebral tenderness. Musculoskeletal: Full ROM of all extremities, no calf or popliteal tenderness GI: Abdomen is soft, non-distended, non tender to palpation. No masses appreciated. No rebound, guarding, or rigidity noted. Neurological: A&O x4. No cranial nerve dysfunction observed. No truncal ataxia. Moves all extremities. Sensation intact. Psychiatric: Cooperative and interactive. Normal mood and affect. Constitutional Vital Signs, click to edit/add: Last Vital Signs Temp 98.9 F 11/16/24 20:14 Pulse 98 H 11/16/24 22:54 Resp 20 11/16/24 22:54 BP 152/75 H 11/16/24 22:54 Pulse Ox 100 11/16/24 22:54 O2 Del Method Room Air 11/16/24 22:54 Course Vital Signs Vital signs: Vital Signs Temperature 98.9 F 11/16/24 20:14 Pulse Rate 78 11/16/24 20:14 Respiratory Rate 20 11/16/24 20:14 Blood Pressure 150/78 H 11/16/24 20:14 Pulse Oximetry 95 11/16/24 20:14 Oxygen Delivery Method Room Air 11/16/24 20:14 Temperature 98.9 F 11/16/24 20:14 Pulse Rate 98 H 11/16/24 22:54 Respiratory Rate 20 11/16/24 22:54 Blood Pressure 152/75 H 11/16/24 22:54 Pulse Oximetry 100 11/16/24 22:54 Oxygen Delivery Method Room Air 11/16/24 22:54 Medical Decision Making MDM Narrative Medical decision making narrative: Patient is a 59-year-old male that returns to the emergency department 3 days after initial presentation with the same complaint of left leg pain that is uncontrolled secondary to his lymphedema. When he was here 3 days ago he also had upper respiratory infection symptoms that have resolved today. He states that the leg started to progressively develop blistering since he was here last and today has started weeping a lot. He denies any fevers, night sweats, chills, chest pain, shortness of breath, or abdominal pain. He is not established with a PCP or anyone to manage his chronic leg issues. Normally his right leg gets swollen and he has never had a problem with his left leg. He lives by himself and states that he has not been able to get around or take care of himself and is asking to be admitted now. 3 days ago when he was here he left AGAINST MEDICAL ADVICE as he did not want to be admitted. He currently takes Subutex 8 mg SL and Seroquel. 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 He did use to inject into his legs. His legs both appear to have chronic vascular changes to them. On arrival patient's overall clinical appearance has improved since his last ED visit on 11/13. His vital signs are hemodynamically stable and he is not diaphoretic. The erythema to his left leg has improved but is still somewhat present more specifically around the knee. There is a patchy rash appearance to it superior to the knee up to the mid thigh. The knee/lower leg/foot is now covered in scattered blistering, some of them open and weeping. The size/edema of the leg has decreased, likely given the weeping he has had that started today. IV ordered. CBC, BMP, ESR, CRP ordered. We discussed pain control for his leg and he wishes to not take narcotics. At home he has been using Excedrin and marijuana without relief of his pain. We did order Suboxone for him as he took his last dose this morning and he does not want it as it has naloxone. 30 mg IV Toradol and Flexeril 10 mg ordered as well. I did call Dr. Leroy for admission as patient would benefit from pain control and rn social work to help get him set up to manage his lymphedema or vascular issues. At same time RN informed me that we are unable to get an IV as his veins keep blowing. We will call Dr. Leroy back when IV is established and labs able to be drawn. Labs 11/13 Blood cultures no growth to date at 36?48 WBC 9.7 ESR 122 CRP 28 BMP: Na 129, Cr 1.38, BUN 18 COVID-19 Negative At this time, 0, patient was signed out to Dr Aldana, who is going to try and help establish IV access and get labs drawn. He will call Dr Leroy back for admission once labs are complete and IV established. Lab Data Labs: Lab Results 11/16/24 Range/Units 22:15 WBC 12.2 H (4.0-11.0) 10^3/uL RBC 3.34 L (4.70-6.10) 10^6/uL Hgb 10.2 L (14.0-18.0) g/dL Hct 29.6 L (42.0-54.0) % MCV 88.6 (80.0-94.0) fL MCH 30.5 (25.9-34.0) pg MCHC 34.5 (29.9-35.2) g/dL RDW 16.5 H (11.0-15.0) % Plt Count 123 L (150-450) 10^3/uL MPV 9.0 L (9.5-13.5) fL Seg Neuts % (Manual) 90.0 H (43.0-75.0) Lymphocytes % (Manual) 5.0 L (20.5-60.0) % Monocytes % (Manual) 5.0 (1.7-12.0) % Eosinophils % (Manual) 0.0 L (0.9-7.0) % Basophils % (Manual) 0.0 L (0.2-2.0) % Neutrophils # (Manual) 10.98 H (1.4-6.5) 10^3/uL Lymphocytes # (Manual) 0.61 L (1.20-3.80) 10^3/uL Monocytes # (Manual) 0.61 (0.30-0.80) 10^3/uL Eosinophils # (Manual) 0.00 (0.00-0.70) 10^3/uL Basophils # (Manual) 0.00 (0.00-0.10) 10^3/uL ESR >130 H (<=20) mm/hr Sodium 127 L (136-145) mmol/L Potassium 2.8 L* (3.5-5.1) mmol/L Chloride 92 L (98-107) mmol/L Carbon Dioxide 22.8 (21.0-32.0) mmol/L Anion Gap 15.0 BUN 15.0 (7.0-18.0) mg/dL Creatinine 1.04 (0.70-1.30) mg/dL Est GFR ( Amer) >60 (>=60 mL/min/1.73m^2) Est GFR (Non-Af Amer) >60 (>=60 mL/min/1.73m^2) BUN/Creatinine Ratio 14.4 Glucose 121 H (74-106) mg/dL Calcium 8.8 (8.5-10.1) mg/dL C-Reactive Protein 28.53 H (<=0.50) mg/dL Discharge Plan Discharge Chief Complaint: Extremity Injury, Lower Clinical Impression: Lower extremity edema Patient Disposition: Admitted as Observation Time of Disposition Decision: 23:18 Condition: Good Documented by User: Durga Aldana DO 11/17/24 00:25 HPI HPI - General Adult General Chief complaint: Extremity Injury, Lower Stated complaint: LEFT LEG PAIN Time Seen by Provider: 11/16/24 19:11 Related Data Home Medications ?Medication ?Instructions ?Recorded ?Confirmed buprenorphine HCl 8 mg sublingual 16 mg sublingual DAILY 06/25/23 11/16/24 tablet gabapentin 300 mg capsule 300 mg PO TID 06/25/23 11/16/24 quetiapine 200 mg tablet (Seroquel) 200 mg PO BID 03/14/24 11/16/24 Allergies Allergy/AdvReac Type Severity Reaction Status Date / [facility] Allergy Rash Verified 11/16/24 20:17 Opioid HPI Opioid Management Most Recent Opioid Data: Last Pain Scale 8 03/14/24, 16:07 PFSH PFSH Social History Little interest or pleasure in doing things: not at all Feeling down, depressed, or hopeless: not at all Exam Constitutional Vital Signs, click to edit/add: Last Vital Signs Temp 98.9 F 11/16/24 20:14 Pulse 98 H 11/16/24 22:54 Resp 20 11/16/24 22:54 BP 152/75 H 11/16/24 22:54 Pulse Ox 100 11/16/24 22:54 O2 Del Method Room Air 11/16/24 22:54 Course Vital Signs Vital signs: Vital Signs Temperature 98.9 F 11/16/24 20:14 Pulse Rate 78 11/16/24 20:14 Respiratory Rate 20 11/16/24 20:14 Blood Pressure 150/78 H 11/16/24 20:14 Pulse Oximetry 95 11/16/24 20:14 Oxygen Delivery Method Room Air 11/16/24 20:14 Temperature 98.9 F 11/16/24 20:14 Pulse Rate 98 H 11/16/24 22:54 Respiratory Rate 20 11/16/24 22:54 Blood Pressure 152/75 H 11/16/24 22:54 Pulse Oximetry 100 11/16/24 22:54 Oxygen Delivery Method Room Air 11/16/24 22:54 Medical Decision Making MDM Narrative Medical decision making narrative: Patient is a 59-year-old male that returns to the emergency department 3 days after initial presentation with the same complaint of left leg pain that is uncontrolled secondary to his lymphedema. When he was here 3 days ago he also had upper respiratory infection symptoms that have resolved today. He states that the leg started to progressively develop blistering since he was here last and today has started weeping a lot. He denies any fevers, night sweats, chills, chest pain, shortness of breath, or abdominal pain. He is not established with a PCP or anyone to manage his chronic leg issues. Normally his right leg gets swollen and he has never had a problem with his left leg. He lives by himself and states that he has not been able to get around or take care of himself and is asking to be admitted now. 3 days ago when he was here he left AGAINST MEDICAL ADVICE as he did not want to be admitted. He currently takes Subutex 8 mg SL and Seroquel. 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 He did use to inject into his legs. His legs both appear to have chronic vascular changes to them. On arrival patient's overall clinical appearance has improved since his last ED visit on 11/13. His vital signs are hemodynamically stable and he is not diaphoretic. The erythema to his left leg has improved but is still somewhat present more specifically around the knee. There is a patchy rash appearance to it superior to the knee up to the mid thigh. The knee/lower leg/foot is now covered in scattered blistering, some of them open and weeping. The size/edema of the leg has decreased, likely given the weeping he has had that started today. IV ordered. CBC, BMP, ESR, CRP ordered. We discussed pain control for his leg and he wishes to not take narcotics. At home he has been using Excedrin and marijuana without relief of his pain. We did order Suboxone for him as he took his last dose this morning and he does not want it as it has naloxone. 30 mg IV Toradol and Flexeril 10 mg ordered as well. I did call Dr. Leroy for admission as patient would benefit from pain control and rn social work to help get him set up to manage his lymphedema or vascular issues. At same time RN informed me that we are unable to get an IV as his veins keep blowing. We will call Dr. Leroy back when IV is established and labs able to be drawn. Labs 11/13 Blood cultures no growth to date at 36?48 WBC 9.7 ESR 122 CRP 28 BMP: Na 129, Cr 1.38, BUN 18 COVID-19 Negative At this time, 2200, patient was signed out to Dr Aldana, who is going to try and help establish IV access and get labs drawn. He will call Dr Leroy back for admission once labs are complete and IV established. Attending addendum, Dr. Aldana: I was able to establish an IV under ultrasound guidance. Laboratory studies were unremarkable. No significant electrolyte or metabolic derangement other than hypokalemia which was replaced with oral potassium. No evidence of acute kidney injury. No significant anemia, leukocytosis, or thrombocytopenia. I discussed the patient with Dr. Leroy who accepted the patient to hs service. FINAL IMPRESSION: #Acute left lower extremity lymphedema #Acute admission for placement DISPOSITION: Admitted to the observation unit CONDITION: Fair Lab Data Labs: Lab Results 11/16/24 Range/Units 22:15 WBC 12.2 H (4.0-11.0) 10^3/uL RBC 3.34 L (4.70-6.10) 10^6/uL Hgb 10.2 L (14.0-18.0) g/dL Hct 29.6 L (42.0-54.0) % MCV 88.6 (80.0-94.0) fL MCH 30.5 (25.9-34.0) pg MCHC 34.5 (29.9-35.2) g/dL RDW 16.5 H (11.0-15.0) % Plt Count 123 L (150-450) 10^3/uL MPV 9.0 L (9.5-13.5) fL Seg Neuts % (Manual) 90.0 H (43.0-75.0) Lymphocytes % (Manual) 5.0 L (20.5-60.0) % Monocytes % (Manual) 5.0 (1.7-12.0) % Eosinophils % (Manual) 0.0 L (0.9-7.0) % Basophils % (Manual) 0.0 L (0.2-2.0) % Neutrophils # (Manual) 10.98 H (1.4-6.5) 10^3/uL Lymphocytes # (Manual) 0.61 L (1.20-3.80) 10^3/uL Monocytes # (Manual) 0.61 (0.30-0.80) 10^3/uL Eosinophils # (Manual) 0.00 (0.00-0.70) 10^3/uL Basophils # (Manual) 0.00 (0.00-0.10) 10^3/uL ESR >130 H (<=20) mm/hr Sodium 127 L (136-145) mmol/L Potassium 2.8 L* (3.5-5.1) mmol/L Chloride 92 L (98-107) mmol/L Carbon Dioxide 22.8 (21.0-32.0) mmol/L Anion Gap 15.0 BUN 15.0 (7.0-18.0) mg/dL Creatinine 1.04 (0.70-1.30) mg/dL Est GFR ( Amer) >60 (>=60 mL/min/1.73m^2) Est GFR (Non-Af Amer) >60 (>=60 mL/min/1.73m^2) BUN/Creatinine Ratio 14.4 Glucose 121 H (74-106) mg/dL Calcium 8.8 (8.5-10.1) mg/dL C-Reactive Protein 28.53 H (<=0.50) mg/dL Discharge Plan Discharge Chief Complaint: Extremity Injury, Lower Clinical Impression: Lower extremity edema Patient Disposition: Admitted as Observation Time of Disposition Decision: 23:18 Condition: Good
[2024-11-16] MEDS: CYCLOBENZAPRINE HCL 10 MG TABLET PO (21:22)
--- NOTE | 2024-11-16 22:06 | PC.NURSE ---
Left leg red and swollen, seeping large amount of clear yellow fluid, skin to leg is slughed off in spots.
[2024-11-16 22:31] LABS: Hematocrit 29.6 % (42.0-54.0); Hemoglobin 10.2 g/dL (14.0-18.0); Mean Corpuscular HGB Conc 34.5 g/dL (29.9-35.2); Mean Corpuscular Hemoglobin 30.5 pg (25.9-34.0); Mean Corpuscular Volume 88.6 fL (80.0-94.0); Platelet Count 123 10^3/uL (150-450); Red Blood Count 3.34 10^6/uL (4.70-6.10); White Blood Count 12.2 10^3/uL (4.0-11.0)
[2024-11-16 22:43] LABS: Basophils Abs Manual 0.00 10^3/uL (0.00-0.10); Basophils Percent Manual 0.0 % (0.2-2.0); Eosinophils Absolute Manual 0.00 10^3/uL (0.00-0.70); Eosinophils Percent Manual 0.0 % (0.9-7.0); Lymphocytes Absolute Manual 0.61 10^3/uL (1.20-3.80); Lymphocytes Percent Manual 5.0 % (20.5-60.0); Monocytes Absolute Manual 0.61 10^3/uL (0.30-0.80); Monocytes Percent Manual 5.0 % (1.7-12.0); Segmented Neut Absolute Manual 10.98 10^3/uL (1.4-6.5); Segmented Neutrophils % Manual 90.0 (43.0-75.0)
[2024-11-16 22:44] LABS: Anion Gap 15.0; Blood Urea Nitrogen 15.0 mg/dL (7.0-18.0); Calcium 8.8 mg/dL (8.5-10.1); Carbon Dioxide 22.8 mmol/L (21.0-32.0); Chloride 92 mmol/L (98-107); Estimated GFR (African America >60 (>=60 mL/min/1.73m^2); Estimated GFR (Non-African Ame >60 (>=60 mL/min/1.73m^2); Glucose 121 mg/dL (74-106); Sodium 127 mmol/L (136-145)
[2024-11-16] MEDS: KETOROLAC TROMETHAMINE 30 MG/ML VIAL IVP (22:51)
[2024-11-16] MEDS: 0.9 % SODIUM CHLORIDE 1,000 ML 1000 ML IV (22:51)
[2024-11-16 22:54] VITALS: BP 152/75; PULSE 98; O2SAT 100
[2024-11-16 22:59] LABS: Potassium 2.8 mmol/L (3.5-5.1)
[2024-11-16] MEDS: POTASSIUM CHLORIDE 10 MEQ ER TABLET 20 MEQ PO (23:24)
[2024-11-17] VITALS (11 sets, daily range): BP systolic 112–169; BP diastolic 66–99; PULSE 86–99; TEMP 36.6–37.7; O2SAT 90–99; BMI 32.7
--- NOTE | 2024-11-17 10:00 | CT_ITS ---
The [address] [address] Patient Name: MICH BECK MRN: [id number] date: 1965 Sex: M Assigned Patient Location: [place] Current Patient Location: [place] Accession/Order Number: [id number] Exam Date: 11/17/2024 11:50 Report Date: 11/17/2024 12:31 At the request of: KACEY METZGER MD Procedure: CT lower leg LT w con CT LEFT TIBIA-FIBULA WITH INTRAVENOUS CONTRAST: CLINICAL HISTORY: Extensive cellulitis, rule out abscess COMPARISON: None TECHNIQUE: Spiral images were obtained through left tibia-fibula the administration of intravenous contrast. This CT exam was performed using one or more following dose reduction techniques: Automated exposure control, adjustment of the mA and/or kV according to patient size, or use of iterative reconstruction technique. FINDINGS: No fracture-dislocation. No definite periosteal erosions or periostitis. Skin diffuse skin thickening. Diffuse third spacing. No loculated rim-enhancing fluid collection identified to suggest abscess. CT/CT lower leg LT w con IMPRESSION: Diffuse edema and cellulitis. No loculated rim-enhancing fluid collection to suggest abscess. Impression dictated by: Andrei Herbert M.D. 11/17/2024 12:31 PM Dictation Location: [place] [address] Electronically authenticated by: [id number] Y Date: 11/17/2024 12:31
--- NOTE | 2024-11-17 10:01 | PM.HP ---
HPI H&P: HPI History of Present Illness Chief complaint: LLE LYPHHEDEMA PLACEMENT TO SNF Narrative: Mr. Joe is a 59-year-old gentleman who came in to the emergency room 3 days ago with pain, swelling, redness and tenderness involving the left leg. Patient was diagnosed having possible cellulitis and recommended to be admitted for intravenous antibiotic. Unfortunately patient decided to leave AMA. He came back last evening with worsening pain, swelling and tenderness. This time, patient was in agreement to be admitted. Unfortunately we did not have bed available on the floor therefore patient was boarded in the emergency room department taking care of by emergency room physician and physician television production assistant I came this morning to evaluate the patient. He was already on the floor Patient has quite extensive swelling, erythema, tenderness and induration involving the left leg from the knee down to the foot. No fever or chills. Opioid HPI Opioid Management Most Recent Pain and Opioid Data: Last Pain Scale 5 Today, 09:00 Last Pain Assessment Today, 04:00 Last ORT Total Score 9 Today, 03:59 Last ORT Risk Category High Risk Today, 03:59 Review of Systems ROS Status of ROS 10 or more systems reviewed and unremarkable except as noted in history and below [facility] Medical History (Updated 11/17/24 @ 10:08 by Brittanie Leroy MD) Edema ?R60.9 - Edema, unspecified (ICD-10) Social History Highest level of school completed/degree received: high school graduate Little interest or pleasure in doing things: not at all Feeling down, depressed, or hopeless: not at all Meds Home Medications and Allergies Home Medications ?Medication ?Instructions ?Recorded ?Confirmed ?Type buprenorphine HCl 8 mg sublingual 16 mg sublingual DAILY 06/25/23 11/16/24 History tablet gabapentin 300 mg capsule 300 mg PO DAILY PRN pain 06/25/23 11/17/24 History quetiapine 200 mg tablet (Seroquel) 200 mg PO TID 03/14/24 11/17/24 History Allergies Allergy/AdvReac Type Severity Reaction Status Date / Time meloxicam (From [facility]) Allergy Rash Verified 11/16/24 20:17 Exam Narrative Exam Narrative: [pt is awake and alert. oriented to place, time and person, morbidly obese HEENT: [place] conjunctiva and NL buccal mucosa Neck: Supple, no tenderness Endocrine: No Thyromegaly. Vascular: No JVD or carotid bruit. Lymphatic: No cervical lymphadenopathy. Chest: CTA no DTP. Heart RRR, no extra sound or murmur. Abd: Soft, no tenderness, no rebound and no rigidity. Increase abd girth therefore clinically I could not exclude the possibility of intra abd mass or organomegaly. LE: Quite extensive swelling, erythema, redness, induration, tenderness, superficial skin ulceration is stage I and II involving the entire left leg from the knee down to the foot anteriorly, medially, laterally and posteriorly. Quite impressive. I am able to feel dorsalis pedis pulse. No pallor or change of temperature in the left leg to suggest arterial compromise. At least at this time. Neuro: A A O. Nl speech, comprehension and attention. Nl and symetrical motor and tone examination through out. []] Constitutional Vital Signs, click to edit/add: Last Vital Signs Temp 98.4 F 11/17/24 07:33 Pulse 90 11/17/24 07:33 Resp 18 11/17/24 07:33 BP 156/78 H 11/17/24 07:33 Pulse Ox 94 L 11/17/24 07:33 O2 Del Method Room Air 11/17/24 07:33 Results Labs Labs: Short CBC 11/16/24 Range/Units 22:15 WBC 12.2 H (4.0-11.0) 10^3/uL Hgb 10.2 L (14.0-18.0) g/dL Hct 29.6 L (42.0-54.0) % Plt Count 123 L (150-450) 10^3/uL BMP 11/16/24 22:15 Sodium 127 L Potassium 2.8 L* Chloride 92 L Carbon Dioxide 22.8 BUN 15.0 Creatinine 1.04 Glucose 121 H Calcium 8.8 Assessment and Plan Assessment and Plan (1) Cellulitis, leg: (2) Hypokalemia: (3) Sepsis: Plan Quite extensive left leg cellulitis as described in the exam section. Sepsis present on admission Patient signed AMA on and returned back on 11/16. Patient stayed in the emergency room manage by ER physician due to bed and availability until earlier this morning. I requested CAT scan of the leg rule out deep tissue abscess, myositis or gas. I started patient on combination of vancomycin and Primaxin. Blood culture was completed on 11/13 which came back negative. Repeat blood culture. Venous study completed on 11/13 came back negative for DVT Patient likely will require prolonged IV antibiotic course. So far no clinical of compartment syndrome. I was able to feel the dorsalis pedis pulse Chronic pain for which patient is on Suboxone Hyperkalemia Potassium supplementation. Check magnesium and phosphorus level DVT prophylax Lovenox SQ 40 twice a day
[2024-11-17] MEDS: GABAPENTIN 300 MG CAPSULE PO ×2 (10:56→21:44)
[2024-11-17] MEDS: METOPROLOL TARTRATE 25 MG TABLET PO ×2 (10:57→21:45)
[2024-11-17] MEDS: ENOXAPARIN SODIUM 40 MG/0.4 ML SYRINGE SUBQ ×2 (10:58→21:44)
[2024-11-17 10:59] LABS: Anion Gap 13.8; Blood Urea Nitrogen 15.0 mg/dL (7.0-18.0); Calcium 8.1 mg/dL (8.5-10.1); Carbon Dioxide 21.4 mmol/L (21.0-32.0); Chloride 96 mmol/L (98-107); Estimated GFR (African America >60 (>=60 mL/min/1.73m^2); Estimated GFR (Non-African Ame >60 (>=60 mL/min/1.73m^2); Glucose 132 mg/dL (74-106); Magnesium 2.0 mg/dL (1.8-2.4); Potassium 3.2 mmol/L (3.5-5.1); Sodium 128 mmol/L (136-145)
[2024-11-17] MEDS: ACETAMINOPHEN 325 MG TABLET 650 MG PO (11:00)
[2024-11-17] MEDS: BUPRENORPHINE HCL 2 MG TAB SUBL 8 MG SL ×2 (11:01→21:44)
[2024-11-17] MEDS: IMIPENEM/CILASTATIN SODIUM 1,000 MG in 0.9 % SODIUM CHLORIDE 250 ML 250 MG IV ×2 (12:54→20:07)
[2024-11-17] MEDS: VANCOMYCIN HCL 1,500 MG in 0.9 % SODIUM CHLORIDE 500 ML 250 MG IV (12:54)
[2024-11-17] MEDS: QUETIAPINE FUMARATE 100 MG TABLET 200 MG PO ×2 (14:22→21:45)
[2024-11-17] MEDS: POTASSIUM CHLORIDE 10 MEQ ER TABLET 40 MEQ PO (17:23)
--- NOTE | 2024-11-17 17:35 | PC.NURSE ---
clear neelima yellow
[2024-11-17] MEDS: ZOLPIDEM TARTRATE 5 MG TABLET 10 MG PO (21:45)
[2024-11-17] MEDS: VANCOMYCIN HCL 1,500 MG in 0.9 % SODIUM CHLORIDE 500 ML 333.333 MG IV (22:01)
[2024-11-18] MEDS: IMIPENEM/CILASTATIN SODIUM 1,000 MG in 0.9 % SODIUM CHLORIDE 250 ML 250 MG IV ×4 (00:58→22:01)
[2024-11-18 04:00] VITALS: BP 138/73; PULSE 112; TEMP 36.8; O2SAT 92
[2024-11-18] MEDS: QUETIAPINE FUMARATE 100 MG TABLET 200 MG PO ×3 (05:20→22:02)
[2024-11-18 05:36] LABS: Hematocrit 24.7 % (42.0-54.0); Hemoglobin 8.6 g/dL (14.0-18.0); Immature Granulocytes Abs Auto 0.24 10^3/uL (0.00-0.03); Immature Granulocytes Pct Auto 2.8 % (0.0-0.5); Lymphocytes Absolute Auto 0.6 10^3/uL (1.2-3.8); Mean Corpuscular HGB Conc 34.8 g/dL (29.9-35.2); Mean Corpuscular Hemoglobin 30.9 pg (25.9-34.0); Mean Corpuscular Volume 88.8 fL (80.0-94.0); Platelet Count 111 10^3/uL (150-450); Red Blood Count 2.78 10^6/uL (4.70-6.10); White Blood Count 8.4 10^3/uL (4.0-11.0)
[2024-11-18 06:08] LABS: Alanine Aminotransferase 19 U/L (16-63); Albumin Globulin Ratio 0.4; Albumin Level 1.8 g/dL (3.4-5.0); Alkaline Phosphatase 332 U/L (46-116); Anion Gap 14.8; Aspartate Amino Transferase 33 U/L (15-37); Blood Urea Nitrogen 10.0 mg/dL (7.0-18.0); Calcium 7.9 mg/dL (8.5-10.1); Carbon Dioxide 21.9 mmol/L (21.0-32.0); Chloride 97 mmol/L (98-107); Estimated GFR (African America >60 (>=60 mL/min/1.73m^2); Estimated GFR (Non-African Ame >60 (>=60 mL/min/1.73m^2); Globulin 5.1 g/dL; Glucose 112 mg/dL (74-106); Potassium 3.7 mmol/L (3.5-5.1); Sodium 130 mmol/L (136-145); Total Protein 6.9 g/dL (6.4-8.2)
--- NOTE | 2024-11-18 08:15 | CM.NOTE ---
Rounds made with Dr. Leroy, discussed with pt plan of care and reason for admission. PT and OT will evaluate pt for discharge planning. No discharge today.
--- NOTE | 2024-11-18 08:28 | W.PM.WC ---
Wound Consult Note Assessment and Plan (1) Cellulitis, leg: Reason for Consult: Open, weeping cellulitis to left leg Assessment and Plan: Patient currently in bed, restless. Shakes head yes to being in pain. Patient states his left leg is very painful and to not touch it. He has a blanket cradle on bed to keep sheet from touching leg. Left leg assessment shows extensive swelling, erythema, and scattered open areas to entire left leg from mid thigh to toes. He refuses any topical treatment. Currently resting on underpad to collect drainage. Given the extent of his swelling, he currently is not draining excessively. Given the patient's refusal for dressings, I discussed care with bedside RN as well as caseworker intake. It is important to monitor skin changes, so at this time it's likely better to keep dressings off to see any acute changes that may occur. If patient can tolerate, I would recommend washing with soap and water and keeping underpads changed and elevate leg as much as tolerated. (2) Hypokalemia: (3) Sepsis: Plan Please call [phone] if patient requires and is agreeable to topically dressings and compression. Photos in chart. Ralph Larson, ARIANNA, CWON
[2024-11-18 08:52] VITALS: BP 137/76; PULSE 111; TEMP 36.6; O2SAT 86; O2SAT 94
[2024-11-18] MEDS: ENOXAPARIN SODIUM 40 MG/0.4 ML SYRINGE SUBQ ×2 (08:54→22:03)
[2024-11-18] MEDS: BUPRENORPHINE HCL 2 MG TAB SUBL 8 MG SL ×2 (08:54→22:02)
[2024-11-18] MEDS: GABAPENTIN 300 MG CAPSULE PO ×2 (08:54→22:02)
[2024-11-18] MEDS: METOPROLOL TARTRATE 25 MG TABLET PO ×2 (08:54→22:02)
[2024-11-18] MEDS: VANCOMYCIN HCL 1,500 MG in 0.9 % SODIUM CHLORIDE 500 ML 333.33 MG IV (10:18)
[2024-11-18 12:00] VITALS: BP 124/68; PULSE 80; TEMP 36.4; O2SAT 90
--- NOTE | 2024-11-18 12:15 | PM.PN ---
Exam Narrative Exam Narrative: [pt is awake and alert. oriented to place, time and person, morbidly obese HEENT: [place] conjunctiva and NL buccal mucosa Neck: Supple, no tenderness Endocrine: No Thyromegaly. Vascular: No JVD or carotid bruit. Lymphatic: No cervical lymphadenopathy. Chest: CTA no DTP. Heart RRR, no extra sound or murmur. Abd: Soft, no tenderness, no rebound and no rigidity. Increase abd girth therefore clinically I could not exclude the possibility of intra abd mass or organomegaly. LE: Quite extensive swelling, erythema, redness, induration, tenderness, superficial skin ulceration is stage I and II involving the entire left leg from the knee down to the foot anteriorly, medially, laterally and posteriorly. Quite impressive. I am able to feel dorsalis pedis pulse. No pallor or change of temperature in the left leg to suggest arterial compromise. At least at this time. No significant change compared to yesterday. Neuro: A A O. Nl speech, comprehension and attention. Nl and symetrical motor and tone examination through out. []] Constitutional Vital Signs, click to edit/add: Last Vital Signs Temp 98 F 11/18/24 08:52 Pulse 111 H 11/18/24 08:52 Resp 18 11/18/24 08:52 BP 137/76 11/18/24 08:52 Pulse Ox 94 L 11/18/24 08:52 O2 Del Method Nasal Cannula 11/18/24 08:52 O2 Flow Rate 2 11/18/24 08:52 Progress Note: Objective Labs Labs: Short CBC 11/18/24 Range/Units 05:16 WBC 8.4 (4.0-11.0) 10^3/uL Hgb 8.6 L (14.0-18.0) g/dL Hct 24.7 L (42.0-54.0) % Plt Count 111 L (150-450) 10^3/uL BMP 11/18/24 05:16 Sodium 130 L Potassium 3.7 Chloride 97 L Carbon Dioxide 21.9 BUN 10.0 Creatinine 0.81 Glucose 112 H Calcium 7.9 L Liver Function 11/18/24 Range/Units 05:16 Total Bilirubin 1.2 H (0.2-1.0) mg/dL AST 33 (15-37) U/L ALT 19 (16-63) U/L Alkaline Phosphatase 332 H (46-116) U/L Albumin 1.8 L (3.4-5.0) g/dL Progress Note: A&P Assessment and Plan (1) Cellulitis, leg: (2) Hypokalemia: (3) Sepsis: Plan Quite extensive left leg cellulitis as described in the exam section. Sepsis present on admission. White count is trending down. Patient signed AMA on 917 and returned back on 11/16. Patient stayed in the emergency room manage by ER physician due to bed and availability until earlier this morning. I requested CAT scan of the leg rule out deep tissue abscess, myositis or gas. I started patient on combination of vancomycin and Primaxin. Blood culture was completed on 11/13 which came back negative. Repeat blood culture. Venous study completed on 11/13 came back negative for DVT Patient likely will require prolonged IV antibiotic course. So far no clinical of compartment syndrome. I was able to feel the dorsalis pedis pulse Chronic pain for which patient is on Suboxone Anemia, no evidence of acute blood loss. Patient will likely require to have anemia workup to be done in the outpatient setting to be handled by PCP in collaboration with other needed outpatient providers. This may include but not limited to EGD, colonoscopy, referral to see hematology and other needed age-appropriate cancer screening. Hyperkalemia Potassium supplementation. Check magnesium and phosphorus level DVT prophylax Lovenox SQ 40 twice a day
--- NOTE | 2024-11-18 12:25 | SWNOTE1 ---
JACQUIE met with pt to discuss dc needs. Pt resting in bed, he showed SW his leg and was stating he was hobbling around on it for a week and it is much worse. Pt normally uses a cane at home to get around. He lives at home by himself. SW did speak with pt about discharge plans. JACQUIE explained to pt that it is recommended he [facility] to [facility]hab [facility] to get stronger. SW explained it would be beneficial as well for his leg and to get that cared for by nursing at nursing facility as well. Pt voiced his father was at the [facility] right now for rehab. SW did let him know that [facility] does not take his insurance. SW provided pt with a list from Medicare.gov with star ratings. JACQUIE advised not all facilities are in network with his insurance. JACQUIE advised pt to look it over and pt can come back later today. Pt was falling asleep. Pt also requested a nurse to come look at his legs as the pad and sheet were sticking to his legs. JACQUIE updated pt's nurse, Ira.
[2024-11-18] MEDS: LINEZOLID IN DEXTROSE 5% 600 MG/300 ML PIGGYBACK 300 MG IV (13:53)
[2024-11-18] MEDS: KETOROLAC TROMETHAMINE 30 MG/ML VIAL 15 MG IVP ×2 (13:53→18:40)
--- NOTE | 2024-11-18 15:41 | SWNOTE1 ---
SW stopped back in to speak with pt about rehab. SW asked pt if he had thought about rehab anymore. 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 SW explained to pt that we are not discharging him at this time, but concerned about him being able to care for himself at home. He voiced he will just have to walk on his leg. SW explained to pt that he does not have to decide on rehab at this time and SW can stop back tomorrow. Pt in agreement.
[2024-11-18 16:00] VITALS: BP 114/69; PULSE 91; TEMP 36.6; O2SAT 91
[2024-11-18 20:00] VITALS: BP 116/63; PULSE 99; TEMP 37.1; O2SAT 92
[2024-11-19] VITALS (9 sets, daily range): BP systolic 109–132; BP diastolic 58–74; PULSE 90–105; TEMP 36.6–38.6; O2SAT 87–93
[2024-11-19] MEDS: LINEZOLID IN DEXTROSE 5% 600 MG/300 ML PIGGYBACK 300 MG IV ×2 (00:58→12:11)
[2024-11-19] MEDS: KETOROLAC TROMETHAMINE 30 MG/ML VIAL 15 MG IVP ×3 (00:59→18:38)
[2024-11-19] MEDS: IMIPENEM/CILASTATIN SODIUM 1,000 MG in 0.9 % SODIUM CHLORIDE 250 ML 250 MG IV ×4 (02:06→20:56)
[2024-11-19] MEDS: ACETAMINOPHEN 325 MG TABLET 650 MG PO (04:06)
[2024-11-19] MEDS: QUETIAPINE FUMARATE 100 MG TABLET 200 MG PO ×3 (06:01→22:02)
--- NOTE | 2024-11-19 08:41 | REH.PTDLY ---
Physical Therapy Daily Note PT Daily Note/Assess Start: 11/19/24 08:29 Freq: Status: Active Protocol: Document 11/19/24 08:30 HENRY (Rec: 11/19/24 08:41 [id number] Physical Therapy Daily Note/Assessment Time In 08:12 Time Out 08:25 Subjective Pt agreeable to therapy. States he feels like he's burning up again. Rates pain in L LE 5/10. Therapeutic Exercise 10 Minutes (minutes) Therapeutic Exercise 1 Units Therapeutic Exercise Instructed in R LE exs 5x2 with heel slides, abd slide, Treatment and SLR. AP 20x, QS 10x with verbal cues. Cues for AP on L foot, minimal mvt noted due to pain, pt able to perform toe curls. Pt declines bending knee to perform heel slides or hip abd slides. Consulted with nurse in regards to getting pt up into chair as pt is initially agreeable. Nursing comes in, however pt then declines getting into chair due to leg pain, rating as 5/10 still. Pt is able to lift L LE for very short period of time to remove chucks pad and then lift it again to place new one underneath L LE. Moderate drainage coming from L LE with redness all the way to L thigh. Total Therapy 10 Minutes Total Physical 1 Therapy Units Daily Note Summary Pt agreeable to bed level exs, but does not want to get into chair due to condition of his L LE. Pt complains of increased pain with movement of L LE during rx. At rest pt rates L LE pain of 5/10. Pt would benefit from SNF at [place], unless he is able to show improved mobility as leg begins to improve.
--- NOTE | 2024-11-19 09:00 | CM.NOTE ---
Rounds made with Dr. Leroy, discussed with pt plan of care and need for skilled therapy at discharge. 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 Pt verbalizes understanding.
[2024-11-19] MEDS: METOPROLOL TARTRATE 25 MG TABLET PO ×2 (09:19→22:02)
[2024-11-19] MEDS: GABAPENTIN 300 MG CAPSULE PO ×2 (09:20→22:02)
[2024-11-19] MEDS: ENOXAPARIN SODIUM 40 MG/0.4 ML SYRINGE SUBQ (09:20)
[2024-11-19] MEDS: BUPRENORPHINE HCL 2 MG TAB SUBL 8 MG SL ×2 (09:20→22:02)
--- NOTE | 2024-11-19 09:32 | PC.NURSE ---
Left lower leg with weeping blisters, copious amounts of drainage. Leg hot to touch, pulses present, dark red in color
--- NOTE | 2024-11-19 09:50 | PM.PN ---
Progress Note: Subjective Subjective Interval history: Persistent pain, discomfort in the left leg. No other symptoms reported. Exam Narrative Exam Narrative: [pt is awake and alert. oriented to place, time and person, morbidly obese HEENT: [place] conjunctiva and NL buccal mucosa Neck: Supple, no tenderness Endocrine: No Thyromegaly. Vascular: No JVD or carotid bruit. Lymphatic: No cervical lymphadenopathy. Chest: CTA no DTP. Heart RRR, no extra sound or murmur. Abd: Soft, no tenderness, no rebound and no rigidity. Increase abd girth therefore clinically I could not exclude the possibility of intra abd mass or organomegaly. LE: Quite extensive swelling, erythema, redness, induration, tenderness, superficial skin ulceration is stage I and II involving the entire left leg from the knee down to the foot anteriorly, medially, laterally and posteriorly. Quite impressive. I am able to feel dorsalis pedis pulse. No pallor or change of temperature in the left leg to suggest arterial compromise. At least at this time. No significant change compared to yesterday. 11/19: Slight improvement of the erythema, induration and seepage compared to yesterday. Neuro: A A O. Nl speech, comprehension and attention. Nl and symetrical motor and tone examination through out. []] Constitutional Vital Signs, click to edit/add: Last Vital Signs Temp 99.7 F 11/19/24 08:00 Pulse 102 H 11/19/24 08:00 Resp 16 11/19/24 08:00 BP 118/68 11/19/24 08:00 Pulse Ox 87 L 11/19/24 08:00 O2 Del Method Room Air 11/19/24 08:00 O2 Flow Rate 2 11/18/24 08:52 Progress Note: A&P Assessment and Plan (1) Cellulitis, leg: (2) Hypokalemia: (3) Sepsis: Plan Quite extensive left leg cellulitis as described in the exam section. Sepsis present on admission. High elevation of CRP at 28 white count is trending down. Patient signed AMA on 917 and returned back on 11/16. Patient stayed in the emergency room manage by ER physician due to bed and availability until earlier this morning. I requested CAT scan of the leg rule out deep tissue abscess, myositis or gas. I started patient on combination of vancomycin and Primaxin. Blood culture was completed on 11/13 which came back negative. Repeat blood culture pending. Venous study completed on 11/13 came back negative for DVT Patient likely will require prolonged IV antibiotic course. So far no clinical of compartment syndrome. Nurse was able to Doppler dorsalis pedis pulse very loudly without delay. Continue Primaxin. Changed antibiotic from vancomycin to Zyvox. Arrange for skilled care for wound care and IV antibiotic. Monitor CRP and WBC Chronic pain for which patient is on Suboxone Anemia, no evidence of acute blood loss. Patient will likely require to have anemia workup to be done in the outpatient setting to be handled by PCP in collaboration with other needed outpatient providers. This may include but not limited to EGD, colonoscopy, referral to see hematology and other needed age-appropriate cancer screening. Hyperkalemia Potassium supplementation. Check magnesium and phosphorus level DVT prophylax Lovenox SQ 40 twice a day
--- NOTE | 2024-11-19 10:21 | CM.NOTE ---
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 Pt would like to speak with his sister prior to making a decision. Pt verbalizes understanding of the severity of his illness and need for closer observation at discharge.
--- NOTE | 2024-11-19 13:24 | SWNOTE1 ---
SW stopped in and spoke to pt about rehab. Case management was in earlier and pt wanted to speak with his sister. Pt voiced he has not been able to get ahold of his sister and she is at work now. SW asked if he was able to look over facilities and decide where he would like to go. Pt has not had a chance and he does not care. SW asked permission to call his sister, pt gave permission. JACQUIE called pt's sister, Gita. Gita is at work and she voiced that he should go to [facility] and her father was at the [facility]. SW advised that the [facility] does not take [place], but [facility] does. She asked what there rating was. SW told her they have 5 out of 5 stars from the website medicare.gov. She voiced to send it there. JACQUIE reached out to Juwan at [facility], waiting to hear back if they have a bed. Referral sent to [facility]. Referral included face sheet, ED note, H&P, provider notes, case management report, wound consult, nursing notes, diagnostic imaging, med list, and PT/OT notes.
--- NOTE | 2024-11-19 14:11 | SWNOTE1 ---
JACQUIE received a message from Keren at [facility] and they do not have any male beds open until next week. JACQUIE called pt's sister to update her. JACQUIE asked if she would like SW to look towards [facility] or [facility]? Pt's sister asked about [facility]. JACQUIE advised there is one facility in [place]. Gita would like JACQUIE to send to [place]. Referral sent to [facility]. Referral included face sheet, ED note, H&P, provider notes, case management report, wound consult, nursing notes, diagnostic imaging, med list, and PT/OT notes.
--- NOTE | 2024-11-19 14:52 | SWNOTE1 ---
SW received email from Karlene at [facility] and they are not able to accept due to being out of network.
--- NOTE | 2024-11-19 14:56 | CM.NOTE ---
I spoke with the patient's sister and she is going to call Skye back when she decides which location would be better for assisted ([facility], [facility], and [facility]).
--- NOTE | 2024-11-19 16:07 | SWNOTE1 ---
SW received a voicemail from pt's sister and she does not have a preference and recommends we speak with pt as she has not been able to. SW stopped in and spoke with pt. SW did explain that [facility] and [facility] do not have openings. Pt did voice some frustrations with having to go to rehab, case management did explain to pt that he will need rehab for strengthening and to have his leg cared for, possible IV anbx along with wound care. Pt voiced understanding and he did not have a preference. He voiced he wants to stay as close to [facility] as possible. Pt also stated he does have a follow up with his physician who prescribes Suboxone on . SW to let nursing faciltiy know. JACQUIE called [facility] and they are not able to accept due to the Suboxone. JACQUIE called Donna at [facility]. She voiced they will have to review the referral, but it is possible they can do the Suboxone. Referral sent to [facility]. Referral included face sheet, ED note, H&P, provider notes, case management report, wound consult, nursing notes, diagnostic imaging, med list, and PT/OT notes.
[2024-11-20] VITALS (7 sets, daily range): BP systolic 108–138; BP diastolic 54–74; PULSE 83–112; TEMP 36.6–37.3; O2SAT 88–94
[2024-11-20] MEDS: KETOROLAC TROMETHAMINE 30 MG/ML VIAL 15 MG IVP ×4 (01:25→21:53)
[2024-11-20] MEDS: LINEZOLID IN DEXTROSE 5% 600 MG/300 ML PIGGYBACK 300 MG IV ×2 (01:25→13:43)
[2024-11-20] MEDS: IMIPENEM/CILASTATIN SODIUM 1,000 MG in 0.9 % SODIUM CHLORIDE 250 ML 250 MG IV ×4 (03:14→20:28)
[2024-11-20] MEDS: ACETAMINOPHEN 325 MG TABLET 650 MG PO (06:17)
[2024-11-20] MEDS: QUETIAPINE FUMARATE 100 MG TABLET 200 MG PO ×3 (06:17→21:43)
[2024-11-20 06:41] LABS: Hemoglobin 8.0 g/dL (14.0-18.0); Mean Corpuscular HGB Conc 34.2 g/dL (29.9-35.2); Mean Corpuscular Hemoglobin 30.9 pg (25.9-34.0); Mean Corpuscular Volume 90.3 fL (80.0-94.0); Platelet Count 117 10^3/uL (150-450); Red Blood Count 2.59 10^6/uL (4.70-6.10); White Blood Count 8.1 10^3/uL (4.0-11.0)
[2024-11-20 06:49] LABS: Anion Gap 10.7; Blood Urea Nitrogen 16.0 mg/dL (7.0-18.0); Calcium 7.8 mg/dL (8.5-10.1); Carbon Dioxide 23.8 mmol/L (21.0-32.0); Chloride 94 mmol/L (98-107); Estimated GFR (African America >60 (>=60 mL/min/1.73m^2); Estimated GFR (Non-African Ame >60 (>=60 mL/min/1.73m^2); Glucose 123 mg/dL (74-106); Potassium 3.5 mmol/L (3.5-5.1); Sodium 125 mmol/L (136-145)
[2024-11-20 06:51] LABS: Hematocrit 23.4 % (42.0-54.0)
[2024-11-20 06:55] LABS: Lactate/Lactic Acid 1.1 mmol/L (0.4-2.0)
--- NOTE | 2024-11-20 08:00 | CM.NOTE ---
Preliminary wound culture report given to Dr. Leroy, growth observed awaiting final.
[2024-11-20] MEDS: GABAPENTIN 300 MG CAPSULE PO ×2 (08:43→21:44)
[2024-11-20] MEDS: BUPRENORPHINE HCL 2 MG TAB SUBL 8 MG SL ×2 (08:43→21:44)
[2024-11-20] MEDS: METOPROLOL TARTRATE 25 MG TABLET PO (08:44)
--- NOTE | 2024-11-20 09:34 | CM.NOTE ---
Rounded with . We are still waiting for blood culture results. Plan is [facility]. Referral was made to [facility] yesterday.
[2024-11-20] MEDS: 0.9 % SODIUM CHLORIDE 250 ML IV (09:58)
--- NOTE | 2024-11-20 10:45 | SWNOTE1 ---
JACQUIE sent email to Donna at [facility] to see if they can accept, waiting to hear back. JACQUIE called pt's sister, Gita. Gita thought pt was going to [facility]. JACQUIE advised that [facility] does not take pt's on Buprenorphine. She voiced understanding and is alright with [facility].
--- NOTE | 2024-11-20 11:15 | PM.PN ---
Progress Note: Subjective Subjective Interval history: Persistent pain, less intense than before. Discomfort in the left leg. No other symptoms reported. Patient was bleeding from the skin near the ankle. Lovenox was placed on hold. The bleeding stopped. Exam Narrative Exam Narrative: [pt is awake and alert. oriented to place, time and person, morbidly obese HEENT: [place] conjunctiva and NL buccal mucosa Neck: Supple, no tenderness Endocrine: No Thyromegaly. Vascular: No JVD or carotid bruit. Lymphatic: No cervical lymphadenopathy. Chest: CTA no DTP. Heart RRR, no extra sound or murmur. Abd: Soft, no tenderness, no rebound and no rigidity. Increase abd girth therefore clinically I could not exclude the possibility of intra abd mass or organomegaly. LE: Quite extensive swelling, erythema, redness, induration, tenderness, superficial skin ulceration is stage I and II involving the entire left leg from the knee down to the foot anteriorly, medially, laterally and posteriorly. Quite impressive. I am able to feel dorsalis pedis pulse. No pallor or change of temperature in the left leg to suggest arterial compromise. At least at this time. No significant change compared to yesterday. 11/19: Slight improvement of the erythema, induration and seepage compared to yesterday. 11/20L very slow and gradual resolution of erythema, induration and tenderness Neuro: A A O. Nl speech, comprehension and attention. Nl and symetrical motor and tone examination through out. []] Constitutional Vital Signs, click to edit/add: Last Vital Signs Temp 98.3 F 11/20/24 07:45 Pulse 94 H 11/20/24 07:45 Resp 16 11/20/24 07:45 BP 119/61 11/20/24 07:45 Pulse Ox 92 L 11/20/24 08:35 O2 Del Method Nasal Cannula 11/20/24 08:35 O2 Flow Rate 2 11/19/24 11:59 Progress Note: Objective Labs Labs: Short CBC 11/20/24 Range/Units 06:28 WBC 8.1 (4.0-11.0) 10^3/uL Hgb 8.0 L (14.0-18.0) g/dL Hct 23.4 L* (42.0-54.0) % Plt Count 117 L (150-450) 10^3/uL BMP 11/20/24 06:28 Sodium 125 L Potassium 3.5 Chloride 94 L Carbon Dioxide 23.8 BUN 16.0 Creatinine 0.99 Glucose 123 H Calcium 7.8 L Progress Note: A&P Assessment and Plan (1) Cellulitis, leg: (2) Hypokalemia: (3) Sepsis: Plan Quite extensive left leg cellulitis as described in the exam section. Sepsis present on admission. High elevation of CRP at 28 white count is trending down. CRP is trending down as well. Initial CRP was 28 and now down to 14. Patient signed AMA on 91 and returned back on 11/16. Patient stayed in the emergency room manage by ER physician due to bed and availability until earlier this morning. I requested CAT scan of the leg rule out deep tissue abscess, myositis or gas. I started patient on combination of vancomycin and Primaxin. Blood culture was completed on 11/13 which came back negative. Repeat blood culture pending. Wound culture is positive for strep and staph. Patient is on Primaxin and Zyvox Venous study completed on 11/13 came back negative for DVT Patient likely will require prolonged IV antibiotic course. So far no clinical of compartment syndrome. Nurse was able to Doppler dorsalis pedis pulse very loudly without delay. Arrange for skilled care for wound care and IV antibiotic. Monitor CRP and WBC Palpable dorsalis pedis pulse and strong dopplerable Chronic pain for which patient is on Suboxone Anemia, no evidence of acute blood loss. Patient was bleeding from the skin. Lovenox was stopped yesterday. Resume Lovenox tonight. Start him on iron supplementation Patient will likely require to have anemia workup to be done in the outpatient setting to be handled by PCP in collaboration with other needed outpatient providers. This may include but not limited to EGD, colonoscopy, referral to see hematology and other needed age-appropriate cancer screening. Hyperkalemia Potassium supplementation. Check magnesium and phosphorus level. Magnesium and phosphorus level are normal. DVT prophylax Lovenox SQ 40 once a a day will be resumed
--- NOTE | 2024-11-20 11:43 | SWNOTE1 ---
JACQUIE called Donna at [facility] and she stated she is waiting to hear back from the DON if they can accept or not.
--- NOTE | 2024-11-20 11:49 | SWNOTE1 ---
SW received an email from Donna at [facility] and Liliam from [facility] will be coming to do an onsite visit with pt to make determination if they can accept.
[2024-11-20] MEDS: ALBUMIN HUMAN 25 GM/100 ML PREMIX IV (11:57)
--- NOTE | 2024-11-20 11:57 | SWNOTE1 ---
SW let pt know that Liliam from [facility] is coming to do an on site visit with pt in about 30 minutes. Pt did state he thought it was [facility]. SW advised that due to the Subutex they are not able to accept pt. Pt did voice frustration, but is alright with speak to Liliam.
[2024-11-20] MEDS: POTASSIUM CHLORIDE 10 MEQ ER TABLET 40 MEQ PO (12:00)
--- NOTE | 2024-11-20 12:39 | W.PM.WC ---
Wound Consult Note Assessment and Plan (1) Cellulitis, leg: Reason for Consult: assessment and treatment of LLE blisters Assessment and Plan: Patient seen earlier this week and refused dressing treatment. Asked by bedside RN to reassess needs today due to increased drainage. (2) Hypokalemia: (3) Sepsis: Plan Patient with open blisters to left foot, posterior ankle and posterior lower leg. Blisters are dark, possibly blood filled to his dorsal foot and medial ankle. No xeroform available at this time so adaptic was applied and covered with ABD pads. Secured with kerlix/tape. Encourage elevation of leg with pillows. Will defer to hospitalist if compression is indicated/appropriate. Photos in chart Please call [phone] with any questions or concerns. Ralph Larson, RN, CWON
--- NOTE | 2024-11-20 13:05 | SWNOTE1 ---
Liliam from [facility] has arrived and SW took her to pt's room.
--- NOTE | 2024-11-20 13:36 | SWNOTE1 ---
JACQUIE spoke with Liliam from [facility]. They do have a few concerns which include; pt is in Seroquel 3x a day for schizoeffective disorder and pt does not have a PCP. SW can look in to getting pt a PCP and will let Liliam know. They also had concerns about pt not allowing wound care to see him and that pt left the ED against medical advice as well. JACQUIE advised Liliam that wound care came back today and wrapped his legs. SW to send note over. JACQUIE called Dr. Arango's office in [place] and spoke to Tobin. Tobin took pt's name and -date and his medications. She stated Dr. Arango will review and let her know within 24 hours. Tobin will call JACQUIE to let her know.
--- NOTE | 2024-11-20 13:40 | SWNOTE1 ---
JACQUIE faxed physician notes from today, wound care from today, PT/OT updates, labs, vitals, and nursing notes to Amparo at [facility].
[2024-11-20] MEDS: SODIUM CHLORIDE 1,000 MG TABLET 2000 MG PO ×2 (13:53→21:43)
--- NOTE | 2024-11-20 15:54 | SWNOTE1 ---
JACQUIE called [facility] office and spoke to Raquel. SW reviewed medications and they would need to know who prescribed Gabapentin before accepting. JACQU[place] [facility] they only prescribe the Subutex and Seroquel. The accredited legal secretary at [facility] stated that the last prescription for Gabapentin was from Yaneli Alli on 10/31/23. She got in to the [facility] report and that is last time it was filled. JACQUIE called pt's pharmacy, [facility], they also can see last prescription was from 10/31/23. JACQUIE called our pharmacy and spoke to Angela. She also confirmed last prescription was last year. Pt had told Ira in pharmacy that he has some left over and has been taking them only if needed. JACQUIE sent message to Dr. Leroy to update as well. JACQUIE called Raquel at Dr. Palafox's office and updated her on the medications. They are able to accept as new patient. JACQUIE has patient scheduled with Dr. Palafox on December 11 at 2:00pm. JACQUIE put in discharge paperwork date and time of apt. JACQUIE notified nurse and the patient. JACQUIE also updated Sade at [facility] on medication and new PCP apt.
[2024-11-20] MEDS: ENOXAPARIN SODIUM 40 MG/0.4 ML SYRINGE SUBQ (21:43)
[2024-11-20] MEDS: METOPROLOL TARTRATE 25 MG TABLET 12.5 MG PO (21:44)
[2024-11-20] MEDS: FERROUS SULFATE 325 MG TABLET PO (21:44)
--- NOTE | 2024-11-20 22:45 | PC.NURSE ---
2220- Mavis RN and Nasreen RN went to patient's room to assess dressing. Dressing was saturated through and pad underneath had already been changed. Was passed on in report that may need changed if drainage was too bad. Nurses removed old dressings using normal saline to help separate from wound. Nurses then placed aptic dressing first then ABDs, followed by wrapping with kerlex roll. Paper tape was used to secure. Patient tolerated well. Patient was given pain medication 30 minutes prior to change. Will continue to monitor.
[2024-11-21] MEDS: LINEZOLID IN DEXTROSE 5% 600 MG/300 ML PIGGYBACK 300 MG IV (01:13)
[2024-11-21] MEDS: IMIPENEM/CILASTATIN SODIUM 1,000 MG in 0.9 % SODIUM CHLORIDE 250 ML 250 MG IV ×4 (02:25→20:58)
[2024-11-21 03:51] VITALS: BP 136/72; PULSE 109; TEMP 36.7; O2SAT 90
[2024-11-21] MEDS: QUETIAPINE FUMARATE 100 MG TABLET 200 MG PO (05:41)
[2024-11-21] MEDS: SODIUM CHLORIDE 1,000 MG TABLET 2000 MG PO (05:41)
[2024-11-21 08:00] VITALS: BP 150/74; TEMP 37.9; O2SAT 93
--- NOTE | 2024-11-21 08:15 | CM.NOTE ---
Dr. Leroy aware of pt's final culture result on wound.
[2024-11-21] MEDS: GABAPENTIN 300 MG CAPSULE PO ×2 (08:19→22:57)
[2024-11-21] MEDS: METOPROLOL TARTRATE 25 MG TABLET 12.5 MG PO ×2 (08:19→22:57)
[2024-11-21] MEDS: FERROUS SULFATE 325 MG TABLET PO ×2 (08:19→22:58)
[2024-11-21] MEDS: KETOROLAC TROMETHAMINE 30 MG/ML VIAL 15 MG IVP ×2 (08:20→15:43)
[2024-11-21] MEDS: BUPRENORPHINE HCL 2 MG TAB SUBL 8 MG SL ×3 (08:27→22:58)
--- NOTE | 2024-11-21 09:50 | CM.NOTE ---
Rounds made with Dr. Leroy, continue IV antibiotics. Discussed with pt wound culture results and plan of care. Pt will discharge to skilled when medically cleared.
[2024-11-21] MEDS: ACETAMINOPHEN 325 MG TABLET 650 MG PO ×2 (10:16→20:58)
--- NOTE | 2024-11-21 10:24 | SWNOTE1 ---
JACQUIE had email from Donna at [facility] and they are still reviewing referral. She asked if pt had permament placement for his camper and where it is located. JACQUIE stopped in and spoke with pt. Pt stated it is at [facility] in [place]. JACQUIE emailed Sade this information. JACQUIE also faxed pt's med list and cultures and let them know the likely IV meds he will be discharged on.
--- NOTE | 2024-11-21 10:27 | PM.PN ---
Progress Note: Subjective Subjective Interval history: No new symptoms overnight. Exam Narrative Exam Narrative: [pt is awake and alert. oriented to place, time and person, morbidly obese HEENT: [place] conjunctiva and NL buccal mucosa Neck: Supple, no tenderness Endocrine: No Thyromegaly. Vascular: No JVD or carotid bruit. Lymphatic: No cervical lymphadenopathy. Chest: CTA no DTP. Heart RRR, no extra sound or murmur. Abd: Soft, no tenderness, no rebound and no rigidity. Increase abd girth therefore clinically I could not exclude the possibility of intra abd mass or organomegaly. LE: Quite extensive swelling, erythema, redness, induration, tenderness, superficial skin ulceration is stage I and II involving the entire left leg from the knee down to the foot anteriorly, medially, laterally and posteriorly. Quite impressive. I am able to feel dorsalis pedis pulse. No pallor or change of temperature in the left leg to suggest arterial compromise. At least at this time. No significant change compared to yesterday. 11/19: Slight improvement of the erythema, induration and seepage compared to yesterday. 11/20: Very slow and gradual resolution of erythema, induration and tenderness 11/21: Gradual resolution of erythema and induration as well as seeping Neuro: A A O. Nl speech, comprehension and attention. Nl and symetrical motor and tone examination through out. []] Constitutional Vital Signs, click to edit/add: Last Vital Signs Temp 100.2 F 11/21/24 08:00 Pulse 109 H 11/21/24 03:51 Resp 14 11/21/24 08:00 BP 150/74 H 11/21/24 08:00 Pulse Ox 93 L 11/21/24 08:00 O2 Del Method Room Air 11/21/24 08:00 O2 Flow Rate 2 11/19/24 11:59 Progress Note: A&P Assessment and Plan (1) Cellulitis, leg: (2) Hypokalemia: (3) Sepsis: Plan Extensive left leg cellulitis as described in the exam section. Sepsis present on admission. High elevation of CRP at 28 white count is trending down. CRP is trending down as well. Initial CRP was 28 and now down to 14. Patient signed AMA on and returned back on 11/16. Patient stayed in the emergency room manage by ER physician due to bed and availability until earlier this morning. I requested CAT scan of the leg rule out deep tissue abscess, myositis or gas. I started patient on combination of vancomycin and Primaxin. Blood culture was completed on 11/13 which came back negative. Repeat blood culture is negative as well. Wound culture is positive for strep, staph and steno [place]. Staph is methicillin-sensitive. Discontinue Zyvox. Continue Primaxin. Venous study completed on 11/13 came back negative for DVT Patient likely will require prolonged IV antibiotic course. So far no clinical of compartment syndrome. Nurse was able to Doppler dorsalis pedis pulse very loudly without delay. Arrange for skilled care for wound care and IV antibiotic. Monitor CRP and WBC Palpable dorsalis pedis pulse and strong dopplerable Chronic pain for which patient is on Suboxone Anemia, no evidence of acute blood loss. Patient was bleeding from the skin. Lovenox was stopped yesterday. Resume Lovenox tonight. Start him on iron supplementation Patient will likely require to have anemia workup to be done in the outpatient setting to be handled by PCP in collaboration with other needed outpatient providers. This may include but not limited to EGD, colonoscopy, referral to see hematology and other needed age-appropriate cancer screening. Hyperkalemia Potassium supplementation. Check magnesium and phosphorus level. Magnesium and phosphorus level are normal. 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 Repeat sodium level. DVT prophylax Lovenox SQ 40 once a a day will be resumed
[2024-11-21 11:15] LABS: Hemoglobin 7.5 g/dL (14.0-18.0); Mean Corpuscular HGB Conc 32.8 g/dL (29.9-35.2); Mean Corpuscular Hemoglobin 29.9 pg (25.9-34.0); Mean Corpuscular Volume 91.2 fL (80.0-94.0); Platelet Count 143 10^3/uL (150-450); Red Blood Count 2.51 10^6/uL (4.70-6.10); White Blood Count 8.8 10^3/uL (4.0-11.0)
[2024-11-21 11:20] LABS: Hematocrit 22.9 % (42.0-54.0)
[2024-11-21 11:32] LABS: Alanine Aminotransferase 35 U/L (16-63); Albumin Globulin Ratio 0.3; Albumin Level 1.7 g/dL (3.4-5.0); Alkaline Phosphatase 287 U/L (46-116); Anion Gap 10.0; Aspartate Amino Transferase 62 U/L (15-37); Blood Urea Nitrogen 12.0 mg/dL (7.0-18.0); Calcium 7.7 mg/dL (8.5-10.1); Carbon Dioxide 18.9 mmol/L (21.0-32.0); Chloride 94 mmol/L (98-107); Estimated GFR (African America >60 (>=60 mL/min/1.73m^2); Estimated GFR (Non-African Ame >60 (>=60 mL/min/1.73m^2); Globulin 5.0 g/dL; Glucose 135 mg/dL (74-106); Potassium 3.9 mmol/L (3.5-5.1); Total Protein 6.7 g/dL (6.4-8.2)
[2024-11-21 11:35] LABS: Sodium 119 mmol/L (136-145)
[2024-11-21 11:53] VITALS: BP 104/61; PULSE 82; TEMP 36.7; O2SAT 96
--- NOTE | 2024-11-21 12:08 | PT.DAILY ---
Physical Therapy Daily Note PT Daily Note/Assess Start: 11/19/24 08:29 Freq: Status: Active Protocol: Document 11/21/24 12:00 [id number] (Rec: 11/21/24 12:08 [id number] No Response) Physical Therapy Daily Note/Assessment Time In/Time Out Time In 09:50 Time Out 09:58 Pain In Pain Level 9 Pain Out Pain Level 10 Subjective Subjective Patient received seated EOB bathing with OT. Patient agreeable to participate with encouragement. States his L leg can hardly stand the pain with it down or when moving it. Therapeutic Exercise Time Therapeutic Exercise 8 Minutes (minutes) Therapeutic Exercise 1 Units Therapeutic Exercise Treatment Therapeutic Exercise Patient transfers self into bed and lifts L LE without Treatment assist. Patient scoots self up towards HOB without assistance. Patient lifts L LE in SLR x 3, once to place a pillow under for support and 2x to place 2 layers of absorbent towel under the L leg due to wound drainage. Patient performs SLR x 3 on R LE and then states he does not need to perform and requests to end PT. CBWR and needs met. Patient left in care of phlebotomy. Total Physical Therapy Time Total Therapy 8 Minutes Total Physical 1 Therapy Units Summary Daily Note Summary Patient demonstrates increased ability to lift L LE from a dependent position onto the bed without assistance. Patient is limited in functional mobility due to increase in pain to L LE with movement. Patient refused stand stating he was in to much pain. Patient would benefit from skilled rehab to address functional deficits in order to return to PLOF.
--- NOTE | 2024-11-21 12:19 | SWNOTE1 ---
JACQUIE called Donna at [facility] to see what the decision is. She stated corporate is stating yes, but there admin and DON are leaning towards no. JACQUIE explained that pt does want to return home and he has not had any behaviors at this time. She stated that they are worried due to them being burned by other patients. Donna stated she will find out an answer and let JACQUIE know.
--- NOTE | 2024-11-21 12:31 | SWNOTE1 ---
Due to not getting an answer from [facility], JACQUIE reached out to Aby at [facility] to see if they had openings and also let her know about the patient and his medications and him leaving the ED AMA, but that he needs placement due to his leg cellulitis and needing IV anbx and some therapy. [facility] stated they have openings and to send referral. Referral sent to [facility]. Referral included face sheet, ED note, H&P, provider notes, case management report, wound consult, nursing notes, diagnostic imaging, med list, and PT/OT notes. JACQUIE has referral out to [facility] and [facility].
[2024-11-21] MEDS: SODIUM CHLORIDE 3 % 500 ML 50 ML IV (12:55)
--- NOTE | 2024-11-21 13:00 | PC.NURSE ---
Biochemist went in room to have patient sign consent for blood.. Biochemist went over the education for blood transfusion.. Patient declined and refused blood. Biochemist went over the benefits again with patient... Patient states he wants to wait for another recheck in the morning, he trusts his body and does not feel like he needs it
--- NOTE | 2024-11-21 13:44 | SWNOTE1 ---
SW did call [facility] in [place] and neither take pt's that are in Buprenorphine, unless it is for pain due to cancer.
--- NOTE | 2024-11-21 13:46 | SWNOTE1 ---
JACQUIE called [facility] in [place] and they do not take pt's on Buprenorphine.
--- NOTE | 2024-11-21 13:49 | SWNOTE1 ---
SW reached out to Caleb at [facility], had to send email, waiting to hear back.
--- NOTE | 2024-11-21 13:50 | SWNOTE1 ---
Gloria merritt Cyril emailed JACQUIE and she will look in to it and get back to JACQUIE.
--- NOTE | 2024-11-21 14:18 | SWNOTE1 ---
Gloria at [facility] requested SW fax referral over. SW faxed referral to Gloria at [facility].
--- NOTE | 2024-11-21 15:09 | SWNOTE1 ---
Donna at [facility] did want to verify home address again and wants to make sure pt has running water and electricity. SW attempted to call sister, no answer. Pt's sister called back and spoke to case management. She did confirm that pt lives at the address on file and it is a camper behind there father's property. She confirmed there is running water, electricity, and cable. JACQUIE notified Donna and Liliam of this information.
--- NOTE | 2024-11-21 15:45 | SWNOTE1 ---
JACQUIE called and spoke with Donna again at [facility]. She stated they are still back and forth and the physician wants to know why the Buprenorphine is prescribed, he wants to know if it is for pain or another diagnosis. JACQUIE called [facility] sand spoke to Christal, she confirmed the Buprenorphine is prescribed for opioid use disorder. JACQUIE called Donna at [facility] and informed her of this information. She stated she will pass this on to her team.
[2024-11-21 16:03] VITALS: BP 134/70; PULSE 91; TEMP 36.6; O2SAT 94
[2024-11-21 19:47] LABS: Hemoglobin 7.9 g/dL (14.0-18.0)
[2024-11-21 19:50] VITALS: BP 156/70; PULSE 106; TEMP 37.3; O2SAT 95
[2024-11-21 19:55] LABS: Anion Gap 10.5; Blood Urea Nitrogen 12.0 mg/dL (7.0-18.0); Calcium 7.9 mg/dL (8.5-10.1); Carbon Dioxide 22.9 mmol/L (21.0-32.0); Chloride 97 mmol/L (98-107); Estimated GFR (African America >60 (>=60 mL/min/1.73m^2); Estimated GFR (Non-African Ame >60 (>=60 mL/min/1.73m^2); Glucose 127 mg/dL (74-106); Potassium 4.4 mmol/L (3.5-5.1); Sodium 126 mmol/L (136-145)
[2024-11-21] MEDS: ENOXAPARIN SODIUM 40 MG/0.4 ML SYRINGE SUBQ (22:57)
[2024-11-21] MEDS: QUETIAPINE FUMARATE 100 MG TABLET PO (22:58)
[2024-11-22] VITALS: BP 117/65; PULSE 89; TEMP 37.1; O2SAT 90
[2024-11-22] MEDS: IMIPENEM/CILASTATIN SODIUM 1,000 MG in 0.9 % SODIUM CHLORIDE 250 ML 250 MG IV ×4 (02:31→21:34)
[2024-11-22] MEDS: SODIUM CHLORIDE 3 % 500 ML 30 ML IV (02:31)
[2024-11-22 03:37] VITALS: BP 161/78; PULSE 98; TEMP 36.9; O2SAT 91
[2024-11-22] MEDS: KETOROLAC TROMETHAMINE 30 MG/ML VIAL 15 MG IVP ×3 (03:42→17:38)
[2024-11-22 05:15] LABS: Hemoglobin 7.2 g/dL (14.0-18.0); Mean Corpuscular HGB Conc 33.5 g/dL (29.9-35.2); Mean Corpuscular Hemoglobin 30.4 pg (25.9-34.0); Mean Corpuscular Volume 90.7 fL (80.0-94.0); Platelet Count 134 10^3/uL (150-450); Red Blood Count 2.37 10^6/uL (4.70-6.10); White Blood Count 6.8 10^3/uL (4.0-11.0)
[2024-11-22 05:26] LABS: Hematocrit 21.5 % (42.0-54.0)
[2024-11-22 05:34] LABS: Blood Urea Nitrogen 12.0 mg/dL (7.0-18.0); Calcium 7.6 mg/dL (8.5-10.1); Carbon Dioxide 23.0 mmol/L (21.0-32.0); Chloride 99 mmol/L (98-107); Estimated GFR (African America >60 (>=60 mL/min/1.73m^2); Estimated GFR (Non-African Ame >60 (>=60 mL/min/1.73m^2); Glucose 113 mg/dL (74-106); Potassium 4.1 mmol/L (3.5-5.1)
[2024-11-22 05:36] LABS: Anion Gap 8.1; Sodium 126 mmol/L (136-145)
[2024-11-22 05:38] LABS: Iron 12.0 ug/dL (65.0-175.0); Percent Iron Saturation 9.0 %; Total Iron Binding Capacity 134.0 ug/dL (250.0-450.0)
[2024-11-22 05:54] LABS: Ferritin 247.0 ng/mL (26.0-388.0); Folate 5.20 ng/mL (8.60-58.90)
[2024-11-22 07:52] VITALS: BP 147/79; PULSE 98; TEMP 36.8; O2SAT 94
--- NOTE | 2024-11-22 08:05 | CM.NOTE ---
Rounds made with Dr. Leroy, plan of care discussed with pt. No discharge today. [facility] has accepted pt and will start precert today. Continue treatment as ordered.
--- NOTE | 2024-11-22 08:30 | SWNOTE1 ---
SW had email from Donna at [facility] and they are able to accept and she is starting precert today. SW to update pt and pt's sister.
--- NOTE | 2024-11-22 09:01 | SWNOTE1 ---
SW completed PASR online. SW to fax to [facility].
--- NOTE | 2024-11-22 09:43 | P.PN_ITS ---
Progress Note: Subjective Subjective Interval history: No new symptoms overnight. Patient reports that the pressure in his leg seems to be less intense than before. No chest pain. No abdominal pain. Exam Narrative Exam Narrative: [pt is awake and alert. oriented to place, time and person, morbidly obese HEENT: [place] conjunctiva and NL buccal mucosa Neck: Supple, no tenderness Endocrine: No Thyromegaly. Vascular: No JVD or carotid bruit. Lymphatic: No cervical lymphadenopathy. Chest: CTA no DTP. Heart RRR, no extra sound or murmur. Abd: Soft, no tenderness, no rebound and no rigidity. Increase abd girth therefore clinically I could not exclude the possibility of intra abd mass or organomegaly. LE: Quite extensive swelling, erythema, redness, induration, tenderness, superficial skin ulceration is stage I and II involving the entire left leg from the knee down to the foot anteriorly, medially, laterally and posteriorly. Quite impressive. I am able to feel dorsalis pedis pulse. No pallor or change of temperature in the left leg to suggest arterial compromise. At least at this time. No significant change compared to yesterday. 11/19: Slight improvement of the erythema, induration and seepage compared to yesterday. 11/20: Very slow and gradual resolution of erythema, induration and tenderness 11/21: Gradual resolution of erythema and induration as well as seeping 11/22: Noticeable fair improvement of erythema, induration and tenderness. Neuro: A A O. Nl speech, comprehension and attention. Nl and symetrical motor and tone examination through out. []] Constitutional Vital Signs, click to edit/add: Last Vital Signs Temp 98.3 F 11/22/24 07:52 Pulse 98 H 11/22/24 07:52 Resp 18 11/22/24 07:56 BP 147/79 H 11/22/24 07:52 Pulse Ox 94 L 11/22/24 07:52 O2 Del Method Room Air 11/22/24 07:52 O2 Flow Rate 2 11/19/24 11:59 Progress Note: Objective Labs Labs: Short CBC 11/21/24 11/21/24 11/22/24 Range/Units 11:04 19:43 04:58 WBC 8.8 6.8 (4.0-11.0) 10^3/uL Hgb 7.5 L 7.9 L 7.2 L (14.0-18.0) g/dL Hct 22.9 L* 21.5 L* (42.0-54.0) % Plt Count 143 L 134 L (150-450) 10^3/uL BMP 11/21/24 11/21/24 11/22/24 11:04 19:43 04:58 Sodium 119 L* 126 L 126 L Potassium 3.9 4.4 4.1 Chloride 94 L 97 L 99 Carbon Dioxide 18.9 L 22.9 23.0 BUN 12.0 12.0 12.0 Creatinine 0.99 0.84 0.78 Glucose 135 H 127 H 113 H Calcium 7.7 L 7.9 L 7.6 L Liver Function 11/21/24 Range/Units 11:04 Total Bilirubin 1.0 (0.2-1.0) mg/dL AST 62 H (15-37) U/L ALT 35 (16-63) U/L Alkaline Phosphatase 287 H (46-116) U/L Albumin 1.7 L (3.4-5.0) g/dL Progress Note: A&P Assessment and Plan (1) Cellulitis, leg: (2) Hypokalemia: (3) Sepsis: Plan Extensive left leg cellulitis as described in the exam section. Sepsis present on admission. High elevation of CRP at 28 white count is trending down. CRP is trending down as well. Initial CRP was 28 and now down to 12. Patient signed AMA on 917 and returned back on 11/16. Patient stayed in the emergency room manage by ER physician due to bed and availability until earlier this morning. I requested CAT scan of the leg rule out deep tissue abscess, myositis or gas. I started patient on combination of vancomycin and Primaxin. Blood culture was completed on 11/13 which came back negative. Repeat blood culture is negative as well. Wound culture is positive for strep, staph and Acetinobacter staph is methicillin-sensitive. Discontinue Zyvox. Continue Primaxin. Consider switching to ceftriaxone on discharge. Venous study completed on 11/13 came back negative for DVT Requested arterial study rule out significant aortic disease which is unlikely given the very strong dopplerable pulse Patient likely will require prolonged IV antibiotic course. Arrange for skilled care for wound care and IV antibiotic. PICC line insertion today. Monitor CRP and WBC Chronic pain for which patient is on Suboxone Anemia, no evidence of acute blood loss. Patient was bleeding from the skin. Lovenox was stopped yesterday. Resume Lovenox tonight. Start him on iron supplementation Iron study is consistent with a mixed etiology. 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 I recommended blood transfusion. Patient declined to proceed at this time. Patient will likely require to have anemia workup to be done in the outpatient setting to be handled by PCP in collaboration with other needed outpatient providers. This may include but not limited to EGD, colonoscopy, referral to see hematology and other needed age-appropriate cancer screening. Hyperkalemia Potassium supplementation. Check magnesium and phosphorus level. Magnesium and phosphorus level are normal. 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 3% sodium repeat sodium level every 6. DVT prophylax Lovenox SQ 40 once a a day will be resumed post PICC line insertion
[2024-11-22] MEDS: BUPRENORPHINE HCL 2 MG TAB SUBL 8 MG SL ×2 (09:55→21:35)
[2024-11-22] MEDS: QUETIAPINE FUMARATE 100 MG TABLET PO ×2 (09:55→21:35)
[2024-11-22] MEDS: SENNOSIDES/DOCUSATE SODIUM 1 TAB TABLET 2 TAB PO (09:55)
[2024-11-22] MEDS: GABAPENTIN 300 MG CAPSULE PO ×2 (09:55→21:35)
[2024-11-22] MEDS: FERROUS SULFATE 325 MG TABLET PO ×2 (09:55→21:35)
[2024-11-22] MEDS: METOPROLOL TARTRATE 25 MG TABLET 12.5 MG PO ×2 (09:56→21:35)
[2024-11-22] MEDS: FUROSEMIDE 40 MG/4 ML VIAL IVP (10:21)
--- NOTE | 2024-11-22 10:28 | SWNOTE1 ---
JACQUIE faxed PICC line info, med list, PT note, physician note, labs, and vitals to Amparo at [facility] for precert.
--- NOTE | 2024-11-22 11:01 | SWNOTE1 ---
SW took packet to the floor in case of approval. JACQUIE let Liliam and Donna know to call the mes/surge floor over the weekend if pt is approved. They confirmed they will.
--- NOTE | 2024-11-22 11:43 | PC.NURSE ---
Taken at 1120, Left Doppler pedal pulse is strong and bounding
[2024-11-22 12:00] VITALS: BP 123/70; PULSE 87; TEMP 36.8; O2SAT 94
[2024-11-22] MEDS: SODIUM CHLORIDE 3 % 500 ML 50 ML IV (15:59)
[2024-11-22 16:00] VITALS: BP 163/83; PULSE 96; TEMP 36.8; O2SAT 93
[2024-11-22 16:23] LABS: Anion Gap 10.6; Blood Urea Nitrogen 11.0 mg/dL (7.0-18.0); Calcium 7.8 mg/dL (8.5-10.1); Carbon Dioxide 25.5 mmol/L (21.0-32.0); Chloride 101 mmol/L (98-107); Estimated GFR (African America >60 (>=60 mL/min/1.73m^2); Estimated GFR (Non-African Ame >60 (>=60 mL/min/1.73m^2); Glucose 117 mg/dL (74-106); Potassium 4.1 mmol/L (3.5-5.1); Sodium 133 mmol/L (136-145)
[2024-11-22 19:45] VITALS: BP 118/67; PULSE 93; TEMP 36.6; O2SAT 93
[2024-11-22] MEDS: SODIUM CHLORIDE 1,000 MG TABLET 2000 MG PO (21:35)
[2024-11-23 04:00] VITALS: BP 154/72; PULSE 99; TEMP 37.6; O2SAT 90
[2024-11-23] MEDS: IMIPENEM/CILASTATIN SODIUM 1,000 MG in 0.9 % SODIUM CHLORIDE 250 ML 250 MG IV (04:04)
[2024-11-23 04:07] LABS: Vitamin B12 458 pg/mL (232-1245)
[2024-11-23] MEDS: KETOROLAC TROMETHAMINE 30 MG/ML VIAL 15 MG IVP ×2 (04:17→14:18)
[2024-11-23 04:33] LABS: Hemoglobin 7.9 g/dL (14.0-18.0); Mean Corpuscular HGB Conc 33.5 g/dL (29.9-35.2); Mean Corpuscular Hemoglobin 30.4 pg (25.9-34.0); Mean Corpuscular Volume 90.8 fL (80.0-94.0); Platelet Count 171 10^3/uL (150-450); Red Blood Count 2.60 10^6/uL (4.70-6.10); White Blood Count 6.9 10^3/uL (4.0-11.0)
[2024-11-23 04:40] LABS: Hematocrit 23.6 % (42.0-54.0)
[2024-11-23 04:45] LABS: Anion Gap 11.2; Blood Urea Nitrogen 10.0 mg/dL (7.0-18.0); Calcium 7.8 mg/dL (8.5-10.1); Carbon Dioxide 22.8 mmol/L (21.0-32.0); Chloride 97 mmol/L (98-107); Estimated GFR (African America >60 (>=60 mL/min/1.73m^2); Estimated GFR (Non-African Ame >60 (>=60 mL/min/1.73m^2); Glucose 115 mg/dL (74-106); Potassium 4.0 mmol/L (3.5-5.1); Sodium 127 mmol/L (136-145)
[2024-11-23] MEDS: SODIUM CHLORIDE 1,000 MG TABLET 2000 MG PO ×3 (05:01→21:36)
[2024-11-23 07:40] VITALS: BP 161/84; PULSE 90; TEMP 36.8; O2SAT 93
[2024-11-23] MEDS: METOPROLOL TARTRATE 25 MG TABLET 12.5 MG PO ×2 (09:00→10:09)
[2024-11-23] MEDS: GABAPENTIN 300 MG CAPSULE PO ×2 (09:00→21:37)
[2024-11-23] MEDS: SENNOSIDES/DOCUSATE SODIUM 1 TAB TABLET 2 TAB PO (09:00)
[2024-11-23] MEDS: BUPRENORPHINE HCL 2 MG TAB SUBL 8 MG SL ×2 (09:01→21:37)
[2024-11-23] MEDS: QUETIAPINE FUMARATE 100 MG TABLET PO ×2 (09:01→21:36)
[2024-11-23] MEDS: FERROUS SULFATE 325 MG TABLET PO ×2 (09:01→21:36)
--- NOTE | 2024-11-23 09:29 | PM.PN ---
Progress Note: Subjective Subjective Interval history: No new symptoms overnight. Patient reports that the pressure in his leg seems to be less intense than before. No chest pain. No abdominal pain. Exam Narrative Exam Narrative: [pt is awake and alert. oriented to place, time and person, morbidly obese HEENT: [place] conjunctiva and NL buccal mucosa Neck: Supple, no tenderness Endocrine: No Thyromegaly. Vascular: No JVD or carotid bruit. Lymphatic: No cervical lymphadenopathy. Chest: CTA no DTP. Heart RRR, no extra sound or murmur. Abd: Soft, no tenderness, no rebound and no rigidity. Increase abd girth therefore clinically I could not exclude the possibility of intra abd mass or organomegaly. LE: Quite extensive swelling, erythema, redness, induration, tenderness, superficial skin ulceration is stage I and II involving the entire left leg from the knee down to the foot anteriorly, medially, laterally and posteriorly. Quite impressive. I am able to feel dorsalis pedis pulse. No pallor or change of temperature in the left leg to suggest arterial compromise. At least at this time. No significant change compared to yesterday. 11/19: Slight improvement of the erythema, induration and seepage compared to yesterday. 11/20: Very slow and gradual resolution of erythema, induration and tenderness 11/21: Gradual resolution of erythema and induration as well as seeping 11/22: Noticeable fair improvement of erythema, induration and tenderness. 11/23: Subtle improvement of erythema and induration compared to yesterday. The skin is shrinking. Nurse was able to Doppler the dorsalis pedis pulses strongly on 11/22. Neuro: A A O. Nl speech, comprehension and attention. Nl and symetrical motor and tone examination through out. []] Constitutional Vital Signs, click to edit/add: Last Vital Signs Temp 98.3 F 11/23/24 07:40 Pulse 90 11/23/24 07:40 Resp 16 11/23/24 07:40 BP 161/84 H 11/23/24 07:40 Pulse Ox 93 L 11/23/24 07:40 O2 Del Method Room Air 11/23/24 07:40 O2 Flow Rate 2 11/19/24 11:59 Progress Note: Objective Labs Labs: Short CBC 11/23/24 Range/Units 04:10 WBC 6.9 (4.0-11.0) 10^3/uL Hgb 7.9 L (14.0-18.0) g/dL Hct 23.6 L* (42.0-54.0) % Plt Count 171 (150-450) 10^3/uL BMP 11/22/24 11/23/24 16:03 04:10 Sodium 133 L 127 L Potassium 4.1 4.0 Chloride 101 97 L Carbon Dioxide 25.5 22.8 BUN 11.0 10.0 Creatinine 0.76 0.72 Glucose 117 H 115 H Calcium 7.8 L 7.8 L Progress Note: A&P Assessment and Plan (1) Cellulitis, leg: (2) Hypokalemia: (3) Sepsis: Plan Extensive left leg cellulitis as described in the exam section. Noticeable improvement over the last 72 hours in terms of erythema and induration as well as seeping Sepsis present on admission. High elevation of CRP at 28 white count is trending down. CRP is trending down as well. Initial CRP was 28 and now down to 12. Patient signed AMA on 91 and returned back on 11/16. Patient stayed in the emergency room manage by ER physician due to bed and availability until earlier this morning. I requested CAT scan of the leg rule out deep tissue abscess, myositis or gas. I started patient on combination of vancomycin and Primaxin. Blood culture was completed on 11/13 which came back negative. Repeat blood culture is negative as well. Wound culture is positive for strep, staph and Acetinobacter staph is methicillin-sensitive. Discontinue Zyvox. Continue Primaxin. All 3 bacteria's are sensitive to ceftriaxone. 2 g every 24 hours. Venous study completed on 11/13 came back negative for DVT Requested arterial study rule out significant aortic disease which is unlikely given the very strong dopplerable pulse Arterial study shows mild to moderate stenosis but no significant plaque appreciation. No significant stenosis. Patient likely will require prolonged IV antibiotic course. Arrange for skilled care for wound care and IV antibiotic. PICC line insertion on 11/16 Monitor CRP and WBC Chronic pain for which patient is on Suboxone Anemia, no evidence of acute blood loss. Patient was bleeding from the skin. Lovenox was stopped yesterday for the PICC line. Lovenox will be resumed today. Start him on iron supplementation Iron study is consistent with a mixed etiology. 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 I recommended blood transfusion. Patient declined to proceed at this time. Patient will likely require to have anemia workup to be done in the outpatient setting to be handled by PCP in collaboration with other needed outpatient providers. This may include but not limited to EGD, colonoscopy, referral to see hematology and other needed age-appropriate cancer screening. Hyperkalemia Potassium supplementation. Check magnesium and phosphorus level. Magnesium and phosphorus level are normal. 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 3% sodium repeat sodium level every 6. Patient completed 3% sodium at treatment. Continue sodium chloride tablet DVT prophylax Back on Lovenox after PICC line was inserted
[2024-11-23] MEDS: ENOXAPARIN SODIUM 40 MG/0.4 ML SYRINGE SUBQ ×2 (10:09→21:37)
[2024-11-23 16:44] LABS: Anion Gap 8.4; Blood Urea Nitrogen 11.0 mg/dL (7.0-18.0); Calcium 7.8 mg/dL (8.5-10.1); Carbon Dioxide 25.7 mmol/L (21.0-32.0); Chloride 100 mmol/L (98-107); Estimated GFR (African America >60 (>=60 mL/min/1.73m^2); Estimated GFR (Non-African Ame >60 (>=60 mL/min/1.73m^2); Glucose 112 mg/dL (74-106); Potassium 4.1 mmol/L (3.5-5.1); Sodium 130 mmol/L (136-145)
[2024-11-23 17:34] VITALS: BP 155/80; PULSE 88; TEMP 36.9; O2SAT 96
[2024-11-23 20:00] VITALS: BP 146/74; PULSE 85; TEMP 36.9; O2SAT 93
[2024-11-23] MEDS: METOPROLOL TARTRATE 25 MG TABLET PO (21:37)
[2024-11-24 04:00] VITALS: BP 121/74; PULSE 98; TEMP 36.7; O2SAT 92
[2024-11-24] MEDS: KETOROLAC TROMETHAMINE 30 MG/ML VIAL 15 MG IVP ×2 (04:29→13:32)
[2024-11-24] MEDS: SODIUM CHLORIDE 1,000 MG TABLET 2000 MG PO ×3 (05:00→21:07)
[2024-11-24 08:31] VITALS: BP 137/70; PULSE 92; TEMP 37.1; O2SAT 94
[2024-11-24] MEDS: BUPRENORPHINE HCL 2 MG TAB SUBL 8 MG SL ×2 (08:43→21:07)
[2024-11-24] MEDS: GABAPENTIN 300 MG CAPSULE PO ×2 (08:44→21:08)
[2024-11-24] MEDS: ENOXAPARIN SODIUM 40 MG/0.4 ML SYRINGE SUBQ ×2 (08:44→21:07)
[2024-11-24] MEDS: QUETIAPINE FUMARATE 100 MG TABLET PO ×2 (08:44→21:08)
[2024-11-24] MEDS: METOPROLOL TARTRATE 25 MG TABLET PO ×2 (08:44→21:08)
[2024-11-24] MEDS: FERROUS SULFATE 325 MG TABLET PO ×2 (08:44→21:08)
--- NOTE | 2024-11-24 09:55 | MR_ITS ---
The [address] [address] Patient Name: MICH BECK MRN: [id number] date: 1965 Sex: M Assigned Patient Location: [place] Current Patient Location: [place] Accession/Order Number: [id number] Exam Date: 11/24/2024 11:00 Report Date: 11/25/2024 13:58 At the request of: KACEY METZGER MD Procedure: MR foot LT wo con MR foot LT wo con 11/25/2024 12:21 PM SIGNS AND SYMPTOMS: ^Cellulitis r/o abscess or osteo, left foot ulcer posteriorly extending into ankle PROTOCOL: Multiplanar multisequence MR images of the left foot without contrast COMPARISON: None. FINDINGS: Lisfranc ligament: Intact. Hallux: Osseous: Normal. Extensor tendon: Normal. Flexor tendon: Normal. First metatarsophalangeal joint: Intact. Hallux-sesamoid complex: Normal. Second ray: Osseous: Normal. Extensor tendon: Normal. Flexor tendon: Normal. Second metatarsophalangeal joint: Intact. Plantar plate: Normal. Third ray: Osseous: Normal. Extensor tendon: Normal. Flexor tendon: Normal. Third metatarsophalangeal joint: Intact. Plantar plate: Normal. Fourth ray: Osseous: Normal. Extensor tendon: Normal. Flexor tendon: Normal. Fourth metatarsophalangeal joint: Intact. Plantar plate: Normal. Fifth ray: Osseous: Normal. Extensor tendon: Normal. Flexor tendon: Normal. Fifth metatarsophalangeal joint: Intact. Plantar plate: Normal. Interspaces: Interdigital (Jade) neuroma: None. Intermetatarsal bursitis: None. Soft tissues: Diffuse soft tissue thickening and edema is noted, greatest along the medial aspect of the extending over the dorsal surface consistent with cellulitis. No well-defined fluid collection to suggest abscess formation. Muscles: Normal. Bones: Normal. Nerves: Normal. Blood vessels: Normal. MR/MR foot LT wo con IMPRESSION: Diffuse soft tissue thickening and edema is noted, greatest along the medial aspect of the extending over the dorsal surface consistent with cellulitis. No well-defined fluid collection to suggest abscess formation. No evidence of marrow edema to suggest osteomyelitis. Impression dictated by: Eliu Joseph M.D. 11/25/2024 1:58 PM Dictation Location: [place] [address] Electronically authenticated by: [id number] Y Date: 11/25/2024 13:58
--- NOTE | 2024-11-24 09:55 | MR_ITS ---
[address] [address] Patient Name: MICH BECK MRN: [id number] date: 1965 Sex: M Assigned Patient Location: [place] Current Patient Location: [place] Accession/Order Number: [id number] Exam Date: 11/24/2024 11:00 Report Date: 11/25/2024 14:03 At the request of: KACEY METZGER MD Procedure: MR ankle LT wo con MR ankle LT wo con 11/25/2024 12:21 PM SIGNS AND SYMPTOMS: ^Cellulitis, rule out osteomyelitis or abscess PROTOCOL: Multiplanar multisequence MR images of the ankle without contrast COMPARISON: 11/24/2024 FINDINGS: Alignment: Normal. Fluid: Tibiotalar: No effusion. Subtalar: No effusion. Medial: Medial malleolus: Normal. Tendons: Posterior tibial tendon: Intact. Flexor digitorum longus: Intact. Flexor hallucis longus: Intact. Ligaments: Deltoid ligament complex - superficial: Intact. Deltoid ligament complex - deep: Intact. Spring (plantar calcaneo-navicular) ligament: Intact. Lateral: Lateral malleolus: Normal. Retromalleolar groove: Normal. Tendons: Peroneus longus: Intact. Peroneus brevis: Intact. Peroneal retinaculum: Intact. Ligaments: Anterior inferior tibiofibular (syndesmosis): Intact. Posterior inferior tibiofibular (syndesmosis): Intact. Anterior talofibular ligament: Intact. Calcaneofibular ligament: Intact. Posterior talofibular ligament: Intact. Posterior: Posterior talus: Normal. Intermalleolar ligament: Intact. Achilles tendon: Intact. Plantar fascia: Intact. Anterior: Tendons: Anterior tibial tendon: Intact. Extensor hallucis longus: Intact. Extensor digitorum longus: Intact. Tibiotalar joint: Intact. Subtalar joint: Intact. Bones (other than subarticular marrow): Normal. Muscles: There is edema within the intrinsic musculature of the foot suggesting myositis. Soft tissues: There is diffuse soft tissue swelling which is greatest along the anterior aspect of the ankle and extending medially where there is soft tissue irregularity consistent with a history of ulceration. No evidence of abscess formation. Tarsal tunnel: Normal. Sinus tarsi: Normal. MR/MR ankle LT wo con IMPRESSION: Findings are consistent with diffuse cellulitis greatest along the medial aspect of the ankle and over the anterior ankle. No evidence of osteomyelitis. No evidence of abscess formation. Impression dictated by: Eliu Joseph M.D. 11/25/2024 2:03 PM Dictation Location: [place] [address] Electronically authenticated by: [id number] Y Date: 11/25/2024 14:03
--- NOTE | 2024-11-24 09:57 | CT_ITS ---
The [address] [address] Patient Name: MICH BECK MRN: [id number] date: 1965 Sex: M Assigned Patient Location: MS Current Patient Location: MS Accession/Order Number: [id number] Exam Date: 11/24/2024 13:00 Report Date: 11/24/2024 15:13 At the request of: KACEY METZGER MD Procedure: CT angio LE LT CT angio LE LT 11/24/2024 2:06 PM SIGNS AND SYMPTOMS: R/o significant stenosis CONTRAST: Left lower leg swelling, CT, rule out stenosis TECHNIQUE: Multiple detector CT axial slices of the left lower extremity were obtained with IV contrast. Multiplanar reformats were performed and viewed on a separate workstation and reviewed to further define anatomy and possible pathology. CT was performed with one or more of the following dose reduction techniques: Automated exposure control, adjustment of the mA and/or kV according to patient size, or use of iterative reconstruction technique. CONTRAST: 100 mL of intravenous Omnipaque 350 COMPARISON: None. FINDINGS: There is adequate contrast opacification of the arterial structures and venous structures within the left hemipelvis, left thigh, along the left knee, the left lower leg, and into the left foot. There is diffuse subcutaneous edema suspicious for cellulitis. This is greatest along the left foot. There is soft tissue irregularity along the medial aspect of the ankle extending towards the heel suggesting ulceration. No osteolytic or bony destructive process. No fracture or dislocation. There is narrowing of the weightbearing and patellofemoral joint space of the right knee. There is narrowing of the right hip joint space. CT/CT angio LE LT IMPRESSION: There is diffuse subcutaneous edema suspicious for cellulitis. This is greatest along the left foot. No evidence of abscess formation. There is soft tissue irregularity along the medial aspect of the ankle extending towards the heel suggesting ulceration. No evidence of vascular stenosis or occlusion. Impression dictated by: Eliu Joseph M.D. 11/24/2024 3:13 PM Dictation Location: [place] [address] Electronically authenticated by: [id number] Y Date: 11/24/2024 15:13
--- NOTE | 2024-11-24 09:59 | P.PN_ITS ---
Progress Note: Subjective Subjective Interval history: No new symptoms overnight. Patient reports that the pressure in his leg seems to be less intense than before. No chest pain. No abdominal pain. Exam Narrative Exam Narrative: [pt is awake and alert. oriented to place, time and person, morbidly obese HEENT: [place] conjunctiva and NL buccal mucosa Neck: Supple, no tenderness Endocrine: No Thyromegaly. Vascular: No JVD or carotid bruit. Lymphatic: No cervical lymphadenopathy. Chest: CTA no DTP. Heart RRR, no extra sound or murmur. Abd: Soft, no tenderness, no rebound and no rigidity. Increase abd girth therefore clinically I could not exclude the possibility of intra abd mass or organomegaly. LE: Quite extensive swelling, erythema, redness, induration, tenderness, superficial skin ulceration is stage I and II involving the entire left leg from the knee down to the foot anteriorly, medially, laterally and posteriorly. Quite impressive. I am able to feel dorsalis pedis pulse. No pallor or change of temperature in the left leg to suggest arterial compromise. At least at this time. No significant change compared to yesterday. 11/19: Slight improvement of the erythema, induration and seepage compared to yesterday. 11/20: Very slow and gradual resolution of erythema, induration and tenderness 11/21: Gradual resolution of erythema and induration as well as seeping 11/22: Noticeable fair improvement of erythema, induration and tenderness. 11/23: Subtle improvement of erythema and induration compared to yesterday. The skin is shrinking. Nurse was able to Doppler the dorsalis pedis pulses strongly on 11/22. 11/24: Significant, noticeable improvement of the erythema, induration, sloughing and tenderness from the knee down to the lower ratliff. Persistent but improved induration, tenderness and seeping involving the medial and lateral aspect the ankle and dorsal foot. Strong dopplerable dorsalis pedis Neuro: A A O. Nl speech, comprehension and attention. Nl and symetrical motor and tone examination through out. []] Constitutional Vital Signs, click to edit/add: Last Vital Signs Temp 98.8 F 11/24/24 08:31 Pulse 92 H 11/24/24 08:31 Resp 16 11/24/24 08:31 BP 137/70 11/24/24 08:31 Pulse Ox 94 L 11/24/24 08:31 O2 Del Method Room Air 11/24/24 04:00 O2 Flow Rate 2 11/19/24 11:59 Progress Note: Objective Labs Labs: [facility] 11/23/24 16:25 Sodium 130 L Potassium 4.1 Chloride 100 Carbon Dioxide 25.7 BUN 11.0 Creatinine 0.71 Glucose 112 H Calcium 7.8 L Progress Note: A&P Assessment and Plan (1) Cellulitis, leg: (2) Hypokalemia: (3) Sepsis: Plan Extensive left leg cellulitis as described in the exam section. Noticeable improvement over the last 96 hours in terms of erythema and induration as well as seeping Sepsis present on admission. High elevation of CRP at 28 white count is trending down. CRP is trending down as well. Initial CRP was 28 and now down to 12. Sed rate is down from above 130 down to 108 When I asked patient this morning 11/24 about however feels regarding the left leg cellulitis. He responded by saying nights and days difference Patient signed AMA on 917 and returned back on 11/16. Patient stayed in the emergency room manage by ER physician due to bed and availability until earlier this morning. I requested CAT scan of the leg rule out deep tissue abscess, myositis or gas. I started patient on combination of vancomycin and Primaxin. Blood culture was completed on 11/13 which came back negative. Repeat blood culture is negative as well. Wound culture is positive for strep, staph and Acetinobacter staph is methicillin-sensitive. Discontinued Zyvox and Primaxin and switch him to ceftriaxone 2 g daily based on 3 bacteria sensitivity Venous study completed on 11/13 came back negative for DVT Requested arterial study rule out significant aortic disease which is unlikely given the very strong dopplerable pulse Arterial study shows mild to moderate stenosis but no significant plaque appreciation. No significant stenosis. Requested CT angio of the leg rule out significant stenosis Requested MRI of the ankle and foot to rule out osteomyelitis Patient likely will require prolonged IV antibiotic course. Arrange for skilled care for wound care and IV antibiotic. PICC line insertion on 11/16 Monitor WBC, CRP and sed rate Chronic pain for which patient is on Suboxone Anemia, no evidence of acute blood loss. Patient was bleeding from the skin. Lovenox was stopped yesterday for the PICC line. Lovenox will be resumed today. Start him on iron supplementation Iron study is consistent with a mixed etiology. 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 I recommended blood transfusion. Patient declined to proceed at this time. Patient will likely require to have anemia workup to be done in the outpatient setting to be handled by PCP in collaboration with other needed outpatient providers. This may include but not limited to EGD, colonoscopy, referral to see hematology and other needed age-appropriate cancer screening. Hyperkalemia Potassium supplementation. Check magnesium and phosphorus level. Magnesium and phosphorus level are normal. 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 3% sodium repeat sodium level every 6. Patient completed 3% sodium at treatment. Continue sodium chloride tablet DVT prophylax Back on Lovenox after PICC line was inserted
[2024-11-24 12:27] VITALS: BP 129/70; PULSE 78; TEMP 37; O2SAT 93
[2024-11-24] MEDS: 0.9 % SODIUM CHLORIDE 250 ML 10 ML IV (13:32)
[2024-11-24 16:00] VITALS: BP 122/68; PULSE 80; TEMP 36.6; O2SAT 95
[2024-11-24 19:52] VITALS: BP 136/75; PULSE 89; TEMP 36.6; O2SAT 93
[2024-11-24] MEDS: ACETAMINOPHEN 325 MG TABLET 650 MG PO (21:07)
[2024-11-24] MEDS: ZOLPIDEM TARTRATE 5 MG TABLET 10 MG PO (21:11)
[2024-11-24 23:15] VITALS: BP 137/70; PULSE 82; TEMP 36.3; O2SAT 93
[2024-11-25 03:49] VITALS: BP 132/74; PULSE 95; TEMP 36.8; O2SAT 93
[2024-11-25] MEDS: SODIUM CHLORIDE 1,000 MG TABLET 2000 MG PO ×3 (05:17→21:39)
[2024-11-25] MEDS: ACETAMINOPHEN 325 MG TABLET 650 MG PO ×2 (05:17→21:45)
[2024-11-25 05:27] LABS: Hemoglobin 7.0 g/dL (14.0-18.0); Mean Corpuscular HGB Conc 32.1 g/dL (29.9-35.2); Mean Corpuscular Hemoglobin 29.5 pg (25.9-34.0); Mean Corpuscular Volume 92.0 fL (80.0-94.0); Platelet Count 179 10^3/uL (150-450); Red Blood Count 2.37 10^6/uL (4.70-6.10); White Blood Count 5.4 10^3/uL (4.0-11.0)
[2024-11-25 05:49] LABS: Anion Gap 11.6; Blood Urea Nitrogen 7.0 mg/dL (7.0-18.0); Calcium 8.0 mg/dL (8.5-10.1); Carbon Dioxide 25.4 mmol/L (21.0-32.0); Chloride 97 mmol/L (98-107); Estimated GFR (African America >60 (>=60 mL/min/1.73m^2); Estimated GFR (Non-African Ame >60 (>=60 mL/min/1.73m^2); Glucose 140 mg/dL (74-106); Potassium 4.0 mmol/L (3.5-5.1); Sodium 130 mmol/L (136-145)
[2024-11-25 05:56] LABS: Hematocrit 21.8 % (42.0-54.0)
[2024-11-25 08:00] VITALS: BP 146/75; PULSE 88; TEMP 36.6; O2SAT 93
--- NOTE | 2024-11-25 08:10 | CM.NOTE ---
Rounds made with Dr. Leroy, pt will have MRI today of foot and ankle. Discussed plan of care, pt will discharge to skilled when medically stable.
--- NOTE | 2024-11-25 08:46 | PM.PN ---
Progress Note: Subjective Subjective Interval history: No new symptoms overnight. Patient reports that the pressure in his leg seems to be less intense than before. No chest pain. No abdominal pain. Exam Narrative Exam Narrative: [pt is awake and alert. oriented to place, time and person, morbidly obese HEENT: [place] conjunctiva and NL buccal mucosa Neck: Supple, no tenderness Endocrine: No Thyromegaly. Vascular: No JVD or carotid bruit. Lymphatic: No cervical lymphadenopathy. Chest: CTA no DTP. Heart RRR, no extra sound or murmur. Abd: Soft, no tenderness, no rebound and no rigidity. Increase abd girth therefore clinically I could not exclude the possibility of intra abd mass or organomegaly. LE: Quite extensive swelling, erythema, redness, induration, tenderness, superficial skin ulceration is stage I and II involving the entire left leg from the knee down to the foot anteriorly, medially, laterally and posteriorly. Quite impressive. I am able to feel dorsalis pedis pulse. No pallor or change of temperature in the left leg to suggest arterial compromise. At least at this time. No significant change compared to yesterday. 11/19: Slight improvement of the erythema, induration and seepage compared to yesterday. 11/20: Very slow and gradual resolution of erythema, induration and tenderness 11/21: Gradual resolution of erythema and induration as well as seeping 11/22: Noticeable fair improvement of erythema, induration and tenderness. 11/23: Subtle improvement of erythema and induration compared to yesterday. The skin is shrinking. Nurse was able to Doppler the dorsalis pedis pulses strongly on 11/22. 11/24: Significant, noticeable improvement of the erythema, induration, sloughing and tenderness from the knee down to the lower ratliff. Persistent but improved induration, tenderness and seeping involving the medial and lateral aspect the ankle and dorsal foot. Strong dopplerable dorsalis pedis 11/25: Neuro: A A O. Nl speech, comprehension and attention. Nl and symetrical motor and tone examination through out. []] Constitutional Vital Signs, click to edit/add: Last Vital Signs Temp 97.8 F 11/25/24 08:00 Pulse 88 11/25/24 08:00 Resp 18 11/25/24 03:49 BP 146/75 H 11/25/24 08:00 Pulse Ox 93 L 11/25/24 08:00 O2 Del Method Room Air 11/25/24 08:00 O2 Flow Rate 2 11/19/24 11:59 Progress Note: Objective Labs Labs: Short CBC 11/25/24 Range/Units 05:09 WBC 5.4 (4.0-11.0) 10^3/uL Hgb 7.0 L (14.0-18.0) g/dL Hct 21.8 L* (42.0-54.0) % Plt Count 179 (150-450) 10^3/uL BMP 11/25/24 05:09 Sodium 130 L Potassium 4.0 Chloride 97 L Carbon Dioxide 25.4 BUN 7.0 Creatinine 0.67 L Glucose 140 H Calcium 8.0 L Progress Note: A&P Assessment and Plan (1) Cellulitis, leg: (2) Hypokalemia: (3) Sepsis: Plan Extensive left leg cellulitis as described in the exam section. Noticeable improvement over the last 96 hours in terms of erythema and induration as well as seeping Sepsis present on admission. High elevation of CRP at 28 white count is trending down. CRP is trending down as well. Initial CRP was 28 and now down to 6. Sed rate is down from > 130 down to 81 When I asked patient this morning 11/24 about however feels regarding the left leg cellulitis. He responded by saying nights and days difference Patient signed AMA on 917 and returned back on 11/16. Patient now admitted that he has had large ulceration on his left requiring debridement several years ago. He showed me a picture of his leg on his phone from 2019 where patient had diffuse erythema, induration and tenderness in the left leg from the knee down to the ankle. Now patient admitted that he has been battling recurrent infection in the left leg over the last several weeks-months wrapping it himself at home and spraying his leg with bug spray failed and did not seek for several weeks up until he showed up in the emergency room on 11/13 and signed AMA. I requested CAT scan of the leg rule out deep tissue abscess, myositis or gas. Negative for air, gas or abscess. I started patient on combination of vancomycin and Primaxin. Blood culture was completed on 11/13 which came back negative. Repeat blood culture is negative as well. Wound culture is positive for strep, staph and Acetinobacter staph is methicillin-sensitive. Discontinued Zyvox and Primaxin and switch him to ceftriaxone 2 g daily based on 3 bacteria sensitivity Venous study completed on 11/13 came back negative for DVT Requested arterial study rule out significant aortic disease which is unlikely given the very strong dopplerable pulse Arterial study shows mild to moderate stenosis but no significant plaque appreciation. No significant stenosis. CTA of the leg is negative for arterial stenosis. Requested MRI of the ankle and foot to rule out osteomyelitis Patient likely will require prolonged IV antibiotic course. Arrange for skilled care for wound care and IV antibiotic. PICC line insertion on 11/16 Monitor WBC, CRP and sed rate Chronic pain for which patient is on Suboxone Anemia, no evidence of acute blood loss. Patient was bleeding from the skin. Start him on iron and folate supplementation Iron study is consistent with a mixed etiology. 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 I recommended blood transfusion. Patient declined to to have blood transfusion few days ago. I will have a conversation with him now that his hemoglobin dropped to 7. I am hoping that he will agree to proceed with transfusion. Patient will likely require to have anemia workup to be done in the outpatient setting to be handled by PCP in collaboration with other needed outpatient providers. This may include but not limited to EGD, colonoscopy, referral to see hematology and other needed age-appropriate cancer screening. Hyperkalemia Potassium supplementation. Check magnesium and phosphorus level. Magnesium and phosphorus level are normal. 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 3% sodium repeat sodium level every 6. Patient completed 3% sodium at treatment. Continue sodium chloride tablet DVT prophylax Back on Lovenox after PICC line was inserted
--- NOTE | 2024-11-25 10:10 | PM.EN ---
Event Note Event Note: Blood transfusion consent. Couple of days ago I recommended the patient to have a blood transfusion due to hemoglobin of 7.5. Patient declined to receive transfusion despite my recommendation. Today his hemoglobin dropped to 7.0. I went back and had a conversation with him about my recommendation to have a blood transfusion. His nurse also tried to convince him to receive 1 unit of blood transfusion. Patient continues to decline transfusion at this time citing physical and spiritual beliefs. At this time, I would have to respect his wishes not to receive transfusion.
[2024-11-25] MEDS: BUPRENORPHINE HCL 2 MG TAB SUBL 8 MG SL ×2 (10:13→21:39)
[2024-11-25] MEDS: FERROUS SULFATE 325 MG TABLET PO ×2 (10:14→21:39)
[2024-11-25] MEDS: GABAPENTIN 300 MG CAPSULE PO ×2 (10:14→21:39)
[2024-11-25] MEDS: METOPROLOL TARTRATE 25 MG TABLET PO ×2 (10:14→21:39)
[2024-11-25] MEDS: QUETIAPINE FUMARATE 100 MG TABLET PO ×2 (10:14→21:39)
[2024-11-25] MEDS: KETOROLAC TROMETHAMINE 30 MG/ML VIAL 15 MG IVP (10:15)
[2024-11-25 12:00] VITALS: BP 149/73; PULSE 81; TEMP 36.6; O2SAT 93
--- NOTE | 2024-11-25 12:45 | SWNOTE1 ---
JACQUIE faxed over updated physician notes, PT from Monday, labs, vitals, and nursing notes to Amparo at [facility]. PT/OT attempted to work with pt today, but not able to, see PT/OT notes.
--- NOTE | 2024-11-25 15:13 | SWNOTE1 ---
JACQUIE called over to [facility] to speak with Donna in admissions, but she was in a meeting at this time. JACQUIE requested Donna return SW call.
[2024-11-25 19:46] VITALS: BP 152/76; PULSE 91; TEMP 37.2; O2SAT 96
[2024-11-26 03:18] VITALS: BP 132/71; PULSE 85; TEMP 36.6; O2SAT 95
[2024-11-26] MEDS: SODIUM CHLORIDE 1,000 MG TABLET 2000 MG PO (05:50)
[2024-11-26 06:04] LABS: Hemoglobin 7.0 g/dL (14.0-18.0); Mean Corpuscular HGB Conc 32.6 g/dL (29.9-35.2); Mean Corpuscular Hemoglobin 29.9 pg (25.9-34.0); Mean Corpuscular Volume 91.9 fL (80.0-94.0); Platelet Count 182 10^3/uL (150-450); Red Blood Count 2.34 10^6/uL (4.70-6.10); White Blood Count 4.8 10^3/uL (4.0-11.0)
[2024-11-26 06:28] LABS: Hematocrit 21.5 % (42.0-54.0)
[2024-11-26 08:00] VITALS: BP 154/73; PULSE 88; TEMP 37.3; O2SAT 91
[2024-11-26] MEDS: BUPRENORPHINE HCL 2 MG TAB SUBL 8 MG SL (08:43)
[2024-11-26] MEDS: ACETAMINOPHEN 325 MG TABLET 650 MG PO (08:44)
[2024-11-26] MEDS: FERROUS SULFATE 325 MG TABLET PO (08:44)
[2024-11-26] MEDS: METOPROLOL TARTRATE 25 MG TABLET PO (08:44)
[2024-11-26] MEDS: KETOROLAC TROMETHAMINE 30 MG/ML VIAL 15 MG IVP (08:44)
[2024-11-26] MEDS: QUETIAPINE FUMARATE 100 MG TABLET PO (08:44)
[2024-11-26] MEDS: GABAPENTIN 300 MG CAPSULE PO (08:44)
--- NOTE | 2024-11-26 09:05 | SWNOTE1 ---
SW received an email from Donna at [facility] and pt is approved to go today, approval is good thru 12/09. SW sent message to Case Management.
--- NOTE | 2024-11-26 09:18 | CM.NOTE ---
Rounded with . Patient will be discharged today to [facility].
--- NOTE | 2024-11-26 10:26 | P.DS_ITS ---
DS: Providers Provider Date of admission: 11/18/24 08:23 Primary care physician: Non-Staff Physician, Consults: 11/17/24 09:52 Consult to Wound Care Routine Consulting Provider: Ralph Larson Reason for consultation: Wound care 11/18/24 Occupational Therapy Eval and Treat Routine Reason for consultation: weakness Physical Therapy Eval and Treat Routine Reason for consultation: weakness DS: Diagnosis Discharge Diagnosis (1) Cellulitis, leg: (2) Hypokalemia: (3) Sepsis: Plan As listed above, below and others that are not listed DS: Summary Hospital Course Hospital Course: Mr. Joe is a 59-year-old gentleman who came in with left leg pain, swelling and redness and was found to have the following: Extensive left leg cellulitis as described in the exam section. Noticeable improvement over the last 5 days in terms of erythema and induration as well as seeping Sepsis present on admission. High elevation of CRP at 28 white count is trending down. CRP is trending down as well. Initial CRP was 28 and now down to 6. Sed rate is down from > 130 down to 81 When I asked patient this morning 11/24 about however feels regarding the left leg cellulitis. He responded by saying nights and days difference Patient signed AMA on 917 and returned back on 11/16. Patient now admitted that he has had large ulceration on his left leg requiring debridement several years ago. He showed me a picture of his leg on his phone from 2019 where patient had diffuse erythema, induration and tenderness in the left leg from the knee down to the ankle. Now patient admitted that he has been battling recurrent infection in the left leg over the last several weeks-months wrapping it himself at home with old gauze and and rags and spraying his leg wit h bug spray. He did not seek medical help for several weeks up until he showed up in the emergency room on 11/13 and signed AMA. I requested CAT scan of the leg rule out deep tissue abscess, myositis or gas. Negative for air, gas or abscess. I started patient on combination of vancomycin and Primaxin. Blood culture was completed on 11/13 which came back negative. Repeat blood culture is negative as well. Wound culture is positive for strep, staph and Acetinobacter staph is methicillin-sensitive. Discontinued Zyvox and Primaxin and switch him to ceftriaxone 2 g daily based on 3 bacteria sensitivity Venous study completed on 11/13 came back negative for DVT Requested arterial study rule out significant aortic disease which is unlikely given the very strong dopplerable pulse Arterial study shows mild to moderate stenosis but no significant plaque appreciation. No significant stenosis. CTA of the leg is negative for arterial stenosis. MRI is negative for abscess or osteomyelitis Patient likely will require prolonged IV antibiotic course. Arrange for skilled care for wound care and IV antibiotic. Patient will be discharged on 2 weeks worth of ceftriaxone 2 g daily. Course would need to be extended or shortened based on the clinical situation. Patient will be arranged to have a follow-up appointment with ID Dr. Swann in 1 to 2 weeks PICC line insertion on 11/16 Monitor WBC, CRP and sed rate Chronic pain for which patient is on Suboxone Anemia, no evidence of acute blood loss. Patient was bleeding from the skin. Start him on iron and folate supplementation Iron study is consistent with a mixed etiology. 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 I recommended blood transfusion. Patient declined to to have blood transfusion few days ago. I will have a conversation with him now that his hemoglobin dropped to 7. I am hoping that he will agree to proceed with transfusion. Patient continued to decline to receive any blood transfusion with a hemoglobin of 7 citing spiritual and episcopalian reason. At this time I would have to respect his wishes. Patient will likely require to have anemia workup to be done in the outpatient setting to be handled by PCP in collaboration with other needed outpatient providers. This may include but not limited to EGD, colonoscopy, referral to see hematology and other needed age-appropriate cancer screening. Hyperkalemia Potassium supplementation. Check magnesium and phosphorus level. Magnesium and phosphorus level are normal. 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 3% sodium repeat sodium level every 6. Patient completed 3% sodium at treatment. Continue sodium chloride tablet. Sodium chloride tablet would need to be adjusted up and down based on his sodium level. The goal is to keep sodium between 130 and 138. Water restriction is recommended. DVT prophylax Back on Lovenox after PICC line was inserted Chronic, subacute medical conditions not listed above, abnormal labs and imaging. These would need to be addressed. Could be addressed later on or in the outpatient setting by PCP collaboration with other needed outpatient providers when time and condition are appropriate. Patient has multiple complex medical issues as listed above and others that are not listed. All appear to be stable. I do not have any clear or strong clinical justification to extend inpatient hospitalization. Patient however will require close and frequent monitoring as well as additional work-up, investigation and therapeutic intervention that could take place from this point on post discharge. That is to prevent relapse, decompensation, rehospitalization and other medical implications.. I instructed patient to ask her primary care doctor to obtain [facility] record entirely to address abnormalities seen on labs and imaging that I have and have not addressed during this hospitalization, follow-up on pending blood work, imaging and pathology is if available and to follow-up on needed medical care in the outpatient setting. Time Spent with Patient Time attestation: Total time spent providing and/or coordinating discharge services: Exam Constitutional Vital Signs, click to edit/add: Last Vital Signs Temp 99.1 F 11/26/24 08:00 Pulse 88 11/26/24 08:00 Resp 18 11/26/24 08:00 BP 154/73 H 11/26/24 08:00 Pulse Ox 91 L 11/26/24 08:00 O2 Del Method Room Air 11/26/24 08:00 O2 Flow Rate 2 11/19/24 11:59 DS: Data Data Completed and Pending Labs on day of discharge: Labs from last 24 hours 11/26/24 05:49 WBC 4.8 RBC 2.34 L Hgb 7.0 L Hct 21.5 L* MCV 91.9 MCH 29.9 MCHC 32.6 RDW 16.6 H Plt Count 182 MPV 8.7 L Discharge Plan Discharge Disposition: Xfer SNF Condition: Good Discharge Medications: New acetaminophen [Tylenol] 325 mg Tablet 650 mg PO Q4H PRN (Reason: Pain or fever) Qty: 0 0RF ceftriaxone 2 gram recon soln 2 g IV DAILY 16 Days Rx Instructions: Extend treatment course if needed. Shorten treatment course if wound healing is satisfactory sennosides-docusate sodium 8.6-50 mg Tablet 2 tab PO QD Qty: 0 0RF ferrous sulfate 325 mg (65 mg iron) Tablet 325 mg PO BID Qty: 0 0RF gabapentin 300 mg Capsule 300 mg PO BID Qty: 0 0RF metoprolol tartrate 25 mg Tablet 25 mg PO BID Qty: 0 0RF sodium chloride 1,000 mg Tablet,Soluble 1,000 mg PO TID Qty: 0 0RF Rx Instructions: Stop this medicine if your sodium level goes above 138 Increase the dose if his sodium level drops below 128 enoxaparin 40 mg/0.4 mL Syringe 40 mg subcut DAILY Qty: 0 0RF folic acid 1 mg tablet 1,000 mcg PO DAILY Qty: 30 0RF Probiotic 3 billion cell capsule 3,000 mmu cells PO DAILY Qty: 30 0RF Rx Instructions: administer with a meal Continued quetiapine [Seroquel] 200 mg tablet 100 mg PO BID buprenorphine HCl 8 mg tablet, sublingual 8 mg SUBLINGUAL BID Rx Instructions: PT STATES HE TAKES 1 TABLET BID Discontinued gabapentin 300 mg capsule 300 mg PO DAILY PRN (Reason: pain) Rx Instructions: PT STATES HE ONLY TAKES SOMETIMES WHEN NEEDED Print Language: Irish Activity Restrictions/Additional Instructions: I may not have addressed or treated all of your medical illnesses or the abnormal blood work or imaging studies during this hospitalization. Please ask your primary care provider to obtain [facility] records entirely to follow up on all of the abnormal physical, laboratory, and imaging findings that I have not addressed. Please return back to the emergency room or seek medical attention if your symptoms worsen or return. For custodial provider Please request wound care consult for wound care Intravenous ceftriaxone 2 g daily for 2 weeks. Extend or shorten treatment course based on clinical presentation. Please order BMP every Monday and to monitor sodium level. Please titrate sodium chloride tablet to keep sodium level between 130 and 138 Please order CRP weekly Please order CBC every Monday and to monitor his hemoglobin level. Thus far, patient declined to have transfusion with a hemoglobin of 7 for spiritual and episcopalian reason. Please arrange for transportation for patient to follow-up with infectious disease Dr. Swann at [facility] as scheduled. Discharging you from [facility] does not mean that your medical care ends here and now. You may still need additional monitoring, work up, investigation, and treatment plan to be handled from this point on by out patient providers including your primary care provider and specialists. For any medication question, please contact your retail pharmacist or your primary care provider. Thank you. Forms: Portal Instructions Follow Up Appointments: New patient appointment with Dr. Palafox on December 11 at 2:00pm. Please arrive 15 minutes early, bring ID and insurance card Address: [facility] [facility]
--- NOTE | 2024-11-26 11:34 | SWNOTE1 ---
Pt is medically stable for discharge today. JACQUIE called and set up [facility] for 12:30. JACQUIE notified pt's nurse, Sade at [facility], and pt's sister of time. Pt's sister would like to know room number. JACQUIE reached out to Donna at [facility] for room number. JACQUIE faxed dc med rec and dc summary to Sade. JACQUIE had already completed [facility]. Pt is going skilled to [facility] skilled. Donna did email back the room number and JACQUIE texted the sister, per her request. Pt is sharing a room at this time and JACQUIE will notify pt and sister of this.
--- NOTE | 2024-11-26 12:37 | PC.NURSE ---
report given to enrrique at [facility], all questions answered
== END 2024-11-26 12:26 | DRG 720 ==
LOC: ER 23:18 → MS 11-17 03:49
PROVIDERS: Physician Assistant; Admitting Provider Internal Medicine; Emergency Provider Student in an Organized Health Care Education/Training Program; Visit Provider Internal Medicine
DX: A41.9 Sepsis, unspecified organism (principal); L03.116 Cellulitis of left lower limb; E87.6 Hypokalemia; G89.29 Other chronic pain; E66.01 Morbid (severe) obesity due to excess calories; R79.82 Elevated C-reactive protein (CRP); L97.828 Non-pressure chronic ulcer of other part of left lower leg with other specified severity; E61.1 Iron deficiency; E53.8 Deficiency of other specified B group vitamins; D63.8 Anemia in other chronic diseases classified elsewhere; E22.2 Syndrome of inappropriate secretion of antidiuretic hormone; Z68.32 Body mass index [BMI] 32.0-32.9, adult; B95.62 Methicillin resistant Staphylococcus aureus infection as the cause of diseases classified elsewhere; B95.4 Other streptococcus as the cause of diseases classified elsewhere; F11.20 Opioid dependence, uncomplicated; B96.89 Other specified bacterial agents as the cause of diseases classified elsewhere
CPT/HCPCS: 36415; 36569; 36592; 73701; 73706; 73718; 73721; 80048; 80053; 80202; 82607; 82728; 82746; 83540; 83550; 83605; 83735; 84100; 85007; 85018; 85025; 85027; 85652; 86140; 86850; 86900; 86901; 86923; 87040; 87070; 87075; 87077; 87186; 93926; 96365; 96366; 96368; 96372; 96375; 97110; 97161; 97165; 97530; 97535; 99284; G0378; J0571; J0574; J0696; J0743; J1650; J1885; J1938; J2020; J3373; J7131; P9046; Q9967

== ENCOUNTER 2024-12-28 16:40 | Emergency (ER) | payer OTHER, SELFPAY ==
[2024-12-28 16:45] VITALS: BP 104/81; PULSE 112; TEMP 37.1; O2SAT 100; BMI 29.8
--- OUTSIDE RECORDS SUMMARY | 2024-12-28 16:46 | XMS_ITS | CCD ---
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 Cristina Shelton #3.4 103/ulNormal1.4-6.5The [facility] Hospital For RehabilitationComment on above:Performed By: #### CBC #### [facility] Laboratory [address] [place] [address] Dr. Yilan ChangNeutrophils/100 WBC (Bld)61.6 %Yyiism12.0-75.0The [facility] Hospital For RehabilitationComment on above:Performed By: #### CBC #### [facility] Laboratory [address] [place] [address] Dr. Cristina Castellanos mean volume (Bld) [Entitic vol]9.9 fLNormal9.5-13.5The [facility] Hospital For RehabilitationComment on above:Performed By: #### CBC #### [facility] Laboratory [address] [place] [address] Dr. Cristina NinoPLT87 103/ulCritically puq825-551Ggt [facility] For RehabilitationComment on above:Performed By: #### CBC #### [facility] Laboratory [address] [place] [address] Dr. Cristina NnioRBC3.82 106/ulCritically low4.70-6.10The [facility] Hospital For RehabilitationComment on above:Performed By: #### CBC #### [facility] Laboratory [address] [place] [address] Dr. Cristina NinoWBC5.5 103/ulNormal4.0-11.0The [facility] Hospital For RehabilitationComment on above: Performed By: #### CBC #### [facility] Laboratory [address] [place] [address] Dr. Cristina NinoCT ABD/PELVIS WO CONon [id number] ABD/PELVIS WO CONEXAMINATION: CT ABD/PELVIS WO CON, 09/08/2021 4:19 PM [...] Electronically authenticated by: ANDREA NG Date: 2021-09-08 18:20NormalThe [facility] URINE PROFILEon [id number] Ql (U)NegativeNormal NEGATIVEThe Children'S Hospital For RehabilitationComment on above:Performed By: #### ERUR #### [facility] Laboratory [address] [place] [address] Dr. Cristina Parson (U)CLEARNormalCLEARLima City HospitalComment on above: Performed By: #### ERUR #### [facility] Laboratory [address] [place] [address] Dr. Cristina Ponce (U)YELLOWNormalYELLOWLima City HospitalComment on above: Performed By: #### ERUR #### [facility] Laboratory [address] [place] [address] Dr. Cristina Silverman micrscopic examination will be performed if indicated. NormalLicking Memorial Hospital HospitalComment on above:Performed By: #### ERUR #### [facility] Laboratory [address] [place] [address] Dr. Cristina NinoGlucose Ql (U)NegativeNormalNEGATIVELima City HospitalComment on above:Performed By: #### ERUR #### [facility] Laboratory [address] [place] [address] Dr. Cristina NinoHemoglobin Ql (U)NegativeNormalNEGATIVEKettering Health Troy on above:Performed By: #### ERUR #### [facility] Laboratory [address] [place] [address] Dr. Cristina NinoKetones Ql (U)NegativeNormalNEGATIVELima City HospitalComment on above:Performed By: #### ERUR #### [facility] Laboratory [address] [place] [address] Dr. Cristina NinoLEUKOCYTESNegativeNormalNEGATIVELima City HospitalComment on above:Performed By: #### ERUR #### [facility] Laboratory [address] [place] [address] Dr. Cristina NinoNitrite Ql (U)NegativeNormalNEGATIVELima City HospitalComment on above:Performed By: #### ERUR #### [facility] Laboratory [address] [place] [address] Dr. Cristina NinopH (U)6.0 [pH]Normal5-9L[facility] City HospitalComment on above: Performed By: #### ERUR #### [facility] Laboratory [address] [place] [address] Dr. Cristina Wolff GRAVITY1.585Szbcuu8.005-<=1.025The [facility]S Hospital For RehabilitationComment on above:Performed By: #### ERUR #### [facility] Laboratory [address] [place] [address] Dr. Cristina Grace PROTEINNegativeNormalNEGATIVE/ TRACEThe [facility] Comment on above:Performed By: #### ERUR #### [facility] Laboratory [address] [place] [address] Dr. Cristina Chen MICRO INDNOT INDICATEDNormalThe [facility]S Hospital For RehabilitationComment on above:Performed By: #### ERUR #### [facility] Laboratory [address] [place] [address] Dr. Cristina Oatesbilinogen Qn (U)0.2 {Renee'U}/dLNormal0.2 - 1.0The [facility] Hospital For RehabilitationComment on above:Performed By: #### ERUR #### [facility] Laboratory [address] [place] [address] Dr. Cristina Amaya CHEM 8 (BAS METB)on 69-96-2063Hriag gap [Moles/Vol]15.0 mmol/LNormalLima City HospitalComment on above:Performed By: #### BMP #### [facility] Laboratory [address] [place] [address] Dr. Cristina NinoCalcium [Mass/Vol]8.8 mg/dLNormal8.5-10.1[facility] Comment on above:Performed By: #### BMP #### [facility] Laboratory [address] [place] [address] Dr. Cristina NinoChloride [Moles/Vol]99 mmol/WBlkfke54-292EmsLima City Hospital Comment on above:Performed By: #### BMP #### [facility] Laboratory [address] [place] [address] Dr. Cristina NinoCO2 [Moles/Vol]23.9 mmol/RKgorzl02.0-32.0[facility] Comment on above:Performed By: #### BMP #### [facility] Laboratory [address] [place] [address] Dr. Cristina NinoCreatinine [Mass/Vol]1.04 mg/dLNormal0.70-1.30The [facility] Hospital For RehabilitationComment on above:Performed By: #### BMP #### [facility] Laboratory [address] [place] [address] Dr. Cristina GarveyGFR-AF GREEK>60Normal>=60The [facility] Hospital For RehabilitationComment on above:Performed By: #### BMP #### [facility] Laboratory [address] [address] [address] Cristina GarveyGFR-NON AF GREEK>60Normal>=60The [facility] Hospital For RehabilitationComment on above:Performed By: #### BMP #### [facility] Laboratory [address] [place] [address] Dr. Cristina NinoGlucose [Mass/Vol]122 mg/dLCritically kwtb62-909Qdx [facility] For RehabilitationComment on above:Performed By: #### BMP #### [facility] Laboratory [address] [place] [address] Dr. Cristina NinoPotassium [Moles/Vol]4.9 mmol/LNormal3.5-5.1The [facility] Comment on above:Performed By: #### BMP #### [facility] Laboratory [address] [place] [address] Dr. Cristina NinoSodium [Moles/Vol]133 mmol/LCritically gsl066-759Xdp [facility] For RehabilitationComment on above:Performed By: #### BMP #### [facility] Laboratory [address] [place] [address] Dr. Cristina NinoUrea nitrogen [Mass/Vol]11.0 mg/dLNormal7.0-18.0The [facility] Hospital For RehabilitationComment on above:Performed By: #### BMP #### [facility] Laboratory [address] [place] [address] Dr. Cristina Nickerson nitrogen/Creatinine [Mass ratio]10.6 mg/mgNormalThe [facility] Hospital For RehabilitationComment on above:Performed By: #### BMP #### [facility] Laboratory [address] [place] [address] Dr. Cristina NinoCBC AUTO DIFFon [id number] #0.0 103/ulNormal0.0-0.1The [facility] Hospital For RehabilitationComment on above:Performed By: #### CBC ####[facility] [address] [place] [address] KarenBasophils/100 WBC (Bld)0.5 %Normal0.2-2.0The [facility] Hospital For RehabilitationComment on above:Performed By: #### CBC ####[facility] [address] [place] [address] KarenEO #0.1 103/ulNormal0.0-0.7The [facility] Hospital For RehabilitationComment on above:Performed By: #### CBC ####[facility] [address] [place] [address] KarenEosinophils/100 WBC (Bld)1.3 %Normal 0.9-7.0The [facility] Hospital For RehabilitationComment on above:Performed By: #### CBC ####[facility] [address] [place] [address] Mary Erythrocyte distribution width (RBC) [Ratio]15.9 %Critically high11.0-15.0The [facility] Hospital For RehabilitationComment on above:Performed By: #### CBC ####[facility] [address] [place] [address] KarenHematocrit (Bld) [Volume fraction]36.7 %Critically low42.0-54.0The [facility] Hospital For RehabilitationComment on above:Performed By: #### CBC ####[facility] [address] [place] [address] KarenHemoglobin (Bld) [Mass/Vol]12.1 g/dL Critically low14.0-18.0The [facility] Hospital For RehabilitationComment on above:Performed By: #### CBC ####[facility] [address] [place] [address] KarenIG #0.03 10e3/ulNormal0.00-0.03The [facility] Hospital For RehabilitationComment on above:Performed By: #### CBC ####[facility] [address] KarenIG %0.5 %Normal0.0-0.5The [facility] Hospital For RehabilitationComment on above:Performed By: #### CBC ####[facility] [address] [place] [address] KarenLYMPH #1.9 103/ul Normal1.2-3.8The [facility]S Hospital For RehabilitationComment on above:Performed By: #### CBC ####[facility] [address] KarenLymphocytes/100 WBC (Bld)31.9 %Sstlxo15.5-60.0The [facility] Hospital For RehabilitationComment on above:Performed By: #### CBC ####[facility] [address] [place] [address] KarenMANUAL DIFF REQNONormalThe [facility]S Hospital For RehabilitationComment on above:Performed By: #### CBC ####[facility] [address] [place] [address] KarenH (RBC) [Entitic mass]31.5 ygZlyzhu96.9-34.0The [facility] Hospital For RehabilitationComment on above: Performed By: #### CBC ####[facility] [address] [place] [address] KarenMCHC (RBC) [Mass/Vol]33.0 g/dLNormal 29.9-35.2The [facility] Hospital For RehabilitationComment on above:Performed By: #### CBC ####[facility] [address] [place] [address] KarenV (RBC) [Entitic vol]95.6 fLCritically high80.0-94.0The [facility] Comment on above:Performed By: #### CBC ####[facility] [address] [place] [address] KarenMONO #0.4 103/ulNormal0.3-0.8The [facility] Hospital For RehabilitationComment on above:Performed By: #### CBC ####[facility] [address] [place], [place] [address]Qnxtvv KarenMonocytes/100 WBC (Bld)7.1 %Normal1.7-12.0The [facility] Hospital For RehabilitationComment on above:Performed By: #### CBC ####[facility] [address] [place], [place] [address]Hncrka KarenNEUT #3.6 103/ulNormal1.4-6.5The [facility] Hospital For RehabilitationComment on above:Performed By: #### CBC ####[facility] [address] [place], [place] [address]Xzdvqg KarenNeutrophils/100 WBC (Bld)58.7 %Normal 43.0-75.0The [facility] Hospital For RehabilitationComment on above:Performed By: #### CBC ####[facility] [address] [place], [place] [address]Ibnrht KarenPlatelet mean volume (Bld) [Entitic vol]9.1 fLCritically low9.5-13.5The [facility] Hospital For RehabilitationComment on above:Performed By: #### CBC ####[facility] [address] [address]Gerken XwsmjBMQ922 103/ul Critically xfc922-095Wvu [facility] Hospital For RehabilitationComment on above:Performed By: #### CBC ####[facility] [address] [place], [place] [address]Gerken KarenRBC3.84 106/ulCritically low4.70-6.10The [facility] Comment on above:Performed By: #### CBC ####[facility] [address] [place] [address] KarenWBC6.1 103/ulNormal4.0-11.0The [facility] Hospital For RehabilitationComment on above:Performed By: #### CBC ####[facility] [address] [id number] KarenER URINE PROFILE on 81-21-1106Hwowzhwxh Ql (U)NegativeNormalNEGATIVEThe Children'S Hospital For RehabilitationComment on above:Performed By: #### ERUR #### [facility] Laboratory [address] [place] [address] Bharathi KarenClarity (U)CLEARNormalCLEARLicking Memorial Hospital HospitalComment on above: Performed By: #### ERUR #### [facility] Laboratory [address] [place] [address] Bharathi KarenColor (U)YELLOWNormalYELLOWLima City HospitalComment on above: Performed By: #### ERUR #### [facility] Laboratory [address] [place] [address] Bharathi KarenERUAHDA micrscopic examination will be performed if indicated.Normal The [facility] HospitalComment on above:Performed By: #### ERUR #### [facility] Laboratory [address] [place] [address] Bharathi KarenGlucose Ql (U)NegativeNormalNEGATIVELima City HospitalComment on above:Performed By: #### ERUR #### [facility] Laboratory [address] [place] [address] Bharathi KarenHemoglobin Ql (U)NegativeNormalNEGATIVELima City HospitalComment on above:Performed By: #### ERUR #### [facility] Laboratory [address] [place] [address] Bharathi KarenKetones Ql (U)NegativeNormalNEGATIVELima City HospitalComment on above:Performed By: #### ERUR #### [facility] Laboratory [address] [place] [address] Bharathi KarenLEUKOCYTESNegativeNormalNEGATIVELima City HospitalComment on above:Performed By: #### ERUR #### [facility] Laboratory [address] [place] [address] Bharathi KarenNitrite Ql (U)NegativeNormalNEGATIVELima City HospitalComment on above:Performed By: #### ERUR #### [facility] Laboratory [address] [place] [address] Bharathi KarenpH (U)6.0 [pH]Normal5-9L[facility] HospitalComment on above: Performed By: #### ERUR #### [facility] Laboratory [address] [place] [address] Bharathi BealenSPEC GRAVITY1.550Lwybrm1.005-<=1.025The [facility] Hospital For RehabilitationComment on above:Performed By: #### ERUR #### [facility] Laboratory [address] [place] [address] Bharathi KarenUA PROTEINNegativeNormalNEGATIVE/ TRACEThe Children'S Hospital For RehabilitationComment on above:Performed By: #### ERUR #### [facility] Laboratory [address] [place] [address] Bharathi KarenUR MICRO INDNOT INDICATEDNormalThe [facility] Hospital For RehabilitationComment on above:Performed By: #### ERUR #### [facility] Laboratory [address] [place] [address] Bharathi KarenUrobilinogen Qn (U)0.2 {Renee'U}/dLNormal0.2 - 1.0The [facility] Hospital For RehabilitationComment on above:Performed By: #### ERUR #### [facility] Laboratory [address] [place] [address] Bharathi KarenPROF CHEM 8 (BAS METB)on [id number] gap [Moles/Vol]14.2 mmol/L NormalLima City HospitalComment on above:Performed By: #### BMP #### [facility] Laboratory [address] [place] [address] Bharathi KarenCalcium [Mass/Vol]9.0 mg/dLNormal8.4-10.2[facility] Comment on above:Performed By: #### BMP #### [facility] Laboratory [address] [place] [address] Bharathi KarenChloride [Moles/Vol]100 mmol/JGecxjt99-654Cei [facility] Comment on above:Performed By: #### BMP #### [facility] Laboratory [address] [place] [address] Bharathi KarenCO2 [Moles/Vol]26.0 mmol/AYraytl71.0-30.0[facility] Comment on above:Performed By: #### BMP #### [facility] Laboratory [address] [place] [address] Bharathi KarenCreatinine [Mass/Vol]1.03 mg/dLNormal0.66-1.25The [facility] Comment on above:Performed By: #### BMP #### [facility] Laboratory [address] [place] [address] Bharathi KarenEGFR-AF GREEK>60Normal>=60The [facility] Hospital For RehabilitationComment on above: Performed By: #### BMP #### [facility] Laboratory [address] [place] [address] Bharathi KarenEGFR-NON AF GREEK>60Normal>=60The [facility] Hospital For RehabilitationComment on above:Performed By: #### BMP #### [facility] Laboratory [address] [place] [address] Bharathi KarenGlucose [Mass/Vol]132 mg/dLCritically fjpd54-602XotLima City HospitalComment on above:Performed By: #### BMP #### [facility] Laboratory [address] [place] [address] Bharathi KarenPotassium [Moles/Vol]4.2 mmol/LNormal3.4-5.0[facility] Comment on above:Performed By: #### BMP #### [facility] Laboratory [address] [place] [address] Bharathi KarenSodium [Moles/Vol]136 mmol/LCritically okx653-071OmsLima City HospitalComment on above:Performed By: #### BMP #### [facility] Laboratory [address] [place] [address] Bharathi KarenUrea nitrogen [Mass/Vol]9.0 mg/dLNormal9.0-20.0[facility] Comment on above:Performed By: #### BMP #### [facility] Laboratory [address] [place] [address] Bharathi KarenUrea nitrogen/Creatinine [Mass ratio]8.7 mg/mgNormalThe [facility] Hospital For RehabilitationComment on above:Performed By: #### BMP #### [facility] Laboratory [address] [place] [address] Bharathi KarenCT ABD/PELVIS WO CONon [id number] ABD/PELVIS WO CONEXAMINATION: CT ABD/PELVIS WO CON HISTORY: CALCULUS OF [...] by: VELIA DE LA VEGA Date: 2020-09-19 22:15NormalC[facility] URINE PROFILEon 19-37-6603Blluquimf Ql (U)NegativeNormal NEGATIVEThe Children'S Hospital For RehabilitationComment on above:Performed By: #### ERUR #### [facility] Laboratory [address] [place] [address] Bharathi KarenClarity (U)CLEARNormalCLEARLima City HospitalComment on above: Performed By: #### ERUR #### [facility] Laboratory [address] [place] [address] Bharathi KarenColor (U)YELLOWNormalYELLOWLima City HospitalComment on above: Performed By: #### ERUR #### [facility] Laboratory [address] [place] [address] Bharathi KarenERUAHDA micrscopic examination will be performed if indicated.Normal The [facility] Hospital For RehabilitationComment on above:Performed By: #### ERUR #### [facility] Laboratory [address] [place] [address] Bharathi KarenGlucose Ql (U)NegativeNormalNEGATIVELima City HospitalComment on above:Performed By: #### ERUR #### [facility] Laboratory [address] [place] [address] Bharathi KarenHemoglobin Ql (U)NegativeNormalNEGATIVELima City HospitalComment on above:Performed By: #### ERUR #### [facility] Laboratory [address] [place] [address] Bharathi KarenKetones Ql (U)NegativeNormalNEGATIVELima City HospitalComment on above:Performed By: #### ERUR #### [facility] Laboratory [address] [place] [address] Bharathi KarenLEUKOCYTESNegativeNormalNEGATIVELima City HospitalComascension [facility] on above:Performed By: #### ERUR #### [facility] Laboratory [address] [place] [address] Bharathi KarenNitrite Ql (U)NegativeNormalNEGATIVELima City HospitalComment on above:Performed By: #### ERUR #### [facility] Laboratory [address] [place] [address] Bharathi KarenpH (U)5.5 [pH]Normal5-9[facility] HospitalComment on above: Performed By: #### ERUR #### [facility] Laboratory [address] [place] [address] Bharathi BealenSPEC GRAVITY1.058Fcxgbl7.005-<=1.025The [facility] Hospital For RehabilitationComment on above:Performed By: #### ERUR #### [facility] Laboratory [address] [place] [address] Bharathi KarenUA PROTEINNegativeNormalNEGATIVE/ TRACEThe Children'S Hospital For RehabilitationComment on above:Performed By: #### ERUR #### [facility] Laboratory [address] [place] [address] Bharathi KarenUR MICRO INDNOT INDICATEDNormalThe [facility] Hospital For RehabilitationComment on above:Performed By: #### ERUR #### [facility] Laboratory [address] [place] [address] Bharathi KarenUrobilinogen Qn (U)0.2 {Renee'U}/dLNormal0.2 - 1.0The [facility] For RehabilitationComascension providence ro[facility] hospital on above:Performed By: #### ERUR #### [facility] Laboratory [address] [place] [address] Bharathi KarenCBC AUTO DIFFon [id number] #0.0 103/ulNormal0.0-0.1The [facility] Hospital For RehabilitationComment on above:Performed By: #### CBC #### [facility] Laboratory [address] [place] [address] Bharathi KarenBasophils/100 WBC (Bld)0.5 %Normal0.2-2.0The [facility] Comment on above:Performed By: #### CBC #### [facility] Laboratory [address] [place] [address] Bharathi KarenEO #0.1 103/ulNormal0.0-0.7The [facility] For RehabilitationComascension prov[facility] on above: Performed By: #### CBC #### [facility] Laboratory [address] [place] [address] Bharathi KarenEosinophils/100 WBC (Bld)1.0 %Normal0.9-7.0[facility] Comment on above:Performed By: #### CBC #### [facility] [address] [place] [address] Bharathi KarenErythrocyte distribution width (RBC) [Ratio]15.7 %Critically high 11.0-15.0The [facility] For RehabilitationComment on above:Performed By: #### CBC #### [facility] [address] [place] [address] Bharathi KarenHematocrit (Bld) [Volume fraction]35.3 %Critically low42.0-54.0The [facility] For RehabilitationComment on above:Performed By: #### CBC #### [facility] [address] [place] [address] Bharathi KarenHemoglobin (Bld) [Mass/Vol]11.5 g/dLCritically low14.0-18.0The [facility] For RehabilitationComment on above:Performed By: #### CBC #### [facility] [address] [place] [address] Bharathi KarenIG #0.03 10e3/ulNormal0.00-0.03The [facility] For RehabilitationComment on above:Performed By: #### CBC #### [facility] [address] [place] [address] Bharathi KarenIG %0.4 %Normal0.0-0.5The [facility] For RehabilitationComment on above: Performed By: #### CBC #### [facility] [address] [place] [address] Bharathi KarenLYMPH #2.2 103/ulNormal1.2-3.8The [facility] For RehabilitationComment on above: Performed By: #### CBC #### [facility] [address] [place] [address] Bharathi KarenLymphocytes/100 WBC (Bld)29.6 %Njwnuh31.5-60.0The [facility] Comment on above:Performed By: #### CBC #### [facility] [address] [place] [address] Bharathi KarenMANUAL DIFF REQNONormalThe [facility] Hospital For RehabilitationComment on above: Performed By: #### CBC #### [facility] [address] [place] [address] Bharathi KarenMCH (RBC) [Entitic mass]31.0 mkQohwas44.9-34.0The [facility] Comment on above:Performed By: #### CBC #### [facility] [address] [place], [place] [id number] Bharathi HernandezMARY [facility]MO[facility] (RBC) [Mass/Vol]32.6 g/aISsywdw60.9-35.2[facility] Comment on above:Performed By: #### CBC #### [facility] [address] [place] [address] Bharathi HernandezTULSA [facility] [place] (RBC) [Entitic vol]95.1 fLCritically high80.0-94.0The [facility] For RehabilitationComment on above:Performed By: #### CBC #### [facility] [address] [place] [address] Bharathi HernandezMONO #0.5 103/ulNormal0.3-0.8The [facility] For RehabilitationComment on above: Performed By: #### CBC #### [facility] [address] [place], [place] [id number] Bharathi KarenMonocytes/100 WBC (Bld)6.3 %Normal1.7-12.0The [facility] Comment on above:Performed By: #### CBC #### [facility] [address] [place] [address] Bharathi BealenNEUT #4.6 103/ulNormal1.4-6.5The [facility] For RehabilitationComment on above: Performed By: #### CBC #### [facility] [address] [place] [address] Bharathi KarenNeutrophils/100 WBC (Bld)62.2 %Hjxiqv56.0-75.0The [facility] Comment on above:Performed By: #### CBC #### [facility] [address] [place] [address] Bharathi KarenPlatelet mean volume (Bld) [Entitic vol]9.2 fLCritically low9.5-13.5 The [facility] For RehabilitationComment on above:Performed By: #### CBC #### [facility] [address] [place] [address] Bharathi ZvuaxEFI031 103/ulCritically ckx583-964Fjb [facility] For RehabilitationComment on above:Performed By: #### CBC #### [facility] [address] [place] [address] Bharathi KarenRBC3.71 106/ulCritically low4.70-6.10The [facility] For RehabilitationComment on above:Performed By: #### CBC #### [facility] [address] [place] [address] Bharathi KarenWBC7.4 103/ulNormal4.0-11.0The [facility] For RehabilitationComment on above: Performed By: #### CBC #### [facility] [address] [place] [address] Bharathi KarenPROF 14(COMP METB)on 24-36-5119Tynygdp [Mass/Vol]3.9 g/dLNormal 3.5-5.0The [facility] For RehabilitationComment on above:Performed By: #### CMP #### [facility] [address] [place] [address] Bharathi KarenAlbumin/Globulin [Mass ratio]0.8 {ratio}NormalLima City Hospital Comment on above:Performed By: #### CMP #### [facility] [address] [place] [address] Bharathi KarenALP [Catalytic activity/Vol]81 U/JOjxjzp76-632ZlxLima City Hospital Comment on above:Performed By: #### CMP #### [facility] [address] [place] [address] Bharathi KarenALT [Catalytic activity/Vol]14 U/LCritically oma51-57Mnx [facility] For RehabilitationComment on above:Performed By: #### CMP #### [facility] [address] [place] [address] Bharathi KarenAnion gap [Moles/Vol]13.7 mmol/LNormalThe [facility] Hospital For RehabilitationComment on above:Performed By: #### CMP #### [facility] [address] [place] [address] Bharathi KarenAST [Catalytic activity/Vol]23 U/GEqwdko51-22AqvLima City Hospital Comment on above:Performed By: #### CMP #### [facility] [address] [address] Bharathi KarenBilirubin [Mass/Vol]0.6 mg/dLNormal0.2-1.3TGuernsey Memorial [facility] Comment on above:Performed By: #### CMP #### [facility] [address] [address] Bharathi KarenCalcium [Mass/Vol]8.9 mg/dLNormal8.4-10.2[facility] Comment on above:Performed By: #### CMP #### [facility] [address] [place] [address] Bharathi KarenChloride [Moles/Vol]101 mmol/UAqgwix27-717FeyLima City Hospital Comment on above:Performed By: #### CMP #### [facility] [address] [place] [address] Bharathi KarenCO2 [Moles/Vol]26.4 mmol/NJwscdh94.0-30.0[facility] Comment on above:Performed By: #### CMP #### [facility] [address] [place] [address] Bharathi KarenCreatinine [Mass/Vol]1.02 mg/dLNormal0.66-1.25The [facility] Comment on above:Performed By: #### CMP #### [facility] [address] [place] [address] Bharathi KarenEGFR-AF GREEK>60Normal>=60The [facility] Hospital For RehabilitationComment on above: Performed By: #### CMP #### [facility] [address] [place] [address] Bharathi KarenEGFR-NON AF GREEK>60Normal>=60[facility] HospitalComment on above:Performed By: #### CMP #### [facility] [address] [place] [address] Bharathi KarenGlobulin (S) [Mass/Vol]4.7 g/dLNormalThe [facility] Hospital For RehabilitationComment on above:Performed By: #### CMP #### [facility] [address] [place], [place] [address] Bharathi KarenGlucose [Mass/Vol]119 mg/dLCritically ihte23-383Jou [facility] For RehabilitationComment on above:Performed By: #### CMP #### [facility] [address] [place], [place] [address] Bharathi KarenPotassium [Moles/Vol]4.1 mmol/LNormal3.4-5.0The [facility] Comment on above:Performed By: #### CMP #### [facility] [address] [address] Bharathi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
--- OUTSIDE RECORDS SUMMARY | 2024-12-28 16:47 | XMS_ITS | Clinical Summary ---
Author Organization [facility] Address [address] [place] [address] Care Team Providers Care Evaporator Operator Molasses Name Role Phone Unavailable Primary Care Provider Unavailabl e Social History Tobacco UseTypesPacks/DayYears UsedDateSmoking Tobacco: Never AssessedSex and Gender InformationValueDate RecordedSex Assigned at BirthNot on fileLegal Sex Male05/11/2022 6:40 PM EDTGender IdentityNot on fileSexual OrientationNot on file Last Filed Vital Signs Vital SignReadingTime TakenCommentsBlood Ysqldkao876/8204 12:00 PM EDT Pulse--Temperature--Respiratory Rate--Oxygen Saturation--Inhaled Oxygen Concentration--Cryruw477 kg (331 lb)06/13/2018 12:00 PM RWAUogryl111.9 cm (6') 06/13/2018 12:00 PM EDTBody Mass Index44.8906/13/2018 12:00 PM EDT Plan of Treatment Not on file
--- OUTSIDE RECORDS SUMMARY | 2024-12-28 16:47 | XMS_ITS | Clinical Summary ---
Author Organization [employer] [facility] Address [id number] [place] [address] Care Team Providers Care Call Center Manager Name Role Phone Luis Mason MD Primary Care Provider [phone] Allergies Active AllergyReactionsCriticalityNoted BpfrXyyjxejgFjycvtyjm35/05/2018 Medications MedicationSigDispense QuantityRefillsLast FilledStart DateEnd DateStatus QUEtiapine (SEROquel) 100 mg tablet Take 100 mg by mouth daily.Active QUEtiapine (SEROquel) 100 mg tablet Take 200 mg by mouth nightly.Active Active Problems ProblemNoted DateDiagnosed DateOpen leg wound07/13/2018Ischemic leg07/12/2018 Immunizations No known immunizations Social History Tobacco UseTypesPacks/DayYears UsedDateSmoking Tobacco: Every DaySmokeless Tobacco: NeverChildcareAnswerDate LjfmsjohWxljvhchaDbnewvs26/12/2019Employment AnswerDate JqrfmwieNvszuvmbgdVmiqtzr67/12/2019Purpose - LifeAnswerDate Recorded Purpose and direction in zmzzUsyxvud51/11/2021Sex and Gender InformationValue Date RecordedSex Assigned at BirthNot on fileLegal LqzJwbs4210/02/2014 11:53 AM EDTGender IdentityNot on fileSexual OrientationNot on file Last Filed Vital Signs Vital SignReadingTime TakenCommentsBlood Puiuhchr778/8605 7:04 PM EDT Hqsox1652 7:04 PM GRPKcnjsidcwlp00 ??C (96.8 ??F)07/13/2018 7:04 PM EDT Respiratory Jlpo3756 7:04 PM EDTOxygen Ilubacphsd07%07/13/2018 7:04 PM EDTInhaled Oxygen Concentration--Kbhvim156.7 kg (307 lb 15.7 oz)07/12/2018 7:32 PM RGQFovoml348.9 cm (6')07/12/2018 8:05 PM EDTBody Mass Index41.77007/12/2018 7:32 PM EDT Plan of Treatment Health MaintenanceDue DateLast DoneCommentsStatin Use: Mzkzwehqgrcpxy68/08/1968 Depression Sqjlrxzrx18/08/1980Tobacco Sklxuhxou51/08/1980Adult BMI Screening 11/04/1985DTaP,Tdap and Td Vaccines (1 - Tdap)11/04/1986Zoster (Shingles) Vaccine (1 of 2)11/04/2017Influenza Klljvay5410/28/2024 Goals GoalPatient Goal TypeAssociated ProblemsRecent ProgressPatient-Stated?Author <enter goal here> Roma Arita RN Note: Evaluation of progress towards goal: Home with DAD and [facility] for SN wound care, mental health f/u [facility] Medical Devices Not on file Insurance Advance Directives * Full Code (Latest Code Status on File) Date ActivatedDate InactivatedComments07/12/2018 6:57 PM07/13/2018 10:12 PM Care Teams Team MemberRelationshipSpecialtyStart DateEnd Date Luis Mason MD PCP - GeneralFamily Medicine07/13/18
--- OUTSIDE RECORDS SUMMARY | 2024-12-28 16:47 | XMS_ITS | Clinical Summary ---
Author Organization [facility] Address [address] [place] [address] Care Team Providers Care Sand Bobber Name Role Phone Unavailable Primary Care Provider Unavailabl e Social History Tobacco UseTypesPacks/DayYears UsedDateSmoking Tobacco: Never AssessedSex and Gender InformationValueDate RecordedSex Assigned at BirthNot on fileLegal Sex Male08/25/2021 9:45 PM EDTGender IdentityNot on fileSexual OrientationNot on file Plan of Treatment Health MaintenanceDue DateLast DoneCommentsCT Faigpdoldjlm49/08/1968Colonoscopy 1967Colorectal Cancer Zrbajoaul55/08/1968FIT-DNA1967FIT1967 FOBT1967 6223Moyisjbikieqr40/08/1968Depression Alhrjewrm15/08/1980Hepatitis B Vaccines (1 of 3 - 19+ 3-dose series)11/04/1986Adult Aniromf9611/04/1989Zoster Vaccines (1 of 2)11/04/2017Influenza Vaccine (#1)2024HIB VaccinesAged Out No longer eligible based on patient's age to complete this topicHPV VaccinesAged OutNo longer eligible based on patient's age to complete this topicIPV Vaccines Aged OutNo longer eligible based on patient's age to complete this topic Meningococcal B VaccineAged OutNo longer eligible based on patient's age to complete this topicMeningococcal VaccineAged OutNo longer eligible based on patient's age to complete this topicPneumococcal Vaccine: Pediatrics (0 to 5 Years) and At-Risk Patients (6 to 64 Years)Aged OutNo longer eligible based on patient's age to complete this topicRotavirus VaccinesAged OutNo longer eligible based on patient's age to complete this topic Insurance
--- OUTSIDE RECORDS SUMMARY | 2024-12-28 16:47 | XMS_ITS | Clinical Summary ---
Author Organization [facility] Address [address] [place] [address] Care Team Providers Care Bearing Machine Operator Name Role Phone Unavailable Primary Care Provider Unavailabl e Social History Tobacco UseTypesPacks/DayYears UsedDateSmoking Tobacco: Never AssessedSex and Gender InformationValueDate RecordedSex Assigned at BirthNot on fileLegal Sex Male04/01/2012 3:29 PM ESTGender IdentityNot on fileSexual OrientationNot on file Plan of Treatment Health MaintenanceDue DateLast DoneCommentsHEPATITIS C VIRUS IMPKMRNRT09/08/1968 CXNWQVI32 1967HIV SCREENING DQUZHXHAKC91/08/1983HEP B VACCINE (1 of 3 - 19+ 3-dose series)11/04/1986TDAP (ADULT)11/04/1986LIPID HBWBWTQNY32/08/2008 COLORECTAL CANCER SCREENING CVGPMFHRRV01/08/2013PNEUMOCOCCAL VACCINE SERIES (1 of 1 - PCV)11/04/2017ZOSTER (SHINGLES) VACCINE (1 of 2)11/04/2017PROSTATE CANCER SCREENING CAXPLYPXUM67/08/2023COVID-19 VACCINE (1 - 2024- season)2024 INFLUENZA VACCINE (#1)2024
--- NOTE | 2024-12-28 17:09 | ED.GENADUL1 ---
HPI HPI - General Adult General Chief complaint: Extremity Problem, Nontraumatic Stated complaint: Lower Pain Time Seen by Provider: 12/28/24 17:00 Source: patient Mode of arrival: Wheelchair History of Present Illness HPI narrative: cc - wound check Pt has a slow, poorly healing wound to the left foot and ankle. He was admitted to [facility] for cellulitis and then went to rehab. He is now out of rehab and has been changing the dressings on his own. He ran out of supplies. He has an appointment with Dr Palafox on Jan 13. He did not get referred to [facility] or to wound care. Today he denies any fever, chills, increased pain, drainage from the wounds or any other complaints. He told me this is the best it has looked in a while Related Data Home Medications ?Medication ?Instructions ?Recorded ?Confirmed buprenorphine HCl 8 mg sublingual 16 mg sublingual DAILY 06/25/23 12/28/24 tablet quetiapine 200 mg tablet (Seroquel) 100 mg PO BID 03/14/24 12/28/24 clopidogrel 75 mg tablet 75 mg PO DAILY 12/28/24 12/28/24 Previous Rx's ?Medication ?Instructions ?Recorded cephalexin 500 mg capsule 500 mg PO QID 7 days #28 caps 12/28/24 Allergies Allergy/AdvReac Type Severity Reaction Status Date / Time [facility] Allergy Rash Verified 11/16/24 20:17 Opioid HPI Opioid Management Most Recent Opioid Data: Last Pain Scale 2 11/26/24, 12:00 Last Pain Intensity 3 11/26/24, 08:10 Last ORT Total Score 9 11/17/24, 03:59 Last ORT Risk Category High Risk 11/17/24, 03:59 [facility] Medical History (Updated 12/28/24 @ 17:07 by Roger Knapp) PVD (peripheral vascular disease) ?I73.9 - Peripheral vascular disease, unspecified (ICD-10) Edema ?R60.9 - Edema, unspecified (ICD-10) Social History (Updated 11/24/24 @ 04:48 by Lindy Cook RN) Non-prescribed substance use: former substance user Highest level of school completed/degree received: high school graduate Little interest or pleasure in doing things: not at all Feeling down, depressed, or hopeless: not at all Exam Narrative Exam Narrative: Nurses notes and vital signs reviewed and patient is not hypoxic. afebrile General: Well-appearing and in no apparent distress. Skin: Warm, dry, no pallor noted. Cardiovascular: Regular Rate and Rhythm without murmur, gallop or rub. Respiratory: No accessory muscle use or respiratory distress. Lungs are clear to auscultation, no wheezing, rales or rhonchi Musculoskeletal: Left foot and ankle with multiple poorly healing wounds. There is sign of poor peripheral vascular disease in both lower legs. The left is slightly swollen compared to the right. He told me this is chronic. There is no drainage from the numerous wounds noted on the left ankle and foot. The tissue is pink and there is no foul-smelling drainage or black or discolored tissue. At the left knee, left ankle and toes of the left foot he has normal ROM, no calf or popliteal tenderness, no lower extremity edema. Neurological: A&O x4. No cranial nerve dysfunction observed. No truncal ataxia. Moves all extremities. Sensation intact. Psychiatric: Cooperative and interactive. Normal mood and affect. Constitutional Vital Signs, click to edit/add: Last Vital Signs Temp 98.8 F 12/28/24 16:45 Pulse 112 H 12/28/24 16:45 Resp 20 12/28/24 16:45 BP 104/81 12/28/24 16:45 Pulse Ox 100 12/28/24 16:45 O2 Del Method Room Air 12/28/24 16:45 Course Vital Signs Vital signs: Vital Signs Temperature 98.8 F 12/28/24 16:45 Pulse Rate 112 H 12/28/24 16:45 Respiratory Rate 20 12/28/24 16:45 Blood Pressure 104/81 12/28/24 16:45 Pulse Oximetry 100 12/28/24 16:45 Oxygen Delivery Method Room Air 12/28/24 16:45 Temperature 98.8 F 12/28/24 16:45 Pulse Rate 112 H 12/28/24 16:45 Respiratory Rate 20 12/28/24 16:45 Blood Pressure 104/81 12/28/24 16:45 Pulse Oximetry 100 12/28/24 16:45 Oxygen Delivery Method Room Air 12/28/24 16:45 Medical Decision Making MDM Narrative Medical decision making narrative: I evaluated the patient's left ankle and foot. He has poorly healing wounds but I do not see sign of acute infection. I think it would be beneficial for him to continue to receive some prophylactic antibiotics however, due to the complexity of the foot and ankle itself and the number of open wounds. He appears to be doing a very good job taking care of this at home as he had properly applied the Xeroform as well as ABD pads and Kerlix. He is out of the supplies so after we wrapped the foot in the same manner in which he had been wrapping it, he will be given supplies to help him through the weekend into next week. I would like him to call Dr. Iglesias's office for follow-up as he can then make arrangements for regular wound care evaluation here at the hospital. He will keep his appoint with Dr. Palafox on January 13. Reasons to return to the ED were discussed including fever, drainage from the wounds, pain in the foot or in the left lower extremity. Discharge Plan Discharge Chief Complaint: Extremity Problem, Nontraumatic Clinical Impression: Encounter for wound re-check, Cellulitis of foot Patient Disposition: Home, Self-Care Time of Disposition Decision: 17:07 Prescriptions / Home Meds: New cephalexin 500 mg capsule 500 mg PO QID 7 Days Qty: 28 0RF No Action quetiapine [Seroquel] 200 mg tablet 100 mg PO BID clopidogrel 75 mg tablet 75 mg PO DAILY buprenorphine HCl 8 mg tablet, sublingual 16 mg SUBLINGUAL DAILY Rx Instructions: PT STATES HE TAKES 1 TABLET BID Print Language: Portuguese Instructions: Wound Healing and Your Diet (ED), Chronic Wounds (ED) Referrals: Physician,Non-Staff, [Primary Care Provider] - 1 week Luis Iglesias DPM [Physician, Podiatry] - 1 week
== END 2024-12-28 17:52 | disposition home or self-care (01) ==
PROVIDERS: Emergency Provider Emergency Medicine
DX: Z48.00 Encounter for change or removal of nonsurgical wound dressing (principal); L03.116 Cellulitis of left lower limb; I73.9 Peripheral vascular disease, unspecified
CPT/HCPCS: 99283

== ENCOUNTER 2025-01-01 15:06 | Outpatient (OUT) | payer OTHER, SELFPAY ==
--- OUTSIDE RECORDS SUMMARY | 2025-01-01 15:09 | XMS_ITS | Clinical Summary ---
Author Organization [facility] Address [address] [place] [address] Care Team Providers Care Construction Pit Worker Name Role Phone Unavailable Primary Care Provider Unavailabl e Social History Tobacco UseTypesPacks/DayYears UsedDateSmoking Tobacco: Never AssessedSex and Gender InformationValueDate RecordedSex Assigned at BirthNot on fileLegal Sex Male05/11/2022 6:40 PM EDTGender IdentityNot on fileSexual OrientationNot on file Last Filed Vital Signs Vital SignReadingTime TakenCommentsBlood Yglgbzyq623/8204 12:00 PM EDT Pulse--Temperature--Respiratory Rate--Oxygen Saturation--Inhaled Oxygen Concentration--Ofsbdz427 kg (331 lb)06/13/2018 12:00 PM APIMsnedb877.9 cm (6') 06/13/2018 12:00 PM EDTBody Mass Index44.8906/13/2018 12:00 PM EDT Plan of Treatment Not on file
--- OUTSIDE RECORDS SUMMARY | 2025-01-01 15:09 | XMS_ITS | Clinical Summary ---
Author Organization [facility] Address [address] [place] [address] Care Team Providers Care Sub Plant Manager Name Role Phone Unavailable Primary Care Provider Unavailabl e Social History Tobacco UseTypesPacks/DayYears UsedDateSmoking Tobacco: Never AssessedSex and Gender InformationValueDate RecordedSex Assigned at BirthNot on fileLegal Sex Male04/01/2012 3:29 PM ESTGender IdentityNot on fileSexual OrientationNot on file Plan of Treatment Health MaintenanceDue DateLast DoneCommentsHEPATITIS C VIRUS ZSRFUEKVY06/08/1968 JMAYVQX89 1967HIV SCREENING FTQRPGYKSS93/08/1983HEP B VACCINE (1 of 3 - 19+ 3-dose series)11/04/1986TDAP (ADULT)11/04/1986LIPID CYOZTNVFR38/08/2008 COLORECTAL CANCER SCREENING FJSMCMXRKJ66/08/2013PNEUMOCOCCAL VACCINE SERIES (1 of 1 - PCV)11/04/2017ZOSTER (SHINGLES) VACCINE (1 of 2)11/04/2017PROSTATE CANCER SCREENING UDGJBVCZIY10/08/2023COVID-19 VACCINE (1 - 2024- season)2024 INFLUENZA VACCINE (#1)2024
--- OUTSIDE RECORDS SUMMARY | 2025-01-01 15:09 | XMS_ITS | Clinical Summary ---
Author Organization [employer] [facility] Address [id number] [place] [address] Care Team Providers Care Dialysis Patient Care Technician Name Role Phone Luis Mason MD Primary Care Provider [phone] Allergies Active AllergyReactionsCriticalityNoted VkvoJarhrknkJilyhdmxo71/05/2018 Medications MedicationSigDispense QuantityRefillsLast FilledStart DateEnd DateStatus QUEtiapine (SEROquel) 100 mg tablet Take 100 mg by mouth daily.Active QUEtiapine (SEROquel) 100 mg tablet Take 200 mg by mouth nightly.Active Active Problems ProblemNoted DateDiagnosed DateOpen leg wound07/13/2018Ischemic leg07/12/2018 Immunizations No known immunizations Social History Tobacco UseTypesPacks/DayYears UsedDateSmoking Tobacco: Every DaySmokeless Tobacco: NeverChildcareAnswerDate EuqzeyygUiguqtzxzQuqjyry40/12/2019Employment AnswerDate XjgudwoqYypzxpwlogUzspvvj45/12/2019Purpose - LifeAnswerDate Recorded Purpose and direction in dzwnQjxhvwx22/11/2021Sex and Gender InformationValue Date RecordedSex Assigned at BirthNot on fileLegal VvoJtxv6110/02/2014 11:53 AM EDTGender IdentityNot on fileSexual OrientationNot on file Last Filed Vital Signs Vital SignReadingTime TakenCommentsBlood Jfrrssia545/8605 7:04 PM EDT Hcnzk8964 7:04 PM UVVDmgpaidxqso22 ??C (96.8 ??F)07/13/2018 7:04 PM EDT Respiratory Spdt4555 7:04 PM EDTOxygen Ldjrunkfcr24%07/13/2018 7:04 PM EDTInhaled Oxygen Concentration--Xofpcz424.7 kg (307 lb 15.7 oz)07/12/2018 7:32 PM GOFOepjgc487.9 cm (6')07/12/2018 8:05 PM EDTBody Mass Index41.77007/12/2018 7:32 PM EDT Plan of Treatment Health MaintenanceDue DateLast DoneCommentsStatin Use: Daxltjqxgdylgd93/08/1968 Depression Nnszneyqx94/08/1980Tobacco Tzrfnxerw22/08/1980Adult BMI Screening 11/04/1985DTaP,Tdap and Td Vaccines (1 - Tdap)11/04/1986Zoster (Shingles) Vaccine (1 of 2)11/04/2017Influenza Rfxfqox9810/28/2024 Goals GoalPatient Goal TypeAssociated ProblemsRecent ProgressPatient-Stated?Author <enter goal here> Roma Arita RN Note: Evaluation of progress towards goal: Home with DAD and [facility] for SN wound care, mental health f/u [facility] Medical Devices Not on file Insurance Advance Directives * Full Code (Latest Code Status on File) Date ActivatedDate InactivatedComments07/12/2018 6:57 PM07/13/2018 10:12 PM Care Teams Team MemberRelationshipSpecialtyStart DateEnd Date Luis Mason MD PCP - GeneralFamily Medicine07/13/18
--- OUTSIDE RECORDS SUMMARY | 2025-01-01 15:09 | XMS_ITS | Clinical Summary ---
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 Name Role Phone Unavailable Primary Care Provider Unavailabl e Social History Tobacco UseTypesPacks/DayYears UsedDateSmoking Tobacco: Never AssessedSex and Gender InformationValueDate RecordedSex Assigned at BirthNot on fileLegal Sex Male08/25/2021 9:45 PM EDTGender IdentityNot on fileSexual OrientationNot on file Plan of Treatment Health MaintenanceDue DateLast DoneCommentsCT Cfsqfvfdfsud15/08/1968Colonoscopy 1967Colorectal Cancer Fqeblakjf73/08/1968FIT-DNA1967FIT1967 FOBT1967 5335Zbhulgghaosnk62/08/1968Depression Spoqbnpkz84/08/1980Hepatitis B Vaccines (1 of 3 - 19+ 3-dose series)11/04/1986Adult Jwwvjlt6111/04/1989Zoster Vaccines (1 of 2)11/04/2017Influenza Vaccine (#1)2024HIB VaccinesAged [...]
--- OUTSIDE RECORDS SUMMARY | 2025-01-01 15:10 | XMS_ITS | CCD ---
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 Performed By: #### CBC #### [facility] [address] [place] [address] Dr. Cristina NinoCT ABD/PELVIS WO CONon [id number] ABD/PELVIS WO CONEXAMINATION: CT ABD/PELVIS WO CON, [...] authenticated by: ANDREA NG Date: 2021-09-08 18:20NormalThe [facility] URINE PROFILEon 60-90-2770Tpbebzwhc Ql (U)NegativeNormal NEGATIVEThe [facility] HamiltonComment on above:Performed By: #### ERUR #### [facility] [address] [place] [address] Dr. Cristina Parson (U)CLEARNormalCLEARPremier HealthComment on above: Performed By: #### ERUR #### [facility] [address] [place] [address] Dr. Cristina Ponce (U)YELLOWNormalYELLOWPremier HealthComment on above: Performed By: #### ERUR #### [facility] [address] [place] [address] Dr. Cristina Silverman micrscopic examination will be performed if indicated. NormalMartin Memorial Hospital HospitalComment on above:Performed By: #### ERUR #### [facility] [address] [place] [address] Dr. Cristina NinoGlucose Ql (U)NegativeNormalNEGATIVEPremier HealthComment on above:Performed By: #### ERUR #### [facility] [address] [place] [address] Dr. Cristina NinoHemoglobin Ql (U)NegativeNormalNEGATIVEPromedica Bay [facility] on above:Performed By: #### ERUR #### [facility] [address] [place] [address] Dr. Cristina NinoKetones Ql (U)NegativeNormalNEGATIVEPremier HealthComment on above:Performed By: #### ERUR #### [facility] [address] [place] [address] Dr. Cristina NinoLEUKOCYTESNegativeNormalNEGATIVEPremier HealthComment on above:Performed By: #### ERUR #### [facility] [address] [place] [address] Dr. Cristina NinoNitrite Ql (U)NegativeNormalNEGATIVEPremier HealthComment on above:Performed By: #### ERUR #### [facility] [address] [place] [address] Dr. Cristina NinopH (U)6.0 [pH]Normal5-9Premier HealthComment on above: Performed By: #### ERUR #### [facility] [address] [place] [address] Dr. Cristina Wolff GRAVITY1.506Lthhbf7.005-<=1.025The [facility] HamiltonComment on above:Performed By: #### ERUR #### [facility] [address] [place] [address] Dr. Cristina Grace PROTEINNegativeNormalNEGATIVE/ TRACEThe [facility] Comment on above:Performed By: #### ERUR #### [facility] [address] [place] [address] Dr. Cristina Chen MICRO INDNOT INDICATEDNormalThe [facility] HamiltonComment on above:Performed By: #### ERUR #### [facility] [address] [place] [address] Dr. Cristina Oatesbilinogen Qn (U)0.2 {Renee'U}/dLNormal0.2 - 1.0The [facility] HamiltonComment on above:Performed By: #### ERUR #### [facility] [address] [place] [address] Dr. Cristina Amaya CHEM 8 (BAS METB)on 72-00-8099Lmsby gap [Moles/Vol]15.0 mmol/LNormalPremier HealthComment on above:Performed By: #### BMP #### [facility] [address] [place] [address] Dr. Cristina NinoCalcium [Mass/Vol]8.8 mg/dLNormal8.5-10.1[facility] Comment on above:Performed By: #### BMP #### [facility] [address] [place] [address] Dr. Cristina NinoChloride [Moles/Vol]99 mmol/NUnmrke23-825EhzPremier Health Comment on above:Performed By: #### BMP #### [facility] [address] [place] [address] Dr. Cristina NinoCO2 [Moles/Vol]23.9 mmol/ZVpevfw44.0-32.0[facility] Comment on above:Performed By: #### BMP #### [facility] [address] [place] [address] Dr. Cristina NinoCreatinine [Mass/Vol]1.04 mg/dLNormal0.70-1.30The [facility] HamiltonComment on above:Performed By: #### BMP #### [facility] [address] [place] [address] Dr. Cristina GarveyGFR-AF OMANI>60Normal>=60The [facility] HamiltonComment on above:Performed By: #### BMP #### [facility] [address] [address] [address] Cristina GarveyGFR-NON AF OMANI>60Normal>=60The [facility] HamiltonComment on above:Performed By: #### BMP #### [facility] [address] [place] [address] Dr. Cristina NinoGlucose [Mass/Vol]122 mg/dLCritically xsuy56-882Xkg [facility] HamiltonComment on above:Performed By: #### BMP #### [facility] [address] [place] [address] Dr. Cristina NinoPotassium [Moles/Vol]4.9 mmol/LNormal3.5-5.1The [facility] Comment on above:Performed By: #### BMP #### [facility] [address] [place] [address] Dr. Cristina NinoSodium [Moles/Vol]133 mmol/LCritically thc570-955Mah [facility] HamiltonComment on above:Performed By: #### BMP #### [facility] [address] [place] [address] Dr. Cristina NinoUrea nitrogen [Mass/Vol]11.0 mg/dLNormal7.0-18.0The [facility] HamiltonComment on above:Performed By: #### BMP #### [facility] [address] [place] [address] Dr. Cristina Nickerson nitrogen/Creatinine [Mass ratio]10.6 mg/mgNormalThe [facility] HamiltonComment on above:Performed By: #### BMP #### [facility] [address] [place] [address] Dr. Cristina NinoCBC AUTO DIFFon [id number] #0.0 103/ulNormal0.0-0.1The [facility] HamiltonComment on above:Performed By: #### CBC ####[facility] [address] [place] [address] KarenBasophils/100 WBC (Bld)0.5 %Normal0.2-2.0The [facility] HamiltonComment on above:Performed By: #### CBC ####[facility] [address] [place] [address] KarenEO #0.1 103/ulNormal0.0-0.7The [facility] HamiltonComment on above:Performed By: #### CBC ####[facility] [address] [place] [address] KarenEosinophils/100 WBC (Bld)1.3 %Normal 0.9-7.0The [facility] HamiltonComment on above:Performed By: #### CBC ####[facility] [address] [place] [address] Mary Erythrocyte distribution width (RBC) [Ratio]15.9 %Critically high11.0-15.0The [facility] HamiltonComment on above:Performed By: #### CBC ####[facility] [address] [place] [address] KarenHematocrit (Bld) [Volume fraction]36.7 %Critically low42.0-54.0The [facility] HamiltonComment on above:Performed By: #### CBC ####[facility] [address] [place] [address] KarenHemoglobin (Bld) [Mass/Vol]12.1 g/dL Critically low14.0-18.0The [facility] HamiltonComment on above:Performed By: #### CBC ####[facility] [address] [place] [address] KarenIG #0.03 10e3/ulNormal0.00-0.03The [facility] HamiltonComment on above:Performed By: #### CBC ####[facility] [address] KarenIG %0.5 %Normal0.0-0.5The [facility] HamiltonComment on above:Performed By: #### CBC ####[facility] [address] [place] [address] KarenLYMPH #1.9 103/ul Normal1.2-3.8The [facility] HamiltonComment on above:Performed By: #### CBC ####[facility] [address] KarenLymphocytes/100 WBC (Bld)31.9 %Whbrdq00.5-60.0The [facility] HamiltonComment on above:Performed By: #### CBC ####[facility] [address] [place] [address] KarenMANUAL DIFF REQNONormalThe [facility] HamiltonComment on above:Performed By: #### CBC ####[facility] [address] [place] [address] KarenH (RBC) [Entitic mass]31.5 obKwtdif14.9-34.0The [facility] HamiltonComment on above: Performed By: #### CBC ####[facility] [address] [place] [address] KarenMCHC (RBC) [Mass/Vol]33.0 g/dLNormal 29.9-35.2The [facility] HamiltonComment on above:Performed By: #### CBC ####[facility] [address] [place] [address] KarenV (RBC) [Entitic vol]95.6 fLCritically high80.0-94.0The [facility] Comment on above:Performed By: #### CBC ####[facility] [address] [place] [address] KarenMONO #0.4 103/ulNormal0.3-0.8The [facility] HamiltonComment on above:Performed By: #### CBC ####[facility] [address] [place], [place] [address]Xqqtev KarenMonocytes/100 WBC (Bld)7.1 %Normal1.7-12.0The [facility] HamiltonComment on above:Performed By: #### CBC ####[facility] [address] [place], [place] [address]Rjhyov KarenNEUT #3.6 103/ulNormal1.4-6.5The [facility] HamiltonComment on above:Performed By: #### CBC ####[facility] [address] [place], [place] [address]Avqctu KarenNeutrophils/100 WBC (Bld)58.7 %Normal 43.0-75.0The [facility] HamiltonComment on above:Performed By: #### CBC ####[facility] [address] [place], [place] [address]Kjadjc KarenPlatelet mean volume (Bld) [Entitic vol]9.1 fLCritically low9.5-13.5The [facility] HamiltonComment on above:Performed By: #### CBC ####[facility] [address] [id number] AxutrMZU332 103/ul Critically mxs963-354Oys [facility] HamiltonComment on above:Performed By: #### CBC ####[facility] [address] [place], [place] [address]Gerken KarenRBC3.84 106/ulCritically low4.70-6.10The [facility] Comment on above:Performed By: #### CBC ####[facility] [address] [place] [address] KarenWBC6.1 103/ulNormal4.0-11.0The [facility] HamiltonComment on above:Performed By: #### CBC ####[facility] [address] [address]Gerken KarenER URINE PROFILE on 36-60-3881Lzgajvxyk Ql (U)NegativeNormalNEGATIVEThe [facility] HamiltonComment on above:Performed By: #### ERUR #### [facility] [address] [place] [address] Bharathi KarenClarity (U)CLEARNormalCLEARMartin Memorial Hospital HospitalComment on above: Performed By: #### ERUR #### [facility] [address] [place] [address] Bharathi KarenColor (U)YELLOWNormalYELLOWPremier HealthComment on above: Performed By: #### ERUR #### [facility] [address] [place] [address] Bharathi KarenERUAHDA micrscopic examination will be performed if indicated.Normal The [facility] HospitalComment on above:Performed By: #### ERUR #### [facility] [address] [place] [address] Bharathi KarenGlucose Ql (U)NegativeNormalNEGATIVEPremier HealthComment on above:Performed By: #### ERUR #### [facility] [address] [place] [address] Bharathi KarenHemoglobin Ql (U)NegativeNormalNEGATIVEPremier HealthComment on above:Performed By: #### ERUR #### [facility] [address] [place] [address] Bharathi KarenKetones Ql (U)NegativeNormalNEGATIVEPremier HealthComment on above:Performed By: #### ERUR #### [facility] [address] [place] [address] Bharathi KarenLEUKOCYTESNegativeNormalNEGATIVEPremier HealthComment on above:Performed By: #### ERUR #### [facility] [address] [place] [address] Bharathi KarenNitrite Ql (U)NegativeNormalNEGATIVEPremier HealthComment on above:Performed By: #### ERUR #### [facility] [address] [place] [address] Bharathi KarenpH (U)6.0 [pH]Normal5-9Premier HealthComment on above: Performed By: #### ERUR #### [facility] [address] [place] [address] Bharathi BealenSPEC GRAVITY1.232Xwwyqr3.005-<=1.025The [facility] HamiltonComment on above:Performed By: #### ERUR #### [facility] [address] [place] [address] Bharathi KarenUA PROTEINNegativeNormalNEGATIVE/ TRACEThe [facility] HamiltonComment on above:Performed By: #### ERUR #### [facility] [address] [place] [address] Bharathi KarenUR MICRO INDNOT INDICATEDNormalThe [facility] HamiltonComment on above:Performed By: #### ERUR #### [facility] [address] [place] [address] Bharathi KarenUrobilinogen Qn (U)0.2 {Renee'U}/dLNormal0.2 - 1.0The [facility] HamiltonComment on above:Performed By: #### ERUR #### [facility] [address] [place] [address] Bharathi KarenPROF CHEM 8 (BAS METB)on 34-96-2862Llkml gap [Moles/Vol]14.2 mmol/L NormalPremier HealthComment on above:Performed By: #### BMP #### [facility] [address] [place] [address] Bharathi KarenCalcium [Mass/Vol]9.0 mg/dLNormal8.4-10.2[facility] Comment on above:Performed By: #### BMP #### [facility] [address] [place] [address] Bharathi KarenChloride [Moles/Vol]100 mmol/GWijieh87-239Bks [facility] Comment on above:Performed By: #### BMP #### [facility] [address] [place] [address] Bharathi KarenCO2 [Moles/Vol]26.0 mmol/TAlzstb32.0-30.0[facility] Comment on above:Performed By: #### BMP #### [facility] [address] [place] [address] Bharathi KarenCreatinine [Mass/Vol]1.03 mg/dLNormal0.66-1.25The [facility] Comment on above:Performed By: #### BMP #### [facility] [address] [place] [address] Bharathi KarenEGFR-AF OMANI>60Normal>=60The [facility] HamiltonComment on above: Performed By: #### BMP #### [facility] [address] [place] [address] Bharathi KarenEGFR-NON AF OMANI>60Normal>=60The [facility] HamiltonComment on above:Performed By: #### BMP #### [facility] [address] [place] [address] Bharathi KarenGlucose [Mass/Vol]132 mg/dLCritically vztf80-496SujPremier HealthComment on above:Performed By: #### BMP #### [facility] [address] [place] [address] Bharathi KarenPotassium [Moles/Vol]4.2 mmol/LNormal3.4-5.0[facility] Comment on above:Performed By: #### BMP #### [facility] [address] [place] [address] Bharathi KarenSodium [Moles/Vol]136 mmol/LCritically mtm027-833BwuPremier HealthComment on above:Performed By: #### BMP #### [facility] [address] [place] [address] Bharathi KarenUrea nitrogen [Mass/Vol]9.0 mg/dLNormal9.0-20.0[facility] Comment on above:Performed By: #### BMP #### [facility] [address] [place] [address] Bharathi KarenUrea nitrogen/Creatinine [Mass ratio]8.7 mg/mgNormalThe [facility] HamiltonComment on above:Performed By: #### BMP #### [facility] [address] [place] [address] Bharathi KarenCT ABD/PELVIS WO CONon [id number] ABD/PELVIS WO CONEXAMINATION: CT ABD/PELVIS WO CON [...] by: VELIA DE LA VEGA Date: 2020-09-19 22:15NormalAd[facility] UR[facility] PROFILEon 23-84-1943Uajniryoi Ql (U)NegativeNormal NEGATIVEThe [facility] HamiltonComment on above:Performed By: #### ERUR #### [facility] [address] [place] [address] Bharathi KarenClarity (U)CLEARNormalCLEARPremier HealthComment on above: Performed By: #### ERUR #### [facility] [address] [place] [address] Bharathi KarenColor (U)YELLOWNormalYELLOWPremier HealthComment on above: Performed By: #### ERUR #### [facility] [address] [place] [address] Bharathi KarenERUAHDA micrscopic examination will be performed if indicated.Normal The [facility] HamiltonComment on above:Performed By: #### ERUR #### [facility] [address] [place] [address] Bharathi KarenGlucose Ql (U)NegativeNormalNEGATIVEPremier HealthComment on above:Performed By: #### ERUR #### [facility] [address] [place] [address] Bharathi KarenHemoglobin Ql (U)NegativeNormalNEGATIVEPremier HealthComment on above:Performed By: #### ERUR #### [facility] [address] [place] [address] Bharathi KarenKetones Ql (U)NegativeNormalNEGATIVEPremier HealthComment on above:Performed By: #### ERUR #### [facility] [address] [place] [address] Bharathi KarenLEUKOCYTESNegativeNormalNEGATIVEPremier HealthComsurgeons choice medical center on above:Performed By: #### ERUR #### [facility] [address] [place] [address] Bharathi KarenNitrite Ql (U)NegativeNormalNEGATIVEPremier HealthComment on above:Performed By: #### ERUR #### [facility] [address] [place] [address] Bharathi KarenpH (U)5.5 [pH]Normal5-9Premier HealthComment on above: Performed By: #### ERUR #### [facility] [address] [place] [address] Bharathi BealenSPEC GRAVITY1.426Dhbakx9.005-<=1.025The [facility] HamiltonComment on above:Performed By: #### ERUR #### [facility] [address] [place] [address] Bharathi KarenUA PROTEINNegativeNormalNEGATIVE/ TRACEThe [facility] HamiltonComment on above:Performed By: #### ERUR #### [facility] [address] [place] [address] Bharathi KarenUR MICRO INDNOT INDICATEDNormalThe [facility] HamiltonComment on above:Performed By: #### ERUR #### [facility] [address] [place] [address] Bharathi KarenUrobilinogen Qn (U)0.2 {Renee'U}/dLNormal0.2 - 1.0The [facility] HamiltonComsurgeons choice [facility] center on above:Performed By: #### ERUR #### [facility] [address] [place] [address] Bharathi KarenCBC AUTO DIFFon [id number] #0.0 103/ulNormal0.0-0.1The [facility] HamiltonComment on above:Performed By: #### CBC #### [facility] [address] [place] [address] Bharathi KarenBasophils/100 WBC (Bld)0.5 %Normal0.2-2.0The [facility] Comment on above:Performed By: #### CBC #### [facility] [address] [place] [address] Bharathi KarenEO #0.1 103/ulNormal0.0-0.7The [facility] HamiltonComsurgeons [facility] center on above: Performed By: #### CBC #### [facility] [address] [place] [address] Bharathi KarenEosinophils/100 WBC (Bld)1.0 %Normal0.9-7.0[facility] Comment on above:Performed By: #### CBC #### [facility] [address] [place] [address] Bharathi KarenErythrocyte distribution width (RBC) [Ratio]15.7 %Critically high 11.0-15.0The [facility] HamiltonComment on above:Performed By: #### CBC #### [facility] [address] [place] [address] Bharathi KarenHematocrit (Bld) [Volume fraction]35.3 %Critically low42.0-54.0The [facility] HamiltonComment on above:Performed By: #### CBC #### [facility] [address] [place] [address] Bharathi KarenHemoglobin (Bld) [Mass/Vol]11.5 g/dLCritically low14.0-18.0The [facility] HamiltonComment on above:Performed By: #### CBC #### [facility] [address] [place] [address] Bharathi KarenIG #0.03 10e3/ulNormal0.00-0.03The [facility] HamiltonComment on above:Performed By: #### CBC #### [facility] [address] [place] [address] Bharathi KarenIG %0.4 %Normal0.0-0.5The [facility] HamiltonComment on above: Performed By: #### CBC #### [facility] [address] [place] [address] Bharathi KarenLYMPH #2.2 103/ulNormal1.2-3.8The [facility] HamiltonComment on above: Performed By: #### CBC #### [facility] [address] [place] [address] Bharathi KarenLymphocytes/100 WBC (Bld)29.6 %Pmbvbl25.5-60.0The [facility] Comment on above:Performed By: #### CBC #### [facility] [address] [place] [address] Bharatih KarenMANUAL DIFF REQNONormalThe [facility] HamiltonComment on above: Performed By: #### CBC #### [facility] [address] [place] [address] Bharathi KarenMCH (RBC) [Entitic mass]31.0 kiHvpehd14.9-34.0The [facility] Comment on above:Performed By: #### CBC #### [facility] [address] [place], [place] [id number] Bharathi HernandezLONG [facility]LAND [facility] (RBC) [Mass/Vol]32.6 g/eFWlibip43.9-35.2[facility] Comment on above:Performed By: #### CBC #### [facility] [address] [place] [address] Bharathi HernandezSA[facility] (RBC) [Entitic vol]95.1 fLCritically high80.0-94.0The [facility] HamiltonComment on above:Performed By: #### CBC #### [facility] [address] [place] [address] Bharathi HernandezMONO #0.5 103/ulNormal0.3-0.8The [facility] HamiltonComment on above: Performed By: #### CBC #### [facility] [address] [place], [place] [address] Bharathi KarenMonocytes/100 WBC (Bld)6.3 %Normal1.7-12.0The [facility] Comment on above:Performed By: #### CBC #### [facility] [address] [place] [address] Bharathi BealenNEUT #4.6 103/ulNormal1.4-6.5The [facility] HamiltonComment on above: Performed By: #### CBC #### [facility] [address] [place] [address] Bharathi KarenNeutrophils/100 WBC (Bld)62.2 %Vpghye47.0-75.0The [facility] Comment on above:Performed By: #### CBC #### [facility] [address] [place] [address] Bharathi KarenPlatelet mean volume (Bld) [Entitic vol]9.2 fLCritically low9.5-13.5 The [facility] HamiltonComment on above:Performed By: #### CBC #### [facility] [address] [place] [address] Bharathi FuywnVSR232 103/ulCritically xng582-244Hgm [facility] HamiltonComment on above:Performed By: #### CBC #### [facility] [address] [place] [address] Bharathi KarenRBC3.71 106/ulCritically low4.70-6.10The [facility] HamiltonComment on above:Performed By: #### CBC #### [facility] [address] [place] [address] Bharathi KarenWBC7.4 103/ulNormal4.0-11.0The [facility] HamiltonComment on above: Performed By: #### CBC #### [facility] [address] [place] [address] Bharathi KarenPROF 14(COMP METB)on 49-94-6079Lhoetrq [Mass/Vol]3.9 g/dLNormal 3.5-5.0The [facility] HamiltonComment on above:Performed By: #### CMP #### [facility] [address] [place] [address] Bharathi KarenAlbumin/Globulin [Mass ratio]0.8 {ratio}NormalPremier Health Comment on above:Performed By: #### CMP #### [facility] [address] [place] [address] Bharathi KarenALP [Catalytic activity/Vol]81 U/GTjerbo89-694FziPremier Health Comment on above:Performed By: #### CMP #### [facility] [address] [place] [address] Bharathi KarenALT [Catalytic activity/Vol]14 U/LCritically kry41-46Eni [facility] HamiltonComment on above:Performed By: #### CMP #### [facility] [address] [place] [address] Bharathi KarenAnion gap [Moles/Vol]13.7 mmol/LNormalThe [facility] HamiltonComment on above:Performed By: #### CMP #### [facility] [address] [place] [address] Bharathi KarenAST [Catalytic activity/Vol]23 U/XTejdua60-36ZbcPremier Health Comment on above:Performed By: #### CMP #### [facility] [address] [address] Bharathi KarenBilirubin [Mass/Vol]0.6 mg/dLNormal0.2-1.3TTrinity Health System [facility] Campus Comment on above:Performed By: #### CMP #### [facility] [address] [address] Bharathi KarenCalcium [Mass/Vol]8.9 mg/dLNormal8.4-10.2[facility] Comment on above:Performed By: #### CMP #### [facility] [address] [place] [address] Bharathi KarenChloride [Moles/Vol]101 mmol/FFqheoi95-955IfsPremier Health Comment on above:Performed By: #### CMP #### [facility] [address] [place] [address] Bharathi KarenCO2 [Moles/Vol]26.4 mmol/VDdhumz59.0-30.0[facility] Comment on above:Performed By: #### CMP #### [facility] [address] [place] [address] Bharathi KarenCreatinine [Mass/Vol]1.02 mg/dLNormal0.66-1.25The [facility] Comment on above:Performed By: #### CMP #### [facility] [address] [place] [address] Bharathi KarenEGFR-AF OMANI>60Normal>=60The [facility] HamiltonComment on above: Performed By: #### CMP #### [facility] [address] [place] [address] Bhraathi KarenEGFR-NON AF OMANI>60Normal>=60Premier HealthComment on above:Performed By: #### CMP #### [facility] [address] [place] [address] Bharathi KarenGlobulin (S) [Mass/Vol]4.7 g/dLNormalThe [facility] HamiltonComment on above:Performed By: #### CMP #### [facility] [address] [place], [place] [address] Bharathi KarenGlucose [Mass/Vol]119 mg/dLCritically ljzi83-506Svc [facility] HamiltonComment on above:Performed By: #### CMP #### [facility] [address] [place], [place] [address] Bharathi KarenPotassium [Moles/Vol]4.1 mmol/LNormal3.4-5.0The [facility] Comment on above:Performed By: #### CMP #### [facility] [address] [address] Bharathi KarenProtein [Mass/Vol]8.6 g/dLCritically high6.1-8.2The [facility] HamiltonComment on above:Performed By: #### CMP #### [facility] [address] [place] [address] Bharathi KarenSodium [Moles/Vol]137 mmol/XLbciye733-672Vvo [facility] Comment on above:Performed By: #### CMP #### [facility] [address] [id number] Bharathi KarenUrea nitrogen [Mass/Vol]7.0 mg/dLCritically low9.0-20.0The [facility] HamiltonComment on above:Performed By: #### CMP #### [facility] [address] [place], [place] [id number] Bharathi KarenUrea nitrogen/Creatinine [Mass ratio]6.9 mg/mgNormalThe [facility] HamiltonComment on above:Performed By: #### CMP #### [facility] [address] [place], [place] [id number] Bharathi KarenCOVID-19 Positive/Negativeon 38-86-1105UKPLI-19 Positive/Negative NegativeNegativePaulding County Hospital CtrComment on above:Testing for SARS-CoV-2 by RT-PCRThis test was developed and its performance characteristics determined by [employer] ([employer]) and validated at the [facility]. This test has not been FDA [...] the authorization is terminated or revoked sooner.Otheron 94-93-8871Oevpquozkkc 2019 PCR Inter/[facility] CtrAmphetamines screenon 04-09-2020 Amphetamines Ql (U)NegativeNegativePaulding County Hospital CtrBarbiturates [Presence] in Urineon 96-47-5872Gxewmxzdhqtl Ql (U)NegativeNegSt. Mary's Medical Center CtrBenzodiazepines [Presence] in Urineon 04-09-2020 Benzodiazepines Ql (U)NegativeNegativePaulding County Hospital CtrCannabinoids [Presence] in Urine by Screen methodon 90-87-3586Gfgakosdysza Screen Ql (U) PositiveNegativePaulding County Hospital CtrComment on above:These are unconfirmed results and should not be used for legal purposes. Drug Cut-Off Concentration: AMPH 1000 ng/mL RD 200 ng/mL JANETTE 200 ng/mL COCM 300 ng/mL OP 300 ng/mL PCP 25 ng/mL THC 20 ng/mLUrinalysison 74-38-8172Cajfkhp Ql (U)Negative NegativePaulding County Hospital CtrUrine cocaine detectionon 04-09-2020 Cocaine Ql (U)NegativeNegativePaulding County Hospital CtrUrine phencyclidine detection by screening methodon 50-48-2536Xezywfzjlyqon Ql (U)NegativeNegative [facility] CtrCOVID-19 Positive/Negativeon 56-18-1545ZAYNB-19 Positive/NegativeNegativeNegSt. Mary's Medical Center CtrComment on above: Testing for SARS-CoV-2 by RT-PCRThis test was developed and its performance characteristics determined by [employer]) and validated at the [facility]. This test has not been FDA [...] or revoked sooner.Otheron 04-06-2020 Coronavirus 2019 PCR [facility] Vital Signs Date TimeVital SignValuePerforming OxaaymrtcHqmgiwxk00-16-8852 23:20-0400Body yatavwkxisx23.4 [degF]ANTWAN Snider Work Phone: [phone] [place], [place] [address]07-02-2024 23:20-0400 Diastolic blood gxlsbcvo74 mm[Hg]ANTWAN Snider Work Phone: 1(924)[address] [place], [place] [address]07-02-2024 23:20-0400 Heart rate70 /minANTWAN Snider Work Phone: 1(461)[address] [place], [place] [address]07-02-2024 23:20-0400 Respiratory rate22 /minAPRAnya Snider Work Phone: 1(480)[address] [place], [place] [address]07-02-2024 23:20-0400 SaO2% (BldA) [Mass fraction]98 %ANTWAN Snider Work Phone: 1([phone])[address] [place], [place] [address]07-02-2024 23:20-0400 Systolic blood mm[Hg]ANTWAN Snider Work Phone: 1(591)[address] [place], [place] [address]07-02-2024 21:59-0400 Body hllkne930.88 cmAPRN Coleen Snider Work Phone: [facility]07-02-2024 21:59-0400 Body elokeg960.93 kgAPRAnya Snider Work Phone: [facility]02-11-2021 13:35-0500 BP Btypmncjg96 mm[Hg][facility]02-11-2021 13:35-0500BP Olaugydb385 mm[Hg][facility] 04-09-2020 13:35-0500Pulse (Heart Rate)67 /minH[facility] Hospital02-11-2021 13:35-0500Pulse Kvwenker80 %[facility]02-11-2021 13:35-0500Respiratory Rate16 /minH[facility] Hospital02-11-2021 12:29-0500Body Jxgdypdzxgx73.1 [degF]Coleen Snider [facility]02-11-2021 11:43-0500BMI (Body Mass Index)40.1 kg/t3ZqjepmwH[facility] Hospital02-11-2021 10:27-0500Body weight 130.6 kgHarrison Community Hospital02-11-2021 10:27-0500Height 180.34 cmSum[facility] Encounters Encounter DateEncounter TypeCare ProviderFacilityStart: 08-29-2023 End: 46-92-0923Cyuxwside department patient visitAPRAnya Snider Work Phone: [facility] Work Phone: Start: 09-08-2021 End: 54-42-7685dztdlfnlfrIB DOCTOR MISCFacility:H4Pmdvo: 10-01-2020 End: 20-77-3418wailqytksvEM DOCTOR MISCFacility:M9Nitmt: 09-19-2020 End: 81-87-0431bsskffntiwRRCLL PARKERFacility:B4Bjjsa: 05-05-2020 End: 94-46-7076Imootwu encounter procedureBeauдмитрий SniderZtmc-Tkc-Pbqqwxra Testing Start: 04-09-2020 End: 09-73-2469Prozmczec to day surgeryColeen Snider-[facility] Start: 04-06-2020 End: 06-44-5814Uxzbuzu encounter procedureColeen AvilaLrab-Arv-Idrxjibr Testing Procedures DateProcedureProcedure DetailPerforming ClinicianStart: 04-09-2020 Phacoemulsification of cataract with intraocular lens implantationFairfax [facility] Plan of Treatment DateCare ActivityDetailAuthorStart: 56-15-1319CF cervical spine without contrast CT cervical spine wo [facility] Hospitaltart: 44-92-2450WK Cervical spine WO [facility] Hospitaltart: 36-04-8965AN of head without contrastCT head/brain [facility] Start: 62-50-3500ST Unspecified body region WO contrastSt. John of God Hospitaltart: 97-03-1208Srzmx chest X-rayXR chest 1V portableSt. John of God Hospitaltart: 81-21-7041DU Chest Single viewWyandot Memorial HospitalPatient EducationLaceration Repair With Oil Trough (DC)[facility] Work Phone: Patient referralPaulding County Hospital Ctr Payers DatePayer CategoryPayerPolicy [id number] .[id number] Social History DateTypeDetailFacilityStart: 04-06-2020 End: 14-67-2991Ggtwitd smoking status NHISSmoker (finding)[facility] Hospitaltart: 61-84-7113Mcl Assigned At [facility] Medical Equipment Procedure CodeEquipment CodeEquipment Original TextEquipment IdentifierDates Phacoemulsification of cataract with intraocular lens implantation ()[id number] FDAStart: 04-09-2020 Phacoemulsification of cataract with intraocular lens implantationPosterior- chamber intraocular lens, pseudophakic()[id number] FDAStart: 05-07-2020 Goals DatePatient GoalDesired Activity/[facility] Discharge instructions 08-29-2023 Note Date & DzqsWntpKcawdyjj08-72-8619 Hospital Discharge instructions Additional Instructions Clean your wound with shampoo and water daily. Apply antibiotic ointment daily. Follow-up for staple removal in 5 to 7 days.[facility] Work Phone: Evaluation note Note Date & TypeNoteFacilityEvaluation noteNo assessment information available [facility] Work Phone: Advance Directives [...] and content) DATE CREATED AUTHOR 09/15/2021 [facility] DATE CREATED AUTHOR AUTHOR'S ORGANIZ ATION 09/17/2023 [facility] Care Teams (unrecognized sec tion and content) Team Status: Active Member Role Status Dates Coleen Snider APRN HEALTHCARE RECRUITER-C Primary Care Provider Act letty Team Status: Inactive Member Role Status Dates Coleen Snider APRN HEALTHCARE RECRUITER-C Primary Care Provider Act letty Start: August [...] BE BASED ON THE PRIMARY CLINICAL RECORDS. [employer] [facility]. provides no warranty or guarantee of the accuracy or completeness of information in this document.
== END 2025-01-01 15:07 | disposition home or self-care (01) ==
LOC: WC 15:06
PROVIDERS: PCP Family Medicine; Visit Provider Physician Assistant
DX: L97.425 Non-pressure chronic ulcer of left heel and midfoot with muscle involvement without evidence of necrosis (principal); L97.325 Non-pressure chronic ulcer of left ankle with muscle involvement without evidence of necrosis; L97.825 Non-pressure chronic ulcer of other part of left lower leg with muscle involvement without evidence of necrosis
CPT/HCPCS: G0463

== ENCOUNTER 2025-01-15 14:57 | Outpatient (OUT) | payer OTHER, SELFPAY ==
--- OUTSIDE RECORDS SUMMARY | 2025-01-13 11:30 | XMS_ITS ---
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- gets all meds through addiction clinic, patient states hes never had a doctor, patient states he has cellulitis on his left foot Medications Medication SIG (Take, Route, Frequency, Duration) Notes Start Date End Date Status Doxycycline Monohydrate 100 MG 1 tablet Orally b id; Duration: 10 days 5ActiveCephalexin 500 MG2 tabs Orally bid; Duration: 10 days01/13/2025 ActiveSubutexActiveSEROquel 200 MG1 tablet Orally twice a dayActive Social History Tobacco Use: Social History Observation Description Date Details (start date - stop date) Former Smoker 01/27/1976 - 11/26/2024 Tobacco Control (Standard) Question Answer Notes Tobacco use: Former smoker When did you start smoking?01/27/1976When did you stop smoking?11/26/2024How long has it been since you last smoked?Greater than 10 yearsAdditional Findings: Tobacco userModerate cigarette smoker (10-19 cigs/day)AUDIT-C (Standard) Question Answer Notes Did you have a drink containing alcohol in the p ast year? No Ryfvrf7NakwsnzyqviidfQsnylaai Problems Problem Type SNOMED Code ICD Code Onset Dates Problem Status W/U Status Risk Notes Problem Cellulitis (855078984) Cellulitis (L03.90 ) ActiveconfirmedProblemInsomnia (827130527)Insomnia (G47.00)Activeconfirmed ProblemWell adult (921157984)Well adult (Z00.00)Activeconfirmed Vital Signs Weight 230 lbs 01/13/2025 Height 72 in 01/13/2025 Blood pressure systolic 132 mm Hg 01/14/20 25 Blood pressure diastolic 72 mm Hg 025 BMI 31.19 kg/m2 01/13/2025 Encounters Encounter Location Date Provider Diagnosis [facility] [place] [address] [place] [address] 01/13/2025 Emil Palafox Well adult Z00.00 ; Cellulitis L03.90 and Insomnia G47.00 Assessments Encounter Date Diagnosis (ICD Code) Assessment Notes Treatment Notes Treatment Clinical Notes Section Notes 01/13/2025 Well adult (ICD-10 - Z00.00) 01/13/2025ellulitis (ICD-10 - L03.90)01/13/2025Insomnia (ICD-10 - G47.00) Plan Of Treatment Medication Medication Name Sig Start Date Stop Date Notes Doxycycline Monohydrate 100 MG 1 tablet Orally b id; Duration: 10 days 01/13/2025 Cephalexin 500 MG2 tabs Orally bid; Duration: 10 days01/13/2025Pending Test Test Name Order Date HEMOGLOBIN A1C (GLYCO) 01/13/2025 INSULIN, TOTAL 01/13/2025 LIPID PANEL (CHOL/TRIG/HDL/LDL) 01/14/20 25 URIC ACID 01/13/2025 STOOL OCCULT BLOOD 01/13/2025 THYROID PANEL (T4/TSH/FREE T3) 5 PSA, SCREENING 01/13/2025 CMP (COMP MET JARAMILLO) w/eGFR CKD-EPI 2024 CBC WITH DIFF 01/13/2025 Progress Notes * TIMOTEOERICKSONPetarDOB:[birth year] (59 yo M)Acc No.[id number]:01/13/2025 New Patient Patient: Petar BUENO :?Varghese Palafox ([facility]), MDDOB:1965???Age: 59 Y???Sex:MaleDate:01/13/2025Phone:[phone]:[address], [place] ID-[id number] In:03:42 PM ESTCheck Out:05:25 PM EST Subjective: * Chief Complaints: * N P- gets all meds through addiction clinicPatient states hes never had a doctor, patient states he has cellulitis on his left foot * HPI: ???Depression Screening:?PHQ-9?Little interest or pleasure in doing things Nearly every day ?Feeling down, depressed, or hopeless?Not at all ?Trouble falling or staying asleep, or sleeping too much?Not at all ?Feeling tired or having little energy?Several days ?Poor appetite or overeating?Not at all ?Feeling bad about yourself or that you are a failure, or have let yourself or your family down?Not at all ?Trouble concentrating on things, such as reading the newspaper or watching television?Not at all ?Moving or speaking so slowly that other people could have noticed; or the opposite, being so fidgety or restless that you have been moving arounda lot more than usual?Several days ?Thoughts that you would be better off orof hurting yourself in some way?Not at all ?Total Score?5 ?Interpretation?Mild Depression ? Seeing wound clinic -. * ROS: ???EENT:?hearing changes?denies.?visual changes?denies. non-healing mouth sores?denies.?swollen glands or neck lumps?denies.?hoarseness?denies.?sore throat?denies.?difficulty swallowing?denies.?nose bleeds?denies.?nasal congestion?denies.?ear ache?denies.?ear discharge denies.?ringing in ears?denies.?light sensitivity?denies.?eye pain?denies.?blurring?denies.?eye irritation?denies.?double vision?denies. vision loss?denies.?General/Constitutional:?Sweats:?Denies.?Fatigue?denies.?Sleep proble ms?denies.?Anorexia?denies.?Malaise?denies.?Weight loss?denies. Fatigue or Weakness?denies.?Fever or Chills?denies.?Cardiovascular:?Shortness of Breath w/lying flat?denies.?Lightheadedne ss/dizziness?denies.?Chest tightness/ heavy pressure?denies.?Swelling of legs, a nkles, or feet?denies.?Waking up with shortness of breath?denies.?Chest pain&#16 0;denies.?Palpitations?denies.?Weight gain?denies.?Respiratory:?Chronic or frequent cough?denies.?Coughing up blood&#1 60;denies.?Difficulty breathing?denies.?Productive cough?denies.?Snoring&#1 60;denies.?Shortness of breath that awakens from sleep (PND)?denies.?Chest pain? denies.?Sputum production?denies.?Wheezing?denies.?Musculoskeletal:?Joint pain?denies.?Joint Fluid?denies.?Backpain?denies.?Knee pain?denies.?Neck pain?denies.?Joint Stiffness?denies.?Muscle cramps?denies.?Weakness of muscles?denies.?Arthritis?denies.?Muscle aches?denies.?Pain in shoulder(s)?denies.?Swollen joints?denies.? * Active Problem List L03.90 Cellulitis Modified On:01/13/2025W/U Status:exlhfoycsG24.00Insomnia Modified On:01/13/2025/U Status:gjmthliltC63.00Well adult Modified On:01/13/2025U Status:confirmed * Medical History: * Surgical History: t onsils removed appendix removed * Hospitalization/Major Diagno stic Procedure: N o Hospitalization History. * Family History: F ather: alive, diagnosed with Cancer. M other: . S ister(s): alive. S on(s): alive. D judith(s): alive. 1 sister(s) . 1 son(s) , 3 daughter(s) . . * Social History: ???Tobacco Use:?Tobacco Control (Standard)?Tobacco use:?Former smoker ?When did you start smoking??01/27/1976 ?When did you stop smoking??11/26/2024 ?How long has it been since you last smoked? Greater than 10 years ?Additional Findings: Tobacco user?Moderate cigarette smoker (10-19 cigs/day) ???Drug/Alcohol:?AUDIT-C (Standard)?Did you have a drink containing alcohol in the past year??No ?Points?0 ?Interpretation?Negative * Medications: T akingSEROquel(QUEtiapine Fumarate) 200 MG Tablet 1 tablet Orally twice a day Subutex Medication List reviewed and reconciled with the patientTaking SEROquel(QUEtiapine Fumarate) 200 MG Tablet 1 tablet Orally twice a day Taking Subutex Medication List reviewed and reconciled with the patient * Allergies: M obic: chas[Allergies Verified] Objective: * Vitals: W t:230lbs, Ht: 72 in, BP:132/72mm Hg, BMI:31.19Index, Ht-cm: 182.88 cm, Wt-k.33 kg. * Examination: ???Physical Exam: ?GENERAL:?well developed, well nourished, in no acute distress.?HEAD:?normocephalic/atraumatic.?EYES:?pupils equal, round and reactive to light, conjunctivae and sclerae normal.?EARS:?no deformity or lesion of external ear, canals and TM appear normal bilaterally, TM's intact, not inflamed with normal light reflex, hearing grossly normal to conversational speech.?NOSE:?no deformity, discharge, inflammation, or lesions. ?MOUTH:?mucous membranes moist, normal oropharynx and posterior pharynx without lesions or exudates, tongue normal, dentition normal.?NECK:?neck supple, no masses or palpable cervical nodes, trachea midline, thyroid without nodules, masses, tenderness, or enlargement.?CHEST:?no chest wall deformity, no chest wall tenderness. ?LUNGS:?normal respiratory effort and clear to auscultation, no wheezes, rales, or rhonchi, good air exchange.?CARDIO:?regular rate and rhythm, normal S1 and S2, nor murmur, rub, or gallop.?PULSES:?normal capillary refill.?ABDOMEN:?soft, non-distended, non-tender, no masses.?MUSCULOSKELETAL:?no deformity or scoliosis noted, normal range of motion, joints normal, no erythema, edema, effusion, or ecchymosis.?EXTREMITY:?no clubbing, cyanosis, edema, or deformity withnormal ROM in both upper and lower bilateral extremities.?NEUROLOGIC:?grossly normal.?SKIN:?no rashes, ulcerations, or suspicious lesions.?LYMPH NODES:?no cervical adenopathy, nodes normal.?MENTAL STATUS:?alert and oriented x3, normal mood and affect.? Assessment: * Assessment: 1.?Well adult - Z00.00 (Primary)???2.?Cellulitis - L03.90???3.?Insomnia - G47.00??? Plan: * Treatment: ?LAB: HEMOGLOBIN A1C (GLYCO) ?LAB: INSULIN, TOTAL ?LAB: LIPID PANEL (CHOL/TRIG/HDL/LDL) ?LAB: URIC ACID ?LAB: STOOL OCCULT BLOOD ?LAB: THYROID PANEL (T4/TSH/FREE T3) ?LAB: PSA, SCREENING ?LAB: CMP (COMP MET JARAMILLO) w/eGFR CKD-EPI ?LAB: CBC WITH DIFF2.?Cellulitis? Start Doxycycline Monohydrate Tablet, 100 MG, 1 tablet, Orally, bid, 10 days, 20 Tablet;?StartCephalexin Tablet, 500 MG, 2 tabs, Orally, bid, 10 days, 40 Tablet.?? * Procedure Codes: * Preventive Medicine: ??Screenings/Counseling:?BMI ACTION PLAN?Above Normal BMI Follow-up?Dietary management education, guidance, and counseling * * Sign off status: CompletedVisit Status:?CHK (Check Out) true * Provider: Leon Palafox ([facility])MD Date: 1 03/15/2024 Generated for Printing/Faxing/eTransmitting on:?01/15/2025 03:00 PM EST History and Physical Notes * HPI (History of Present Illness) CategorySub-CategoryDetailNotesCategory NotesDepression ScreeningPHQ-9Little interest or pleasure in doing things: Nearly every daySeeing wound clinic - Feeling down, depressed, or hopeless: Not at allTrouble falling or staying asleep, or sleeping too much: Not at allFeeling tired or having little energy: Several daysPoor appetite or overeating: Not at allFeeling bad about yourself or that you are a failure, or have let yourself or your family down: Notat all Trouble concentrating on things, such as reading the newspaper or watching television: Not at allMoving or speaking so slowly that other people could have noticed; or the opposite, being so fidgety or restless that you have been moving around a lot more than usual: Several daysThoughts that you would be better off or of hurting yourself in some way: Not at allTotal Score: 5Interpretation: Mild Depression Examination CategorySub-CategoryDetailNotesCategory NotesPhysical ExamGENERAL:well developed, well nourished, in no acute distressHEAD:normocephalic/atraumatic EYES:pupils equal, round and reactive to light, conjunctivae and sclerae normal EARS:no deformity or lesion of external ear, canals and TM appear normal bilaterally, TM's intact, not inflamed with normal light reflex, hearing grossly normal to conversational speechNOSE:no deformity, discharge, inflammation, or lesionsMOUTH:mucous membranes moist, normal oropharynx and posterior pharynx without lesions or exudates, tonguenormal, dentition normalNECK:neck supple, no masses or palpable cervical nodes, trachea midline, thyroid without nodules, masses, tenderness, or enlargementCHEST:no chest wall deformity, no chest wall tendernessLUNGS:normal respiratory effort and clear to auscultation, no wheezes, rales, or rhonchi, good air exchangeCARDIO:regular rate and rhythm, normal S1 and S2, nor murmur, rub, or gallopPULSES:normal capillary refillABDOMEN:soft, non-distended, non-tender, no massesRECTAL:MUSCULOSKELETAL:no deformity or scoliosis noted, normal range of motion, joints normal, no erythema, edema, effusion, or ecchymosisEXTREMITY:no clubbing, cyanosis, edema, or deformity with normal ROM in both upper and lower bilateral extremitiesNEUROLOGIC:grossly normalSKIN:no rashes, ulcerations, or suspicious lesionsLYMPH NODES:no cervical adenopathy, nodes normalMENTAL STATUS:alert and oriented x3, normal mood and affect
--- OUTSIDE RECORDS SUMMARY | 2025-01-15 15:00 | XMS_ITS | Patient Health Record ---
Author Organization [facility] in [place] Address [address] [place] [address] Care Team Providers Care Province Archivist Name Role Phone Emil Palafox Primary Care Provider [phone] Allergies Allergen (clinical drug ingredient) Drug/Non Drug Allergy documented on EMR Reaction Allergy Type Onset Date Status meloxicam Mobic rash Drug Allergy Active Reason For Referral No Information Medications Medication SIG (Take, Route, Frequency, Duration) [...] alcohol in the p ast year? No Hoyjbw6FcykfwoghxpxsmZuvjngbd Problems Problem Type SNOMED Code ICD Code Onset Dates Problem Status W/U Status Risk Notes Problem Insomnia (384418004) Insomnia (G47.00) ActiveconfirmedProblemWell adult (264915572)Well adult (Z00.00)Activeconfirmed ProblemCellulitis (860126551)Cellulitis (L03.90)Activeconfirmed Vital Signs Blood pressure diastolic 72 mm Hg 01/13/2025 Ajdsaa90 in01/13/2025lood pressure ppvyywuz037 mm Hg01/13/20252503Zqfsmg275 lbs 01/13/2025BMI31.19 kg/m201/13/2025 Encounters Encounter Location Date Provider Diagnosis [facility] [address] [place] [address] 01/13/2025 Emil Hoy Well adult Z00.00 ; Cellulitis L03.90 and Insomnia G47.00 Assessments Encounter Date Diagnosis (ICD Code) Assessment Notes Treatment Notes Treatment Clinical Notes Section Notes 01/13/2025 Well adult (ICD-10 - Z00.00) 01/13/2025ellulitis (ICD-10 - L03.90)01/13/2025Insomnia (ICD-10 - G47.00) Plan Of Treatment Pending Test Test Name Order Date HEMOGLOBIN A1C (GLYCO) 01/13/2025 INSULIN, TOTAL 01/13/2025 LIPID PANEL (CHOL/TRIG/HDL/LDL) 01/14/20 25 URIC ACID 01/13/2025 STOOL OCCULT BLOOD 01/13/2025 THYROID PANEL (T4/TSH/FREE T3) 5 PSA, SCREENING 01/13/2025 CMP (COMP MET J[place]) w/eGFR CKD-EPI 2024 CBC WITH DIFF 01/13/2025 Insurance Providers Payer Name Payer Address Payer Phone Subscriber Number Group Number Insured Name Patient Relationship to Insured Coverage Start Date Coverage End Date [employer] [place] [employer] [address] [place] [id number] [id number] Sandra Joeelf - patient is the insured Medical (General) History Surgical History Surgery Date(Month/Year) tonsils removed appendix removed
--- OUTSIDE RECORDS SUMMARY | 2025-01-15 15:00 | XMS_ITS | Clinical Summary ---
Author Organization [facility] Address [id number] [address] [place] [address] Care Team Providers Care Prison Guard Name Role Phone Luis Mason MD Primary Care Provider [phone] Allergies Active AllergyReactionsCriticalityNoted AzcvVhttkzquRgndrcfjm86/05/2018 Medications MedicationSigDispense QuantityRefillsLast FilledStart DateEnd DateStatus QUEtiapine (SEROquel) 100 mg tablet Take 100 mg by mouth daily.Active QUEtiapine (SEROquel) 100 mg tablet Take 200 mg by mouth nightly.Active Active Problems ProblemNoted DateDiagnosed DateOpen leg wound07/13/2018Ischemic leg07/12/2018 Immunizations No known immunizations Social History Tobacco UseTypesPacks/DayYears UsedDateSmoking Tobacco: Every DaySmokeless Tobacco: NeverChildcareAnswerDate DtqolpmsArwohrqrvXedbqmt29/12/2019Employment AnswerDate ZzcdzykqZdojpmyxodApcyixq98/12/2019Purpose - LifeAnswerDate Recorded Purpose and direction in wjdbDincczu90/11/2021Sex and Gender InformationValue Date RecordedSex Assigned at BirthNot on fileLegal VlbAhuh1510/02/2014 11:53 AM EDTGender IdentityNot on fileSexual OrientationNot on file Last Filed Vital Signs Vital SignReadingTime TakenCommentsBlood Ckbpkhnx405/8605 7:04 PM EDT Rutzo7078 7:04 PM UMGKtmmqfkqkpn87 ??C (96.8 ??F)07/13/2018 7:04 PM EDT Respiratory Cjjm2049 7:04 PM EDTOxygen Tsgxbgqjzg18%07/13/2018 7:04 PM EDTInhaled Oxygen Concentration--Suflvk534.7 kg (307 lb 15.7 oz)07/12/2018 7:32 PM JNNQehcht989.9 cm (6')07/12/2018 8:05 PM EDTBody Mass Index41.77007/12/2018 7:32 PM EDT Plan of Treatment Health MaintenanceDue DateLast DoneCommentsStatin Use: Rhuzjanpooemwe48/08/1968 Depression Fxhqflyru36/08/1980Tobacco Ftwkgryie60/08/1980Adult BMI Screening 11/04/1985DTaP,Tdap and Td Vaccines (1 - Tdap)11/04/1986Zoster (Shingles) Vaccine (1 of 2)11/04/2017Influenza Rhqqcmz2910/28/2024 Goals GoalPatient Goal TypeAssociated ProblemsRecent ProgressPatient-Stated?Author <enter goal here> Roma Arita RN Note: Evaluation of progress towards goal: Home with DAD and [facility] for SN wound care, mental health f/u [facility] Medical Devices Not on file Insurance Advance Directives * Full Code (Latest Code Status on File) Date ActivatedDate InactivatedComments07/12/2018 6:57 PM07/13/2018 10:12 PM Care Teams Team MemberRelationshipSpecialtyStart DateEnd Date Luis Maosn MD PCP - GeneralFamily Medicine07/13/18
--- OUTSIDE RECORDS SUMMARY | 2025-01-15 15:00 | XMS_ITS | Clinical Summary ---
Author Organization [facility] Address [address] [place] [address] Care Team Providers Care Supervisor [employer] Name Role Phone Unavailable Primary Care Provider Unavailabl e Social History Tobacco UseTypesPacks/DayYears UsedDateSmoking Tobacco: Never AssessedSex and Gender InformationValueDate RecordedSex Assigned at BirthNot on fileLegal Sex Male08/25/2021 9:45 PM EDTGender IdentityNot on fileSexual OrientationNot on file Plan of Treatment Health MaintenanceDue DateLast DoneCommentsCT Erlvtrivliqa37/08/1968Colonoscopy 1967Colorectal Cancer Okiwacrjl17/08/1968FIT-DNA1967FIT1967 FOBT1967 8569Dttuplaaekeeh16/08/1968Depression Owmkbykyz15/08/1980Hepatitis B Vaccines (1 of 3 - 19+ 3-dose series)11/04/1986Adult Adydmhj7611/04/1989Zoster Vaccines (1 of 2)11/04/2017Influenza Vaccine (#1)2024HIB VaccinesAged [...]
--- OUTSIDE RECORDS SUMMARY | 2025-01-15 15:00 | XMS_ITS | Clinical Summary ---
Author Organization [facility] Address [address] [place] [address] Care Team Providers Care Project Production Engineer Name Role Phone Unavailable Primary Care Provider Unavailabl e Social History Tobacco UseTypesPacks/DayYears UsedDateSmoking Tobacco: Never AssessedSex and Gender InformationValueDate RecordedSex Assigned at BirthNot on fileLegal Sex Male04/01/2012 3:29 PM ESTGender IdentityNot on fileSexual OrientationNot on file Plan of Treatment Health MaintenanceDue DateLast DoneCommentsHEPATITIS C VIRUS BZQEOMJFZ33/08/1968 VFVPJIH09 1967HIV SCREENING PPRLHAQQVY72/08/1983HEP B VACCINE (1 of 3 - 19+ 3-dose series)11/04/1986TDAP (ADULT)11/04/1986LIPID DBDNEYDHR00/08/2008 COLORECTAL CANCER SCREENING LFJFUYFNED33/08/2013PNEUMOCOCCAL VACCINE SERIES (1 of 1 - PCV)11/04/2017ZOSTER (SHINGLES) VACCINE (1 of 2)11/04/2017PROSTATE CANCER SCREENING HRGAHVVRII57/08/2023COVID-19 VACCINE (1 - 2024- season)2024 INFLUENZA VACCINE (#1)2024
--- OUTSIDE RECORDS SUMMARY | 2025-01-15 15:00 | XMS_ITS | Clinical Summary ---
Author Organization [facility] Address [address] [place] [address] Care Team Providers Care Plugger Man Name Role Phone Unavailable Primary Care Provider Unavailabl e Social History Tobacco UseTypesPacks/DayYears UsedDateSmoking Tobacco: Never AssessedSex and Gender InformationValueDate RecordedSex Assigned at BirthNot on fileLegal Sex Male05/11/2022 6:40 PM EDTGender IdentityNot on fileSexual OrientationNot on file Last Filed Vital Signs Vital SignReadingTime TakenCommentsBlood Vimcxkvb786/8204 12:00 PM EDT Pulse--Temperature--Respiratory Rate--Oxygen Saturation--Inhaled Oxygen Concentration--Fnlsst366 kg (331 lb)06/13/2018 12:00 PM EQEEbzizh026.9 cm (6') 06/13/2018 12:00 PM EDTBody Mass Index44.8906/13/2018 12:00 PM EDT Plan of Treatment Not on file
--- OUTSIDE RECORDS SUMMARY | 2025-01-15 15:02 | XMS_ITS | CCD ---
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 PROFILEon [id number] Ql (U)NegativeNormal NEGATIVEThe [facility] ShawComment on above:Performed By: #### ERUR #### [facility] [address] [place] [address] Dr. Cristina Parson (U)CLEARNormalCLEARAvita Health System Galion HospitalComment on above: Performed By: #### ERUR #### [facility] [address] [place] [address] Dr. Cristina Ponce (U)YELLOWNormalYELLOWAvita Health System Galion HospitalComment on above: Performed By: #### ERUR #### [facility] [address] [place] [address] Dr. Cristina Silverman micrscopic examination will be performed if indicated. NormalPomerene Hospital HospitalComment on above:Performed By: #### ERUR #### [facility] [address] [place] [address] Dr. Cristina NinoGlucose Ql (U)NegativeNormalNEGATIVEAvita Health System Galion HospitalComment on above:Performed By: #### ERUR #### [facility] [address] [place] [address] Dr. Cristina NinoHemoglobin Ql (U)NegativeNormalNEGATIVESelect [facility] on above:Performed By: #### ERUR #### [facility] [address] [place] [address] Dr. Cristina NinoKetones Ql (U)NegativeNormalNEGATIVEAvita Health System Galion HospitalComment on above:Performed By: #### ERUR #### [facility] [address] [place] [address] Dr. Cristina NinoLEUKOCYTESNegativeNormalNEGATIVEAvita Health System Galion HospitalComment on above:Performed By: #### ERUR #### [facility] [address] [place] [address] Dr. Cristina NinoNitrite Ql (U)NegativeNormalNEGATIVEAvita Health System Galion HospitalComment on above:Performed By: #### ERUR #### [facility] [address] [place] [address] Dr. Cristina NinopH (U)6.0 [pH]Normal5-9[facility] HospitalComment on above: Performed By: #### ERUR #### [facility] [address] [place] [address] Dr. Cristina Wolff GRAVITY1.889Ezkgzp0.005-<=1.025The [facility], [facility] ShawComment on above:Performed By: #### ERUR #### [facility] [address] [place] [address] Dr. Cristina Grace PROTEINNegativeNormalNEGATIVE/ TRACEThe [facility] Comment on above:Performed By: #### ERUR #### [facility] [address] [place] [address] Dr. Cristina Chen MICRO INDNOT INDICATEDNormalThe [facility], [facility] ShawComment on above:Performed By: #### ERUR #### [facility] [address] [place] [address] Dr. Cristina Oatesbilinogen Qn (U)0.2 {Renee'U}/dLNormal0.2 - 1.0The [facility], [facility] ShawComment on above:Performed By: #### ERUR #### [facility] [address] [place] [address] Dr. Cristina Amaya CHEM 8 (BAS METB)on [id number] gap [Moles/Vol]15.0 mmol/LNormalAvita Health System Galion HospitalComment on above:Performed By: #### BMP #### [facility] [address] [place] [address] Dr. Cristina NinoCalcium [Mass/Vol]8.8 mg/dLNormal8.5-10.1[facility] Comment on above:Performed By: #### BMP #### [facility] [address] [place] [address] Dr. Cristina NinoChloride [Moles/Vol]99 mmol/GLmbkea59-970AhxAvita Health System [facility] Hospital Comment on above:Performed By: #### BMP #### [facility] [address] [place] [address] Dr. Cristina NinoCO2 [Moles/Vol]23.9 mmol/RDnsvrf51.0-32.0[facility] Comment on above:Performed By: #### BMP #### [facility] [address] [place] [address] Dr. Cristina NinoCreatinine [Mass/Vol]1.04 mg/dLNormal0.70-1.30The [facility] ShawComment on above:Performed By: #### BMP #### [facility] [address] [place] [address] Dr. Cristina GarveyGFR-AF PERUVIAN>60Normal>=60The [facility], [facility] ShawComment on above:Performed By: #### BMP #### [facility] [address] [address] [address] Cristina GarveyGFR-NON AF PERUVIAN>60Normal>=60The [facility], [facility] ShawComment on above:Performed By: #### BMP #### [facility] [address] [place] [address] Dr. Cristina NinoGlucose [Mass/Vol]122 mg/dLCritically nyjb78-366Jcn [facility] ShawComment on above:Performed By: #### BMP #### [facility] [address] [place] [address] Dr. Cristina NinoPotassium [Moles/Vol]4.9 mmol/LNormal3.5-5.1The [facility] Comment on above:Performed By: #### BMP #### [facility] [address] [place] [address] Dr. Cristina NinoSodium [Moles/Vol]133 mmol/LCritically mmm003-020Qpg [facility] ShawComment on above:Performed By: #### BMP #### [facility] [address] [place] [address] Dr. Cristina NinoUrea nitrogen [Mass/Vol]11.0 mg/dLNormal7.0-18.0The [facility], [facility] ShawComment on above:Performed By: #### BMP #### [facility] [address] [place] [address] Dr. Cristina Nickerson nitrogen/Creatinine [Mass ratio]10.6 mg/mgNormalThe [facility] ShawComment on above:Performed By: #### BMP #### [facility] [address] [place] [address] Dr. Cristina NinoCBC AUTO DIFFon [id number] #0.0 103/ulNormal0.0-0.1The [facility] ShawComment on above:Performed By: #### CBC ####[facility] [address] [place] [address] KarenBasophils/100 WBC (Bld)0.5 %Normal0.2-2.0The [facility], [facility] ShawComment on above:Performed By: #### CBC ####[facility] [address] [place] [address] KarenEO #0.1 103/ulNormal0.0-0.7The [facility], [facility] ShawComment on above:Performed By: #### CBC ####[facility] [address] [place] [address] KarenEosinophils/100 WBC (Bld)1.3 %Normal 0.9-7.0The [facility], [facility] ShawComment on above:Performed By: #### CBC ####[facility] [address] [place] [address] Mary Erythrocyte distribution width (RBC) [Ratio]15.9 %Critically high11.0-15.0The [facility] ShawComment on above:Performed By: #### CBC ####[facility] [address] [place] [address] KarenHematocrit (Bld) [Volume fraction]36.7 %Critically low42.0-54.0The [facility], [facility] ShawComment on above:Performed By: #### CBC ####[facility] [address] [place] [address] KarenHemoglobin (Bld) [Mass/Vol]12.1 g/dL Critically low14.0-18.0The [facility] ShawComment on above:Performed By: #### CBC ####[facility] [address] [place] [address] KarenIG #0.03 10e3/ulNormal0.00-0.03The [facility] ShawComment on above:Performed By: #### CBC ####[facility] Yq[address]ounwi[address] KarenIG %0.5 %Normal0.0-0.5The [facility] ShawComment on above:Performed By: #### CBC ####[facility] [address] [place] [address] KarenLYMPH #1.9 103/ul Normal1.2-3.8The [facility], [facility] ShawComment on above:Performed By: #### CBC ####[facility] U[address]fs[address] KarenLymphocytes/100 WBC (Bld)31.9 %Busxsj16.5-60.0The [facility] ShawComment on above:Performed By: #### CBC ####[facility] [address] [place] [address] KarenMANUAL DIFF REQNONormalThe [facility] ShawComment on above:Performed By: #### CBC ####[facility] [address] [place] [address] KarenH (RBC) [Entitic mass]31.5 qsLghlrh72.9-34.0The [facility], [facility] ShawComment on above: Performed By: #### CBC ####[facility] [address] [place] [address] KarenMCHC (RBC) [Mass/Vol]33.0 g/dLNormal 29.9-35.2The [facility] ShawComment on above:Performed By: #### CBC ####[facility] X[address] [place] [address] KarenV (RBC) [Entitic vol]95.6 fLCritically high80.0-94.0The [facility] Comment on above:Performed By: #### CBC ####[facility] [address] [place] [address] KarenMONO #0.4 103/ulNormal0.3-0.8The [facility], [facility] ShawComment on above:Performed By: #### CBC ####[facility] [address] [place], [place] [address]Mcvqjv KarenMonocytes/100 WBC (Bld)7.1 %Normal1.7-12.0The [facility], [facility] ShawComment on above:Performed By: #### CBC ####[facility] [address] [place], [place] [address]Vpbsaq KarenNEUT #3.6 103/ulNormal1.4-6.5The [facility] ShawComment on above:Performed By: #### CBC ####[facility] [address] [place], [place] [address]Jelisc KarenNeutrophils/100 WBC (Bld)58.7 %Normal 43.0-75.0The [facility], [facility] ShawComment on above:Performed By: #### CBC ####[facility] [address] [place], [place] [address]Ekgruk KarenPlatelet mean volume (Bld) [Entitic vol]9.1 fLCritically low9.5-13.5The [facility] ShawComment on above:Performed By: #### CBC ####[facility] [address] [address]Gerken KwnxlUIP917 103/ul Critically jvr507-110Pjh [facility], [facility] ShawComment on above:Performed By: #### CBC ####[facility] [address] [place], [place] [address]Gerken KarenRBC3.84 106/ulCritically low4.70-6.10The [facility] Comment on above:Performed By: #### CBC ####[facility] [address] [place] [address] KarenWBC6.1 103/ulNormal4.0-11.0The [facility], [facility] ShawComment on above:Performed By: #### CBC ####[facility] [address] [id number] KarenER URINE PROFILE on 16-13-7140Vlfghdytl Ql (U)NegativeNormalNEGATIVEThe [facility] ShawComment on above:Performed By: #### ERUR #### [facility] Laboratory [address] [place] [address] Bharathi KarenClarity (U)CLEARNormalCLEARPomerene Hospital HospitalComment on above: Performed By: #### ERUR #### [facility] Laboratory [address] [place] [address] Bharathi KarenColor (U)YELLOWNormalYELLOWAvita Health System Galion HospitalComment on above: Performed By: #### ERUR #### [facility] Laboratory [address] [place] [address] Bharathi KarenERUAHDA micrscopic examination will be performed if indicated.Normal The [facility] HospitalComment on above:Performed By: #### ERUR #### [facility] Laboratory [address] [place] [address] Bharathi KarenGlucose Ql (U)NegativeNormalNEGATIVEAvita Health System Galion HospitalComment on above:Performed By: #### ERUR #### [facility] Laboratory [address] [place] [address] Bharathi KarenHemoglobin Ql (U)NegativeNormalNEGATIVEAvita Health System Galion HospitalComment on above:Performed By: #### ERUR #### [facility] Laboratory [address] [place] [address] Bharathi KarenKetones Ql (U)NegativeNormalNEGATIVEAvita Health System Galion HospitalComment on above:Performed By: #### ERUR #### [facility] Laboratory [address] [place] [address] Bharathi KarenLEUKOCYTESNegativeNormalNEGATIVEAvita Health System Galion HospitalComment on above:Performed By: #### ERUR #### [facility] [address] [place] [address] Bharathi KarenNitrite Ql (U)NegativeNormalNEGATIVEAvita Health System Galion HospitalComment on above:Performed By: #### ERUR #### [facility] Laboratory [address] [place] [address] Bharathi KarenpH (U)6.0 [pH]Normal5-9[facility] HospitalComment on above: Performed By: #### ERUR #### [facility] Laboratory [address] [place] [address] Bharathi BealenSPEC GRAVITY1.799Rwxoye7.005-<=1.025The [facility] ShawComment on above:Performed By: #### ERUR #### [facility] Laboratory [address] [place] [address] Bharathi KarenUA PROTEINNegativeNormalNEGATIVE/ TRACEThe [facility] ShawComment on above:Performed By: #### ERUR #### [facility] [address] [place] [address] Bharathi KarenUR MICRO INDNOT INDICATEDNormalThe [facility] ShawComment on above:Performed By: #### ERUR #### [facility] [address] [place] [address] Bharathi KarenUrobilinogen Qn (U)0.2 {Renee'U}/dLNormal0.2 - 1.0The [facility] ShawComment on above:Performed By: #### ERUR #### [facility] Laboratory [address] [place] [address] Bharathi KarenPROF CHEM 8 (BAS METB)on 42-03-3564Ohbmd gap [Moles/Vol]14.2 mmol/L NormalAvita Health System Galion HospitalComment on above:Performed By: #### BMP #### [facility] Laboratory [address] [place] [address] Bharathi KarenCalcium [Mass/Vol]9.0 mg/dLNormal8.4-10.2[facility] Comment on above:Performed By: #### BMP #### [facility] Laboratory [address] [place] [address] Bharathi KarenChloride [Moles/Vol]100 mmol/CIaoqie26-238Los [facility] Comment on above:Performed By: #### BMP #### [facility] Laboratory [address] [place] [address] Bharathi KarenCO2 [Moles/Vol]26.0 mmol/EMxdeyq63.0-30.0[facility] Comment on above:Performed By: #### BMP #### [facility] Laboratory [address] [place] [address] Bharathi KarenCreatinine [Mass/Vol]1.03 mg/dLNormal0.66-1.25The [facility] Comment on above:Performed By: #### BMP #### [facility] Laboratory [address] [place] [address] Bharathi KarenEGFR-AF PERUVIAN>60Normal>=60The [facility] ShawComment on above: Performed By: #### BMP #### [facility] Laboratory [address] [place] [address] Bharathi KarenEGFR-NON AF PERUVIAN>60Normal>=60The [facility] ShawComment on above:Performed By: #### BMP #### [facility] Laboratory [address] [place] [address] Bharathi KarenGlucose [Mass/Vol]132 mg/dLCritically dmlq98-702LseAvita Health System Galion HospitalComment on above:Performed By: #### BMP #### [facility] Laboratory [address] [place] [address] Bharathi KarenPotassium [Moles/Vol]4.2 mmol/LNormal3.4-5.0[facility] Comment on above:Performed By: #### BMP #### [facility] Laboratory [address] [place] [address] Bharathi KarenSodium [Moles/Vol]136 mmol/LCritically ymw256-962IddAvita Health System Galion HospitalComment on above:Performed By: #### BMP #### [facility] Laboratory [address] [place] [address] Bharathi KarenUrea nitrogen [Mass/Vol]9.0 mg/dLNormal9.0-20.0[facility] Comment on above:Performed By: #### BMP #### [facility] Laboratory [address] [place] [address] Bharathi KarenUrea nitrogen/Creatinine [Mass ratio]8.7 mg/mgNormalThe [facility] ShawComment on above:Performed By: #### BMP #### [facility] [address] [place] [address] Bharathi KarenCT ABD/PELVIS WO CONon [id number] ABD/PELVIS WO CONEXAMINATION: CT ABD/PELVIS WO CON [...] by: VELIA DE LA VEGA Date: 2020-09-19 22:15NormalZanesville City Hospital URINE PROFILEon 08-93-3205Jyjxsqzkn Ql (U)NegativeNormal NEGATIVEThe [facility] ShawComment on above:Performed By: #### ERUR #### [facility] [address] [place] [address] Bharathi KarenClarity (U)CLEARNormalCLEARAvita Health System Galion HospitalComment on above: Performed By: #### ERUR #### [facility] [address] [place] [address] Bharathi KarenColor (U)YELLOWNormalYELLOWAvita Health System Galion HospitalComment on above: Performed By: #### ERUR #### [facility] [address] [place] [address] Bharathi KarenERUAHDA micrscopic examination will be performed if indicated.Normal The [facility] ShawComment on above:Performed By: #### ERUR #### [facility] [address] [place] [address] Bharathi KarenGlucose Ql (U)NegativeNormalNEGATIVEAvita Health System Galion HospitalComment on above:Performed By: #### ERUR #### [facility] [address] [place] [address] Bharathi KarenHemoglobin Ql (U)NegativeNormalNEGATIVEAvita Health System Galion HospitalComment on above:Performed By: #### ERUR #### [facility] [address] [place] [address] Bharathi KarenKetones Ql (U)NegativeNormalNEGATIVEAvita Health System Galion HospitalComment on above:Performed By: #### ERUR #### [facility] [address] [place] [address] Bharathi KarenLEUKOCYTESNegativeNormalNEGATIVEAvita Health System Galion HospitalComascension borgess hospital on above:Performed By: #### ERUR #### [facility] [address] [place] [address] Bharathi KarenNitrite Ql (U)NegativeNormalNEGATIVEAvita Health System Galion HospitalComment on above:Performed By: #### ERUR #### [facility] [address] [place] [address] Bharathi KarenpH (U)5.5 [pH]Normal5-9Avita Health System Gal[facility] HospitalComment on above: Performed By: #### ERUR #### [facility] [address] [place] [address] Bharathi BealenSPEC GRAVITY1.850Rckxzs9.005-<=1.025The [facility] ShawComment on above:Performed By: #### ERUR #### [facility] [address] [place] [address] Bharathi KarenUA PROTEINNegativeNormalNEGATIVE/ TRACEThe [facility] ShawComment on above:Performed By: #### ERUR #### [facility] [address] [place] [address] Bharathi KarenUR MICRO INDNOT INDICATEDNormalThe [facility] ShawComment on above:Performed By: #### ERUR #### [facility] [address] [place] [address] Bharathi KarenUrobilinogen Qn (U)0.2 {Renee'U}/dLNormal0.2 - 1.0The [facility] ShawComasc[facility]org[facility] hospital on above:Performed By: #### ERUR #### [facility] [address] [place] [address] Bharathi KarenCBC AUTO DIFFon [id number] #0.0 103/ulNormal0.0-0.1The [facility] ShawComment on above:Performed By: #### CBC #### [facility] [address] [place] [address] Bharathi KarenBasophils/100 WBC (Bld)0.5 %Normal0.2-2.0The [facility] Comment on above:Performed By: #### CBC #### [facility] [address] [place] [address] Bharathi KarenEO #0.1 103/ulNormal0.0-0.7The [facility]Comasc[facility]org[facility] hospital on above: Performed By: #### CBC #### [facility] [address] [place] [address] Bharathi KarenEosinophils/100 WBC (Bld)1.0 %Normal0.9-7.0[facility] Comment on above:Performed By: #### CBC #### [facility] [address] [place] [address] Bharathi KarenErythrocyte distribution width (RBC) [Ratio]15.7 %Critically high 11.0-15.0The [facility] ShawComment on above:Performed By: #### CBC #### [facility] [address] [place] [address] Bharathi KarenHematocrit (Bld) [Volume fraction]35.3 %Critically low42.0-54.0The [facility] ShawComment on above:Performed By: #### CBC #### [facility] [address] [place] [address] Bharathi KarenHemoglobin (Bld) [Mass/Vol]11.5 g/dLCritically low14.0-18.0The [facility] ShawComment on above:Performed By: #### CBC #### [facility] [address] [place] [address] Bharathi KarenIG #0.03 10e3/ulNormal0.00-0.03The [facility] ShawComment on above:Performed By: #### CBC #### [facility] [address] [place] [address] Bharathi KarenIG %0.4 %Normal0.0-0.5The [facility] ShawComment on above: Performed By: #### CBC #### [facility] [address] [place] [address] Bharathi KarenLYMPH #2.2 103/ulNormal1.2-3.8The [facility] ShawComment on above: Performed By: #### CBC #### [facility] [address] [place] [address] Bharathi KarenLymphocytes/100 WBC (Bld)29.6 %Zpznoc70.5-60.0The [facility] Comment on above:Performed By: #### CBC #### [facility] [address] [place] [address] Bharathi KarenMANUAL DIFF REQNONormalThe [facility] ShawComment on above: Performed By: #### CBC #### [facility] [address] [place] [address] Bharathi KarenMCH (RBC) [Entitic mass]31.0 glBizjyt09.9-34.0The [facility] Comment on above:Performed By: #### CBC #### [facility] [address] [place], [place] [id number] Bharathi HernandezNORTHERN [facility] (RBC) [Mass/Vol]32.6 g/cRSbmytu73.9-35.2[facility] Comment on above:Performed By: #### CBC #### [facility] [address] [place] [address] Bharathi HernandezPH[facility] (RBC) [Entitic vol]95.1 fLCritically high80.0-94.0The [facility] ShawComment on above:Performed By: #### CBC #### [facility] [address] [place] [address] Bharathi HernandezMONO #0.5 103/ulNormal0.3-0.8The [facility] ShawComment on above: Performed By: #### CBC #### [facility] [address] [place], [place] [address] Bharathi KarenMonocytes/100 WBC (Bld)6.3 %Normal1.7-12.0The [facility] Comment on above:Performed By: #### CBC #### [facility] [address] [place] [address] Bharathi BealenNEUT #4.6 103/ulNormal1.4-6.5The [facility] ShawComment on above: Performed By: #### CBC #### [facility] [address] [place] [address] Bharathi KarenNeutrophils/100 WBC (Bld)62.2 %Mvzsra37.0-75.0The [facility] Comment on above:Performed By: #### CBC #### [facility] [address] [place] [address] Bharathi KarenPlatelet mean volume (Bld) [Entitic vol]9.2 fLCritically low9.5-13.5 The [facility] ShawComment on above:Performed By: #### CBC #### [facility] [address] [place] [address] Bharathi DfsdzZKS777 103/ulCritically vlh611-932Zyd [facility] ShawComment on above:Performed By: #### CBC #### [facility] [address] [place] [address] Bharathi KarenRBC3.71 106/ulCritically low4.70-6.10The [facility] ShawComment on above:Performed By: #### CBC #### [facility] [address] [place] [address] Bharathi KarenWBC7.4 103/ulNormal4.0-11.0The [facility] ShawComment on above: Performed By: #### CBC #### [facility] [address] [place] [address] Bharathi KarenPROF 14(COMP METB)on 40-36-2199Segowma [Mass/Vol]3.9 g/dLNormal 3.5-5.0The [facility] ShawComment on above:Performed By: #### CMP #### [facility] [address] [place] [address] Bharathi KarenAlbumin/Globulin [Mass ratio]0.8 {ratio}NormalAvita Health System Galion Hospital Comment on above:Performed By: #### CMP #### [facility] [address] [place] [address] Bharathi KarenALP [Catalytic activity/Vol]81 U/JDsubfd13-949AchAvita Health System Galion Hospital Comment on above:Performed By: #### CMP #### [facility] [address] [place] [address] Bharathi KarenALT [Catalytic activity/Vol]14 U/LCritically jsp32-70Ewt [facility] ShawComment on above:Performed By: #### CMP #### [facility] [address] [place] [address] Bharathi KarenAnion gap [Moles/Vol]13.7 mmol/LNormalThe [facility] ShawComment on above:Performed By: #### CMP #### [facility] [address] [place] [address] Bharathi KarenAST [Catalytic activity/Vol]23 U/PWeperf90-03EfiAvita Health System Galion Hospital Comment on above:Performed By: #### CMP #### [facility] [address] [address] Bharathi KarenBilirubin [Mass/Vol]0.6 mg/dLNormal0.2-1.3TProMedica Memorial Hospital Comment on above:Performed By: #### CMP #### [facility] [address] [address] Bharathi KarenCalcium [Mass/Vol]8.9 mg/dLNormal8.4-10.2[facility] Comment on above:Performed By: #### CMP #### [facility] [address] [place] [address] Bharathi KarenChloride [Moles/Vol]101 mmol/YGfawea51-174LqbAvita Health System Galion Hospital Comment on above:Performed By: #### CMP #### [facility] [address] [place] [address] Bharathi KarenCO2 [Moles/Vol]26.4 mmol/EBkpaby93.0-30.0[facility] Comment on above:Performed By: #### CMP #### [facility] [address] [place] [address] Bharathi KarenCreatinine [Mass/Vol]1.02 mg/dLNormal0.66-1.25The [facility] Comment on above:Performed By: #### CMP #### [facility] [address] [place] [address] Bharathi KarenEGFR-AF PERUVIAN>60Normal>=60The [facility] ShawComment on above: Performed By: #### CMP #### [facility] [address] [place] [address] Bharathi KarenEGFR-NON AF PERUVIAN>60Normal>=60Av[facility] System Galion HospitalComment on above:Performed By: #### CMP #### [facility] [address] [place] [address] Bharathi KarenGlobulin (S) [Mass/Vol]4.7 g/dLNormalThe [facility] ShawComment on above:Performed By: #### CMP #### [facility] [address], [place] [address] Bharathi KarenGlucose [Mass/Vol]119 mg/dLCritically zhwu93-568Rgy [facility] ShawComment on above:Performed By: #### CMP #### [facility] [address], [place] [address] Bharathi KarenPotassium [Moles/Vol]4.1 mmol/LNormal3.4-5.0The [facility] Comment on above:Performed By: #### CMP #### [facility] [address] [address] Bharathi KarenProtein [Mass/Vol]8.6 g/dLCritically high6.1-8.2The [facility] ShawComment on above:Performed By: #### CMP #### [facility] [address] [place] [address] Bharathi KarenSodium [Moles/Vol]137 mmol/NGcagxc172-068Nnd [facility] Comment on above:Performed By: #### CMP #### [facility] [address] [id number] Bharathi KarenUrea nitrogen [Mass/Vol]7.0 mg/dLCritically low9.0-20.0The [facility] ShawComment on above:Performed By: #### CMP #### [facility] [address] [place], [place] [address] Bharathi KarenUrea nitrogen/Creatinine [Mass ratio]6.9 mg/mgNormalThe [facility] ShawComment on above:Performed By: #### CMP #### [facility] [address] [place], [place] [address] Bharathi KarenCOVID-19 Positive/Negativeon 30-93-9136TGQZC-19 Positive/Negative NegativeNegativeUniversity Hospitals Ahuja Medical Center CtrComment on above:Testing for SARS-CoV-2 by RT-PCRThis test was developed and its performance characteristics determined by [employer] ([place]) and validated at the [facility]. This test has not been FDA cleared [...] the authorization is terminated or revoked sooner.Otheron 45-84-8927Ryitfjpvasa 2019 PCR Inter/[facility] CtrAmphetamines screenon 04-09-2020 Amphetamines Ql (U)NegativeNegativeUniversity Hospitals Ahuja Medical Center CtrBarbiturates [Presence] in Urineon 37-41-1479Qqstrvdyouzz Ql (U)NegativeNegMedina Hospital CtrBenzodiazepines [Presence] in Urineon 04-09-2020 Benzodiazepines Ql (U)NegativeNegativeUniversity Hospitals Ahuja Medical Center CtrCannabinoids [Presence] in Urine by Screen methodon 41-73-4422Hbpayetmypfn Screen Ql (U) PositiveNegativeUniversity Hospitals Ahuja Medical Center CtrComment on above:These are unconfirmed results and should not be used for legal purposes. Drug Cut-Off Concentration: AMPH 1000 ng/mL RD 200 ng/mL JANETTE 200 ng/mL COCM 300 ng/mL OP 300 ng/mL PCP 25 ng/mL THC 20 ng/mLUrinalysison 00-89-0755Igwubes Ql (U)Negative NegativeUniversity Hospitals Ahuja Medical Center CtrUrine cocaine detectionon 04-09-2020 Cocaine Ql (U)NegativeNegativeUniversity Hospitals Ahuja Medical Center CtrUrine phencyclidine detection by screening methodon 82-64-2215Sfyradxkefude Ql (U)NegativeNegative [facility] CtrCOVID-19 Positive/Negativeon 88-56-4055GDWMW-19 Positive/NegativeNegativeNegMedina Hospital CtrComment on above: Testing for SARS-CoV-2 by RT-PCRThis test was developed and its performance characteristics determined by [employer] ([employer]) and validated at the [facility]. This test has not been FDA cleared [...] or revoked sooner.Otheron 04-06-2020 Coronavirus 2019 PCR [facility] Vital Signs Date TimeVital SignValuePerforming IeqgskpdmIksbgyzv54-89-6629 23:20-0400Body kquqetsohyp12.4 [degF]ANTWAN Snider Work Phone: 1(100)[address] [place], [place] 5879307-02-2024 23:20-0400 Diastolic blood rrcazspg96 mm[Hg]ANTWAN Snider Work Phone: 1(988)[address] [place], [place] 5879307-02-2024 23:20-0400 Heart rate70 /minANTWAN Snider Work Phone: 1(864)[address] [place], [place] 5879307-02-2024 23:20-0400 Respiratory rate22 /minAPRAnya Snider Work Phone: 1(610)[address] [place], [place] [address]879307-02-2024 23:20-0400 SaO2% (BldA) [Mass fraction]98 %ANTWAN Snider Work Phone: 1(672)[address] [place], [place] 5879307-02-2024 23:20-0400 Systolic blood exyypmjf605 mm[Hg]ANTWAN Snider Work Phone: 1(759)[address] [place], [place] 5[address]307-02-2024 21:59-0400 Body axsttd306.88 cmAPRN Coleen Snider Work Phone: [facility]07-02-2024 21:59-0400 Body .93 kgAPRAnya Snider Work Phone: [facility]02-11-2021 13:35-0500 BP Bnauqshzu17 mm[Hg][facility]02-11-2021 13:35-0500BP Daiiahep325 mm[Hg][facility] 04-09-2020 13:35-0500Pulse (Heart Rate)67 /minProMedica Bay Park Hospital02-11-2021 13:35-0500Pulse Pievurhe16 %[facility]02-11-2021 13:35-0500Respiratory Rate16 /minProMedica Bay [facility] Hospital02-11-2021 12:29-0500Body Dhyhgbygkxo92.1 [degF]Coleen Snider [facility]02-11-2021 11:43-0500BMI (Body Mass Index)40.1 kg/g4OdbshfqProMedica Bay [facility] Hospital02-11-2021 10:27-0500Body weight 130.6 kgProMedica Bay Park Hospital02-11-2021 10:27-0500Height 180.34 cmNor[facility] Encounters Encounter DateEncounter TypeCare ProviderFacilityStart: 08-29-2023 End: 12-88-4615Buvsrcucj department patient visitAPRAnya Snider Work Phone: [facility]-Emer[facility] Work Phone: Start: 09-08-2021 End: 15-24-2234xitrppkurqNT DOCTOR MISCFacility:L7Jnkdm: 10-01-2020 End: 43-72-1070jalbldtethJV DOCTOR MISCFacility:A2Yhljj: 09-19-2020 End: 62-48-2196prxvwmsbagCYUGP PARKERFacility:N2Mhqmn: 05-05-2020 End: 26-85-3722Ztpdhkz encounter procedureBeauдмитрий SniderDuwi-Ruk-Uvgznibq Testing Start: 04-09-2020 End: 70-80-7746Pwmeuyewv to day surgeryColeen Snider-[facility] Start: 04-06-2020 End: 06-83-8076Shwihpm encounter procedureColeen AvilaUoka-Ywi-Midiatfa Testing Procedures DateProcedureProcedure DetailPerforming ClinicianStart: 04-09-2020 Phacoemulsification of cataract with intraocular lens implantationConfluence [facility] Plan of Treatment DateCare ActivityDetailAuthorStart: 04-66-7605XF cervical spine without contrast CT cervical spine wo [facility]art: 52-41-8236TT Cervical spine WO [facility]tart: 77-56-6656NF of head without contrastCT head/brain [facility] Start: 06-73-6708PP Unspecified body region WO contrastCleveland Clinic Medina Hospitaltart: 78-57-9924Bavwk chest X-rayXR chest 1V portableCleveland Clinic Medina Hospitaltart: 84-39-5295FW Chest Single viewKettering Health TroyPatient EducationLaceration Repair With Bianca ([place])[facility] Work Phone: Patient referralUniversity Hospitals Ahuja Medical Center Ctr Payers DatePayer CategoryPayerPolicy [id number] [id number] Social History DateTypeDetailFacilityStart: 04-06-2020 End: 06-69-8857Ktfduqe smoking status NHISSmoker (finding)[facility] Hospitaltart: 05-28-6346Say Assigned At [facility] Medical Equipment Procedure CodeEquipment CodeEquipment Original TextEquipment IdentifierDates Phacoemulsification of cataract with intraocular lens implantation ()[id number] FDAStart: 04-09-2020 Phacoemulsification of cataract with intraocular lens implantationPosterior- chamber intraocular lens, pseudophakic()[id number] FDAStart: 05-07-2020 Goals DatePatient GoalDesired Activity/[facility] 08-29-2023 Note Date & BcycXqvzHvzpelzn58-66-0416 Hospital Discharge instructions Additional Instructions Clean your wound with shampoo and water daily. Apply antibiotic ointment daily. Follow-up for staple removal in 5 to 7 days.[facility] Work Phone: Evaluation note Note Date & TypeNoteFacilityEvaluation noteNo assessment information available [facility] Work Phone: Advance Directives No Advanced [...] and content) DATE CREATED AUTHOR 09/15/2021 [facility] DATE CREATED AUTHOR AUTHOR'S ORGANIZ ATION 09/17/2023 [facility] Care Teams (unrecognized sec tion and content) Team Status: Active Member Role Status Dates Coleen Snider APRN [employer] OPERATOR-C Primary Care Provider Act letty Team Status: Inactive Member Role Status Dates Coleen Snider APRN [employer] DISTRI[employer]OR OPERATOR-C Primary Care Provider Act letty Start: August [...] BE BASED ON THE PRIMARY CLINICAL RECORDS. [facility]. provides no warranty or guarantee of the accuracy or completeness of information in this document.
== END 2025-01-15 14:58 | disposition home or self-care (01) ==
LOC: WC 14:57
PROVIDERS: PCP Family Medicine; Visit Provider Physician Assistant
DX: L97.425 Non-pressure chronic ulcer of left heel and midfoot with muscle involvement without evidence of necrosis (principal); L97.325 Non-pressure chronic ulcer of left ankle with muscle involvement without evidence of necrosis; L97.825 Non-pressure chronic ulcer of other part of left lower leg with muscle involvement without evidence of necrosis
CPT/HCPCS: G0463

== ENCOUNTER 2025-01-20 16:05 | Outpatient (OUT) | payer OTHER, SELFPAY ==
--- OUTSIDE RECORDS SUMMARY | 2025-01-20 16:07 | XMS_ITS | Clinical Summary ---
Author Organization [facility] Address [address] [place] [place] [address] Care Team Providers Care [employer] Sales Consultant Name Role Phone Unavailable Primary Care Provider Unavailabl e Social History Tobacco UseTypesPacks/DayYears UsedDateSmoking Tobacco: Never AssessedSex and Gender InformationValueDate RecordedSex Assigned at BirthNot on fileLegal Sex Male08/25/2021 9:45 PM EDTGender IdentityNot on fileSexual OrientationNot on file Plan of Treatment Health MaintenanceDue DateLast DoneCommentsCT Jynnlnthqiys81/08/1968Colonoscopy 1967Colorectal Cancer Jxhwhqqfc25/08/1968FIT-DNA1967FIT1967 FOBT1967 1352Ngxptdfhimgtx81/08/1968Depression Fvmslkdqn65/08/1980Hepatitis B Vaccines (1 of 3 - 19+ 3-dose series)11/04/1986Adult Mcmijhr7811/04/1989Zoster Vaccines (1 of 2)11/04/2017Influenza Vaccine (#1)2024HIB VaccinesAged [...]
--- OUTSIDE RECORDS SUMMARY | 2025-01-20 16:07 | XMS_ITS | Clinical Summary ---
Author Organization [facility] Address [address] [place] [address] Care Team Providers Care Compliance Counsel Name Role Phone Unavailable Primary Care Provider Unavailabl e Social History Tobacco UseTypesPacks/DayYears UsedDateSmoking Tobacco: Never AssessedSex and Gender InformationValueDate RecordedSex Assigned at BirthNot on fileLegal Sex Male05/11/2022 6:40 PM EDTGender IdentityNot on fileSexual OrientationNot on file Last Filed Vital Signs Vital SignReadingTime TakenCommentsBlood Qyfjhcjz323/8204 12:00 PM EDT Pulse--Temperature--Respiratory Rate--Oxygen Saturation--Inhaled Oxygen Concentration--Rgshns511 kg (331 lb)06/13/2018 12:00 PM YSRIyzzxm815.9 cm (6') 06/13/2018 12:00 PM EDTBody Mass Index44.8906/13/2018 12:00 PM EDT Plan of Treatment Not on file
--- OUTSIDE RECORDS SUMMARY | 2025-01-20 16:07 | XMS_ITS | Clinical Summary ---
Author Organization [facility] Address [id number] [address] [place] [address] Care Team Providers Care Supervisor Fertilizer Processing Name Role Phone Luis Mason MD Primary Care Provider [phone] Allergies Active AllergyReactionsCriticalityNoted NkilKxrdcrptAjdlmtvyj33/05/2018 Medications MedicationSigDispense QuantityRefillsLast FilledStart DateEnd DateStatus QUEtiapine (SEROquel) 100 mg tablet Take 100 mg by mouth daily.Active QUEtiapine (SEROquel) 100 mg tablet Take 200 mg by mouth nightly.Active Active Problems ProblemNoted DateDiagnosed DateOpen leg wound07/13/2018Ischemic leg07/12/2018 Immunizations No known immunizations Social History Tobacco UseTypesPacks/DayYears UsedDateSmoking Tobacco: Every DaySmokeless Tobacco: NeverChildcareAnswerDate TdgnwpftWnuapjcnvXweyklw35/12/2019Employment AnswerDate RdpxwemvOtjbksjeifXfuboeu86/12/2019Purpose - LifeAnswerDate Recorded Purpose and direction in nqjzRfxhvgw91/11/2021Sex and Gender InformationValue Date RecordedSex Assigned at BirthNot on fileLegal UllSiql7510/02/2014 11:53 AM EDTGender IdentityNot on fileSexual OrientationNot on file Last Filed Vital Signs Vital SignReadingTime TakenCommentsBlood Lmtermvw403/8605 7:04 PM EDT Yrqdt7464 7:04 PM PYCSoogooylbna48 ??C (96.8 ??F)07/13/2018 7:04 PM EDT Respiratory Zbmz7250 7:04 PM EDTOxygen Puwymiqqle70%07/13/2018 7:04 PM EDTInhaled Oxygen Concentration--Smwzbb184.7 kg (307 lb 15.7 oz)07/12/2018 7:32 PM VPWXswrmx256.9 cm (6')07/12/2018 8:05 PM EDTBody Mass Index41.77007/12/2018 7:32 PM EDT Plan of Treatment Health MaintenanceDue DateLast DoneCommentsStatin Use: Uknjsbqplnamqa17/08/1968 Depression Tganruexm94/08/1980Tobacco Qnojuuadc68/08/1980Adult BMI Screening 11/04/1985DTaP,Tdap and Td Vaccines (1 - Tdap)11/04/1986Zoster (Shingles) Vaccine (1 of 2)11/04/2017Influenza Gzxozgq8510/28/2024 Goals GoalPatient Goal TypeAssociated ProblemsRecent ProgressPatient-Stated?Author <enter goal here> Roma Arita RN Note: Evaluation of progress towards goal: Home with DAD and [facility] for SN wound care, mental health f/u [facility] [employer] Not on file Insurance Advance Directives * Full Code (Latest Code Status on File) Date ActivatedDate InactivatedComments07/12/2018 6:57 PM07/13/2018 10:12 PM Care Teams Team MemberRelationshipSpecialtyStart DateEnd Date Luis Mason MD PCP - GeneralFamily Medicine07/13/18
--- OUTSIDE RECORDS SUMMARY | 2025-01-20 16:10 | XMS_ITS | CCD ---
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 103/ulNormal4.0-11.0The [facility] HospitalComment on above: Performed By: #### CBC #### [facility] [address] [place] [address] Dr. Cristina NinoCT ABD/PELVIS WO CONon [id number] ABD/PELVIS WO CONEXAMINATION: CT ABD/PELVIS WO CON, [...] authenticated by: ANDREA NG Date: 2021-09-08 18:20NormalThe [facility] URINE PROFILEon [id number] Ql (U)NegativeNormal NEGATIVEThe [facility] HospitalComment on above:Performed By: #### ERUR #### [facility] [address] [place] [address] Dr. Cristina Parson (U)CLEARNormalCLEARSalem City HospitalComment on above: Performed By: #### ERUR #### [facility] [address] [place] [address] Dr. Cristina Ponce (U)YELLOWNormalYELLOWSalem City HospitalComment on above: Performed By: #### ERUR #### [facility] [address] [place] [address] Dr. Cristina Silverman micrscopic examination will be performed if indicated. NormalOhiohealth Marion General Hospital HospitalComment on above:Performed By: #### ERUR #### [facility] [address] [place] [address] Dr. Cristina NinoGlucose Ql (U)NegativeNormalNEGATIVESalem City HospitalComment on above:Performed By: #### ERUR #### [facility] [address] [place] [address] Dr. Cristina NinoHemoglobin Ql (U)NegativeNormalNEGATIVEZanesville City Hospital on above:Performed By: #### ERUR #### [facility] [address] [place] [address] Dr. Cristina NinoKetones Ql (U)NegativeNormalNEGATIVESalem City HospitalComment on above:Performed By: #### ERUR #### [facility] [address] [place] [address] Dr. Cristina NinoLEUKOCYTESNegativeNormalNEGATIVESalem City HospitalComment on above:Performed By: #### ERUR #### [facility] [address] [place] [address] Dr. Cristina NinoNitrite Ql (U)NegativeNormalNEGATIVESalem City HospitalComment on above:Performed By: #### ERUR #### [facility] [address] [place] [address] Dr. Cristina NinopH (U)6.0 [pH]Normal5-9Sal[facility] City HospitalComment on above: Performed By: #### ERUR #### [facility] [address] [place] [address] Dr. Cristina Wolff GRAVITY1.138Tlwyzc0.005-<=1.025The [facility] HospitalComment on above:Performed By: #### ERUR #### [facility] [address] [place] [address] Dr. Cristina Grace PROTEINNegativeNormalNEGATIVE/ TRACEThe [facility] Comment on above:Performed By: #### ERUR #### [facility] [address] [place] [address] Dr. Cristina Chen MICRO INDNOT INDICATEDNormalThe [facility] HospitalComment on above:Performed By: #### ERUR #### [facility] [address] [place] [address] Dr. Cristina Oatesbilinogen Qn (U)0.2 {Renee'U}/dLNormal0.2 - 1.0The [facility] HospitalComment on above:Performed By: #### ERUR #### [facility] [address] [place] [address] Dr. Cristina Amaya CHEM 8 (BAS METB)on [id number] gap [Moles/Vol]15.0 mmol/LNormalSalem City HospitalComment on above:Performed By: #### BMP #### [facility] [address] [place] [address] Dr. Cristina NinoCalcium [Mass/Vol]8.8 mg/dLNormal8.5-10.1[facility] Comment on above:Performed By: #### BMP #### [facility] [address] [place] [address] Dr. Cristina NinoChloride [Moles/Vol]99 mmol/BLtmcei31-253SynSalem City Hospital Comment on above:Performed By: #### BMP #### [facility] [address] [place] [address] Dr. Cristina NinoCO2 [Moles/Vol]23.9 mmol/ZYhopah59.0-32.0[facility] Comment on above:Performed By: #### BMP #### [facility] [address] [place] [address] Dr. Cristina NinoCreatinine [Mass/Vol]1.04 mg/dLNormal0.70-1.30The [facility] HospitalComment on above:Performed By: #### BMP #### [facility] [address] [place] [address] Dr. Cristina GarveyGFR-AF SLOVENIAN>60Normal>=60The [facility] HospitalComment on above:Performed By: #### BMP #### [facility] [address] [address] [address] Cristina GarveyGFR-NON AF SLOVENIAN>60Normal>=60The [facility] HospitalComment on above:Performed By: #### BMP #### [facility] [address] [place] [address] Dr. Cristina NinoGlucose [Mass/Vol]122 mg/dLCritically yfyg23-799Nox [facility] HospitalComment on above:Performed By: #### BMP #### [facility] [address] [place] [address] Dr. Cristina NinoPotassium [Moles/Vol]4.9 mmol/LNormal3.5-5.1The [facility] Comment on above:Performed By: #### BMP #### [facility] [address] [place] [address] Dr. Cristina NinoSodium [Moles/Vol]133 mmol/LCritically uzg986-191Ggo [facility] HospitalComment on above:Performed By: #### BMP #### [facility] [address] [place] [address] Dr. Cristina NinoUrea nitrogen [Mass/Vol]11.0 mg/dLNormal7.0-18.0The [facility] HospitalComment on above:Performed By: #### BMP #### [facility] [address] [place] [address] Dr. Cristina Nickerson nitrogen/Creatinine [Mass ratio]10.6 mg/mgNormalThe [facility] HospitalComment on above:Performed By: #### BMP #### [facility] [address] [place] [address] Dr. Cristina NinoCBC AUTO DIFFon [id number] #0.0 103/ulNormal0.0-0.1The [facility] HospitalComment on above:Performed By: #### CBC ####[facility] [address] [place] [address] KarenBasophils/100 WBC (Bld)0.5 %Normal0.2-2.0The [facility] HospitalComment on above:Performed By: #### CBC ####[facility] [address] [place] [address] KarenEO #0.1 103/ulNormal0.0-0.7The [facility] HospitalComment on above:Performed By: #### CBC ####[facility] [address] [place] [address] KarenEosinophils/100 WBC (Bld)1.3 %Normal 0.9-7.0The [facility] HospitalComment on above:Performed By: #### CBC ####[facility] [address] [place] [address] Mary Erythrocyte distribution width (RBC) [Ratio]15.9 %Critically high11.0-15.0The [facility] HospitalComment on above:Performed By: #### CBC ####[facility] [address] [place] [address] KarenHematocrit (Bld) [Volume fraction]36.7 %Critically low42.0-54.0The [facility] HospitalComment on above:Performed By: #### CBC ####[facility] [address] [place] [address] KarenHemoglobin (Bld) [Mass/Vol]12.1 g/dL Critically low14.0-18.0The [facility] HospitalComment on above:Performed By: #### CBC ####[facility] [address] [place] [address] KarenIG #0.03 10e3/ulNormal0.00-0.03The [facility] HospitalComment on above:Performed By: #### CBC ####[facility] [address] KarenIG %0.5 %Normal0.0-0.5The [facility] HospitalComment on above:Performed By: #### CBC ####[facility] [address] [place] [address] KarenLYMPH #1.9 103/ul Normal1.2-3.8The [facility] HospitalComment on above:Performed By: #### CBC ####[facility] [address] KarenLymphocytes/100 WBC (Bld)31.9 %Qzzbzi85.5-60.0The [facility] HospitalComment on above:Performed By: #### CBC ####[facility] [address] [place] [address] KarenMANUAL DIFF REQNONormalThe [facility] HospitalComment on above:Performed By: #### CBC ####[facility] [address] [place] [address] KarenH (RBC) [Entitic mass]31.5 mjIhxjpt55.9-34.0The [facility] HospitalComment on above: Performed By: #### CBC ####[facility] [address] [place] [address] KarenMCHC (RBC) [Mass/Vol]33.0 g/dLNormal 29.9-35.2The [facility] HospitalComment on above:Performed By: #### CBC ####[facility] [address] [place] [address] KarenV (RBC) [Entitic vol]95.6 fLCritically high80.0-94.0The [facility] Comment on above:Performed By: #### CBC ####[facility] [address] [place] [address] KarenMONO #0.4 103/ulNormal0.3-0.8The [facility] HospitalComment on above:Performed By: #### CBC ####[facility] [address] [place], [place] [address]Hmkqsc KarenMonocytes/100 WBC (Bld)7.1 %Normal1.7-12.0The [facility] HospitalComment on above:Performed By: #### CBC ####[facility] [address] [place], [place] [address]Bjedxt KarenNEUT #3.6 103/ulNormal1.4-6.5The [facility] HospitalComment on above:Performed By: #### CBC ####[facility] [address] [place], [place] [address]Jcltmk KarenNeutrophils/100 WBC (Bld)58.7 %Normal 43.0-75.0The [facility] HospitalComment on above:Performed By: #### CBC ####[facility] [address] [place], [place] [address]Snyrxv KarenPlatelet mean volume (Bld) [Entitic vol]9.1 fLCritically low9.5-13.5The [facility] HospitalComment on above:Performed By: #### CBC ####[facility] [address] [id number] VvatuLDX533 103/ul Critically wde914-077Wqg [facility] HospitalComment on above:Performed By: #### CBC ####[facility] [address] [place], [place] [address]Gerken KarenRBC3.84 106/ulCritically low4.70-6.10The [facility] Comment on above:Performed By: #### CBC ####[facility] [address] [place] [address] KarenWBC6.1 103/ulNormal4.0-11.0The [facility] HospitalComment on above:Performed By: #### CBC ####[facility] [address] [id number] KarenER URINE PROFILE on 26-66-6216Lxnifayln Ql (U)NegativeNormalNEGATIVEThe [facility] HospitalComment on above:Performed By: #### ERUR #### [facility] [address] [place] [address] Bharathi KarenClarity (U)CLEARNormalCLEAROhiohealth Marion General Hospital HospitalComment on above: Performed By: #### ERUR #### [facility] [address] [place] [address] Bharathi KarenColor (U)YELLOWNormalYELLOWSalem City HospitalComment on above: Performed By: #### ERUR #### [facility] [address] [place] [address] Bharathi KarenERUAHDA micrscopic examination will be performed if indicated.Normal The [facility] HospitalComment on above:Performed By: #### ERUR #### [facility] [address] [place] [address] Bharathi KarenGlucose Ql (U)NegativeNormalNEGATIVESalem City HospitalComment on above:Performed By: #### ERUR #### [facility] [address] [place] [address] Bharathi KarenHemoglobin Ql (U)NegativeNormalNEGATIVESalem City HospitalComment on above:Performed By: #### ERUR #### [facility] [address] [place] [address] Bharathi KarenKetones Ql (U)NegativeNormalNEGATIVESalem City HospitalComment on above:Performed By: #### ERUR #### [facility] [address] [place] [address] Bharathi KarenLEUKOCYTESNegativeNormalNEGATIVESalem City HospitalComment on above:Performed By: #### ERUR #### [facility] [address] [place] [address] Bharathi KarenNitrite Ql (U)NegativeNormalNEGATIVESalem City HospitalComment on above:Performed By: #### ERUR #### [facility] [address] [place] [address] Bharathi KarenpH (U)6.0 [pH]Normal5-9[facility] HospitalComment on above: Performed By: #### ERUR #### [facility] [address] [place] [address] Bharathi BealenSPEC GRAVITY1.601Tsfude9.005-<=1.025The [facility] HospitalComment on above:Performed By: #### ERUR #### [facility] [address] [place] [address] Bharathi KarenUA PROTEINNegativeNormalNEGATIVE/ TRACEThe [facility] HospitalComment on above:Performed By: #### ERUR #### [facility] [address] [place] [address] Bharathi KarenUR MICRO INDNOT INDICATEDNormalThe [facility] HospitalComment on above:Performed By: #### ERUR #### [facility] [address] [place] [address] Bharathi KarenUrobilinogen Qn (U)0.2 {Renee'U}/dLNormal0.2 - 1.0The [facility] HospitalComment on above:Performed By: #### ERUR #### [facility] [address] [place] [address] Bharathi KarenPROF CHEM 8 (BAS METB)on 20-93-9503Pgngz gap [Moles/Vol]14.2 mmol/L NormalSalem City HospitalComment on above:Performed By: #### BMP #### [facility] [address] [place] [address] Bharathi KarenCalcium [Mass/Vol]9.0 mg/dLNormal8.4-10.2[facility] Comment on above:Performed By: #### BMP #### [facility] [address] [place] [address] Bharathi KarenChloride [Moles/Vol]100 mmol/BYattoe79-572Yud [facility] Comment on above:Performed By: #### BMP #### [facility] [address] [place] [address] Bharathi KarenCO2 [Moles/Vol]26.0 mmol/NAnkpzx92.0-30.0[facility] Comment on above:Performed By: #### BMP #### [facility] [address] [place] [address] Bharathi KarenCreatinine [Mass/Vol]1.03 mg/dLNormal0.66-1.25The [facility] Comment on above:Performed By: #### BMP #### [facility] [address] [place] [address] Bharathi KarenEGFR-AF SLOVENIAN>60Normal>=60The [facility] HospitalComment on above: Performed By: #### BMP #### [facility] [address] [place] [address] Bharathi KarenEGFR-NON AF SLOVENIAN>60Normal>=60The [facility] HospitalComment on above:Performed By: #### BMP #### [facility] [address] [place] [address] Bharathi KarenGlucose [Mass/Vol]132 mg/dLCritically hyjo99-895LvbSalem City HospitalComment on above:Performed By: #### BMP #### [facility] [address] [place] [address] Bharathi KarenPotassium [Moles/Vol]4.2 mmol/LNormal3.4-5.0[facility] Comment on above:Performed By: #### BMP #### [facility] [address] [place] [address] Bharathi KarenSodium [Moles/Vol]136 mmol/LCritically iho429-209EehSalem City HospitalComment on above:Performed By: #### BMP #### [facility] [address] [place] [address] Bharathi KarenUrea nitrogen [Mass/Vol]9.0 mg/dLNormal9.0-20.0[facility] Comment on above:Performed By: #### BMP #### [facility] [address] [place] [address] Bharathi KarenUrea nitrogen/Creatinine [Mass ratio]8.7 mg/mgNormalThe [facility] HospitalComment on above:Performed By: #### BMP #### [facility] [address] [place] [address] Bharathi KarenCT ABD/PELVIS WO CONon [id number] ABD/PELVIS WO CONEXAMINATION: CT ABD/PELVIS WO CON [...] by: VELIA DE LA VEGA Date: 2020-09-19 22:15NormalMed[facility] URINE PROFILEon [id number] Ql (U)NegativeNormal NEGATIVEThe [facility] HospitalComment on above:Performed By: #### ERUR #### [facility] [address] [place] [address] Bharathi KarenClarity (U)CLEARNormalCLEARSalem City HospitalComment on above: Performed By: #### ERUR #### [facility] [address] [place] [address] Bharathi KarenColor (U)YELLOWNormalYELLOWSalem City HospitalComment on above: Performed By: #### ERUR #### [facility] [address] [place] [address] Bharathi KarenERUAHDA micrscopic examination will be performed if indicated.Normal The [facility] HospitalComment on above:Performed By: #### ERUR #### [facility] [address] [place] [address] Bharathi KarenGlucose Ql (U)NegativeNormalNEGATIVESalem City HospitalComment on above:Performed By: #### ERUR #### [facility] [address] [place] [address] Bharathi KarenHemoglobin Ql (U)NegativeNormalNEGATIVESalem City HospitalComment on above:Performed By: #### ERUR #### [facility] [address] [place] [address] Bharathi KarenKetones Ql (U)NegativeNormalNEGATIVESalem City HospitalComment on above:Performed By: #### ERUR #### [facility] [address] [place] [address] Bharathi KarenLEUKOCYTESNegativeNormalNEGATIVESalem City HospitalCombrighton hospital on above:Performed By: #### ERUR #### [facility] [address] [place] [address] Bharathi KarenNitrite Ql (U)NegativeNormalNEGATIVESalem City HospitalComment on above:Performed By: #### ERUR #### [facility] [address] [place] [address] Bharathi KarenpH (U)5.5 [pH]Normal5-9[facility] HospitalComment on above: Performed By: #### ERUR #### [facility] [address] [place] [address] Bharathi BealenSPEC GRAVITY1.337Eyhusi6.005-<=1.025The [facility] HospitalComment on above:Performed By: #### ERUR #### [facility] [address] [place] [address] Bharathi KarenUA PROTEINNegativeNormalNEGATIVE/ TRACEThe [facility] HospitalComment on above:Performed By: #### ERUR #### [facility] [address] [place] [address] Bharathi KarenUR MICRO INDNOT INDICATEDNormalThe [facility] HospitalComment on above:Performed By: #### ERUR #### [facility] [address] [place] [address] Bharathi KarenUrobilinogen Qn (U)0.2 {Renee'U}/dLNormal0.2 - 1.0The [facility] HospitalCombrighton hospital on above:Performed By: #### ERUR #### [facility] [address] [place] [address] Bharathi KarenCBC AUTO DIFFon [id number] #0.0 103/ulNormal0.0-0.1The [facility] HospitalComment on above:Performed By: #### CBC #### [facility] [address] [place] [address] Bharathi KarenBasophils/100 WBC (Bld)0.5 %Normal0.2-2.0The [facility] Comment on above:Performed By: #### CBC #### [facility] [address] [place] [address] Bharathi KarenEO #0.1 103/ulNormal0.0-0.7The [facility] HospitalCombrighton hospital on above: Performed By: #### CBC #### [facility] [address] [place] [address] Bharathi KarenEosinophils/100 WBC (Bld)1.0 %Normal0.9-7.0[facility] Comment on above:Performed By: #### CBC #### [facility] [address] [place] [address] Bharathi KarenErythrocyte distribution width (RBC) [Ratio]15.7 %Critically high 11.0-15.0The [facility] HospitalComment on above:Performed By: #### CBC #### [facility] [address] [place] [address] Bharathi KarenHematocrit (Bld) [Volume fraction]35.3 %Critically low42.0-54.0The [facility] HospitalComment on above:Performed By: #### CBC #### [facility] [address] [place] [address] Bharathi KarenHemoglobin (Bld) [Mass/Vol]11.5 g/dLCritically low14.0-18.0The [facility] HospitalComment on above:Performed By: #### CBC #### [facility] [address] [place] [address] Bharathi KarenIG #0.03 10e3/ulNormal0.00-0.03The [facility] HospitalComment on above:Performed By: #### CBC #### [facility] [address] [place] [address] Bharathi KarenIG %0.4 %Normal0.0-0.5The [facility] HospitalComment on above: Performed By: #### CBC #### [facility] [address] [place] [address] Bharathi KarenLYMPH #2.2 103/ulNormal1.2-3.8The [facility] HospitalComment on above: Performed By: #### CBC #### [facility] [address] [place] [address] Bharathi KarenLymphocytes/100 WBC (Bld)29.6 %Flynwa01.5-60.0The [facility] Comment on above:Performed By: #### CBC #### [facility] [address] [place] [address] Bharathi KarenMANUAL DIFF REQNONormalThe [facility] HospitalComment on above: Performed By: #### CBC #### [facility] [address] [place] [address] Bharathi KarenMCH (RBC) [Entitic mass]31.0 ksNysels71.9-34.0The [facility] Comment on above:Performed By: #### CBC #### [facility] [address] [place], [place] [id number] Bharathi HernandezLEWIS [facility] (RBC) [Mass/Vol]32.6 g/qJZvtcug95.9-35.2[facility] Comment on above:Performed By: #### CBC #### [facility] [address] [place] [address] Bharathi HernandezCOMMUNITY HOS[facility] – [facility] (RBC) [Entitic vol]95.1 fLCritically high80.0-94.0The [facility] HospitalComment on above:Performed By: #### CBC #### [facility] [address] [place] [address] Bharathi HernandezMONO #0.5 103/ulNormal0.3-0.8The [facility] HospitalComment on above: Performed By: #### CBC #### [facility] [address] [place], [place] [id number] Bharathi KarenMonocytes/100 WBC (Bld)6.3 %Normal1.7-12.0The [facility] Comment on above:Performed By: #### CBC #### [facility] [address] [place] [address] Bharathi BealenNEUT #4.6 103/ulNormal1.4-6.5The [facility] HospitalComment on above: Performed By: #### CBC #### [facility] [address] [place] [address] Bharathi KarenNeutrophils/100 WBC (Bld)62.2 %Ugaxes07.0-75.0The [facility] Comment on above:Performed By: #### CBC #### [facility] [address] [place] [address] Bharathi KarenPlatelet mean volume (Bld) [Entitic vol]9.2 fLCritically low9.5-13.5 The [facility] HospitalComment on above:Performed By: #### CBC #### [facility] [address] [place] [address] Bharathi YuupaPBV646 103/ulCritically lae042-806Znx [facility] HospitalComment on above:Performed By: #### CBC #### [facility] [address] [place] [address] Bharathi KarenRBC3.71 106/ulCritically low4.70-6.10The [facility] HospitalComment on above:Performed By: #### CBC #### [facility] [address] [place] [address] Bharathi KarenWBC7.4 103/ulNormal4.0-11.0The [facility] HospitalComment on above: Performed By: #### CBC #### [facility] [address] [place] [address] Bharathi KarenPROF 14(COMP METB)on 33-80-1941Tnplgeo [Mass/Vol]3.9 g/dLNormal 3.5-5.0The [facility] HospitalComment on above:Performed By: #### CMP #### [facility] [address] [place] [address] Bharathi KarenAlbumin/Globulin [Mass ratio]0.8 {ratio}NormalSalem City Hospital Comment on above:Performed By: #### CMP #### [facility] [address] [place] [address] Bharathi KarenALP [Catalytic activity/Vol]81 U/HAabnls51-507UzrSalem City Hospital Comment on above:Performed By: #### CMP #### [facility] [address] [place] [address] Bharathi KarenALT [Catalytic activity/Vol]14 U/LCritically exb61-07Noe [facility] HospitalComment on above:Performed By: #### CMP #### [facility] [address] [place] [address] Bharathi KarenAnion gap [Moles/Vol]13.7 mmol/LNormalThe [facility] HospitalComment on above:Performed By: #### CMP #### [facility] [address] [place] [address] Bharathi KarenAST [Catalytic activity/Vol]23 U/GYwpnjh63-41PsbSalem City Hospital Comment on above:Performed By: #### CMP #### [facility] [address] [address] Bharathi KarenBilirubin [Mass/Vol]0.6 mg/dLNormal0.2-1.3TSum[facility] Comment on above:Performed By: #### CMP #### [facility] [address] [address] Bharathi KarenCalcium [Mass/Vol]8.9 mg/dLNormal8.4-10.2[facility] Comment on above:Performed By: #### CMP #### [facility] [address] [place] [address] Bharathi KarenChloride [Moles/Vol]101 mmol/JQxwmtg89-827ZghSalem City Hospital Comment on above:Performed By: #### CMP #### [facility] [address] [place] [address] Bharathi KarenCO2 [Moles/Vol]26.4 mmol/LFkzxbj17.0-30.0[facility] Comment on above:Performed By: #### CMP #### [facility] [address] [place] [address] Bharathi KarenCreatinine [Mass/Vol]1.02 mg/dLNormal0.66-1.25The [facility] Comment on above:Performed By: #### CMP #### [facility] [address] [place] [address] Bharathi KarenEGFR-AF SLOVENIAN>60Normal>=60The [facility] HospitalComment on above: Performed By: #### CMP #### [facility] [address] [place] [address] Bharathi KarenEGFR-NON AF SLOVENIAN>60Normal>=60Salem City HospitalComment on above:Performed By: #### CMP #### [facility] [address] [place] [address] Bharathi KarenGlobulin (S) [Mass/Vol]4.7 g/dLNormalThe [facility] HospitalComment on above:Performed By: #### CMP #### [facility] [address], [place] [address] Bharathi KarenGlucose [Mass/Vol]119 mg/dLCritically hcti59-697Rrg [facility] HospitalComment on above:Performed By: #### CMP #### [facility] [address] [place], [place] [address] Bharathi KarenPotassium [Moles/Vol]4.1 mmol/LNormal3.4-5.0[facility] Comment on above:Performed By: #### CMP #### [facility] [address] [address] Bharathi KarenProtein [Mass/Vol]8.6 g/dLCritically high6.1-8.2The [facility] HospitalComment on above:Performed By: #### CMP #### [facility] [address] [place] [address] Bharathi KarenSodium [Moles/Vol]137 mmol/KBdlygz022-300Zks [facility] Comment on above:Performed By: #### CMP #### [facility] [address] [id number] Bharathi KarenUrea nitrogen [Mass/Vol]7.0 mg/dLCritically low9.0-20.0The [facility] HospitalComment on above:Performed By: #### CMP #### [facility] [address] [place], [place] [id number] Bharathi KarenUrea nitrogen/Creatinine [Mass ratio]6.9 mg/mgNormalThe [facility] HospitalComment on above:Performed By: #### CMP #### [facility] [address] [place], [place] [id number] Bharathi KarenCOVID-19 Positive/Negativeon 05-42-7346XQGOZ-19 Positive/Negative NegativeNegativeGrand Lake Joint [facility] Hospital CtrComment on above:Testing for SARS-CoV-2 by RT-PCRThis test was developed and its performance characteristics determined by [employer] ([employer]) and validated at the [facility]. This test has not been FDA [...] the authorization is terminated or revoked sooner.Otheron 57-77-0632Xqomekxnexq 2019 PCR Inter/[facility] CtrAmphetamines screenon 04-09-2020 Amphetamines Ql (U)NegativeNegativeGrand [facility] CtrBarbiturates [Presence] in Urineon 39-43-6280Pjohigxlhjnp Ql (U)NegativeNegFirelands Regional [facility] CtrBenzodiazepines [Presence] in Urineon 04-09-2020 Benzodiazepines Ql (U)NegativeNegativeGrand [facility] CtrCannabinoids [Presence] in Urine by Screen methodon 03-09-9120Totgwpltturd Screen Ql (U) PositiveNegativeGrand [facility] Hospital CtrComment on above:These are unconfirmed results and should not be used for legal purposes. Drug Cut-Off Concentration: AMPH 1000 ng/mL RD 200 ng/mL JANETTE 200 ng/mL COCM 300 ng/mL OP 300 ng/mL PCP 25 ng/mL THC 20 ng/mLUrinalysison 83-02-7632Bduydbb Ql (U)Negative NegativeGrand [facility] Joint [facility] CtrUrine cocaine detectionon 04-09-2020 Cocaine Ql (U)NegativeNegativeGrand [facility] CtrUrine phencyclidine detection by screening methodon 86-38-7895Mvtfrlzmvrfla Ql (U)NegativeNegative [facility] CtrCOVID-19 Positive/Negativeon 25-73-5801EWVAE-19 Positive/NegativeNegativeNegFirelands Regional Medical Center South Campus CtrComment on above: Testing for SARS-CoV-2 by RT-PCRThis test was developed and its performance characteristics determined by [employer] ([employer]) and validated at the [facility]. This test has not been FDA [...] or revoked sooner.Otheron 04-06-2020 Coronavirus 2019 PCR [facility] Vital Signs Date TimeVital SignValuePerforming QvsxjjbkyNojmavpi91-73-1933 23:20-0400Body oyencqjwbmb05.4 [degF]ANTWAN Snider Work Phone: 1(374)[address] [place], [place] 35[address]107-02-2024 23:20-0400 Diastolic blood vtedgspl07 mm[Hg]ANTWAN Snider Work Phone: 1(830)[address] [place], [place] 35[address]107-02-2024 23:20-0400 Heart rate70 /minANTWAN Snider Work Phone: 1(325)[address] [place], [place] 35[address]107-02-2024 23:20-0400 Respiratory rate22 /minAPRAnya Snider Work Phone: 1(069)[address] [place], [place] 35[address]107-02-2024 23:20-0400 SaO2% (BldA) [Mass fraction]98 %ANTWAN Snider Work Phone: 1(915)[address] [place], [place] 35[address]107-02-2024 23:20-0400 Systolic blood fjtktmai285 mm[Hg]ANTWAN Snider Work Phone: 1(814)[address] [place], [place] 35[address]107-02-2024 21:59-0400 Body pfeuap481.88 cmAPRN Coleen Snider Work Phone: [facility]07-02-2024 21:59-0400 Body mailxs842.93 kgAPRAnya Snider Work Phone: [facility]02-11-2021 13:35-0500 BP Qlukevcpw61 mm[Hg][facility]02-11-2021 13:35-0500BP Zhnoyacv217 mm[Hg][facility] 04-09-2020 13:35-0500Pulse (Heart Rate)67 /minSamaritan Hospital02-11-2021 13:35-0500Pulse Zjmwudqj33 %[facility]02-11-2021 13:35-0500Respiratory Rate16 /minSamaritan Hospital02-11-2021 12:29-0500Body Bitgiqbxapw07.1 [degF]Coleen Snider [facility]02-11-2021 11:43-0500BMI (Body Mass Index)40.1 kg/o4RwgsmbxSamaritan Hospital02-11-2021 10:27-0500Body weight 130.6 kgSamaritan Hospital02-11-2021 10:27-0500Height 180.34 cmOhio[facility] Encounters Encounter DateEncounter TypeCare ProviderFacilityStart: 08-29-2023 End: 50-57-0534Lybmgyqjr department patient visitAPRAnya Snider Work Phone: [facility]-Emer[facility] Work Phone: Start: 09-08-2021 End: 41-27-0758cbbcwxzmuiHB DOCTOR MISCFacility:S7Rhvwj: 10-01-2020 End: 58-82-8393ncqyrkyyolHY DOCTOR MISCFacility:W4Gxurs: 09-19-2020 End: 01-56-5772hgnyuwzfqdYMVKN PARKERFacility:J7Gwkhu: 05-05-2020 End: 86-26-7333Mlhlicv encounter procedureBeauдмитрий SniderMtxn-Reh-Rwxljoyt Testing Start: 04-09-2020 End: 82-90-1190Zgzmorlsc to day surgeryColeen Snider-[facility] Start: 04-06-2020 End: 49-14-5893Pbtkoyg encounter procedureColeen AvilaZbhq-Dcs-Yibmkjtj Testing Procedures DateProcedureProcedure DetailPerforming ClinicianStart: 04-09-2020 Phacoemulsification of cataract with intraocular lens implantationKlickitat [facility] Plan of Treatment DateCare ActivityDetailAuthorStart: 18-02-3385GE cervical spine without contrast CT [facility] wo [facility]: 99-06-5409IV [facility]erv[facility]: 90-05-8333HK of head without contrastCT head/brain [facility] Start: 42-08-3647OL Unspecified body region WO contrastCleveland Clinic [facility] Hospitaltart: 46-48-2244Vdweh chest X-rayXR chest 1V portableCleveland Clinic [facility] General Lodi Hospitaltart: 09-89-7087CV Chest Single viewMansfield HospitalPatient EducationLaceration Repair With Bianca (DC)[facility] Work Phone: Patient referralGrand Lake Joint [facility] District [facility] Payers DatePayer CategoryPayerPolicy [id number] Social History DateTypeDetailFacilityStart: 04-06-2020 End: 22-23-7050Nnryqbu smoking status NHISSmoker (finding)[facility] Hospitaltart: 68-35-9772Msg Assigned At [facility] Medical Equipment Procedure CodeEquipment CodeEquipment Original TextEquipment IdentifierDates Phacoemulsification of cataract with intraocular lens implantation ()[id number] FDAStart: 04-09-2020 Phacoemulsification of cataract with intraocular lens implantationPosterior- chamber intraocular lens, pseudophakic()[id number] FDAStart: 05-07-2020 Goals DatePatient GoalDesired Activity/[facility] instructions 08-29-2023 Note Date & JyjvObsbYulbrdkj32-69-8759 Hospital Discharge instructions Additional Instructions Clean your wound with shampoo and water daily. Apply antibiotic ointment daily. Follow-up for staple removal in 5 to 7 days.[facility] Work Phone: Evaluation note Note Date & TypeNoteFacilityEvaluation noteNo assessment information available [facility] Work Phone: Advance Directives No [...] and content) DATE CREATED AUTHOR 09/15/2021 [facility] DATE CREATED AUTHOR AUTHOR'S ORGANIZ ATION 09/17/2023 [facility] Care Teams (unrecognized sec tion and content) Team Status: Active Member Role Status Dates Coleen Snider APRN ROAD SUPERVISOR-C Primary Care Provider Act letty Team Status: Inactive Member Role Status Dates Coleen Snider APRN ROAD SUPERVISOR-C Primary Care Provider Act letty Start: August [...] BE BASED ON THE PRIMARY CLINICAL RECORDS. [employer] [facility]. provides no warranty or guarantee of the accuracy or completeness of information in this document.
[2025-01-20 16:29] LABS: Hematocrit 28.5 % (42.0-54.0); Hemoglobin 8.9 g/dL (14.0-18.0); Mean Corpuscular HGB Conc 31.2 g/dL (29.9-35.2); Mean Corpuscular Hemoglobin 27.6 pg (25.9-34.0); Mean Corpuscular Volume 88.5 fL (80.0-94.0); Platelet Count 80 10^3/uL (150-450); Red Blood Count 3.22 10^6/uL (4.70-6.10); White Blood Count 2.5 10^3/uL (4.0-11.0)
[2025-01-20 17:00] LABS: Basophils Abs Manual 0.02 10^3/uL (0.00-0.10); Basophils Percent Manual 1.0 % (0.2-2.0); Eosinophils Absolute Manual 0.02 10^3/uL (0.00-0.70); Eosinophils Percent Manual 1.0 % (0.9-7.0); Lymphocytes Absolute Manual 0.77 10^3/uL (1.20-3.80); Lymphocytes Percent Manual 31.0 % (20.5-60.0); Monocytes Absolute Manual 0.15 10^3/uL (0.30-0.80); Monocytes Percent Manual 6.0 % (1.7-12.0); Segmented Neut Absolute Manual 1.52 10^3/uL (1.4-6.5); Segmented Neutrophils % Manual 61.0 (43.0-75.0)
[2025-01-20 17:06] LABS: Alanine Aminotransferase 8 U/L (16-63); Albumin Globulin Ratio 0.7; Albumin Level 3.2 g/dL (3.4-5.0); Alkaline Phosphatase 95 U/L (46-116); Anion Gap 11.0; Aspartate Amino Transferase 15 U/L (15-37); Blood Urea Nitrogen 6.0 mg/dL (7.0-18.0); Calcium 8.6 mg/dL (8.5-10.1); Carbon Dioxide 29.2 mmol/L (21.0-32.0); Chloride 104 mmol/L (98-107); Cholesterol 115 mg/dL (<=200); Estimated GFR (African America >60 (>=60 mL/min/1.73m^2); Estimated GFR (Non-African Ame >60 (>=60 mL/min/1.73m^2); Free T3 2.58 pg/mL (2.18-3.98); Globulin 4.8 g/dL; Glucose 105 mg/dL (74-106); HDL Cholesterol 34 mg/dL (40-60); Potassium 4.2 mmol/L (3.5-5.1); Sodium 140 mmol/L (136-145); Thyroid Stimulating Hormone 2.651 uIU/mL (0.358-3.740); Total Protein 8.0 g/dL (6.4-8.2); Triglycerides 66 mg/dL (<=150); Uric Acid 5.9 mg/dL (3.5-7.2); VLDL CHOLESTEROL 13.2 mg/dL
== END 2025-01-20 16:06 | disposition home or self-care (01) ==
LOC: LAB 16:05
PROVIDERS: PCP Family Medicine; Visit Provider Family Medicine
DX: Z00.00 Encounter for general adult medical examination without abnormal findings (principal); Z12.5 Encounter for screening for malignant neoplasm of prostate
CPT/HCPCS: 36415; 80053; 80061; 83036; 83525; 84436; 84443; 84481; 84550; 85007; 85027; G0103

== ENCOUNTER 2025-01-27 14:56 | Emergency (ER) | payer OTHER, SELFPAY ==
[2025-01-27 15:13] VITALS: BP 106/63; PULSE 94; TEMP 37.3; O2SAT 98; BMI 31.2
--- OUTSIDE RECORDS SUMMARY | 2025-01-27 15:36 | XMS_ITS | Clinical Summary ---
Author Organization [facility] Address [address] [place] [address] Care Team Providers Care Net Sql Developer Name Role Phone Unavailable Primary Care Provider Unavailabl e Social History Tobacco UseTypesPacks/DayYears UsedDateSmoking Tobacco: Never AssessedSex and Gender InformationValueDate RecordedSex Assigned at BirthNot on fileLegal Sex Male04/01/2012 3:29 PM ESTGender IdentityNot on fileSexual OrientationNot on file Plan of Treatment Health MaintenanceDue DateLast DoneCommentsHEPATITIS C VIRUS VUQUHKSYA54/08/1968 FHUFWUM49 1967HIV SCREENING HZQIJHPFUU15/08/1983HEP B VACCINE (1 of 3 - 19+ 3-dose series)11/04/1986TDAP (ADULT)11/04/1986LIPID VGPRICDEI22/08/2008 COLORECTAL CANCER SCREENING APKAXHKZLH50/08/2013PNEUMOCOCCAL VACCINE SERIES (1 of 1 - PCV)11/04/2017ZOSTER (SHINGLES) VACCINE (1 of 2)11/04/2017PROSTATE CANCER SCREENING GDJROOHLUT64/08/2023COVID-19 VACCINE (1 - 2024- season)2024 INFLUENZA VACCINE (#1)2024
--- OUTSIDE RECORDS SUMMARY | 2025-01-27 15:36 | XMS_ITS | Clinical Summary ---
Author Organization [employer] [facility] Address [id number] [place] [address] Care Team Providers Care Lamp Wirer Name Role Phone Luis Mason MD Primary Care Provider [phone] Allergies Active AllergyReactionsCriticalityNoted QcqgFlhgayypUuhejhwxi62/05/2018 Medications MedicationSigDispense QuantityRefillsLast FilledStart DateEnd DateStatus QUEtiapine (SEROquel) 100 mg tablet Take 100 mg by mouth daily.Active QUEtiapine (SEROquel) 100 mg tablet Take 200 mg by mouth nightly.Active Active Problems ProblemNoted DateDiagnosed DateOpen leg wound07/13/2018Ischemic leg07/12/2018 Immunizations No known immunizations Social History Tobacco UseTypesPacks/DayYears UsedDateSmoking Tobacco: Every DaySmokeless Tobacco: NeverChildcareAnswerDate TkfayafvApbysubhrBdcntnu90/12/2019Employment AnswerDate TgpcpuysXgxmxmotdpFltziog15/12/2019Purpose - LifeAnswerDate Recorded Purpose and direction in rvshHpbdrse17/11/2021Sex and Gender InformationValue Date RecordedSex Assigned at BirthNot on fileLegal UmkWkdu9010/02/2014 11:53 AM EDTGender IdentityNot on fileSexual OrientationNot on file Last Filed Vital Signs Vital SignReadingTime TakenCommentsBlood Omebbttk507/8605 7:04 PM EDT Vrjbk9350 7:04 PM TMOQpenygwavkg58 ??C (96.8 ??F)07/13/2018 7:04 PM EDT Respiratory Zqmr3083 7:04 PM EDTOxygen Jiunsbfalq77%07/13/2018 7:04 PM EDTInhaled Oxygen Concentration--Frcjjy929.7 kg (307 lb 15.7 oz)07/12/2018 7:32 PM PFFSadatv735.9 cm (6')07/12/2018 8:05 PM EDTBody Mass Index41.77007/12/2018 7:32 PM EDT Plan of Treatment Health MaintenanceDue DateLast DoneCommentsStatin Use: Rmbgubznfgsqhg31/08/1968 Depression Nnmqxnfvs10/08/1980Tobacco Vimetfipr15/08/1980Adult BMI Screening 11/04/1985DTaP,Tdap and Td Vaccines (1 - Tdap)11/04/1986Zoster (Shingles) Vaccine (1 of 2)11/04/2017Influenza Arsnqqp8910/28/2024 Goals GoalPatient Goal TypeAssociated ProblemsRecent ProgressPatient-Stated?Author <enter goal here> Roma Arita RN Note: Evaluation of progress towards goal: Home with D[facility] and [facility] wound care, mental health f/u [facility] Medical Devices Not on file Insurance Advance Directives * Full Code (Latest Code Status on File) Date ActivatedDate InactivatedComments07/12/2018 6:57 PM07/13/2018 10:12 PM Care Teams Team MemberRelationshipSpecialtyStart DateEnd Date Luis Mason MD PCP - GeneralFamily Medicine07/13/18
--- OUTSIDE RECORDS SUMMARY | 2025-01-27 15:36 | XMS_ITS | Clinical Summary ---
Author Organization [facility] Address [address] [place] [address] Care Team Providers Care Audio Visual Project Manager Name Role Phone Unavailable Primary Care Provider Unavailabl e Social History Tobacco UseTypesPacks/DayYears UsedDateSmoking Tobacco: Never AssessedSex and Gender InformationValueDate RecordedSex Assigned at BirthNot on fileLegal Sex Male05/11/2022 6:40 PM EDTGender IdentityNot on fileSexual OrientationNot on file Last Filed Vital Signs Vital SignReadingTime TakenCommentsBlood Lgoqhywt476/8204 12:00 PM EDT Pulse--Temperature--Respiratory Rate--Oxygen Saturation--Inhaled Oxygen Concentration--Mkekli599 kg (331 lb)06/13/2018 12:00 PM CVGVewikb502.9 cm (6') 06/13/2018 12:00 PM EDTBody Mass Index44.8906/13/2018 12:00 PM EDT Plan of Treatment Not on file
--- OUTSIDE RECORDS SUMMARY | 2025-01-27 15:36 | XMS_ITS | Clinical Summary ---
Author Organization [facility] Address [address] [place] [address] Care Team Providers Care Solution Mixer Name Role Phone Unavailable Primary Care Provider Unavailabl e Social History Tobacco UseTypesPacks/DayYears UsedDateSmoking Tobacco: Never AssessedSex and Gender InformationValueDate RecordedSex Assigned at BirthNot on fileLegal Sex Male08/25/2021 9:45 PM EDTGender IdentityNot on fileSexual OrientationNot on file Plan of Treatment Health MaintenanceDue DateLast DoneCommentsCT Qmubhnasygkz14/08/1968Colonoscopy 1967Colorectal Cancer Hdopezalz64/08/1968FIT-DNA1967FIT1967 FOBT1967 0552Mxesulnzgpdjx23/08/1968Depression Yepimmecp21/08/1980Hepatitis B Vaccines (1 of 3 - 19+ 3-dose series)11/04/1986Adult Kepiudp3311/04/1989Zoster Vaccines (1 of 2)11/04/2017Influenza Vaccine (#1)2024HIB VaccinesAged [...]
[2025-01-27 15:55] LABS: Hematocrit 27.3 % (42.0-54.0); Hemoglobin 8.7 g/dL (14.0-18.0); Immature Granulocytes Abs Auto 0.02 10^3/uL (0.00-0.03); Immature Granulocytes Pct Auto 0.7 % (0.0-0.5); Lymphocytes Absolute Auto 0.6 10^3/uL (1.2-3.8); Mean Corpuscular HGB Conc 31.9 g/dL (29.9-35.2); Mean Corpuscular Hemoglobin 27.7 pg (25.9-34.0); Mean Corpuscular Volume 86.9 fL (80.0-94.0); Red Blood Count 3.14 10^6/uL (4.70-6.10); White Blood Count 3.0 10^3/uL (4.0-11.0)
[2025-01-27 16:08] LABS: Platelet Count 54 10^3/uL (150-450)
[2025-01-27 16:09] LABS: Alanine Aminotransferase 8 U/L (16-63); Albumin Globulin Ratio 0.7; Albumin Level 2.8 g/dL (3.4-5.0); Alkaline Phosphatase 78 U/L (46-116); Anion Gap 11.4; Aspartate Amino Transferase 10 U/L (15-37); Blood Urea Nitrogen 18.0 mg/dL (7.0-18.0); Calcium 8.5 mg/dL (8.5-10.1); Carbon Dioxide 27.4 mmol/L (21.0-32.0); Chloride 103 mmol/L (98-107); Estimated GFR (African America >60 (>=60 mL/min/1.73m^2); Estimated GFR (Non-African Ame >60 (>=60 mL/min/1.73m^2); Globulin 4.2 g/dL; Glucose 91 mg/dL (74-106); Potassium 3.8 mmol/L (3.5-5.1); Sodium 138 mmol/L (136-145); Total Protein 7.0 g/dL (6.4-8.2)
--- NOTE | 2025-01-27 16:09 | ED_ITS ---
HPI HPI - General Adult General Chief complaint: Wound/Laceration Stated complaint: L LEG SWELLING RASH Time Seen by Provider: 01/27/25 15:28 History of Present Illness HPI narrative: 59-year-old male presenting to us with a left foot ulcer redness that developed after he just finished 2 days ago his last course of antibiotic, he was getting treated for cellulitis in the left foot and he have a chronic ulcer that he follow-up with the wound clinic for, the patient mentioned that after finishing the antibiotic by 2 days he started noticing redness in his foot he also noticed this rash on his thigh as well. The patient denies any fever chills or any other concerns. Upon arrival the patient mentioned that he does not want to be admitted and he just wanted biotics so he can follow-up with outpatient Related Data Home Medications ?Medication ?Instructions ?Recorded ?Confirmed buprenorphine HCl 8 mg sublingual 16 mg sublingual KENAN LY 06/25/23 01/27/25 tablet quetiapine 200 mg tablet (Seroquel) 100 mg PO BID 02/2701/27/25 clopidogrel 75 mg tablet 75 mg PO DAILY 12/28/2403/23 Previous Rx's ?Medication ?Instructions ?Recorded cephalexin 500 mg capsule 500 mg PO Q6H 10 days #40 ca ps 01/27/25 doxycycline hyclate 100 mg capsule 100 mg PO BID 10 da ys #20 caps 01/27/25 Allergies Allergy/AdvReac Type Severity Reaction Status Date / Time meloxicam (From [facility]) Allergy Rash Verified 01/27/25 15:21 Opioid HPI Opioid Management Most Recent Opioid Data: Last Pain Scale 5 Today, 15:47 Last Pain Intensity 3 11/26/24, 08:10 Last ORT Total Score 9 11/17/24, 03:59 Last ORT Risk Category High Risk 11/17/24, 03:59 Review of Systems ROS Status of ROS 10 or more systems reviewed and unremark able except as noted in h istory and below PFSH [facility] Medical History (Updated 01/27/25 @ 16:23 by Shauna Bynum MD) PVD (peripheral vascular disease) ?I73.9 - Peripheral vascular disease, unspecified (ICD-10) Edema ?R60.9 - Edema, unspecified (ICD-10) Social History (Updated 11/24/24 @ 04:48 by Lindy Cook RN) Non-prescribed substance use: former substance user Highest level of school completed/degree received: high school graduate Little interest or pleasure in doing things: not at all Feeling down, depressed, or hopeless: not at all Exam Narrative Exam Narrative: Nurses notes and vital signs reviewed and patient is not hypoxic. General: Well-appearing and in no apparent distress. Skin: Warm, dry, no pallor noted. Lower extremity exam: The patient have a dopplerable anterior tibial and there is no vascular injury detected but the patient have a significant redness of the foot mostly on the dorsum and he have an ulcer that is healing in the dorsum of the foot as well as just below the medial malleolus on the left side both ulcers are stage II-III ulcers. And they are healing well although there is surrounding redness on the dorsum of the foot On the medial aspect of the skin of the thigh the patient have some papular rash. Neurological: A&O x4. No cranial nerve dysfunction observed. No truncal ataxia. Moves all extremities. Sensation intact. Psychiatric: Cooperative and interactive. Normal mood and affect. Constitutional Vital Signs, click to edit/add: Last Vital Signs Temp 99.1 F 01/27/25 15:13 Pulse 94 H 01/27/25 15:13 Resp 18 01/27/25 15:13 BP 106/63 01/27/25 15:13 Pulse Ox 98 01/27/25 15:13 O2 Del Method Room Air 01/27/25 15:13 Course Vital Signs Vital signs: Vital Signs Temperature 99.1 F 01/27/25 15:13 Pulse Rate 94 H 01/27/25 15:13 Respiratory Rate 18 01/27/25 15:13 Blood Pressure 106/63 01/27/25 15:13 Pulse Oximetry 98 01/27/25 15:13 Oxygen Delivery Method Room Air 01/27/25 15:13 Temperature 99.1 F 01/27/25 15:13 Pulse Rate 94 H 01/27/25 15:13 Respiratory Rate 18 01/27/25 15:13 Blood Pressure 106/63 01/27/25 15:13 Pulse Oximetry 98 01/27/25 15:13 Oxygen Delivery Method Room Air 01/27/25 15:13 Medical Decision Making MDM Narrative Medical decision making narrative: The patient presentation was concerning that he might need to be admitted for IV antibiotics specially with the worsening of symptoms after he just finished p.o. antibiotic But the patient after getting blood workup that showed no acute significant pathology does not want to be admitted although he knows that he would be putting himself at risk of failure of treatment But the patient understand he just does not want to be admitted He is signing AGAINST MEDICAL ADVICE I did call the wound center for him to have an appointment tomorrow but they are closed but I did explain to him that he can follow-up with the wound center tomorrow morning but if not he can come back to us to be reevaluated in case of any worsening he is to come back to the ER as well. Patient was started on doxycycline and on Keflex Lab Data Labs: Lab Results 01/27/25 Range/Units 15:40 WBC 3.0 L (4.0-11.0) 10^3/uL RBC 3.14 L (4.70-6.10) 10^6/uL Hgb 8.7 L (14.0-18.0) g/dL Hct 27.3 L (42.0-54.0) % MCV 86.9 (80.0-94.0) fL MCH 27.7 (25.9-34.0) pg MCHC 31.9 (29.9-35.2) g/dL RDW 16.6 H (11.0-15.0) % Plt Count 54 L (150-450) 10^3/uL MPV 10.5 (9.5-13.5) fL Neut % (Auto) 72.8 (43.0-75.0) % Lymph % (Auto) 18.2 L (20.5-60.0) % [place] % (Auto) 6.3 (1.7-12.0) % Eos % (Auto) 1.7 (0.9-7.0) % Baso % (Auto) 0.3 (0.2-2.0) % Neut # (Auto) 2.2 (1.4-6.5) 10^3/uL Lymph # (Auto) 0.6 L (1.2-3.8) 10^3/uL [place] # (Auto) 0.2 L (0.3-0.8) 10^3/uL Eos # (Auto) 0.1 (0.0-0.7) 10^3/uL Baso # (Auto) 0.0 (0.0-0.1) 10^3/uL Abs Immat Gran (auto) 0.02 (0.00-0.03) 10^3/uL Imm/Tot Granulo (auto) 0.7 H (0.0-0.5) % Sodium 138 (136-145) mmol/L Potassium 3.8 (3.5-5.1) mmol/L Chloride 103 (98-107) mmol/L Carbon Dioxide 27.4 (21.0-32.0) mmol/L Anion Gap 11.4 BUN 18.0 (7.0-18.0) mg/dL Creatinine 1.12 (0.70-1.30) mg/dL Est GFR ( Amer) >60 (>=60 mL/min/1.73m^2) Est GFR (Non-Af Amer) >60 (>=60 mL/min/1.73m^2) BUN/Creatinine Ratio 16.1 Glucose 91 (74-106) mg/dL Lactate 1.0 (0.4-2.0) mmol/L Calcium 8.5 (8.5-10.1) mg/dL Total Bilirubin 0.4 (0.2-1.0) mg/dL AST 10 L (15-37) U/L ALT 8 L (16-63) U/L Alkaline Phosphatase 78 (46-116) U/L Total Protein 7.0 (6.4-8.2) g/dL Albumin 2.8 L (3.4-5.0) g/dL Globulin 4.2 g/dL Albumin/Globulin Ratio 0.7 Discharge Plan Discharge Stand Alone Forms: Portal Instructions Chief Complaint: Wound/Laceration Clinical Impression: Cellulitis of foot Patient Disposition: Left Against Medical Advice Time of Disposition Decision: 16:23 Condition: Good Prescriptions / Home Meds: New cephalexin 500 mg capsule 500 mg PO Q6H 10 Days Qty: 40 0RF doxycycline hyclate 100 mg capsule 100 mg PO BID 10 Days Qty: 20 0RF Discontinued cephalexin 500 mg capsule 500 mg PO QID 7 Days Qty: 28 0RF doxycycline monohydrate 100 mg tablet No Action quetiapine [Seroquel] 200 mg tablet 100 mg PO BID clopidogrel 75 mg tablet 75 mg PO DAILY buprenorphine HCl 8 mg tablet, sublingual 16 mg SUBLINGUAL DAILY Rx Instructions: PT STATES HE TAKES 1 TABLET BID Print Language: Japanese Instructions: Cellulitis (ED) Additional Instructions: Please make sure you follow-up with the wound center tomorrow or come back to the ER to be evaluated in case of worsening Referrals: Varghese Palafox MD [Primary Care Provider, Family Practice] - 1 week
[2025-01-27 16:12] LABS: Lactate/Lactic Acid 1.0 mmol/L (0.4-2.0)
--- OUTSIDE RECORDS SUMMARY | 2025-01-27 16:14 | XMS_ITS | CCD ---
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 PROFILEon 40-29-1478Uppdmhrjb Ql (U)NegativeNormal NEGATIVEThe [facility] CenterComment on above:Performed By: #### ERUR #### [facility] [address] [place] [address] Dr. Cristina Parson (U)CLEARNormalCLEARWood County HospitalComment on above: Performed By: #### ERUR #### [facility] [address] [place] [address] Dr. Cristina Ponce (U)YELLOWNormalYELLOWWood County HospitalComment on above: Performed By: #### ERUR #### [facility] [address] [place] [address] Dr. Cristina Silverman micrscopic examination will be performed if indicated. NormalCleveland Clinic Children'S Hospital For Rehabilitation HospitalComment on above:Performed By: #### ERUR #### [facility] [address] [place] [address] Dr. Cristina NinoGlucose Ql (U)NegativeNormalNEGATIVEWood County HospitalComment on above:Performed By: #### ERUR #### [facility] [address] [place] [address] Dr. Cristina NinoHemoglobin Ql (U)NegativeNormalNEGATIVESamaritan Hospital on above:Performed By: #### ERUR #### [facility] [address] [place] [address] Dr. Cristina NinoKetones Ql (U)NegativeNormalNEGATIVEWood County HospitalComment on above:Performed By: #### ERUR #### [facility] [address] [place] [address] Dr. Cristina NinoLEUKOCYTESNegativeNormalNEGATIVEWood County HospitalComment on above:Performed By: #### ERUR #### [facility] [address] [place] [address] Dr. Cristina NinoNitrite Ql (U)NegativeNormalNEGATIVEWood County HospitalComment on above:Performed By: #### ERUR #### [facility] [address] [place] [address] Dr. Cristina NinopH (U)6.0 [pH]Normal5-9Wood County HospitalComment on above: Performed By: #### ERUR #### [facility] [address] [place] [address] Dr. Cristina Wolff GRAVITY1.438Myowyq6.005-<=1.025The [facility] CenterComment on above:Performed By: #### ERUR #### [facility] [address] [place] [address] Dr. Cristina Grace PROTEINNegativeNormalNEGATIVE/ TRACEThe [facility] Comment on above:Performed By: #### ERUR #### [facility] [address] [place] [address] Dr. Cristina Chen MICRO INDNOT INDICATEDNormalThe [facility] CenterComment on above:Performed By: #### ERUR #### [facility] [address] [place] [address] Dr. Cristina Oatesbilinogen Qn (U)0.2 {Renee'U}/dLNormal0.2 - 1.0The [facility] CenterComment on above:Performed By: #### ERUR #### [facility] [address] [place] [address] Dr. Cristina Amaya CHEM 8 (BAS METB)on 56-85-1523Mqovj gap [Moles/Vol]15.0 mmol/LNormalWood County HospitalComment on above:Performed By: #### BMP #### [facility] [address] [place] [address] Dr. Cristina NinoCalcium [Mass/Vol]8.8 mg/dLNormal8.5-10.1[facility] Comment on above:Performed By: #### BMP #### [facility] [address] [place] [address] Dr. Cristina NinoChloride [Moles/Vol]99 mmol/OUlshod57-566WbkWood County Hospital Comment on above:Performed By: #### BMP #### [facility] [address] [place] [address] Dr. Cristina NinoCO2 [Moles/Vol]23.9 mmol/ZXcpzgf74.0-32.0[facility] Comment on above:Performed By: #### BMP #### [facility] [address] [place] [address] Dr. Cristina NinoCreatinine [Mass/Vol]1.04 mg/dLNormal0.70-1.30The [facility] CenterComment on above:Performed By: #### BMP #### [facility] [address] [place] [address] Dr. Cristina GarveyGFR-AF MAURITIAN>60Normal>=60The [facility] CenterComment on above:Performed By: #### BMP #### [facility] [address] [address] [address] Cristina GarveyGFR-NON AF MAURITIAN>60Normal>=60The [facility] CenterComment on above:Performed By: #### BMP #### [facility] [address] [place] [address] Dr. Cristina NinoGlucose [Mass/Vol]122 mg/dLCritically iwab55-123Vrg [facility] CenterComment on above:Performed By: #### BMP #### [facility] [address] [place] [address] Dr. Cristina NinoPotassium [Moles/Vol]4.9 mmol/LNormal3.5-5.1The [facility] Comment on above:Performed By: #### BMP #### [facility] [address] [place] [address] Dr. Cristina NinoSodium [Moles/Vol]133 mmol/LCritically nqh982-757Epu [facility] CenterComment on above:Performed By: #### BMP #### [facility] [address] [place] [address] Dr. Cristina NinoUrea nitrogen [Mass/Vol]11.0 mg/dLNormal7.0-18.0The [facility] CenterComment on above:Performed By: #### BMP #### [facility] [address] [place] [address] Dr. Cristina Nickerson nitrogen/Creatinine [Mass ratio]10.6 mg/mgNormalThe [facility] CenterComment on above:Performed By: #### BMP #### [facility] [address] [place] [address] Dr. Cristina NinoCBC AUTO DIFFon 64-69-0216XUEH #0.0 103/ulNormal0.0-0.1The [facility] CenterComment on above:Performed By: #### CBC ####[facility] [address] [place] [address] KarenBasophils/100 WBC (Bld)0.5 %Normal0.2-2.0The [facility] CenterComment on above:Performed By: #### CBC ####[facility] [address] [place] [address] KarenEO #0.1 103/ulNormal0.0-0.7The [facility] CenterComment on above:Performed By: #### CBC ####[facility] [address] [place] [address] KarenEosinophils/100 WBC (Bld)1.3 %Normal 0.9-7.0The [facility] CenterComment on above:Performed By: #### CBC ####[facility] [address] [place] [address] Mary Erythrocyte distribution width (RBC) [Ratio]15.9 %Critically high11.0-15.0The [facility] CenterComment on above:Performed By: #### CBC ####[facility] [address] [place] [address] KarenHematocrit (Bld) [Volume fraction]36.7 %Critically low42.0-54.0The [facility] CenterComment on above:Performed By: #### CBC ####[facility] [address] [place] [address] KarenHemoglobin (Bld) [Mass/Vol]12.1 g/dL Critically low14.0-18.0The [facility] CenterComment on above:Performed By: #### CBC ####[facility] [address] [place] [address] KarenIG #0.03 10e3/ulNormal0.00-0.03The [facility] CenterComment on above:Performed By: #### CBC ####[facility] [address] KarenIG %0.5 %Normal0.0-0.5The [facility] CenterComment on above:Performed By: #### CBC ####[facility] [address] [place] [address] KarenLYMPH #1.9 103/ul Normal1.2-3.8The [facility] CenterComment on above:Performed By: #### CBC ####[facility] [address] KarenLymphocytes/100 WBC (Bld)31.9 %Yaufsa67.5-60.0The [facility] CenterComment on above:Performed By: #### CBC ####[facility] [address] [place] [address] KarenMANUAL DIFF REQNONormalThe [facility] CenterComment on above:Performed By: #### CBC ####[facility] [address] [place] [address] KarenH (RBC) [Entitic mass]31.5 nqVdnacm81.9-34.0The [facility] CenterComment on above: Performed By: #### CBC ####[facility] [address] [place] [address] KarenMCHC (RBC) [Mass/Vol]33.0 g/dLNormal 29.9-35.2The [facility] CenterComment on above:Performed By: #### CBC ####[facility] [address] [place] [address] KarenV (RBC) [Entitic vol]95.6 fLCritically high80.0-94.0The [facility] Comment on above:Performed By: #### CBC ####[facility] [address] [place] [address] KarenMONO #0.4 103/ulNormal0.3-0.8The [facility] CenterComment on above:Performed By: #### CBC ####[facility] [address] [place], [place] [address]Nnrorg KarenMonocytes/100 WBC (Bld)7.1 %Normal1.7-12.0The [facility] CenterComment on above:Performed By: #### CBC ####[facility] [address] [place], [place] [address]Lxmhvg KarenNEUT #3.6 103/ulNormal1.4-6.5The [facility] CenterComment on above:Performed By: #### CBC ####[facility] [address] [place], [place] [address]Cgbxfc KarenNeutrophils/100 WBC (Bld)58.7 %Normal 43.0-75.0The [facility] CenterComment on above:Performed By: #### CBC ####[facility] [address] [place], [place] [address]Fzaawc KarenPlatelet mean volume (Bld) [Entitic vol]9.1 fLCritically low9.5-13.5The [facility] CenterComment on above:Performed By: #### CBC ####[facility] [address] [address]Gerken JsutkSYI193 103/ul Critically cer103-023Bwn [facility] CenterComment on above:Performed By: #### CBC ####[facility] [address] [place], [place] [address]Gerken KarenRBC3.84 106/ulCritically low4.70-6.10The [facility] Comment on above:Performed By: #### CBC ####[facility] [address] [place] [address] KarenWBC6.1 103/ulNormal4.0-11.0The [facility] CenterComment on above:Performed By: #### CBC ####[facility] [address] [id number] KarenER URINE PROFILE on 44-10-4432Xuomphxxv Ql (U)NegativeNormalNEGATIVEThe [facility] CenterComment on above:Performed By: #### ERUR #### [facility] [address] [place] [address] Bharathi KarenClarity (U)CLEARNormalCLEARCleveland Clinic Children'S Hospital For Rehabilitation HospitalComment on above: Performed By: #### ERUR #### [facility] [address] [place] [address] Bharathi KarenColor (U)YELLOWNormalYELLOWWood County HospitalComment on above: Performed By: #### ERUR #### [facility] [address] [place] [address] Bharathi KarenERUAHDA micrscopic examination will be performed if indicated.Normal The [facility] Junction HospitalComment on above:Performed By: #### ERUR #### [facility] [address] [place] [address] Bharathi KarenGlucose Ql (U)NegativeNormalNEGATIVEWood County HospitalComment on above:Performed By: #### ERUR #### [facility] [address] [place] [address] Bharathi KarenHemoglobin Ql (U)NegativeNormalNEGATIVEWood County HospitalComment on above:Performed By: #### ERUR #### [facility] [address] [place] [address] Bharathi KarenKetones Ql (U)NegativeNormalNEGATIVEWood County HospitalComment on above:Performed By: #### ERUR #### [facility] [address] [place] [address] Bharathi KarenLEUKOCYTESNegativeNormalNEGATIVEWood County HospitalComment on above:Performed By: #### ERUR #### [facility] [address] [place] [address] Bharathi KarenNitrite Ql (U)NegativeNormalNEGATIVEWood County HospitalComment on above:Performed By: #### ERUR #### [facility] [address] [place] [address] Bharathi KarenpH (U)6.0 [pH]Normal5-9[facility] HospitalComment on above: Performed By: #### ERUR #### [facility] [address] [place] [address] Bharathi BealenSPEC GRAVITY1.620Wqptbn7.005-<=1.025The [facility] CenterComment on above:Performed By: #### ERUR #### [facility] [address] [place] [address] Bharathi KarenUA PROTEINNegativeNormalNEGATIVE/ TRACEThe [facility] CenterComment on above:Performed By: #### ERUR #### [facility] [address] [place] [address] Bharathi KarenUR MICRO INDNOT INDICATEDNormalThe [facility] CenterComment on above:Performed By: #### ERUR #### [facility] [address] [place] [address] Bharathi KarenUrobilinogen Qn (U)0.2 {Renee'U}/dLNormal0.2 - 1.0The [facility] CenterComment on above:Performed By: #### ERUR #### [facility] [address] [place] [address] Bharathi KarenPROF CHEM 8 (BAS METB)on 70-42-0229Cpbds gap [Moles/Vol]14.2 mmol/L NormalWood County HospitalComment on above:Performed By: #### BMP #### [facility] [address] [place] [address] Bharathi KarenCalcium [Mass/Vol]9.0 mg/dLNormal8.4-10.2[facility] Comment on above:Performed By: #### BMP #### [facility] [address] [place] [address] Bharathi KarenChloride [Moles/Vol]100 mmol/LAagqqm87-059Dql [facility] Comment on above:Performed By: #### BMP #### [facility] [address] [place] [address] Bharathi KarenCO2 [Moles/Vol]26.0 mmol/MOeemug78.0-30.0[facility] Comment on above:Performed By: #### BMP #### [facility] [address] [place] [address] Bharathi KarenCreatinine [Mass/Vol]1.03 mg/dLNormal0.66-1.25The [facility] Comment on above:Performed By: #### BMP #### [facility] [address] [place] [address] Bharathi KarenEGFR-AF MAURITIAN>60Normal>=60The [facility] CenterComment on above: Performed By: #### BMP #### [facility] [address] [place] [address] Bharathi KarenEGFR-NON AF MAURITIAN>60Normal>=60The [facility] CenterComment on above:Performed By: #### BMP #### [facility] [address] [place] [address] Bharathi KarenGlucose [Mass/Vol]132 mg/dLCritically alfs36-220JbsWood County HospitalComment on above:Performed By: #### BMP #### [facility] [address] [place] [address] Bharathi KarenPotassium [Moles/Vol]4.2 mmol/LNormal3.4-5.0[facility] Comment on above:Performed By: #### BMP #### [facility] [address] [place] [address] Bharathi KarenSodium [Moles/Vol]136 mmol/LCritically qvn144-321DxbWood County HospitalComment on above:Performed By: #### BMP #### [facility] [address] [place] [address] Bharathi KarenUrea nitrogen [Mass/Vol]9.0 mg/dLNormal9.0-20.0[facility] Comment on above:Performed By: #### BMP #### [facility] [address] [place] [address] Bharathi KarenUrea nitrogen/Creatinine [Mass ratio]8.7 mg/mgNormalThe [facility] CenterComment on above:Performed By: #### BMP #### [facility] [address] [place] [address] Bharathi KarenCT ABD/PELVIS WO CONon [id number] ABD/PELVIS WO CONEXAMINATION: CT ABD/PELVIS WO CON [...] by: VELIA DE LA VEGA Date: 2020-09-19 22:15NormalBarnesville Hospital URINE PROFILEon 69-33-2529Djykkzoay Ql (U)NegativeNormal NEGATIVEThe [facility] CenterComment on above:Performed By: #### ERUR #### [facility] [address] [place] [address] Bharathi KarenClarity (U)CLEARNormalCLEARWood County HospitalComment on above: Performed By: #### ERUR #### [facility] [address] [place] [address] Bharathi KarenColor (U)YELLOWNormalYELLOWWood County HospitalComment on above: Performed By: #### ERUR #### [facility] [address] [place] [address] Bharathi KarenERUAHDA micrscopic examination will be performed if indicated.Normal The [facility] CenterComment on above:Performed By: #### ERUR #### [facility] [address] [place] [address] Bharathi KarenGlucose Ql (U)NegativeNormalNEGATIVEWood County HospitalComment on above:Performed By: #### ERUR #### [facility] [address] [place] [address] Bharathi KarenHemoglobin Ql (U)NegativeNormalNEGATIVEWood County HospitalComment on above:Performed By: #### ERUR #### [facility] [address] [place] [address] Bharathi KarenKetones Ql (U)NegativeNormalNEGATIVEWood County HospitalComment on above:Performed By: #### ERUR #### [facility] [address] [place] [address] Bharathi KarenLEUKOCYTESNegativeNormalNEGATIVEWood County HospitalComtrinity health [facility] on above:Performed By: #### ERUR #### [facility] [address] [place] [address] Bharathi KarenNitrite Ql (U)NegativeNormalNEGATIVEWood County HospitalComment on above:Performed By: #### ERUR #### [facility] [address] [place] [address] Bharathi KarenpH (U)5.5 [pH]Normal5-9Wood County HospitalComment on above: Performed By: #### ERUR #### [facility] [address] [place] [address] Bharathi BealenSPEC GRAVITY1.473Xwktkc8.005-<=1.025The [facility] CenterComment on above:Performed By: #### ERUR #### [facility] [address] [place] [address] Bharathi KarenUA PROTEINNegativeNormalNEGATIVE/ TRACEThe [facility] CenterComment on above:Performed By: #### ERUR #### [facility] [address] [place] [address] Bharathi KarenUR MICRO INDNOT INDICATEDNormalThe [facility] CenterComment on above:Performed By: #### ERUR #### [facility] [address] [place] [address] Bharathi KarenUrobilinogen Qn (U)0.2 {Renee'U}/dLNormal0.2 - 1.0The [facility] CenterComtrinity health [facility] hospital on above:Performed By: #### ERUR #### [facility] [address] [place] [address] Bharathi KarenCBC AUTO DIFFon 24-57-1041CNUT #0.0 103/ulNormal0.0-0.1The [facility] CenterComment on above:Performed By: #### CBC #### [facility] [address] [place] [address] Bharathi KarenBasophils/100 WBC (Bld)0.5 %Normal0.2-2.0The [facility] Comment on above:Performed By: #### CBC #### [facility] [address] [place] [address] Bharathi KarenEO #0.1 103/ulNormal0.0-0.7The [facility] CenterComtrinity health [facility] hospital on above: Performed By: #### CBC #### [facility] [address] [place] [address] Bharathi KarenEosinophils/100 WBC (Bld)1.0 %Normal0.9-7.0[facility] Comment on above:Performed By: #### CBC #### [facility] [address] [place] [address] Bharathi KarenErythrocyte distribution width (RBC) [Ratio]15.7 %Critically high 11.0-15.0The [facility] CenterComment on above:Performed By: #### CBC #### [facility] [address] [place] [address] Bharathi KarenHematocrit (Bld) [Volume fraction]35.3 %Critically low42.0-54.0The [facility] CenterComment on above:Performed By: #### CBC #### [facility] [address] [place] [address] Bharathi KarenHemoglobin (Bld) [Mass/Vol]11.5 g/dLCritically low14.0-18.0The [facility] CenterComment on above:Performed By: #### CBC #### [facility] [address] [place] [address] Bharathi KarenIG #0.03 10e3/ulNormal0.00-0.03The [facility] CenterComment on above:Performed By: #### CBC #### [facility] [address] [place] [address] Bharathi KarenIG %0.4 %Normal0.0-0.5The [facility] CenterComment on above: Performed By: #### CBC #### [facility] [address] [place] [address] Bharathi KarenLYMPH #2.2 103/ulNormal1.2-3.8The [facility] CenterComment on above: Performed By: #### CBC #### [facility] [address] [place] [address] Bharathi KarenLymphocytes/100 WBC (Bld)29.6 %Heopad02.5-60.0The [facility] Comment on above:Performed By: #### CBC #### [facility] [address] [place] [address] Bharathi KarenMANUAL DIFF REQNONormalThe [facility] CenterComment on above: Performed By: #### CBC #### [facility] [address] [place] [address] Bharathi KarenMCH (RBC) [Entitic mass]31.0 trBzwnzo07.9-34.0The [facility] Comment on above:Performed By: #### CBC #### [facility] [facility] [address] [place], [place] [id number] Bharathi HernandezDOCTORS [facility] (RBC) [Mass/Vol]32.6 g/qNPghfox10.9-35.2[facility] Comment on above:Performed By: #### CBC #### [facility] [address] [place] [address] Bharathi [facility] ([facility]BC) [Entitic vol]95.1 fLCritically high80.0-94.0The [facility] CenterComment on above:Performed By: #### CBC #### [facility] [address] [place] [address] Bharathi HernandezMONO #0.5 103/ulNormal0.3-0.8The [facility] CenterComment on above: Performed By: #### CBC #### [facility] [address] [place], [place] [address] Bharathi KarenMonocytes/100 WBC (Bld)6.3 %Normal1.7-12.0The [facility] Comment on above:Performed By: #### CBC #### [facility] [address] [place] [address] Bharathi BealenNEUT #4.6 103/ulNormal1.4-6.5The [facility] CenterComment on above: Performed By: #### CBC #### [facility] [address] [place] [address] Bharathi KarenNeutrophils/100 WBC (Bld)62.2 %Bzbghz12.0-75.0The [facility] Comment on above:Performed By: #### CBC #### [facility] [address] [place] [address] Bharathi KarenPlatelet mean volume (Bld) [Entitic vol]9.2 fLCritically low9.5-13.5 The [facility] CenterComment on above:Performed By: #### CBC #### [facility] [address] [place] [address] Bharathi JnoafKDU232 103/ulCritically ows959-890Dqy [facility] CenterComment on above:Performed By: #### CBC #### [facility] [address] [place] [address] Bharathi KarenRBC3.71 106/ulCritically low4.70-6.10The [facility] CenterComment on above:Performed By: #### CBC #### [facility] [address] [place] [address] Bharathi KarenWBC7.4 103/ulNormal4.0-11.0The [facility] CenterComment on above: Performed By: #### CBC #### [facility] [address] [place] [address] Bharathi KarenPROF 14(COMP METB)on 58-18-0903Feoemfw [Mass/Vol]3.9 g/dLNormal 3.5-5.0The [facility] CenterComment on above:Performed By: #### CMP #### [facility] [address] [place] [address] Bharathi KarenAlbumin/Globulin [Mass ratio]0.8 {ratio}NormalWood County Hospital Comment on above:Performed By: #### CMP #### [facility] [address] [place] [address] Bharathi KarenALP [Catalytic activity/Vol]81 U/XSlutgn15-857WjgWood County Hospital Comment on above:Performed By: #### CMP #### [facility] [address] [place] [address] Bharathi KarenALT [Catalytic activity/Vol]14 U/LCritically ixb08-84Fuv [facility] CenterComment on above:Performed By: #### CMP #### [facility] [address] [place] [address] Bharathi KarenAnion gap [Moles/Vol]13.7 mmol/LNormalThe [facility] CenterComment on above:Performed By: #### CMP #### [facility] [address] [place] [address] Bharathi KarenAST [Catalytic activity/Vol]23 U/CJjmssm39-90BhvWood County Hospital Comment on above:Performed By: #### CMP #### [facility] [address] [address] Bharathi KarenBilirubin [Mass/Vol]0.6 mg/dLNormal0.2-1.3TUpper [facility] Medical Center Comment on above:Performed By: #### CMP #### [facility] [address] [address] Bharathi KarenCalcium [Mass/Vol]8.9 mg/dLNormal8.4-10.2[facility] Comment on above:Performed By: #### CMP #### [facility] [address] [place] [address] Bharathi KarenChloride [Moles/Vol]101 mmol/GYfgkew13-241RkrWood County Hospital Comment on above:Performed By: #### CMP #### [facility] [address] [place] [address] Bharathi KarenCO2 [Moles/Vol]26.4 mmol/QSimuie70.0-30.0[facility] Comment on above:Performed By: #### CMP #### [facility] [address] [place] [address] Bharathi KarenCreatinine [Mass/Vol]1.02 mg/dLNormal0.66-1.25The [facility] Comment on above:Performed By: #### CMP #### [facility] [address] [place] [address] Bharathi KarenEGFR-AF MAURITIAN>60Normal>=60The [facility] CenterComment on above: Performed By: #### CMP #### [facility] [address] [place] [address] Bharathi KarenEGFR-NON AF MAURITIAN>60Normal>=60[facility] HospitalComment on above:Performed By: #### CMP #### [facility] [address] [place] [address] Bharathi KarenGlobulin (S) [Mass/Vol]4.7 g/dLNormalThe [facility] CenterComment on above:Performed By: #### CMP #### [facility] [address] [place], [place] [address] Bharathi KarenGlucose [Mass/Vol]119 mg/dLCritically tcdf93-425Pxy [facility] CenterComment on above:Performed By: #### CMP #### [facility] [address] [place], [place] [address] Bharathi KarenPotassium [Moles/Vol]4.1 mmol/LNormal3.4-5.0The [facility] Comment on above:Performed By: #### CMP #### [facility] [address] [address] Bharathi KarenProtein [Mass/Vol]8.6 g/dLCritically high6.1-8.2The [facility] CenterComment on above:Performed By: #### CMP #### [facility] [address] [place] [address] Bharathi KarenSodium [Moles/Vol]137 mmol/IYjzjmi028-728Dwq [facility] Comment on above:Performed By: #### CMP #### [facility] [address] [id number] Bharathi KarenUrea nitrogen [Mass/Vol]7.0 mg/dLCritically low9.0-20.0The [facility] CenterComment on above:Performed By: #### CMP #### [facility] [address] [place], [place] [address] Bharathi KarenUrea nitrogen/Creatinine [Mass ratio]6.9 mg/mgNormalThe [facility] CenterComment on above:Performed By: #### CMP #### [facility] [address] [place], [place] [address] Bharathi KarenCOVID-19 Positive/Negativeon 52-98-6195OWFOL-19 Positive/Negative NegativeNegativeCleveland Clinic Mentor Hospital CtrComment on above:Testing for SARS-CoV-2 by RT-PCRThis test was developed and its performance characteristics determined by [employer] ([employer]) and validated at the [facility]. This test has not been FDA cleared [...] the authorization is terminated or revoked sooner.Otheron 32-49-1698Pkmxvbalqbr 2019 PCR Inter/[facility] CtrAmphetamines screenon 04-09-2020 Amphetamines Ql (U)NegativeNegativeCleveland Clinic Mentor Hospital CtrBarbiturates [Presence] in Urineon 00-55-7145Zjndetbvrndb Ql (U)NegativeNegOhio State East Hospital CtrBenzodiazepines [Presence] in Urineon 04-09-2020 Benzodiazepines Ql (U)NegativeNegativeCleveland Clinic Mentor Hospital CtrCannabinoids [Presence] in Urine by Screen methodon 66-42-4712Jrjwublwueyh Screen Ql (U) PositiveNegativeCleveland Clinic Mentor Hospital CtrComment on above:These are unconfirmed results and should not be used for legal purposes. Drug Cut-Off Concentration: AMPH 1000 ng/mL RD 200 ng/mL JANETTE 200 ng/mL COCM 300 ng/mL OP 300 ng/mL PCP 25 ng/mL THC 20 ng/mLUrinalysison 65-48-4394Iomkvfy Ql (U)Negative NegativeCleveland Clinic Mentor Hospital CtrUrine cocaine detectionon 04-09-2020 Cocaine Ql (U)NegativeNegativeCleveland Clinic Mentor Hospital CtrUrine phencyclidine detection by screening methodon 68-68-0135Bjaakdnewfvyo Ql (U)NegativeNegative [facility] CtrCOVID-19 Positive/Negativeon 22-88-9945DOHYN-19 Positive/NegativeNegativeNegOhio State East Hospital CtrComment on above: Testing for SARS-CoV-2 by RT-PCRThis test was developed and its performance characteristics determined by [employer] ([employer]) and validated at the [facility]. This test has not been FDA cleared [...] revoked sooner.Otheron 04-06-2020 Coronavirus 2019 PCR [facility] Vital Signs Date TimeVital SignValuePerforming VzgonmddlGgkdaqol95-57-4896 23:20-0400Body dfkkjeamedf27.4 [degF]ANTWAN Snider Work Phone: 1(604)[address] [place], [place] [address]107-02-2024 23:20-0400 Diastolic blood yzjxglxr48 mm[Hg]ANTWAN Snider Work Phone: 1(690)[address] [place], [place] [address]107-02-2024 23:20-0400 Heart rate70 /minANTWAN Snider Work Phone: 1(499)[address] [place], [place] [address]107-02-2024 23:20-0400 Respiratory rate22 /minAPRAnya Snider Work Phone: 1(465)[address] [place], [place] [address]107-02-2024 23:20-0400 SaO2% (BldA) [Mass fraction]98 %ANTWAN Snider Work Phone: 1(435)[address] [place], [place] [address]107-02-2024 23:20-0400 Systolic blood mm[Hg]ANTWAN Snider Work Phone: 1(989)[address] [place], [place] [address]-02-2024 21:59-0400 Body zsywhj799.88 cmAPRN Coleen Snider Work Phone: [facility]07-02-2024 21:59-0400 Body .93 kgAPRAnay Snider Work Phone: [facility]02-11-2021 13:35-0500 BP Hxcwfgelk56 mm[Hg][facility]02-11-2021 13:35-0500BP Bjutysgd479 mm[Hg][facility] 04-09-2020 13:35-0500Pulse (Heart Rate)67 /minDayton Osteopathic Hospital02-11-2021 13:35-0500Pulse Vihjgdua01 %[facility]02-11-2021 13:35-0500Respiratory Rate16 /minDayton Osteopathic Hospital02-11-2021 12:29-0500Body Fedffwxpgcb61.1 [degF]Coleen Snider [facility]02-11-2021 11:43-0500BMI (Body Mass Index)40.1 kg/z0VpxnjmyDayton Osteopathic Hospital02-11-2021 10:27-0500Body weight 130.6 kgDayton Osteopathic Hospital02-11-2021 10:27-0500Height 180.34 cmCh[facility] Encounters Encounter DateEncounter TypeCare ProviderFacilityStart: 08-29-2023 End: 41-83-9955Uhbqonduy department patient visitAPRAnya Snider Work Phone: [facility] Work Phone: Start: 09-08-2021 End: 10-36-4964jiidajlujjBE DOCTOR MISCFacility:V7Mzrvq: 10-01-2020 End: 14-09-9836ggcpmxwfonKI DOCTOR MISCFacility:F4Eyzsm: 09-19-2020 End: 98-57-4164toftholnwaZUVKM PARKERFacility:U5Hcrwz: 05-05-2020 End: 93-47-3087Czvymbh encounter procedureBeauдмитрий SniderLgtw-Ryy-Ekuohiyc Testing Start: 04-09-2020 End: 22-73-0557Qjunsaoea to day surgeryColeen Snider-[facility] Start: 04-06-2020 End: 86-74-4217Qjhngbp encounter procedureColeen AvilaLwdj-Iuy-Iswtzvyw Testing Procedures DateProcedureProcedure DetailPerforming ClinicianStart: 04-09-2020 Phacoemulsification of cataract with intraocular lens implantationMult[facility]are [facility] Plan of Treatment DateCare ActivityDetailAuthorStart: 70-23-3227FW cervical spine without contrast CT cervical spine wo [facility] Hospitaltart: 47-51-4738WO Cervical [facility]: 18-50-1431MF of head without contrastCT head/brain [facility] Start: 42-41-7166GU Unspecified body region WO contrastMedina Hospitaltart: 55-79-3936Dvoyt chest X-rayXR chest 1V portableMedina Hospitaltart: 45-25-8799XM Chest Single viewWilson HealthPatient EducationLaceration Repair With Lydia (DC)[facility] Work Phone: Patient referralCleveland Clinic Mentor [facility] Payers DatePayer CategoryPayerPolicy [id number] Social History DateTypeDetailFacilityStart: 04-06-2020 End: 63-81-3643Qigjskh smoking status NHISSmoker (finding)[facility] Hospitaltart: 03-16-2152Zyq Assigned At [facility] Medical Equipment Procedure CodeEquipment CodeEquipment Original TextEquipment IdentifierDates Phacoemulsification of cataract with intraocular lens implantation ()[id number] FDAStart: 04-09-2020 Phacoemulsification of cataract with intraocular lens implantationPosterior- chamber intraocular lens, pseudophakic()[id number] FDAStart: 05-07-2020 Goals DatePatient GoalDesired Activity/[facility] 08-29-2023 Note Date & VmvcQukiUxokdawb01-37-2723 Hospital Discharge instructions Additional Instructions Clean your wound with shampoo and water daily. Apply antibiotic ointment daily. Follow-up for staple removal in 5 to 7 days.[facility] Work Phone: Evaluation note Note Date & TypeNoteFacilityEvaluation noteNo assessment information available [facility] Work Phone: Advance Directives No [...] and content) DATE CREATED AUTHOR 09/15/2021 [facility] DATE CREATED AUTHOR AUTHOR'S ORGANIZ ATION 09/17/2023 [facility] Care Teams (unrecognized sec tion and content) Team Status: Active Member Role Status Dates Coleen Snider APRN CENTER LEAD CONSULTANT-C Primary Care Provider Act letty Team Status: Inactive Member Role Status Dates Coleen Snider APRN CENTER LEAD CONSULTANT-C Primary Care Provider Act letty Start: August [...] BE BASED ON THE PRIMARY CLINICAL RECORDS. [employer] [facility]. provides no warranty or guarantee of the accuracy or completeness of information in this document.
[2025-01-27] MEDS: CEPHALEXIN 500 MG CAPSULE PO (16:43)
[2025-01-27] MEDS: DOXYCYCLINE MONOHYDRATE 100 MG CAPSULE PO (16:43)
== END 2025-01-27 16:51 | disposition left against medical advice (07) ==
PROVIDERS: Emergency Provider Emergency Medicine; PCP Family Medicine
DX: L03.116 Cellulitis of left lower limb (principal); Z53.29 Procedure and treatment not carried out because of patient's decision for other reasons
CPT/HCPCS: 36415; 80053; 83605; 85025; 99285

== ENCOUNTER 2025-02-05 14:49 | Outpatient (OUT) | payer OTHER, SELFPAY | END 2025-02-05 14:50 | disposition home or self-care (01) | LOC: WC 14:50 | PROVIDERS: PCP Family Medicine; Visit Provider Physician Assistant | DX: L97.425 Non-pressure chronic ulcer of left heel and midfoot with muscle involvement without evidence of necrosis (principal); L97.325 Non-pressure chronic ulcer of left ankle with muscle involvement without evidence of necrosis; L97.825 Non-pressure chronic ulcer of other part of left lower leg with muscle involvement without evidence of necrosis | CPT/HCPCS: G0463 ==